=== PATIENT | male | born 1970 | race Caucasian/White ===

== ENCOUNTER → 2018-01-07 07:59 | Outpatient (CLI) | payer BC, SELFPAY ==
[2018-01-07 08:24] LABS: Basophils % 0.3 % (0.1-2.0); Eosinophils # 0.1 K/mm3 (0.0-0.4); Eosinophils % 1.2 % (0.1-12.0); Hemoglobin 14.7 g/dL (14.1-18.0); Lymphocytes # 1.6 K/mm3 (0.7-4.5); Mean Corpuscular HGB Conc 33.5 g/dL (31.8-35.4); Mean Corpuscular Hemoglobin 30.3 pg (27.0-31.2); Mean Corpuscular Volume 90.6 fl (80-94); Mean Platelet Volume 7.7 fl (7.4-10.4); Monocytes # 0.4 K/mm3 (0.1-1.0); Monocytes % 7.5 % (1.7-9.3); Neutrophils # 3.5 K/mm3 (1.8-7.8); Platelet Count 256 K/mm3 (142-424); Red Blood Count 4.85 M/mm3 (4.60-6.20); Red Cell Distribution Width 13.3 % (11.5-17.5); White Blood Count 5.6 K/mm3 (4.8-10.8)
[2018-01-07 09:10] LABS: Anion Gap 11.2 mEq/L (5-15); Blood Urea Nitrogen 14 mg/dL (7-18); Carbon Dioxide 30 mmol/L (21.0-32.0); Chloride 105 mmol/L (98-107); Creatinine,Serum 1.09 mg/dL (0.70-1.30); Estimated Glomerular Filt Rate 73 ml/min (>60); GFR (African American) 88 ML/MIN (>60); Glucose 106 mg/dL (74-106); Potassium 4.2 mmoL/L (3.5-5.1); Sodium 142 mmol/L (136-145)
== END ==
PROVIDERS: Family Provider Emergency Medicine; PCP Nurse Practitioner Family; Visit Provider Surgery
DX: K40.90 Unilateral inguinal hernia, without obstruction or gangrene, not specified as recurrent (principal)
CPT/HCPCS: 36415; 80048; 85025; 93005

== ENCOUNTER 2018-01-10 05:57 | Day surgery (SDC) | payer BC, SELFPAY ==
[2018-01-08 11:44] VITALS: BMI 24.3
[2018-01-10] VITALS (10 sets, daily range): BP systolic 119–146; BP diastolic 53–87; PULSE 67–79; RESP 16; TEMP 36.3–43; O2SAT 96–99
--- NOTE | 2018-01-10 08:22 | P.OP_ITS ---
Date of procedure: 01/10/18 Pre-op Diagnosis:: Left inguinal hernia Post-op Diagnosis:: Same Procedure performed:: Open repair left inguinal hernia Surgeon:: Micheal Guzman MD [employer](s):: Charlie Salomon PRINCIPAL TECHNICAL WRITER:: Juventino Nicole Anesthesia: GETA Estimated blood loss (mL): 15 Operative findings:: Indirect defect with thin hernia sac Weakened floor, but no definitive direct defect Operative note:: After informed consent was obtained, the patient was taken to the operating room and placed in the supine position. General anesthesia was induced and his abdomen and groin/scrotum were prepped and draped in a sterile fashion. After infiltration with local anesthetic an oblique incision was made in the left groin. A combination of sharp dissection with scalpel and electrocautery was utilized to transect through Ike's fascia to the level of the external aponeurosis. The external aponeurosis was sharply opened with Metzenbaum scissors to the level of the external ring. The contents of the canal were carefully elevated. A weakened floor was noted. No definitive direct defect was seen. A fairly complex chronic indirect defect with a very thin hernia sac was noted in the hernia sac was carefully dissected from surrounding tissue. A cord lipoma was excised and passed off for pathologic evaluation. A Prolene plug was placed in position and secured with Ethibond suture. The overlying Prolene patch was then secured to the shelving edge inferiorly and fascial margin superiorly with interrupted Ethibond. The external aponeurosis was reapproximated with running Vicryl suture. Ike's fascia was reapproximated in the same manner. Skin was closed with 4-0 Monocryl in a running subcuticular fashion. Steri-Strips were applied. Patient's anesthetic agents were reversed and he was extubated prior to transfer to recovery. Condition: stable Disposition: PACU Specimens:: Cord lipoma Complications:: No immediate
--- NOTE | 2018-01-10 08:29 | HMH.ANESCL ---
[facility] Anesthesia Checklist - Patient Identification Patient Identification: Arm Band - Structural Data Admitted From: Home Planned Operative Procedure/s: left open inguinal hernia repair Consent for Planned Operative Procedure(s) Verified: Yes Verified Documents: Surgical Consent, History and Physical - NPO Status Verified Time NPO: 00:00 - Additional verifications Anesthesia Reactions: No - Airway Assessment C-Spine Mobility Assessed: Yes (mp2) TMJ Mobility Assessed: Yes Dentition: Good Dentition - Neurological Assessment Level of Consciousness: Awake, Alert - Anesthesia Plan Anesthesia Risk discussed: Yes Anesthesia Plan: Verified ASA Class: II Anesthesia Type: General [facility] Anesthesia HX I have reviewed the patient's past medical history: Yes Medical History: Reports:: Kidney Stones Denies:: Cancer, Diabetes Mellitus Type 1, Diabetes Mellitus Type 2, MRSA, Seizures Other Medical History: Reports: Sinus Problems. Denies: Blood Transfusion Reaction Laterality Cases: Bilateral: Arthroscopy Shoulder, Other Other Surgeries: Yes: Other Amputation: No Fractures: No *Family Hx:: Hypertension, Cancer
--- NOTE | 2018-01-10 08:30 | HMH.ANESI ---
[facility] Anesthesia Record Part I Intake, IV Amount: 1,200 Estimated blood loss (mL): 10 Urine output (mL): 0 Blood Pressure: 146/86 SaO2: 98 Pulse Rate: 76 Respiratory Rate: 16 Temperature: 97.4 F Patient is:: Drowsy, Stable Stable to PACU at:: 08:25
--- NOTE | 2018-01-10 08:31 | P.PN_ITS ---
[facility] Anesthesia Record Part II Discharge Time: 08:55 Destination: [facility] PACU nurse assessment reviewed?: Yes Patient Condition:: Good Anesthesia Complications:: None
--- NOTE | 2018-01-10 08:31 | HMH.ANESII ---
[facility] Anesthesia Record Part II Discharge Time: 08:55 Destination: [facility] PACU nurse assessment reviewed?: Yes Patient Condition:: Good Anesthesia Complications:: None
== END 2018-01-10 10:28 | disposition home or self-care (01) ==
LOC: OR 05:58
PROVIDERS: Family Provider Emergency Medicine; PCP Nurse Practitioner Family; Visit Provider Surgery
PROC: (CPT 49505; principal; 2018-01-10 07:30)
DX: K40.90 Unilateral inguinal hernia, without obstruction or gangrene, not specified as recurrent (principal)
CPT/HCPCS: 49505; 96374; J0131; J2405

== ENCOUNTER → 2018-01-22 14:17 | Outpatient (REF) | payer BC, SELFPAY ==
[2018-01-22 18:33] LABS: Amphetamine/Metha Screen,Urine Negative ng/mL (<1000); Barbiturates Screen,Urine Negative ng/mL (<200); Benzodiazepines Screen,Urine Negative ng/mL (200); Methadone Screen,Urine Negative ng/mL (<300)
[2018-01-22 19:26] LABS: Cannabinoid Screen,Urine Negative ng/mL (<50); Cocaine Screen,Urine Negative ng/g (<300); Opiate Screen,Urine Negative ng/mL (<300); Phencyclidine Screen,Urine Negative ng/mL (<25)
== END ==
LOC: LAB 14:17
PROVIDERS: Visit Provider Nurse Practitioner Family
DX: Z79.899 Other long term (current) drug therapy (principal)
CPT/HCPCS: 80305

== ENCOUNTER 2018-01-28 09:41 | Emergency (ER) | payer BC, SELFPAY ==
[2018-01-28 09:54] VITALS: BP 134/84; PULSE 69; RESP 20; TEMP 36.6; O2SAT 97; BMI 25.0
--- NOTE | 2018-01-28 10:08 | HMH.EDUTC ---
[facility] Clinical Impression: Right otitis media Qualifiers: Otitis media type: suppurative Chronicity: acute Recurrence: not specified as recurrent Spontaneous tympanic membrane rupture: without spontaneous rupture Qualified Code(s): H66.001 - Acute suppurative otitis media without spontaneous rupture of ear drum, right ear Disposition: Home, Self-Care Condition on Discharge: Good Instructions: DI for Otitis Media (Middle Ear Infection)-Child Additional Instructions: * Your discharge instructions say child but disregard. No instructions for adult. Still applies. * Start antibiotic PERICO and be sure to take as ordered for the FULL length of time although you should start to feel better in 24-48 hours. * Monitor Temp. Follow up if fever develops * Encourage fluids, water, Gatorade, PowerAde, pedialyte if /toddler/child * warm compress often helps when placed over ear * sleep elevated Prescriptions: Amoxicillin [Amoxicillin 875MG Tab] 875 mg PO Q12H #20 tab Referrals: Edwin Sanchez MD [Staff Physician] - (Immediately for new or worsening symptoms, no noticeable improvement in 48-72 hours AND keep upcoming appointment to ensure ears are back to baseline. If you can't get in with Dr. Sanchez, try [facility] but if unable to see her, return to [facility]. ) Time of Disposition: 10:23 Medical Decision Making - Rd Inquiry Pt receiving controlled substance: No Vital Signs: 01/28/18 09:54 Temperature 97.9 F Temperature Source Oral Pulse Rate [Right Radial] 69 Respiratory Rate 20 Blood Pressure [Right Arm] 134/84 Blood Pressure Mean [Right Arm] 100 Blood Pressure Source [Right Arm] Automatic Cuff Blood Pressure Position [Right Arm] Sitting 02 Sat by Pulse Oximetry 97 Oxygen Delivery Method Room Air [facility] [place] HPI - General Stated complaint: congestion right ear pain Time Seen by Provider: 01/28/18 10:08 Mode of Arrival: Family Vehicle Source of Information: Patient Limitations: No Limitations Description of Symptoms (Recalled from Triage Doc. by RN): PT C/O SINUS PRESSURE AND PAIN FOR 4 DAYS. HEENT Symptoms (Recalled from RN notes): Yes (SINUS PRESSURE AND PAIN) Resp Symptoms (Recalled from RN notes): No Skin Symptoms (Recalled from RN notes): No MS Symptoms (Recalled from RN notes): No Functional Status (Recalled from RN notes): NA - History of Present Illness Provider Complaint: c/o right ear pain and pressure w/ decreased hearing. Started 4-5 days ago w/ nasal congestion, rhinorrhea, sius pressure. On flonase and singulair for allergies and right eustachian tube dysfunction per Dr. Sanchez, ENT. Has appt w/ him within the next several weeks . No fevers. Sinus pressure improved today but wokeup with right ear pain. - Related Data Home Medications Medication Instructions Recorded Confirmed sertraline 100 mg tablet 100 mg PO QDAY 11/13/17 01/28/18 trazodone 50 mg tablet 50 mg PO QHS PRN 11/13/17 01/28/18 Previous Rx's Medication Instructions Recorded gabapentin 600 mg tablet 600 mg PO BID #60 tab 01/22/18 Amoxicillin [Amoxicillin 875MG Tab] 875 mg PO Q12H #20 tab 01/28/18 Allergies Allergy/AdvReac Type Severity Reaction Status Date / Time oxycodone [From PERCOCET] Allergy Intermediate FEELS SICK Verified 01/28/18 09:59 aspirin AdvReac Unknown UPSET Verified 01/28/18 09:59 STOMACH - Worker's Comp Is this a Worker's Comp case?: No [facility] History I have reviewed the patient's past medical history: Yes Medical History: Reports:: Depression, Kidney Stones Denies:: Cancer, Diabetes Mellitus Type 1, Diabetes Mellitus Type 2, MRSA, Seizures Other Medical History: Reports: Sinus Problems, Other (IBS, insomnia, eustachina tube dysfunction). Denies: Blood Transfusion Reaction Laterality Cases: Bilateral: Arthroscopy Shoulder Other Surgeries: Yes: Other Amputation: No Fractures: No Comment: Septoplasty - Social History Smoking Status: Current some day smoker Tobacco Type: cigarettes
[2018-01-28 10:24] VITALS: BP 129/76; PULSE 72; RESP 18; TEMP 36.8; O2SAT 98
== END 2018-01-28 10:26 | disposition home or self-care (01) ==
PROVIDERS: Emergency Provider Nurse Practitioner Family; Family Provider Emergency Medicine; PCP Nurse Practitioner Family
DX: H66.001 Acute suppurative otitis media without spontaneous rupture of ear drum, right ear (principal)
CPT/HCPCS: 99201

== ENCOUNTER 2018-01-31 11:23 | Emergency (ER) | payer BC, SELFPAY ==
[2018-01-31 11:35] VITALS: BP 169/102; PULSE 72; RESP 20; TEMP 36.8; O2SAT 98; BMI 25.0
--- NOTE | 2018-01-31 11:45 | HMH.EDUTC ---
[facility] Disposition Clinical Impression: Otitis media Qualifiers: Otitis media type: unspecified Laterality: right Qualified Code(s): H66.91 - Otitis media, unspecified, right ear Disposition: Home, Self-Care Condition on Discharge: Good Instructions: Middle Ear Infection Additional Instructions: Continued to take Amoxicillin as previously prescribed Over the counter Motrin or Tylenol as needed for pain or fever Return if needed Warm compresses on ear may help with pain Keep appointment on Saturday with Dr Sanchez Follow up with family doctor in 12-48 hours or sooner if any worsening of symptoms and straight to ER if any life threatening issues Prescriptions: Ofloxacin [Floxin 0.3% OTIC Solution 5mL] 10 drops OT BID #1 bottle Referrals: Jocelyn Nuñez APRN [Primary Care Provider] - Time of Disposition: 11:54 Medical Decision Making - Medical Records Medical records reviewed: Yes: I reviewed the patient's medical records. - Rd Inquiry Pt receiving controlled substance: No Rd was queried for this patient: No Vital Signs: 01/31/18 11:35 Temperature 98.2 F Temperature Source Temporal Artery Scan Pulse Rate [Right] 72 Respiratory Rate 20 Blood Pressure [Right Arm] 169/102 Blood Pressure Mean [Right Arm] 124 Blood Pressure Source [Right Arm] Automatic Cuff Blood Pressure Position [Right Arm] Sitting 02 Sat by Pulse Oximetry 98 Oxygen Delivery Method Room Air [facility] HPI - General Stated complaint: right ear pain Time Seen by Provider: 01/31/18 11:35 Mode of Arrival: Ambulatory Source of Information: Patient Limitations: No Limitations Description of Symptoms (Recalled from Triage Doc. by RN): HAERING PROBLEMS RIGHT EAR, HERE FEW DAYS AGO FOR SAME HEENT Symptoms (Recalled from RN notes): Yes Resp Symptoms (Recalled from RN notes): No Skin Symptoms (Recalled from RN notes): No MS Symptoms (Recalled from RN notes): No Functional Status (Recalled from RN notes): N - History of Present Illness Provider Complaint: Patient state that he was here a couple days ago for right ear pain State that he was diagnosed with ear infection and given oral antibiotics State that his sinuses was doing better but still having pain in his right ear. State that he has had problems with this ear before and has an appointment on Saturday with Dr Sanchez - Related Data Home Medications Medication Instructions Recorded Confirmed sertraline 100 mg tablet 100 mg PO QDAY 11/13/17 01/28/18 trazodone 50 mg tablet 50 mg PO QHS PRN 11/13/17 01/28/18 Previous Rx's Medication Instructions Recorded gabapentin 600 mg tablet 600 mg PO BID #60 tab 01/22/18 Amoxicillin [Amoxicillin 875MG Tab] 875 mg PO Q12H #20 tab 01/28/18 Ofloxacin [Floxin 0.3% OTIC 10 drops OT BID #1 bottle 01/31/18 Solution 5mL] Allergies Allergy/AdvReac Type Severity Reaction Status Date / Time oxycodone [From PERCOCET] Allergy Intermediate FEELS SICK Verified 01/28/18 14:20 aspirin AdvReac Unknown UPSET Verified 01/28/18 14:20 STOMACH - Worker's Comp Is this a Worker's Comp case?: No [facility] History I have reviewed the patient's past medical history: Yes Medical History: Reports:: Depression, Kidney Stones Denies:: Cancer, Diabetes Mellitus Type 1, Diabetes Mellitus Type 2, MRSA, Seizures Other Medical History: Reports: Sinus Problems, Other. Denies: Blood Transfusion Reaction Laterality Cases: Bilateral: Arthroscopy Shoulder Other Surgeries: Yes: Hernia Repair, Other Amputation: No Fractures: No Comment: Septoplasty - Social History Smoking Status: Current every day smoker Tobacco Type: cigarettes Alcohol Intake: never Alcohol Intake Frequency:: holidays/special occasions only Substance Use Type: denies use - Psychiatric History Expresses thoughts of harming self/others: None Suicide Plan Description: No Plan Pschychiatric History:: Reports:: Depression Family Hx:: Hypertension, Cancer ROS Obtained: Yes All systems reviewed &
--- NOTE | 2018-01-31 11:48 | ED_ITS ---
[facility] [place] Disposition Clinical Impression: Otitis media Qualifiers: Otitis media type: unspecified Laterality: right Qualified Code(s): H66.91 - Otitis media, unspecified, right ear Disposition: Home, Self-Care Condition on Discharge: Good Instructions: Middle Ear Infection Additional Instructions: Continued to take Amoxicillin as previously prescribed Over the counter Motrin or Tylenol as needed for pain or fever Return if needed Warm compresses on ear may help with pain Keep appointment on Saturday with Dr Sanchez Follow up with family doctor in 12-48 hours or sooner if any worsening of symptoms and straight to ER if any life threatening issues Prescriptions: Ofloxacin [Floxin 0.3% OTIC Solution 5mL] 10 drops OT BID #1 bottle Referrals: Jocelyn Nuñez APRN [Primary Care Provider] - Time of Disposition: 11:54 Medical Decision Making - Medical Records Medical records reviewed: Yes: I reviewed the patient's medical records. - Rd Inquiry Pt receiving controlled substance: No Rd was queried for this patient: No Vital Signs: 01/31/18 11:35 Temperature 98.2 F Temperature Source Temporal Artery Scan Pulse Rate [Right] 72 Respiratory Rate 20 Blood Pressure [Right Arm] 169/102 Blood Pressure Mean [Right Arm] 124 Blood Pressure Source [Right Arm] Automatic Cuff Blood Pressure Position [Right Arm] Sitting 02 Sat by Pulse Oximetry 98 Oxygen Delivery Method Room Air [facility] [place] HPI - General Stated complaint: right ear pain Time Seen by Provider: 01/31/18 11:35 Mode of Arrival: Ambulatory Source of Information: Patient Limitations: No Limitations Description of Symptoms (Recalled from Triage Doc. by RN): HAERING PROBLEMS RIGHT EAR, HERE FEW DAYS AGO FOR SAME HEENT Symptoms (Recalled from RN notes): Yes Resp Symptoms (Recalled from RN notes): No Skin Symptoms (Recalled from RN notes): No MS Symptoms (Recalled from RN notes): No Functional Status (Recalled from RN notes): N - History of Present Illness Provider Complaint: Patient state that he was here a couple days ago for right ear pain State that he was diagnosed with ear infection and given oral antibiotics State that his sinuses was doing better but still having pain in his right ear. State that he has had problems with this ear before and has an appointment on Saturday with Dr Sanchez - Related Data Home Medications Medication Instructions Recorded Confirmed sertraline 100 mg tablet 100 mg PO QDAY 11/13/17 01/28/18 trazodone 50 mg tablet 50 mg PO QHS PRN 11/13/17 01/28/18 Previous Rx's Medication Instructions Recorded gabapentin 600 mg tablet 600 mg PO BID #60 tab 01/22/18 Amoxicillin [Amoxicillin 875MG Tab] 875 mg PO Q12H #20 tab 01/28/18 Ofloxacin [Floxin 0.3% OTIC 10 drops OT BID #1 bottle 01/31/18 Solution 5mL] Allergies Allergy/AdvReac Type Severity Reaction Status Date / Time oxycodone [From PERCOCET] Allergy Intermediate FEELS SICK Verified 01/28/18 14: 20 aspirin AdvReac Unknown UPSET Verified 01/28/18 14:20 STOMACH - Worker's Comp Is this a Worker's Comp case?: No [facility] History I have reviewed the patient's past medical history: Yes Medical History: Reports:: Depression, Kidney Stones Denies:: Cancer, Diabetes Mellitus Type 1, Diabetes Mellitus Type 2, MRSA, Seizures Other Medical History: Re
[2018-01-31 11:59] VITALS: BP 169/90; PULSE 72; RESP 20; TEMP 36.8
== END 2018-01-31 12:03 | disposition home or self-care (01) ==
PROVIDERS: Emergency Provider Nurse Practitioner; Family Provider Emergency Medicine; PCP Nurse Practitioner Family
DX: H66.91 Otitis media, unspecified, right ear (principal); F32.9 Major depressive disorder, single episode, unspecified; F17.210 Nicotine dependence, cigarettes, uncomplicated; Z79.82 Long term (current) use of aspirin; Z88.6 Allergy status to analgesic agent
CPT/HCPCS: 99201

== ENCOUNTER → 2018-04-15 13:54 | Outpatient (CLI) | payer BC, SELFPAY ==
--- NOTE | 2018-04-15 13:56 | XR_ITS ---
XR shoulder RT min 2V HISTORY: ITS.REASON: RIGHT shoulder pain ORDERING PHYSICIAN: Jason Bell MD PATIENT AGE: 47 years Comparison: None FINDINGS: No fracture or dislocation. No lytic or blastic change. There is normal mineralization. The joint spaces are well-preserved. No significant degenerative/arthritic changes. No erosive changes evident. No subacromial stenosis IMPRESSION: Negative right shoulder
== END ==
PROVIDERS: PCP Emergency Medicine; Visit Provider Orthopaedic Surgery
DX: M25.511 Pain in right shoulder (principal)
CPT/HCPCS: 73030

== ENCOUNTER → 2018-04-21 09:19 | Outpatient (POV) | payer BC, SELFPAY ==
[2018-04-21 09:58] VITALS: BP 129/77; PULSE 76; RESP 18; O2SAT 99; BMI 25.0
--- NOTE | 2018-04-21 11:21 | HMH.PAINSOAP ---
[facility] Pain Management SOAP Note Subjective:: Patient is a pleasant 47-year-old white male who presents today for follow-up after RFA of the L3-L4 L4-L5 L5-S1 levels bilaterally. Patient had this back in October and has had 80-90% relief until recently. Patient is having a new pain which is lower in nature. Patient is extremely tender over bilateral SI joints. Patient states that he is having some radiation of pain into his legs and hips. Both sides affect him. Patient rates his pain a 6 out of 10 today. Patient's tried and failed anti-inflammatories, respiratory care practitioner, medications, stretching therapies. Patient is interested in pursuing injective therapies due to the relief he has had in the past. ROS General: no recent weight change, no fever, no sleep disturbances Respiratory: no cough, no shortness of air, no recurring pulmonary infections Cardiovascular/Peripheral Vascular: No chest pain, No palpitations, no edema, no shortness of breath. Gastrointestinal: no incontinence, normal bowel movements reported Genitourinary: no incontinence Musculoskeletal: Bilateral SI joint pain, low back pain Psychiatric: normal mood/ affect Neurological: [denies weakness in extremities], [denies balance issues] Objective:: Physical Exam General: Alert and oriented x3, no acute distress, pleasant and cooperative, [on room air] Lungs: Resps E/U, Symmetrical chest expansion, Eyes: PERRL Musculoskeletal: Flexion and extension of lumbar spine somewhat guarded secondary to pain, deep tendon reflexes normal, strength in upper and lower extremities [5/5] slightly antalgic gait noted, positive Trena's test bilaterally, extreme point tenderness over bilateral SI joint Neurological: speech clear, clinical research coordinator equal, no gross sensory deficits Assessment:: Bilateral sacroiliitis, spondylosis of the lumbar spine Plan:: We will schedule bilateral SI joint injections for this patient. Patient has done well with injective therapy in the past. Patient has failed other conservative measures. I will follow-up with him after his injections. This note was dictated using voice recognition software and may contain errors or omissions
--- NOTE | 2018-04-21 11:24 | P.CONS_ITS ---
[facility] Pain Management SOAP Note Subjective:: Patient is a pleasant 47-year-old white male who presents today for follow-up after RFA of the L3-L4 L4-L5 L5-S1 levels bilaterally. Patient had this back in October and has had 80-90% relief until recently. Patient is having a new pain which is lower in nature. Patient is extremely tender over bilateral SI joints. Patient states that he is having some radiation of pain into his legs and hips. Both sides affect him. Patient rates his pain a 6 out of 10 today. Patient's tried and failed anti-inflammatories, healthcare consulting manager, medications, stretching therapies. Patient is interested in pursuing injective therapies due to the relief he has had in the past. ROS General: no recent weight change, no fever, no sleep disturbances Respiratory: no cough, no shortness of air, no recurring pulmonary infections Cardiovascular/Peripheral Vascular: No chest pain, No palpitations, no edema, no shortness of breath. Gastrointestinal: no incontinence, normal bowel movements reported Genitourinary: no incontinence Musculoskeletal: Bilateral SI joint pain, low back pain Psychiatric: normal mood/ affect Neurological: [denies weakness in extremities], [denies balance issues] Objective:: Physical Exam General: Alert and oriented x3, no acute distress, pleasant and cooperative, [ on room air] Lungs: Resps E/U, Symmetrical chest expansion, Eyes: PERRL Musculoskeletal: Flexion and extension of lumbar spine somewhat guarded secondary to pain, deep tendon reflexes normal, strength in upper and lower extremities [5/5] slightly antalgic gait noted, positive Trena's test bilaterally, extreme point tenderness over bilateral SI joint Neurological: speech clear, crack off person equal, no gross sensory deficits Assessment:: Bilateral sacroiliitis, spondylosis of the lumbar spine Plan:: We will schedule bilateral SI joint injections for this patient. Patient has done well with injective therapy in the past. Patient has failed other conservative measures. I will follow-up with him after his injections. This note was dictated using voice recognition software and may contain errors or omissions
== END ==
PROVIDERS: Family Provider Emergency Medicine; PCP Emergency Medicine; Visit Provider Clinical Nurse Specialist Family Health
DX: M46.1 Sacroiliitis, not elsewhere classified (principal)
CPT/HCPCS: 99212

== ENCOUNTER → 2018-05-16 09:18 | Outpatient (CLI) | payer BC, SELFPAY ==
[2018-05-16 17:20] LABS: Amphetamine/Metha Screen,Urine Negative ng/mL (<1000); Barbiturates Screen,Urine Negative ng/mL (<200); Benzodiazepines Screen,Urine Negative ng/mL (<200); Cannabinoid Screen,Urine Negative ng/mL (<50); Cocaine Screen,Urine Negative ng/mL (<300); Methadone Screen,Urine Negative ng/mL (<300); Opiate Screen,Urine Negative ng/mL (<300); Phencyclidine Screen,Urine Negative ng/mL (<25)
== END ==
PROVIDERS: Visit Provider Nurse Practitioner Family
DX: Z79.899 Other long term (current) drug therapy (principal)
CPT/HCPCS: 80305

== ENCOUNTER 2018-06-18 10:39 | Outpatient (CLI) | payer BC, SELFPAY ==
[2018-06-18 11:00] VITALS: BP 126/76; PULSE 63; RESP 16; TEMP 36.6; O2SAT 97
== END 2018-06-18 11:05 | disposition home or self-care (01) ==
LOC: INF 10:40
PROVIDERS: Family Provider Emergency Medicine; PCP Emergency Medicine; Visit Provider Surgery
DX: R10.32 Left lower quadrant pain (principal); Z98.890 Other specified postprocedural states
CPT/HCPCS: 96372

== ENCOUNTER → 2018-06-23 09:59 | Outpatient (POV) | payer BC, SELFPAY ==
[2018-06-23 10:59] VITALS: BP 144/95; PULSE 57; RESP 18; O2SAT 98; BMI 25.0
--- NOTE | 2018-06-23 11:05 | XR_ITS ---
XR sacroiliac joint BI min 3V CLINICAL INDICATION: ITS.REASON: SI PAIN ORDERING PHYSICIAN: Cecilia Sanders PATIENT AGE: 47 years Comparison: None FINDINGS: The SI joints have an unremarkable appearance. No evidence of effusion, sclerosis, or lytic change. IMPRESSION: Negative SI joints
--- NOTE | 2018-06-23 13:59 | HMH.PAINSOAP ---
[facility] Pain Management SOAP Note Subjective:: Patient is a pleasant 47-year-old white male who presents today for follow-up. Patient and I have been trying to get approved bilateral SI joint injections. Patient has extreme point tenderness over the his bilateral SI joints. Patient does now have an x-ray of his bilateral SI joints. Patient has had an RFA and is doing well at this time with his back pain. Patient states that when he walks for long periods of time that when his SI joint pain begins. Patient is taken anti-inflammatories with little to no success. He rates his pain a 5 out of 10 today. He has tried and failed hearing care practitioner, medications, stretching therapies. ROS General: no recent weight change, no fever, no sleep disturbances Respiratory: no cough, no shortness of air, no recurring pulmonary infections Cardiovascular/Peripheral Vascular: No chest pain, No palpitations, no edema, no shortness of breath. Gastrointestinal: no incontinence, normal bowel movements reported Genitourinary: no incontinence Musculoskeletal: SI joint pain Psychiatric: normal mood/ affect Neurological: [denies weakness in extremities], [denies balance issues] Objective:: Physical Exam General: Alert and oriented x3, no acute distress, pleasant and cooperative, [on room air] Lungs: Resps E/U, Symmetrical chest expansion, Eyes: PERRL Musculoskeletal: Flexion and extension of lumbar spine somewhat guarded secondary to pain, deep tendon reflexes normal, strength in upper and lower extremities [5/5], lightly antalgic gait noted, positive Trena's test bilaterally, extreme point tenderness over the bilateral SI joint Neurological: speech clear, polysomnographic technician equal, no gross sensory deficits Assessment:: Sacroiliitis Plan:: We will plan bilateral SI joint injections for the patient given his symptomology and physical assessment. I will follow-up with the patient after his injection. Patient is not on any anticoagulation therapy. This note was dictated using voice recognition software and may contain errors or omissions
--- NOTE | 2018-06-23 14:02 | P.CONS_ITS ---
[facility] Pain Management SOAP Note Subjective:: Patient is a pleasant 47-year-old white male who presents today for follow-up. Patient and I have been trying to get approved bilateral SI joint injections. Patient has extreme point tenderness over the his bilateral SI joints. Patient does now have an x-ray of his bilateral SI joints. Patient has had an RFA and is doing well at this time with his back pain. Patient states that when he walks for long periods of time that when his SI joint pain begins. Patient is taken anti-inflammatories with little to no success. He rates his pain a 5 out of 10 today. He has tried and failed resident care coordinator, medications, stretching therapies. ROS General: no recent weight change, no fever, no sleep disturbances Respiratory: no cough, no shortness of air, no recurring pulmonary infections Cardiovascular/Peripheral Vascular: No chest pain, No palpitations, no edema, no shortness of breath. Gastrointestinal: no incontinence, normal bowel movements reported Genitourinary: no incontinence Musculoskeletal: SI joint pain Psychiatric: normal mood/ affect Neurological: [denies weakness in extremities], [denies balance issues] Objective:: Physical Exam General: Alert and oriented x3, no acute distress, pleasant and cooperative, [ on room air] Lungs: Resps E/U, Symmetrical chest expansion, Eyes: PERRL Musculoskeletal: Flexion and extension of lumbar spine somewhat guarded secondary to pain, deep tendon reflexes normal, strength in upper and lower extremities [5/5], lightly antalgic gait noted, positive Trena's test bilaterally, extreme point tenderness over the bilateral SI joint Neurological: speech clear, airline mechanic equal, no gross sensory deficits Assessment:: Sacroiliitis Plan:: We will plan bilateral SI joint injections for the patient given his symptomology and physical assessment. I will follow-up with the patient after his injection. Patient is not on any anticoagulation therapy. This note was dictated using voice recognition software and may contain errors or omissions
== END ==
PROVIDERS: Family Provider Emergency Medicine; PCP Emergency Medicine; Visit Provider Clinical Nurse Specialist Family Health
DX: M46.1 Sacroiliitis, not elsewhere classified (principal); Z79.1 Long term (current) use of non-steroidal anti-inflammatories (NSAID)
CPT/HCPCS: 72202; 99213

== ENCOUNTER 2018-06-30 10:00 | Outpatient (RCR) | payer BC, SELFPAY ==
--- NOTE | 2018-04-23 13:44 | HMH.OTOPEV ---
OT Inpatient Evaluation Rehab OT Outpatient Eval Start: 04/23/18 13:31 Freq: Status: Active Protocol: Document 04/23/18 13:31 RMARSHALLavinia (Rec: 04/23/18 13:43 [facility] [id number]) Electronically Signed By Liv Dean OT 04/23/18 13:31 Outpatient Therapy Subjective History Subjective History Pt is a 47 year old male who reports to therapy for initial evaluation to right shoulder. Pt has had 2 surgeries on the right shoulder in the past (labrum and bursitis). Pt has also had a fusion of the left shoulder (arthrodesis) a few years ago. From over use and compensation with the right shoulder pt has developed symptoms consistent with shoulder impingement. Pt does demonstrate with slight decreased AROM and strength. Pt will continue to be seen in order to address these deficits and improve functional use of right shoulder. Chief Complaint Pain Symptom Type Ache Throb Sharp Dull Stabbing Burning Symptoms Relieved By Nothing Symptoms Aggravated By Physical Activity Lifting Prior Functional Limitations None Current Functional Limitations Reaching Lifting Housework Recreation Activity Symptom Description Intermittent Activity Dependent Level of pain today (0-10) 1 Pain scale - at its best (0-10) 1 Pain scale - at its worst (0-10) 8 Shoulder/Elbow Eval Shoulder Objective Measurements Palpation Tenderness tenderness shoulder exam standard right tenderness over the bicipital tendon right shoulder exam standard Shoulder Palpation Findings Tenderness Shoulder ROM Right Shoulder ROM Limitations Muscle Weakness Pain Shoulder Abduction Active Range of 130 degrees Motion (degrees) Shoulder Flexion Active Range of Motion 140 degrees (degrees) Query Text: Shoulder External Rotation Active Range 60 degrees
== END 2018-06-30 10:01 | disposition home or self-care (01) ==
LOC: OT 10:00
PROVIDERS: Family Provider Emergency Medicine; PCP Emergency Medicine; Visit Provider Orthopaedic Surgery
DX: M75.41 Impingement syndrome of right shoulder (principal)
CPT/HCPCS: 97014; 97033; 97110; 97166; G0283

== ENCOUNTER → 2018-06-30 15:01 | Outpatient (POV) | payer BC, SELFPAY ==
[2018-06-30 15:23] VITALS: BP 141/85; PULSE 59; RESP 18; O2SAT 98; BMI 25.0
--- NOTE | 2018-06-30 15:48 | HMH.PAINSOAP ---
[facility] Pain Management SOAP Note Subjective:: Patient is a pleasant 47-year-old white male who presents today for follow-up. Patient had an x-ray of his bilateral SI joints which is fairly benign. Patient still having a lot of low back and SI joint pain. Patient remained 5 out of 10 today. He tried and failed anti-inflammatories, primary care coordinator, medications, stretching therapies. He and I discussed the utilization of an SI joint belt along with a short round of steroids to see if this is beneficial for his pain management. Patient continues to stay busy and is still working. ROS General: no recent weight change, no fever, no sleep disturbances Respiratory: no cough, no shortness of air, no recurring pulmonary infections Cardiovascular/Peripheral Vascular: No chest pain, No palpitations, no edema, no shortness of breath. Gastrointestinal: no incontinence, normal bowel movements reported Genitourinary: no incontinence Musculoskeletal: Bilateral SI joint pain. Psychiatric: normal mood/ affect Neurological: [denies weakness in extremities], [denies balance issues] Objective:: Physical Exam General: Alert and oriented x3, no acute distress, pleasant and cooperative, [on room air] Lungs: Resps E/U, Symmetrical chest expansion, Eyes: PERRL Musculoskeletal: Flexion and extension of lumbar spine somewhat guarded secondary to pain, deep tendon reflexes normal, strength in upper and lower extremities [5/5], positive Trena's test bilaterally. slightly antalgic gait noted, Neurological: speech clear, wearing apparel shaker equal, no gross sensory deficits Assessment:: Sacroiliitis, degenerative disc disease of the lumbar spine Plan:: We will give the patient prednisone 20 mg 1 p.o. twice daily for 5 days. I also encouraged him to purchase an SI joint belt for added stability. I will follow-up with the patient in 1 month. Patient's been instructed to call the office if he has any issues prior to his next appointment. This note was dictated using voice recognition software and may contain errors or omissions
--- NOTE | 2018-06-30 15:51 | P.CONS_ITS ---
[facility] Pain Management SOAP Note Subjective:: Patient is a pleasant 47-year-old white male who presents today for follow-up. Patient had an x-ray of his bilateral SI joints which is fairly benign. Patient still having a lot of low back and SI joint pain. Patient remained 5 out of 10 today. He tried and failed anti-inflammatories, care administrative tech, medications, stretching therapies. He and I discussed the utilization of an SI joint belt along with a short round of steroids to see if this is beneficial for his pain management. Patient continues to stay busy and is still working. ROS General: no recent weight change, no fever, no sleep disturbances Respiratory: no cough, no shortness of air, no recurring pulmonary infections Cardiovascular/Peripheral Vascular: No chest pain, No palpitations, no edema, no shortness of breath. Gastrointestinal: no incontinence, normal bowel movements reported Genitourinary: no incontinence Musculoskeletal: Bilateral SI joint pain. Psychiatric: normal mood/ affect Neurological: [denies weakness in extremities], [denies balance issues] Objective:: Physical Exam General: Alert and oriented x3, no acute distress, pleasant and cooperative, [ on room air] Lungs: Resps E/U, Symmetrical chest expansion, Eyes: PERRL Musculoskeletal: Flexion and extension of lumbar spine somewhat guarded secondary to pain, deep tendon reflexes normal, strength in upper and lower extremities [5/5], positive Trena's test bilaterally. slightly antalgic gait noted, Neurological: speech clear, associate programmer analyst equal, no gross sensory deficits Assessment:: Sacroiliitis, degenerative disc disease of the lumbar spine Plan:: We will give the patient prednisone 20 mg 1 p.o. twice daily for 5 days. I also encouraged him to purchase an SI joint belt for added stability. I will follow-up with the patient in 1 month. Patient's been instructed to call the office if he has any issues prior to his next appointment. This note was dictated using voice recognition software and may contain errors or omissions
== END ==
PROVIDERS: Family Provider Emergency Medicine; PCP Emergency Medicine; Visit Provider Clinical Nurse Specialist Family Health
DX: M46.1 Sacroiliitis, not elsewhere classified (principal); M51.36 Other intervertebral disc degeneration, lumbar region
CPT/HCPCS: 99213

== ENCOUNTER → 2018-07-29 12:39 | Outpatient (CLI) | payer BC, SELFPAY ==
--- NOTE | 2018-07-29 12:41 | MR_ITS ---
MR shoulder RT wo con COMPARISON: 04/25/2018 HISTORY: Right shoulder pain, limited range of motion ORDERING PHYSICIAN: Jason Bell MD PATIENT AGE: 47 years TECHNIQUE: Routine multiplanar multiecho sequences performed without contrast. FINDINGS: There is mild spurring of the distal and inferior aspect of the acromion with downsloping acromion with subacromial stenosis of 5 mm. No significant spurring of the acromioclavicular joint. There is mild thickening of the supraspinatus tendon with slight increased T2 signal consistent with tendinopathy/tendinosis. There is also mild tendinopathy/tendinosis of the infraspinatus tendon. The subscapularis and teres minor tendons are intact. No obvious rotator cuff tear. The rachna have an unremarkable appearance. The bicipital tendon is in place. No fracture or dislocation. The humeral head has an unremarkable appearance. IMPRESSION: 1. No evidence of rotator cuff tear. 2. Low-lying acromion with subacromial stenosis which may result in impingement symptomatology with mild tendinopathy/tendinosis of the supraspinatus and infraspinatus tendons
== END ==
PROVIDERS: Family Provider Emergency Medicine; PCP Emergency Medicine; Visit Provider Orthopaedic Surgery
DX: M75.41 Impingement syndrome of right shoulder (principal)
CPT/HCPCS: 73221

== ENCOUNTER → 2018-08-04 10:53 | Outpatient (POV) | payer BC, SELFPAY ==
[2018-08-04 11:10] VITALS: BP 141/81; PULSE 62; RESP 18; O2SAT 98; BMI 25.0
--- NOTE | 2018-08-04 11:32 | P.CONS_ITS ---
[facility] Pain Management SOAP Note Subjective:: Patient is a pleasant 47-year-old white male who presents today for follow-up. Patient is having a lot of low back pain along with SI joint pain. Patient also having an extreme amount of pain over his left heart hip. Patient rates his pain a 6 out of 10 today he is also having shoulder pain and an appointment with the orthopedic surgeon tomorrow. Patient and I discussed his trial of steroid and states that they did help him however his pain is back. ROS General: no recent weight change, no fever, no sleep disturbances Respiratory: no cough, no shortness of air, no recurring pulmonary infections Cardiovascular/Peripheral Vascular: No chest pain, No palpitations, no edema, no shortness of breath. Gastrointestinal: no incontinence, normal bowel movements reported Genitourinary: no incontinence Musculoskeletal: SI joint pain, left hip pain, and right shoulder pain Psychiatric: normal mood/ affect Neurological: [denies weakness in extremities], [denies balance issues] Objective:: Physical Exam General: Alert and oriented x3, no acute distress, pleasant and cooperative, [on room air] Lungs: Resps E/U, Symmetrical chest expansion, Eyes: PERRL Musculoskeletal: Flexion and extension of lumbar spine somewhat guarded secondary to pain, deep tendon reflexes normal, strength in upper and lower extremities [5/5], slightly antalgic gait noted, extreme point tenderness over left greater trochanteric bursa Neurological: speech clear, window systems administrator equal, no gross sensory deficits Assessment:: Degenerative disc disease lumbar spine with lumbar radiculopathy, sacroiliitis, greater trochanteric bursitis Plan:: We will schedule a left greater trochanteric bursa injection for the patient. I will follow-up with the patient after this. Patient is going to see the orthopedic surgeon in regards to his shoulder pain. Patient's been instructed to call the office if he has any issues prior to his next appointment. Patient is continuing a home stretching program. This note was dictated using voice recognition software and may contain errors or omissions
== END ==
PROVIDERS: Family Provider Emergency Medicine; PCP Emergency Medicine; Visit Provider Clinical Nurse Specialist Family Health
DX: M51.16 Intervertebral disc disorders with radiculopathy, lumbar region (principal); M46.1 Sacroiliitis, not elsewhere classified; M70.62 Trochanteric bursitis, left hip
CPT/HCPCS: 99213

== ENCOUNTER 2018-09-25 08:00 | Outpatient (RCR) | payer BC, SELFPAY ==
--- NOTE | 2018-08-12 09:22 | HMH.OTOPEV ---
OT Inpatient Evaluation Rehab OT Outpatient Eval Start: 08/12/18 09:06 Freq: Status: Active Protocol: Document 08/12/18 09:07 FIORDALIZA (Rec: 08/12/18 09:22 FIORDALIZA [id number]) Electronically Signed By Liv Dean OT 08/12/18 09:07 Outpatient Therapy Subjective History Subjective History Pt is a 47 year old male who reports to therapy for evaluation to right shoulder. Pt was seen previously by OT and eventually returned to the doctor and got an MRI due to no improvement in the shoulder . MRI showed impingment of the right shoulder due to subacromial stenosis. Pt received an injection at the right shoulder ~1 week ago, but pt does not feel this helped his symptoms. Pt continues to demonstrate with decreased AROM and pain at right shoulder. Pt will continue to be seen in order to address these deficits. Chief Complaint Pain Stiff Symptom Type Ache Throb Sharp Dull Stabbing Symptoms Relieved By Nothing Symptoms Aggravated By Physical Activity Lifting Prior Functional Limitations None Current Functional Limitations Reaching Lifting Housework Recreation Activity Symptom Description Intermittent Activity Dependent Level of pain today (0-10) 3 Pain scale - at its best (0-10) 1 Pain scale - at its worst (0-10) 8 Shoulder/Elbow Eval Shoulder Objective Measurements Shoulder ROM Right Shoulder ROM Limitations Pain Shoulder Abduction Active Range of 110 degrees Motion (degrees) Shoulder Flexion Active Range of Motion 122 degrees (degrees) Query Text: Shoulder External Rotation Active Range 45 degrees of Motion (degrees) Shoulder Internal Rotation Active Range 60 degrees of Motion (degrees) pain with active ROM shoulder exam right standard pain with passive ROM shoulder exam right standard
== END 2018-09-25 08:05 | disposition home or self-care (01) ==
LOC: OT 08:00
PROVIDERS: Visit Provider Orthopaedic Surgery
DX: M75.41 Impingement syndrome of right shoulder
CPT/HCPCS: 97014; 97033; 97110; 97165; G0283

== ENCOUNTER → 2018-10-07 09:25 | Outpatient (POV) | payer SELFPAY ==
[2018-10-07 09:30] VITALS: BP 150/94; PULSE 84; RESP 18; O2SAT 98; BMI 25.0
--- NOTE | 2018-10-07 09:37 | HMH.PAINSOAP ---
[facility] Pain Management SOAP Note Subjective:: Patient is a pleasant 47-year-old white male who presents today for follow-up. Patient is having increased low back pain. Patient has had medial branch blocks and RFA's in the past with good relief. Patient has had up to 80% relief with his RFA's for 2-3 months. Patient would like to repeat this. He rates his pain a 6 out of 10 mostly in his low back. Patient is also going to go to the chiropractor to get an adjustment. Patient is on gabapentin at this time for his IBS. Patient is continuing a home stretching program. Patient's not on any anticoagulant therapy. ROS General: no recent weight change, no fever, no sleep disturbances Respiratory: no cough, no shortness of air, no recurring pulmonary infections Cardiovascular/Peripheral Vascular: No chest pain, No palpitations, no edema, no shortness of breath. Gastrointestinal: no incontinence, normal bowel movements reported Genitourinary: no incontinence Musculoskeletal: Back pain Psychiatric: normal mood/ affect Neurological: [denies weakness in extremities], [denies balance issues] Objective:: Physical Exam General: Alert and oriented x3, no acute distress, pleasant and cooperative, [on room air] Lungs: Resps E/U, Symmetrical chest expansion, Eyes: PERRL Musculoskeletal: Flexion and extension of lumbar spine somewhat guarded secondary to pain, deep tendon reflexes normal, strength in upper and lower extremities [5/5], normal gait noted, positive Kemps test bilateral lumbar spine Neurological: speech clear, director digital advertising equal, no gross sensory deficits Assessment:: Degenerative disc disease lumbar spine with lumbar spondylosis and facet arthropathy Plan:: We will schedule medial branch block at L3-L4 L4-L5 L5-S1 bilaterally. I will follow-up with patient after this. Patient is not on any anticoagulation therapy. Patient is continuing anti-inflammatories. This note was dictated using voice recognition software and may contain errors or omissions
== END ==
PROVIDERS: PCP Emergency Medicine; Visit Provider Clinical Nurse Specialist Family Health
DX: M51.36 Other intervertebral disc degeneration, lumbar region (principal); M47.896 Other spondylosis, lumbar region; M54.06 Panniculitis affecting regions of neck and back, lumbar region
CPT/HCPCS: 99213

== ENCOUNTER → 2018-11-13 10:27 | Outpatient (CLI) | payer BC, SELFPAY ==
--- NOTE | 2018-11-13 10:37 | XR_ITS ---
XR chest 2V HISTORY: Former smoker ITS.REASON: H/O TOBACCO USE ORDERING PHYSICIAN: Indio Pathak MD PATIENT AGE: 48 years COMPARISON: None FINDINGS: The cardiomediastinal silhouette and pulmonary vascularity are within normal limits. The lungs are clear without infiltrates, suspicious nodules, or pleural effusions. Minimal fibrotic change noted in the right upper lobe. Mild degenerative changes thoracic spine. Postsurgical changes left shoulder No acute bony abnormalities. IMPRESSION: No acute finding
[2018-11-13 11:05] LABS: Basophils % 0.4 % (0.1-2.0); Eosinophils # 0.1 K/mm3 (0.0-0.4); Eosinophils % 1.2 % (0.1-12.0); Hematocrit 45.4 % (42.0-52.0); Lymphocytes # 0.7 K/mm3 (0.7-4.5); Lymphocytes % 17.6 % (10-50); Mean Corpuscular Hemoglobin 31.1 pg (27.0-31.2); Mean Corpuscular Volume 94.4 fl (80-94); Mean Platelet Volume 7.3 fl (7.4-10.4); Monocytes # 0.3 K/mm3 (0.1-1.0); Monocytes % 6.2 % (1.7-9.3); Neutrophils # 3.2 K/mm3 (1.8-7.8); Neutrophils % 74.6 % (37.0-80.0); Platelet Count 158 K/mm3 (142-424); Red Blood Count 4.82 M/mm3 (4.60-6.20); Red Cell Distribution Width 13.6 % (11.5-17.5); White Blood Count 4.2 K/mm3 (4.8-10.8)
[2018-11-13 11:30] LABS: Anion Gap 12.4 mEq/L (5-15); Blood Urea Nitrogen 13 mg/dL (7-18); Calcium 8.6 mg/dL (8.5-10.1); Carbon Dioxide 29 mmol/L (21.0-32.0); Chloride 103 mmol/L (98-107); Creatinine,Serum 0.98 mg/dL (0.70-1.30); Estimated Glomerular Filt Rate 82 ml/min (>60); GFR (African American) 99 ML/MIN (>60); Glucose 97 mg/dL (74-106); Potassium 4.4 mmoL/L (3.5-5.1); Sodium 140 mmol/L (136-145)
== END ==
PROVIDERS: Visit Provider Orthopaedic Surgery
DX: Z01.818 Encounter for other preprocedural examination (principal)
CPT/HCPCS: 36415; 71046; 80048; 85025

== ENCOUNTER → 2018-11-18 09:28 | Outpatient (POV) | payer BC, SELFPAY ==
[2018-11-18 09:36] VITALS: BP 127/78; PULSE 66; RESP 18; O2SAT 98; BMI 25.0
--- NOTE | 2018-11-18 09:55 | HMH.PAINSOAP ---
[facility] Pain Management SOAP Note Subjective:: Patient is a pleasant 48-year-old who presents today for follow-up after insurance denial of RFA. Patient had an RFA in the past and had 80% relief for several months. Patient however does not have a recent MRI. Patient is awaiting right shoulder surgery. Patient rates his pain a 6 out of 10 today. ROS General: no recent weight change, no fever, no sleep disturbances Respiratory: no cough, no shortness of air, no recurring pulmonary infections Cardiovascular/Peripheral Vascular: No chest pain, No palpitations, no edema, no shortness of breath. Gastrointestinal: no incontinence, normal bowel movements reported Genitourinary: no incontinence Musculoskeletal: Back pain Psychiatric: normal mood/ affect Neurological: [denies weakness in extremities], [denies balance issues] Objective:: Physical Exam General: Alert and oriented x3, no acute distress, pleasant and cooperative, [on room air] Lungs: Resps E/U, Symmetrical chest expansion, Eyes: PERRL Musculoskeletal: Flexion and extension of lumbar spine somewhat guarded secondary to pain, deep tendon reflexes normal, strength in upper and lower extremities [5/5], slightly antalgic gait noted Neurological: speech clear, band and cuff cutter equal, no gross sensory deficits Assessment:: Degenerative disc disease lumbar spine with lumbar spondylosis Plan:: We will follow-up with the patient and get an MRI after his shoulder surgery. Patient's been instructed to call the office if he has any issues prior to his next appointment. This note was dictated using voice recognition software and may contain errors or omissions
== END ==
PROVIDERS: PCP Emergency Medicine; Visit Provider Clinical Nurse Specialist Family Health
DX: M51.36 Other intervertebral disc degeneration, lumbar region (principal); M47.896 Other spondylosis, lumbar region
CPT/HCPCS: 99213

== ENCOUNTER → 2018-11-19 14:45 | Outpatient (CLI) | payer BC, SELFPAY ==
[2018-11-19 17:52] LABS: Amphetamine/Metha Screen,Urine Negative ng/mL (<1000); Barbiturates Screen,Urine Negative ng/mL (<200); Benzodiazepines Screen,Urine Negative ng/mL (<200); Cannabinoid Screen,Urine Negative ng/mL (<50); Cocaine Screen,Urine Negative ng/mL (<300); Methadone Screen,Urine Negative ng/mL (<300); Opiate Screen,Urine Negative ng/mL (<300); Phencyclidine Screen,Urine Negative ng/mL (<25)
== END ==
PROVIDERS: Visit Provider Nurse Practitioner Family
DX: Z79.899 Other long term (current) drug therapy (principal)
CPT/HCPCS: 80305

== ENCOUNTER 2018-11-26 09:40 | Observation (INO) ==
--- NOTE | 2018-11-26 11:47 | Progress Note ---
[facility] Anesthesia Checklist - Patient Identification Patient Identification: Arm Band - Structural Data Admitted From: Home Planned Operative Procedure/s: right shoulder arthroscopy, SAD, bicep tenodesis, glenohumeral joint debrid Consent for Planned Operative Procedure(s) Verified: Yes Verified Documents: Surgical Consent, History and Physical - NPO Status Verified Time NPO: 00:00 - Additional verifications Anesthesia Reactions: No - Airway Assessment C-Spine Mobility Assessed: Yes (mp2) TMJ Mobility Assessed: Yes Dentition: Good Dentition - Neurological Assessment Level of Consciousness: Awake, Alert - Anesthesia Plan Anesthesia Risk discussed: Yes Anesthesia Plan: Verified ASA Class: II Anesthesia Type: General (with ISB. Risks/Benefits of ISB explained and pt agrees to block) [facility] History I have reviewed the patient's past medical history: Yes Medical History: Reports:: Depression, Kidney Stones Denies:: Cancer, Diabetes Mellitus Type 1, Diabetes Mellitus Type 2, Internal Pacemaker, MRSA, Seizures Have you ever received a pneumonia vaccine?: No Have you received a flu vaccine this season?: No Other Medical History: Reports: Sinus Problems, Other. Denies: Blood Transfusion Reaction Laterality Cases: Bilateral: Arthroscopy Shoulder Other Surgeries: Yes: Hernia Repair, Sinus Surgery, Other. No: Pacemaker Amputation: No Fractures: No - *Social History Educational Level: Completed GED/General Educational Development Smoking Status: Former smoker Tobacco Type: cigarettes Alcohol Intake: never Alcohol Intake Frequency:: holidays/special occasions only Substance Use Type: denies use Occupational Status: employed Housing: house Travel in the last 8 weeks: None - Psychiatric History Expresses thoughts of harming self/others: None Suicide Plan Description: No Plan Pschychiatric History:: Reports:: Depression *Family Hx:: Hypertension, Cancer
--- NOTE | 2018-11-26 18:14 | Progress Note ---
[facility] Anesthesia Record Part I Intake, IV Amount: 2,000 Estimated blood loss (mL): 0 Urine output (mL): 0 Blood Pressure: 108/69 SaO2: 93 Pulse Rate: 84 Respiratory Rate: 12 Temperature: 97 F Patient is:: Awake, Stable Stable to PACU at:: 18:10
--- NOTE | 2018-11-26 18:14 | Progress Note ---
[facility] Anesthesia Record Part II Discharge Time: 18:40 Destination: [facility] PACU nurse assessment reviewed?: Yes Patient Condition:: Good Anesthesia Complications:: None Swallowing reflex intact?: Yes Cyanosis?: No
[2018-11-26 19:32] LABS: Hematocrit 45.3 % (42.0-52.0); Hemoglobin 14.4 g/dL (14.1-18.0)
--- NOTE | 2018-11-26 19:41 | Operative Note ---
Date of procedure: 11/26/18 Pre-op Diagnosis:: 1. Subacromial impingement, right shoulder 2. Subacromial bursitis, right shoulder 3. Biceps tendinitis, right shoulder 4. Rotator cuff tendinopathy, right shoulder Post-op Diagnosis:: 1. Subacromial impingement, right shoulder 2. Subacromial bursitis, right shoulder 3. Biceps tendinitis, right shoulder 4. Rotator cuff tendinopathy, right shoulder 5. Degenerative superior labrum/SLAP tear, right glenohumeral joint Procedure performed:: 1. Examination of right shoulder anesthesia 2. Arthroscopic subacromial decompression with subacromial and subdeltoid bursectomy and a bony acromioplasty, right shoulder. 3. Arthroscopic glenohumeral joint debridement, extensive, right shoulder. 4. Arthroscopic biceps tenodesis, right shoulder Surgeon:: Indio Pathak MD Evaluation Engineer(s):: Sofie Salomon [employer] SALES SUPERVISOR:: Howie Delvalle Anesthesia: GETA, regional (Interscalene block) Estimated blood loss (mL): 10 Clinical Note:: Patient is a pleasant 48-year-old [id number]-[id number]-nperhvts gentleman with long- standing history of pain and disability in his right shoulder. He had appropriate conservative management without significant relief. He previously had 2 arthroscopic surgeries on his right shoulder for labral repair. He also has a complex history with regards to his left shoulder and ended up having a left shoulder arthrodesis in [place]. Because of this he is heavily dependent on his right shoulder especially for any overhead lifting. He has been treated for impingement syndrome and has failed conservative therapy including activity modification, local steroid injections, use of NSAIDs, physical therapy including iontophoresis/phonophoresis and Jasiel exercises and rotator cuff strengthening exercises for impingement syndrome. He localizes the pain to anterior and lateral aspect of his right shoulder. He rates the pain 6 out of 10 on the pain scale at its worse. He states NSAIDS relieve the pain for a couple hours. Any over head activities and rotations aggravate his pain. No history of any shoulder weakness. He denies any distal numbness or tingling. No history of any neck pain or radicular symptoms. He is a non smoker and is currently not working. He is nondiabetic and has no cardiac history. Preoperative evaluation was consistent with the above mentioned diagnoses. After discussion of the risks and benefits of the surgical versus nonsurgical management, he elected to proceed with surgical remediation. Please refer to my office report for full details. Operative findings:: Examination of the shoulder under anesthesia showed very good range of motion and there is no instability. The arthroscopic examination of the glenohumeral joint showed superior labral degeneration and partial detachment of the superior labrum from the glenoid. The intra-articular portion of the biceps tendon appeared normal. However, there was synovitis in the bicipital groove and some fraying of the extra-articular tendon. The rotator cuff was overall intact without any full-thickness rotator cuff tears. Some scuffing of the sup raspinatus tendon noted on the bursal side. As preoperatively patient was tender over the biceps tendon and there is evidence of partial SLAP tear, I have decided to proceed with the biceps tenodesis as planned. At the time of open tenodesis marked synovitis and partial thickness tear was noted in the extra- articular part of the biceps tendon. The articular surface of the humerus and the glenoid were intact and no evidence of any full-thickness cartilage loss noted. There was extensive subacromial and subdeltoid bursitis and the acromion had undersurface spurring over the anterolateral margin. Operative note:: On the day of the procedure, the patient and his parents were met and patient was positively identified in the preoperative area. The surgical site was marked and initialed by me. I again reviewed the clinical, x- ray and MRI findings with the patient. We had a detailed discussion about the diagnosis, implications, natural history and management options including both nonsurgical and surgical options for his shoulder. He has decided to proceed with surgery as planned- the proposed surgery includes arthroscopic glenohumeral joint examination and debridement as appropriate, subacromial decompression with bony acromioplasty and arthroscopic or open biceps tenodesis. During examination today patient had a little tenderness over the AC joint and therefore decided against distal excision. Nonsurgical alternatives explained as well which in his case would be rest, activity modification, local ice or heat as appropriate, physical therapy, local steroid injections, nonsteroidal anti-inflammatory drugs and effective pain management. I told the patient that there were no guarantees with surgery; he could be no better or even worse. The complications discussed include but are not limited to- infection, injury to nerves and blood vessels, bleeding, hematoma, tendon injury, fluid extravasation, chondrolysis, injury to the articular surface, instrument failure, DVT/PE, incomplete relief/continued pain, failure of the condition to improve, incomplete return of function, ectopic calcification, reactive bursitis, adhesive capsulitis, shoulder instability, arthritis, stiffness, complex regional pain syndrome (CRPS), recurrence, hardware failure, anchor pullout and acromion fracture, failure of the surgery to accomplish the desired goals, decreased use of the arm, loss of use of the arm, loss of the hand or arm, loss of life. Likely need for further surgery in the future has been discussed. With regards to the biceps tendon, depending on the findings at arthroscopy, we again talked about tenodesis versus tenotomy and pros and cons of each procedure. We have discussed possible deformity of the anterior arm, weakness of supination and muscle cramps/fatigue with tenotomy as opposed to possible screw site pain with tenodesis and the extra surgery involved and complications there of. Patient elected for biceps tenodesis. I've indicated to the patient where the proposed incisions would be made and also discussed the possibility of extending the incisions or performing an open surgery if needed to accomplish an effective repair, distal clavicle excision or biceps tenodesis. We talked about doing most of the surgery arthroscopically with possibility of open surgery if felt necessary during surgery or because of poor visualization due to bleeding. We also discussed the postoperative recovery and rehabilitation protocol. I told the patient that it could take up to a year for full recovery of the shoulder. Patient understood the risks, agreed to proceed with surgery, signed the consent form and no guarantees or assurances were given or implied. I performed a general physical examination, reviewed the consent form with the patient and signed the same. Patient was then brought to the operating room and a general anesthesia and interscalene block were administered by the child caregiver. Patient was then placed in a well-padded beach-chair position. The right upper extremity was then prepped and draped in the usual sterile fashion. A preprocedure timeout was performed in accordance with the hospital policy. Verbal verification of delivery of prophylactic intravenous antibiotics was performed. Right shoulder arthroscopic landmarks were drawn on the skin with a marker pen. Examination of the shoulder under anesthesia showed very good range of motion and there is no instability. I then injected the subacromial space with 10 cc of 1% lidocaine with epinephrine and the glenohumeral joint with 20 mL of the irrigation fluid through the posterior portal using a spinal needle. Further 10 cc of 1% lidocaine with epinephrine was injected to the portal sites. The posterior viewing portal was established and the arthroscope was introduced into the glenohumeral joint. I then established an anterior interval portal under direct visualization. I placed a purple cannula through this portal and performed arthroscopic examination of the glenohumeral joint. As mentioned in the findings above there is some superior labral degeneration and partial detachment of the superior labrum from the glenoid. The intra-articular portion of the biceps tendon appeared normal. However, there was synovitis in the bicipital groove and some fraying of the extra-articular tendon. The rotator cuff was overall intact without any articular surface tears or scuffing. As preoperatively patient was tender over the biceps tendon and the evidence of partial SLAP tear, we have decided to proceed with the biceps tenodesis as planned. The biceps tendon was then tagged with the #1 Vicryl suture and then tenotomized using an arthroscopic biter. The tendon stump and labrum were debrided to a stable margin. We then turned our attention to the subacromial space. Upon entering the subacromial space through the posterior portal, a significant amount of bursitis was encountered. The space was noted to be somewhat tight under the acromion. I created a lateral portal after localizing with a spinal needle. Working through this portal, and viewing from the posterior portal, I then proceeded to clearing the bursitis with a shaver and an ablator. After clearing the subacromial space of bursitis, the bursal side of rotator cuff was examined and was noted to be somewhat scuffed up but overall intact without any full-thickness tears. Then, by placing the arthroscope through the lateral portal and working through the anterior portal the subdeltoid space was cleared and the biceps tendon was identified in its groove. I then identified the upper border of the pectoralis major tendon and the cleared the bicipital groove just above this. Then I created a direct anterior-inferior portal using a spinal needle to proceed with the tenodesis. A passport cannula was placed through this portal, the biceps tendon was pushed to one side and the groove was cleared of soft tissue superior to the pectoralis major tendon. A drill hole was made in the middle of the groove at this location with the supplied 7 mm drill. Then keeping tension on the biceps tendon using the Vicryl suture tag, I performed a tenodesis with Arthrex bio composite forked eyelet SwiveLock tenodesis suture anchor (7 x 19.5 mm). Keeping appropriate tension on the tendon, the anchor was placed through the drill hole and seated appropriately. This gave us a very good fixation of the tendon in the proximal humerus. The redundant proximal part of the tendon was cut and removed and the stump was debrided to stable margin after performing the biceps tenodesis. I then returned to the subacromial space to complete subacromial and subdeltoid bursectomy, and proceeded to perform a bony acromioplasty as there is some spurring of the undersurface of the acromion and the space is somewhat narrow and tight. I did this with a 4 mm arthroscopic shaver, ablator and lola using a cutting block method. During this procedure I preserved most of the coracoacromial ligament. I then removed all instruments after suctioning out the fluid through one of the cannulas. Portals were closed with 3-0 nylon sutures. A sterile non-adherent dressing was applied. The arm was placed in a sling. The patient was then reversed from the anesthetic and [facility]. Patient was then transported to the postoperative recovery area in stable condition. Patient tolerated the procedure well and there were no immediate complications related to the shoulder surgery. At the end of the procedure the swab, needle and instrument count was correct according to the scrub team. The patient developed hematuria following preoperative catheterization. While I was performing the shoulder surgery, the child caregiver and the circulating nurse discussed with Dr. Quinn, urologist, over the telephone regarding this. Further care in this regard is as per Dr. Quinn's instructions. Please refer to nursing notes for full details. Postoperatively patient managed to urinate on his own b ut continued to have hematuria. In view of this a decision was made to admit the patient to the patient overnight for observation. Depending on his condition overnight, we plan to obtain a urology consult tomorrow as needed. Implant: Arthrex bio composite forked eyelet SwiveLock tenodesis suture anchor, 7 mm x 19.5 mm. Condition: stable Disposition: observation Specimens:: None Complications:: Catheter related hematuria- OR staff discussed with Dr. Quinn, urologist, over telephone regarding management of this while I was performing the shoulder surgery. Please refer to nursing notes for his advice and full details. Patient is being admitted for observation as he continued to have hematuria in the recovery area after surgery. Formal urology consult to follow.
--- NOTE | 2018-11-27 07:40 | Pharmacy Consult Notes ---
[facility] Pharmacy VTE Monitoring - Patient Demographics Admission date: 11/27/18 Report Date: 11/27/18 Time: 07:40 Allergies/Adverse Reactions: Patient Allergies oxycodone [From PERCOCET] Allergy (Intermediate, Verified 11/19/18 11:00) FEELS SICK aspirin Adverse Reaction (Unknown, Verified 11/19/18 11:00) UPSET STOMACH Height: 1.88 m Weight: 94.149 kg - VTE Risk Labs: VTE Related Lab Results Hgb 14.4 g/dL (14.1-18.0) 11/26/18 19:20 Hct 45.3 % (42.0-52.0) 11/26/18 19:20 Was VTE Risk Assessment Performed: Yes VTE Risk Level: Low Risk Clinical Trial Participant: No - Prophylaxis VTE Prophylaxis Ordered?: Yes Types of VTE Prophylaxis: TEDS Knee High
--- NOTE | 2018-11-27 10:22 | Consult Report ---
*Admission Date: 11/27/18 *Chief complaint: difficult rai placement/hematuria *History of present illness: Patient is a 48-year-old white male who underwent arthroscopic we are surgery last evening during which time there was difficulty placing a Rai catheter. Rai catheter was noted to not be draining urine appropriately and there was noted to be some blood through the Rai catheter after the balloon was blown up. Patient has had previous difficulty urinary retention and hematuria after hernia surgery. He denies any difficulty voiding prior to his admission for shoulder surgery. His Rai was removed last night after his procedure and he is been able to void adequately overnight and this morning. His urine has cleared nicely and is light marj this morning. He denies any urethral discom fort. [facility] History Medical History: Reports:: Depression, Kidney Stones Denies:: Cancer, Diabetes Mellitus Type 1, Diabetes Mellitus Type 2, Internal Pacemaker, MRSA, Seizures Have you ever received a pneumonia vaccine?: No Have you received a flu vaccine this season?: No Other Medical History: Reports: Sinus Problems, Other. Denies: Blood Transfusion Reaction Laterality Cases: Bilateral: Arthroscopy Shoulder Other Surgeries: Yes: Hernia Repair, Sinus Surgery, Other. No: Pacemaker Amputation: No Fractures: No - *Social History Educational Level: Completed GED/General Educational Development Smoking Status: Former smoker Tobacco Type: cigarettes #Yrs smoked (if former smoker): 10 Alcohol Intake: current Alcohol Intake Frequency:: holidays/special occasions only Substance Use Type: denies use Occupational Status: employed Housing: house Travel in the last 8 weeks: None - Psychiatric History Expresses thoughts of harming self/others: None Suicide Plan Description: No Plan Pschychiatric History:: Reports:: Depression *Family Hx:: Hypertension, Cancer Review of Systems - *Genitourinary Reports erectile dysfunction - *Musculoskeletal Reports joint swelling Meds Home Medications Medication Instructions Recorded Confirmed Type gabapentin 600 mg tablet 600 mg PO BID #60 tab 11/19/18 11/26/18 Rx Chlorhexidine Gluconate 1 applic TOPICAL Q5M 11/25/18 11/26/18 History Mupirocin Calcium [Bactroban Nasal] 1 applic INTRANASAL BID 11/25/18 11/26/18 History Sertraline HCl [Zoloft 100mg 75 mg PO DAILY 11/26/18 11/26/18 History tablet] Trazodone HCl 50 mg PO QHS PRN 11/26/18 11/26/18 History Sertraline HCl [Zoloft] 100 mg PO DAILY 11/27/18 11/27/18 History Allergies Allergy/AdvReac Type Severity Reaction Status Date / Time oxycodone [From PERCOCET] Allergy Intermediate FEELS SICK Verified 11/19/18 11:00 aspirin AdvReac Unknown UPSET Verified 11/19/18 11:00 STOMACH Exam Vital signs and Labs for Last 24 Hours: Temp Pulse Resp BP Pulse Ox 98.0 F 75 15 120/87 95 11/27/18 07:33 11/27/18 07:33 11/27/18 07:33 11/27/18 07:33 11/27/18 07:33 Laboratory Results - last 24 hr 11/26/18 19:20: Hgb 14.4, Hct 45.3 11/26/18 19:20: Blood Type O Positive, Antibody Screen Negative I & O for Last 24 hours: Intake & Output 11/24/18 11/25/18 11/26/18 11/27/18 23:59 23:59 23:59 23:59 Intake Total 1999 / 1999 240 / 240 Output Total 800 / 800 3550 / 3550 Balance 1200 / 1200 -3310 / -3310 Weight 88.451 kg 94.149 kg 94.149 kg Narrative: Well-nourished white male with dressing on his right shoulder in no apparent distress Pupils equal round reactive to light Abdomen soft and normal visual inspection Normal right effort Alert and oriented x3 Internal Medicine - CN: Reslt - Labs CBC & Chem 7: 11/26/18 19:20 Labs: Short CBC 11/26/18 Range/Units 19:20 Hgb 14.4 (14.1-18.0) g/dL Hct 45.3 (42.0-52.0) % Assessment and Plan - Assessment and plan all Dx Assessment and Plan for all problems:: 48-year-old white male with difficult Rai placement last night in the operating room resulting in some gross hematuria. Rai catheter was likely blown up in the prostatic urethra causing the hematuria. Patient denies any voiding difficulty prior to his procedure. He has had prior difficulty with urination after surgery however. He has been able to void overnight and this morning without difficulty. His urine is clear nicely. His fine to go home from my standpoint and follow-up in 3-4 weeks in the office.
--- NOTE | 2018-11-27 12:51 | Discharge Summary ---
General - General Admission date:: 11/26/18 Discharge date: 11/27/18 HPI HPI: Patient is a 48-year-old white male who underwent an uncomplicated right shoulder arthroscopic surgery yesterday. However, he was admitted for observation after he developed hematuria following a difficult Escobedo catheter placement prior to surgery. Patient has had previous problem with hematuria after hernia surgery. This morning patient was seen by Dr. Quinn for urological consultation. Patient reports no problems with voiding overnight and this morning. His urine has cleared nicely and is light marj color this morning. He denies any urethral pain or discomfort. He is eating and drinking well. He reports no problems with his right shoulder either and says the nerve blocks are still working. Hospital Course Hospital Course: Patient underwent an uncomplicated right shoulder arthroscopic subacromial decompression with bony acromioplasty, arthroscopic biceps tenodesis and glenohumeral joint debridement. He was admitted overnight for surgery because of gross hematuria following Escobedo catheter placement. The catheter was removed after surgery as per Dr. Quinn's advised over telephone. Postoperatively he did void but there was gross hematuria. However, this has cleared up overnight and he is passing clear urine this morning. No history of any urethral discomfort or pain. Patient was seen by Dr. Quinn this morning for urology consult and has cleared him for discharge from urological standpoint. Patient to follow-up with Dr. Quinn office in 3-4 weeks time. Patient has been hemodynamically stable and had an uneventful night. He is not having any pain or discomfort in his right shoulder. The nerve blocks are still working. He is in an arm sling. He is able to actively mobilize the wrist and fingers. Distal pulses are palpable and capillary refill is brisk. Objective Vital signs: Temp Pulse Resp BP Pulse Ox 98.1 F 81 17 133/81 97 11/27/18 12:01 11/27/18 12:01 11/27/18 12:01 11/27/18 12:01 11/27/18 12:01 no acute distress - *Routine HEENT Exam Head: Present: normocephalic, atraumatic Eye: Present: EOMI, PERRL ENT: Present: mucous membranes moist - *Routine Neck Exam Present: supple, full ROM - *Routine Respiratory Exam Present: CTA bilaterally - *Routine Cardiovascular Exam Present: RRR, Normal S1, Normal S2 - *Routine Abdominal Exam Present: soft, normoactive bowel sounds. Absent: tenderness - *Routine Extremities Exam Comments: Right shoulder, postoperative dressings are in place and are clean dry and intact. No evidence of any bleeding or discharge noted. He is in an arm sling. The nerve blocks are still working and he has decreased sensation over the right upper extremity. He has regained motor power in the wrist and fingers. He is able to actively mobilize the wrist and fingers. Distal pulses 2+ and capillary refill is brisk. - *Routine Skin Exam Present: intact, normal turgor - Routine Psychiatric Exam Present: normal affect, cooperative Results Labs on day of discharge: Labs from last 24 hours 11/26/18 11/26/18 19:20 19:20 Hgb 14.4 Hct 45.3 Blood Type O Positive Antibody Screen Negative DS: Diagnosis - Discharge Diagnosis (1) Status post shoulder surgery Status: Acute (2) Rotator cuff impingement syndrome of right shoulder Status: Chronic (3) Traumatic hematuria Status: Acute Discharge Plan - Patient Discharge Instructions ACTIVITY: Continue current activity, Ambulate as tolerated DIET: regular diet Patient Instructions: Rotator Cuff Repair, DI for Rotator Cuff Repair - Follow up Plan Follow up with: Indio Pathak MD [Staff Physician] - Disposition: Home, Self-Group Home Medications: Home Medications Medication Instructions Recorded Confirmed Type gabapentin 600 mg tablet 600 mg PO BID #60 tab 11/19/18 11/26/18 Rx Trazodone HCl 50 mg PO QHS PRN 11/26/18 11/26/18 History Cyclobenzaprine HCl [Flexeril 10mg 5 mg PO Q8HP PRN tablet 11/27/18 Rx tablet] Hydrocod/Acet 5/325 mg [[place] 1 tab PO Q4HP PRN tablet 11/27/18 Rx 5/325mg tablet] Hydrocod/Acet 5/325 mg [[place] 2 tab PO Q4HP PRN tablet 11/27/18 Rx 5/325mg tablet] Sertraline HCl [Zoloft] 150 mg PO DAILY 11/27/18 11/27/18 History Prescriptions/Medication Reconciliation: New Hydrocod/Acet 5/325 mg [[place] 5/325mg tablet] 2 tab PO Q4HP PRN tablet PRN Reason: Moderate Pain Hydrocod/Acet 5/325 mg [[place] 5/325mg tablet] 1 tab PO Q4HP PRN tablet PRN Reason: Mild Pain Cyclobenzaprine HCl [Flexeril 10mg tablet] 5 mg PO Q8HP PRN tablet PRN Reason: MUSCLE SPASM Continue gabapentin 600 mg tablet 600 mg PO BID #60 tab Trazodone HCl 50 mg PO QHS PRN PRN Reason: Sleep Sertraline HCl [Zoloft] 150 mg PO DAILY Discontinued Mupirocin Calcium [Bactroban Nasal] 1 applic INTRANASAL BID Chlorhexidine Gluconate 1 applic TOPICAL Q5M - Additional Information Additional Information: Patient was cleared for discharge from a urological standpoint. Follow-up with Dr. Quinn in 3-4 weeks time. Continue arm sling for the right shoulder. Continue elevation, icing, as needed pain medication. Avoid active and resisted elbow flexion. Follow-up in my office tomorrow as planned for change of dressings.
== END 2018-11-27 14:11 | disposition home or self-care (01) ==
LOC: 2ND 09:40 → OR 09:40
PROVIDERS: ADMIT Orthopaedic Surgery; ATTEND Orthopaedic Surgery
CPT/HCPCS: 85014; 85018; 86850; 96374; C1713; G0378; J2405

== ENCOUNTER → 2019-01-13 10:49 | Outpatient (POV) | payer BC, SELFPAY ==
[2019-01-13 11:04] VITALS: BP 135/95; PULSE 74; RESP 18; O2SAT 98; BMI 25.7
--- NOTE | 2019-01-13 12:16 | HMH.PAINSOAP ---
[facility] Pain Management SOAP Note Subjective:: Patient is a pleasant 48-year-old white male who presents today for follow-up. Patient recently had right shoulder surgery and is doing quite well. Patient is in physical therapy currently patient's back pain has worsened. He is having facet blocks in the past and RFA with good relief. Patient is interested in getting an MRI due to the increase in pain. He rates his pain today a 7 out of 10. Mostly in his low back. Patient is on anti-inflammatories and continues a home stretching program. ROS General: no recent weight change, no fever, no sleep disturbances Respiratory: no cough, no shortness of air, no recurring pulmonary infections Cardiovascular/Peripheral Vascular: No chest pain, No palpitations, no edema, no shortness of breath. Gastrointestinal: no incontinence, normal bowel movements reported Genitourinary: no incontinence Musculoskeletal: Back pain Psychiatric: normal mood/ affect Neurological: [denies weakness in extremities], [denies balance issues] Objective:: Physical Exam General: Alert and oriented x3, no acute distress, pleasant and cooperative, [on room air] Lungs: Resps E/U, Symmetrical chest expansion, Eyes: PERRL Musculoskeletal: Flexion and extension of lumbar spine somewhat guarded secondary to pain, deep tendon reflexes normal, strength in upper and lower extremities [5/5], slightly antalgic gait noted, positive Kemps test Neurological: speech clear, medical collections equal, no gross sensory deficits Assessment:: Degenerative disc disease lumbar spine with lumbar spondylosis and facet arthropathy Plan:: We will schedule lumbar MRI for the patient to identify pathology. No follow-up with the patient after his MRI and reassess him at that time. He has been instructed to call the office if he has any issues prior to his next appointment. Dr. Saha has reviewed this note and agrees with this plan of care. This note was dictated using voice recognition software and may contain errors or omissions
--- NOTE | 2019-01-13 12:19 | P.CONS_ITS ---
[facility] Pain Management SOAP Note Subjective:: Patient is a pleasant 48-year-old white male who presents today for follow-up. Patient recently had right shoulder surgery and is doing quite well. Patient is in physical therapy currently patient's back pain has worsened. He is having facet blocks in the past and RFA with good relief. Patient is interested in getting an MRI due to the increase in pain. He rates his pain today a 7 out of 10. Mostly in his low back. Patient is on anti-inflammatories and continues a home stretching program. ROS General: no recent weight change, no fever, no sleep disturbances Respiratory: no cough, no shortness of air, no recurring pulmonary infections Cardiovascular/Peripheral Vascular: No chest pain, No palpitations, no edema, no shortness of breath. Gastrointestinal: no incontinence, normal bowel movements reported Genitourinary: no incontinence Musculoskeletal: Back pain Psychiatric: normal mood/ affect Neurological: [denies weakness in extremities], [denies balance issues] Objective:: Physical Exam General: Alert and oriented x3, no acute distress, pleasant and cooperative, [on room air] Lungs: Resps E/U, Symmetrical chest expansion, Eyes: PERRL Musculoskeletal: Flexion and extension of lumbar spine somewhat guarded secondary to pain, deep tendon reflexes normal, strength in upper and lower extremities [5/5], slightly antalgic gait noted, positive Kemps test Neurological: speech clear, receivable manager equal, no gross sensory deficits Assessment:: Degenerative disc disease lumbar spine with lumbar spondylosis and facet arthropathy Plan:: We will schedule lumbar MRI for the patient to identify pathology. No follow-up with the patient after his MRI and reassess him at that time. He has been instructed to call the office if he has any issues prior to his next appointment. Dr. Saha has reviewed this note and agrees with this plan of care. This note was dictated using voice recognition software and may contain errors or omissions
== END ==
PROVIDERS: PCP Emergency Medicine; Visit Provider Clinical Nurse Specialist Family Health
DX: M51.36 Other intervertebral disc degeneration, lumbar region (principal); M47.816 Spondylosis without myelopathy or radiculopathy, lumbar region; M54.06 Panniculitis affecting regions of neck and back, lumbar region
CPT/HCPCS: 99213

== ENCOUNTER → 2019-01-23 14:04 | Outpatient (CLI) | payer BC, SELFPAY ==
--- NOTE | 2019-01-23 14:12 | MR_ITS ---
MR lumbar spine wo con, MR 3-d myelogram/MRCP HISTORY: Low back pain. ITS.REASON: BACK PAIN ORDERING PHYSICIAN: Cecilia Sanders PATIENT AGE: 48 years Comparison: MRI 05/29/17 TECHNIQUE: Standard multiplanar multiecho sequences are performed without contrast. 3-D MIP and myelographic images are also rendered and reviewed FINDINGS: There is normal alignment. The spinal cord ends at the L2 level. There is a transitional segment present is labeled as S1 similar to the previous study. L1-L2, L2-L3, and L3-L4 have an unremarkable appearance. L4-L5: Mild concentric bulging disc with focal increased T2 signal involving the central and posterior aspect of the disc with minimal disc protrusion at this level. The bulging disc does abut the anterior aspect of both L5 nerve roots as before without displacement. There is mild bilateral lateral recess and foraminal narrowing not significant change. L5-S1: Mild concentric bulging disc slightly eccentric toward the right with some focal increased T2 signal centrally and posteriorly. The disc does abut the anterior aspect of the S1 nerve root slightly greater on the right with bilateral lateral recess and foraminal narrowing which is greater on the right. Not significantly changed compared to the previous exam No change. Herniated disc. No canal stenosis. IMPRESSION: 1. L4-L5: Mild concentric bulging disc with focal increased T2 signal involving the central and posterior aspect of the disc with minimal disc protrusion at this level. The bulging disc does abut the anterior aspect of both L5 nerve roots as before without displacement. There is mild bilateral lateral recess and foraminal narrowing not significant change. 2. L5-S1: Mild concentric bulging disc slightly eccentric toward the right with some focal increased T2 signal centrally and posteriorly. The disc does abut the anterior aspect of the S1 nerve root slightly greater on the right with bilateral lateral recess and foraminal narrowing which is greater on the right. Not significantly changed compared to the previous exam
== END ==
PROVIDERS: PCP Emergency Medicine; Visit Provider Clinical Nurse Specialist Family Health
DX: M54.5 Low back pain (principal)
CPT/HCPCS: 72148; 76376

== ENCOUNTER → 2019-01-27 09:01 | Outpatient (POV) | payer BC, SELFPAY ==
--- NOTE | 2019-01-27 09:17 | P.CONS_ITS ---
[facility] Pain Management SOAP Note Subjective:: Patient is a pleasant 48-year-old white male who presents today for follow-up. Patient rates his pain a 7 out of 10 mostly in his low back. Patient is in physical therapy currently. Patient's back pain is worsening. We did get a new MRI showing abnormal disks along with some nerve impingement and facet issues. Patient has had facet blocks in the past and RFA with good relief. He is on anti-inflammatories and continues a home stretching program. We will set the patient up for facet joint injections given the success of them. Patient states he got 80-90% relief of symptoms for up to 4/ 5 months. We will also send him for second opinion in regards to back surgery. ROS General: no recent weight change, no fever, no sleep disturbances Respiratory: no cough, no shortness of air, no recurring pulmonary infections Cardiovascular/Peripheral Vascular: No chest pain, No palpitations, no edema, no shortness of breath. Gastrointestinal: no incontinence, normal bowel movements reported Genitourinary: no incontinence Musculoskeletal: Back pain Psychiatric: normal mood/ affect, [denies depression], [denies anxiety] Neurological: [denies weakness in extremities], [denies balance issues] Objective:: Physical Exam General: Alert and oriented x3, no acute distress, pleasant and cooperative, [on room air] Lungs: Resps E/U, Symmetrical chest expansion, Eyes: PERRL Musculoskeletal: Flexion and extension of lumbar spine somewhat guarded secondary to pain, deep tendon reflexes normal, strength in upper and lower extremities [5/5], slightly antalgic gait noted, positive Kemps test bilateral lumbar spine spine Neurological: speech clear, densitometer reader equal, no gross sensory deficits Assessment:: Degenerative disc disease lumbar spine with lumbar spondylosis and facet arthropathy Plan:: We will set up facet joint injections bilaterally at L3-L4 L4-L5 L5-S1. Given the efficacy of this in the past I believe it would be beneficial for the patient. He is not on any anticoagulation therapy. We will also send him to Dr. Borges for a second opinion in regards to potential back surgery. Dr. Saha has reviewed this note and agrees with this plan of care. This note was dictated using voice recognition software and may contain errors or omissions
[2019-01-27 09:25] VITALS: BP 155/86; PULSE 70; RESP 18; O2SAT 98; BMI 25.7
== END ==
PROVIDERS: PCP Emergency Medicine; Visit Provider Clinical Nurse Specialist Family Health
DX: M51.36 Other intervertebral disc degeneration, lumbar region (principal); M47.896 Other spondylosis, lumbar region; M54.06 Panniculitis affecting regions of neck and back, lumbar region
CPT/HCPCS: 99213

== ENCOUNTER → 2019-02-19 09:38 | Outpatient (CLI) | payer BC, SELFPAY ==
--- NOTE | 2019-02-19 09:41 | XR_ITS ---
XR shoulder RT min 2V HISTORY: ITS.REASON: sp RT shoulder surgery dos 11/26/18 ORDERING PHYSICIAN: Indio Pathak MD PATIENT AGE: 48 years Comparison: None FINDINGS: No fracture or dislocation. No lytic or blastic change. There is normal mineralization. The joint spaces are well-preserved. No significant degenerative/arthritic changes. No erosive changes evident. A lucent defect is present in the proximal humerus laterally and may be postsurgical in nature from bicipital tendon transfer IMPRESSION: Small lucent defect of the proximal humerus laterally otherwise negative
== END ==
PROVIDERS: PCP Emergency Medicine; Visit Provider Orthopaedic Surgery
DX: Z48.89 Encounter for other specified surgical aftercare (principal); M25.511 Pain in right shoulder
CPT/HCPCS: 73030

== ENCOUNTER → 2019-03-10 10:10 | Outpatient (POV) | payer BC, SELFPAY ==
--- NOTE | 2019-03-10 10:41 | HMH.PAINSOAP ---
[facility] Pain Management SOAP Note Subjective:: Patient is a pleasant 48-year-old white male who presents today for follow-up after lumbar medial branch block. Patient is not getting much relief from any of his injective therapy. Patient has had multiple facet joint injections, epidural injections and rhizotomies. Patient is looking for more long-term alleviation of his pain. Patient and I talked about neuro stimulation he is interested in this he rates his pain a 7 out of 10 mostly in his low back and bilateral legs. ROS General: no recent weight change, no fever, no sleep disturbances Respiratory: no cough, no shortness of air, no recurring pulmonary infections Cardiovascular/Peripheral Vascular: No chest pain, No palpitations, no edema, no shortness of breath. Gastrointestinal: no incontinence, normal bowel movements reported Genitourinary: no incontinence Musculoskeletal: Back pain, leg pain Psychiatric: normal mood/ affect Neurological: [denies weakness in extremities], [denies balance issues] Objective:: Physical Exam General: Alert and oriented x3, no acute distress, pleasant and cooperative, [on room air] Lungs: Resps E/U, Symmetrical chest expansion, Eyes: PERRL Musculoskeletal: Flexion and extension of lumbar spine somewhat guarded secondary to pain, deep tendon reflexes normal, strength in upper and lower extremities [5/5], [abnormal gait noted] Neurological: speech clear, railroad maintenance clerk equal, no gross sensory deficits Assessment:: Degenerative disc disease lumbar spine with lumbar spondylosis, facet arthropathy and CRPS type II Plan:: Patient and I had a discussion in regards to neuro stimulation he is interested in moving forward with this. He is not on any anticoagulation therapy he has tried and failed conservative therapy including medications, anti-inflammatories, physical therapy, injection therapy. Patient is continuing a home stretching regimen. We will move forward with a psychological evaluation to determine if he is a candidate for spinal cord stimulation. Dr. Saha has reviewed this note and agrees with this plan of care. This note was dictated using voice recognition software and may contain errors or omissions
[2019-03-10 11:00] VITALS: BP 142/86; PULSE 71; RESP 18; O2SAT 98; BMI 25.7
== END ==
PROVIDERS: PCP Emergency Medicine; Visit Provider Clinical Nurse Specialist Family Health
DX: M51.36 Other intervertebral disc degeneration, lumbar region (principal); M47.896 Other spondylosis, lumbar region; M54.06 Panniculitis affecting regions of neck and back, lumbar region
CPT/HCPCS: 99212

== ENCOUNTER → 2019-05-01 12:25 | Outpatient (CLI) | payer BC, SELFPAY ==
[2019-05-01 14:40] LABS: Amphetamine/Metha Screen,Urine Negative ng/mL (<1000); Barbiturates Screen,Urine Negative ng/mL (<200); Benzodiazepines Screen,Urine Negative ng/mL (<200); Cannabinoid Screen,Urine Negative ng/mL (<50); Cocaine Screen,Urine Negative ng/mL (<300); Methadone Screen,Urine Negative ng/mL (<300); Opiate Screen,Urine Negative ng/mL (<300); Phencyclidine Screen,Urine Negative ng/mL (<25)
== END ==
PROVIDERS: Visit Provider Nurse Practitioner Family
DX: Z79.899 Other long term (current) drug therapy (principal)
CPT/HCPCS: 80305

== ENCOUNTER 2019-05-18 08:30 | Outpatient (RCR) | payer BC, SELFPAY ==
--- NOTE | 2019-01-14 08:06 | HMH.OTOPEV ---
OT Inpatient Evaluation Rehab OT Outpatient Eval Start: 01/14/19 07:53 Freq: Status: Active Protocol: Document 01/14/19 07:54 RMARSHALL (Rec: 01/14/19 08:06 [facility] [id number][facility] Electronically Signed By Liv Flores OT 01/14/19 07:54 Outpatient Therapy Subjective History Subjective History Pt is a 48 year old male who reports to therapy for initial evaluation to right shoulder. Pt is ~7 weeks (11/26/18) out of right shoulder arthroscopic SAD, glenohumeral joint depridement, and bicep tenodesis. Pt does demonstrate with decreased AROM and strength at right shoulder. Pt will continue to be seen to address these deficits Chief Complaint Pain Symptom Type Ache Dull Symptoms Relieved By Nothing Symptoms Aggravated By Physical Activity Twisting Lifting Prior Functional Limitations None Current Functional Limitations Reaching Lifting Housework Dressing Recreation Activity Symptom Description Intermittent Activity Dependent Level of pain today (0-10) 0 Pain scale - at its best (0-10) 0 Pain scale - at its worst (0-10) 5 Shoulder/Elbow Eval Shoulder Objective Measurements Shoulder ROM Right Shoulder Abduction Active Range of 82 degrees Motion (degrees) Shoulder Flexion Active Range of Motion 112 degrees (degrees) Query Text: Shoulder External Rotation Active Range 54 degrees of Motion (degrees) Shoulder Internal Rotation Active Range 36 degrees of Motion (degrees) pain with active ROM shoulder exam right standard pain with passive ROM shoulder exam right standard decreased ROM shoulder exam standard right Shoulder MMT Shoulder Abduction Strength Grade 4- Good- Shoulder Extension Strength Grade 4- Good- Shoulder Flexion Strength Grade 4- Good- Shoulder Horizontal Abduction Strength 3+ Fair+ Grade Shoulder Horizontal Adduction Strength 3+ Fair+ Grade Shoulder External Rotation Strength 3+ Fair+ Grade Shoulder Internal Rotation Strength 3+ Fair+ G
--- NOTE | 2019-02-13 09:34 | HMH.RHREAS ---
Rehab Reassessment Rehab OP Re-assessment Start: 02/13/19 07:53 Freq: Status: Active Protocol: Document 02/13/19 08:52 FIORDALIZA (Rec: 02/13/19 09:34 RMCAREYHALL [id number]) Electronically Signed By Liv Flores OT 02/13/19 08:52 Rehab Re-assessment Subjective Subjective I think it's been doing really good. Objective Objective Notes Pt continues to be seen once a week in order to engage in therapy. Pt engages in AROM and AAROM exercises each time. Pt also receives PROM manual stretching in supine on mat ( all directions). Modalities are provided in order to assist with pain and inflammation ([facility] e-stim). Assessment Progress Assessment Progressing as Expected Assessment Notes Pt continues to demonstrate improvement in both AROM and strength. Pt also reports he completes his HEP daily. Current AROM R Shoulder Flex: 145 degrees Abd: 150 degrees ER: 75 degrees IR: 62 degrees Current MMT Flex: 5- Abd: 5- ER: 4+ IR: 4+ Patient goals met Pt has only met some AROM STG. Goals Not Met AROM/Strength Revised Goals R shoulder AROM Goals Flex: 170 degrees Abd: 170 degrees ER: 85 degrees IR: 80 degrees Plan Plan Continue with OT plan of care at this time. Frequency of Therapy 1-2x's a week Duration of therapy 6 more weeks. Time and Billing Re-Eval Time 15 Re-Eval Billing Units 1 PHYSICIAN CERTIFICATION: I certify the specified therapy services for Dallas Aleman are required, authorized, and reviewed every 30 days.
--- NOTE | 2019-04-01 08:32 | HMH.RHREAS ---
Rehab Reassessment Rehab OP Re-assessment Start: 02/13/19 07:53 Freq: Status: Active Protocol: Document 04/01/19 08:30 FIORDALIZA (Rec: 04/01/19 08:32 RMARSHALL [id number]) Electronically Signed By Liv Flores OT 04/01/19 08:30 Rehab Re-assessment Subjective Subjective I can move it how I want to. Objective Objective Notes Pt continues to be seen once a week in order to engage in therapy. Pt engages in AROM and AAROM exercises each time. Pt also receives PROM manual stretching in supine on mat ( all directions). Modalities are provided in order to assist with pain and inflammation ([facility] e-stim). Assessment Progress Assessment Progressing as Expected Assessment Notes Pt continues to demonstrate improvement in both AROM and strength. Pt also reports he completes his HEP daily. Current AROM R Shoulder Flex: 160 degrees Abd: 166 degrees ER: 85 degrees IR: 65 degrees Current MMT Flex: 5- Abd: 5- ER: 5- IR: 5- Patient goals met Pt is progressing toward meeting all goals Goals Not Met AROM/Strength Revised Goals R shoulder AROM Goals Flex: 170 degrees Abd: 170 degrees ER: 85 degrees IR: 80 degrees Plan Plan Continue with OT plan of care at this time. Frequency of Therapy 1-2x's a week Duration of therapy 4 more weeks Time and Billing Re-Eval Time 15 Re-Eval Billing Units 1 PHYSICIAN CERTIFICATION: I certify the specified therapy services for Dallas Aleman are required, authorized, and reviewed every 30 days.
== END 2019-05-18 08:35 | disposition home or self-care (01) ==
LOC: OT 08:30
PROVIDERS: Visit Provider Orthopaedic Surgery
DX: M75.21 Bicipital tendinitis, right shoulder (principal); M75.51 Bursitis of right shoulder; M75.41 Impingement syndrome of right shoulder; M67.911 Unspecified disorder of synovium and tendon, right shoulder; M19.011 Primary osteoarthritis, right shoulder
CPT/HCPCS: 97014; 97110; 97140; 97164; 97165; G0283

== ENCOUNTER → 2019-05-26 10:21 | Outpatient (POV) | payer BC, SELFPAY ==
[2019-05-26 10:39] VITALS: BP 146/95; PULSE 69; RESP 18; O2SAT 98; BMI 25.7
--- NOTE | 2019-05-26 12:46 | HMH.PAINSOAP ---
[facility] Pain Management SOAP Note Subjective:: Patient is a pleasant 48-year-old white male who presents today for follow-up after denial of neurostimulator. The patient has had a lumbar medial branch block in the past and did not get any relief after this therapy. He said multiple facet joint injections, epidural injections, risotto means and sympathetic blocks. The patient is currently on antidepressants has been on it for years. He is failed this therapy in regards to pain management. Patient has failed physical therapy in the past and has failed 6 months of home exercise therapy, however he is continuing to do a home stretching program. He is an appropriate candidate psychologically his psychological evaluation. Patient has bilateral leg swelling and cyanosis remittently. He has tried and failed anti-inflammatories and other medication modalities over 12 months. His pain was a 7 out of 10 today. Review of Systems General: No recent weight changes, no fever, no sleep disturbances Respiratory: No cough, no shortness of air, no recurring pulmonary infections Cardiovascular/peripheral vascular: No chest pain, no palpitations, no edema, no shortness of breath Gastrointestinal: No new onset incontinence, normal bowel movements reported Genitourinary: No new onset incontinence Musculoskeletal: Back pain, leg pain Psychiatric: Normal mood/affect Neurological: [Denies weakness in extremities], [denies balance issues] Objective:: Physical exam General: Alert and oriented x3, no acute distress, pleasant and cooperative, [on room air] Lungs: Respirations even and unlabored, symmetrical chest expansion Eyes: PERRL Musculoskeletal: Flexion and extension of lumbar spine somewhat guarded secondary to pain, deep tendon reflexes normal, strength in upper and lower extremities [5/5], [abnormal gait noted] Neurological: Speech clear, chauffeur motorbus equal, no gross sensory deficit Assessment:: Degenerative disc disease lumbar spine with lumbar spondylosis, facet arthropathy, CRPS type II Plan:: We will attempt to move forward and scheduling the trial for a neurostimulator. The patient is not on any anticoagulation therapy. He has tried and failed conservative therapies. We will follow-up with him after the trial to reassess his symptoms at that time. He has been instructed to call the office if he has any concerns prior to his next appointment. Dr. Saha has reviewed this note and agrees with this plan of care. This note was dictated using voice recognition software and make contain errors or omissions.
--- NOTE | 2019-05-26 12:49 | P.CONS_ITS ---
[facility] Pain Management SOAP Note Subjective:: Patient is a pleasant 48-year-old white male who presents today for follow-up after denial of neurostimulator. The patient has had a lumbar medial branch block in the past and did not get any relief after this therapy. He said multiple facet joint injections, epidural injections, risotto means and s ympathetic blocks. The patient is currently on antidepressants has been on it for years. He is failed this therapy in regards to pain management. Patient has failed physical therapy in the past and has failed 6 months of home exercise therapy, however he is continuing to do a home stretching program. He is an appropriate candidate psychologically his psychological evaluation. Patient has bilateral leg swelling and cyanosis remittently. He has tried and failed anti- inflammatories and other medication modalities over 12 months. His pain was a 7 out of 10 today. Review of Systems General: No recent weight changes, no fever, no sleep disturbances Respiratory: No cough, no shortness of air, no recurring pulmonary infections Cardiovascular/peripheral vascular: No chest pain, no palpitations, no edema, no shortness of breath Gastrointestinal: No new onset incontinence, normal bowel movements reported Genitourinary: No new onset incontinence Musculoskeletal: Back pain, leg pain Psychiatric: Normal mood/affect Neurological: [Denies weakness in extremities], [denies balance issues] Objective:: Physical exam General: Alert and oriented x3, no acute distress, pleasant and cooperative, [on room air] Lungs: Respirations even and unlabored, symmetrical chest expansion Eyes: PERRL Musculoskeletal: Flexion and extension of lumbar spine somewhat guarded secondary to pain, deep tendon reflexes normal, strength in upper and lower extremities [5/5], [abnormal gait noted] Neurological: Speech clear, pace analyst equal, no gross sensory deficit Assessment:: Degenerative disc disease lumbar spine with lumbar spondylosis, facet arthropathy, CRPS type II Plan:: We will attempt to move forward and scheduling the trial for a neurostimulator. The patient is not on any anticoagulation therapy. He has tried and failed conservative therapies. We will follow-up with him after the trial to reassess his symptoms at that time. He has been instructed to call the office if he has any concerns prior to his next appointment. Dr. Saha has reviewed this note and agrees with this plan of care. This note was dictated using voice recognition software and make contain errors or omissions.
== END ==
PROVIDERS: PCP Emergency Medicine; Visit Provider Clinical Nurse Specialist Family Health
DX: M51.36 Other intervertebral disc degeneration, lumbar region (principal); M47.896 Other spondylosis, lumbar region; M54.06 Panniculitis affecting regions of neck and back, lumbar region; G57.73 Causalgia of bilateral lower limbs
CPT/HCPCS: 99212

== ENCOUNTER → 2019-07-21 09:35 | Outpatient (CLI) | payer BC, SELFPAY ==
--- NOTE | 2019-07-21 09:37 | XR_ITS ---
PROCEDURE: XR KNEE LT 4V CLINICAL INDICATION: left knee pain COMPARISON: No exams were available for comparison FINDINGS: No fracture or dislocation. No lytic or blastic change. There is normal mineralization. The joint spaces are well-preserved. No significant degenerative/arthritic changes. No erosive changes evident. Other findings:Incidental note is made ununited tibial tuberosity ossification center which does not appear significantly fragmented with no overlying soft tissue swelling IMPRESSION: Negative left knee Dictated by: Dallas Mujica MD 07/21/2019 18:06 Electronically signed by Dallas Mujica MD in [place] 07/21/2019 18:06
== END ==
PROVIDERS: PCP Emergency Medicine; Visit Provider Orthopaedic Surgery
DX: M25.562 Pain in left knee (principal)
CPT/HCPCS: 73564

== ENCOUNTER → 2019-08-07 14:33 | Outpatient (CLI) | payer BC, SELFPAY ==
--- NOTE | 2019-08-07 14:35 | MR_ITS ---
PROCEDURE: MR KNEE LT WO CON CLINICAL INDICATION: evaluate for a meniscal tear Left knee pain anterior to medial COMPARISON: XR KNEE LT 4V from 07/21/2019 TECHNIQUE: Routine multiplanar multi echo sequences are performed without gadolinium enhancement. FINDINGS: The cruciate ligaments, collateral ligaments, popliteal tendon, and quadriceps tendon have an unremarkable appearance. There is an ununited ossification center at the tibial tuberosity as a normal variant. There is a defect within the posterior horn of the medial meniscus. This defect is along the inferior margin of the posterior horn of the medial meniscus and may represent radial tear which is incomplete. The lateral meniscus has an unremarkable appearance. The patellar cartilage is well preserved. There is a small knee joint effusion. No bone bruises or bone marrow edema is evident within the distal femur or tibia. There is a small amount of bone marrow edema within the neck of the fibula laterally. IMPRESSION: 1. Incomplete radial tear involves the posterior horn of the medial meniscus 2. Small amount of bone marrow edema within the neck of the fibula laterally. 3. Otherwise negative MRI of the left knee Dictated by: Dallas Mujica MD 08/08/2019 12:31 Electronically signed by Dallas Mujica MD in [place] 08/08/2019 12:31
== END ==
PROVIDERS: PCP Emergency Medicine; Visit Provider Orthopaedic Surgery
DX: M25.562 Pain in left knee (principal)
CPT/HCPCS: 73721

== ENCOUNTER → 2019-08-19 10:13 | Outpatient (CLI) | payer MEDICARE, BC, SELFPAY ==
[2019-08-19 10:26] LABS: Basophils % 0.6 % (0.1-2.0); Eosinophils # 0.2 K/mm3 (0.0-0.4); Eosinophils % 3.1 % (0.1-12.0); Hematocrit 46.6 % (42.0-52.0); Hemoglobin 14.5 g/dL (14.1-18.0); Lymphocytes # 1.6 K/mm3 (0.7-4.5); Lymphocytes % 24.9 % (10-50); Mean Corpuscular HGB Conc 31.1 g/dL (31.8-35.4); Mean Corpuscular Volume 96.7 fl (80-94); Monocytes # 0.4 K/mm3 (0.1-1.0); Monocytes % 5.7 % (1.7-9.3); Neutrophils # 4.3 K/mm3 (1.8-7.8); Neutrophils % 65.6 % (37.0-80.0); Platelet Count 181 K/mm3 (142-424); Red Blood Count 4.82 M/mm3 (4.60-6.20); Red Cell Distribution Width 14.2 % (11.5-17.5); White Blood Count 6.5 K/mm3 (4.8-10.8)
[2019-08-19 11:11] LABS: Anion Gap 12.5 mEq/L (5-15); Blood Urea Nitrogen 23 mg/dL (7-18); Carbon Dioxide 29 mmol/L (21.0-32.0); Chloride 106 mmol/L (98-107); Creatinine,Serum 0.99 mg/dL (0.70-1.30); Estimated Glomerular Filt Rate 81 ml/min (>60); GFR (African American) 98 ML/MIN (>60); Glucose 92 mg/dL (74-106); Potassium 4.5 mmoL/L (3.5-5.1); Sodium 143 mmol/L (136-145)
== END ==
PROVIDERS: Visit Provider Orthopaedic Surgery
DX: S83.242D Other tear of medial meniscus, current injury, left knee, subsequent encounter (principal); M67.52 Plica syndrome, left knee; M25.562 Pain in left knee; G89.29 Other chronic pain
CPT/HCPCS: 36415; 80048; 85025

== ENCOUNTER → 2019-09-30 14:07 | Outpatient (CLI) | payer MEDICARE, BC, SELFPAY ==
[2019-09-30 15:46] LABS: Amphetamine/Metha Screen,Urine Negative ng/mL (<1000); Barbiturates Screen,Urine Negative ng/mL (<200); Benzodiazepines Screen,Urine Negative ng/mL (<200); Cannabinoid Screen,Urine Negative ng/mL (<50); Cocaine Screen,Urine Negative ng/mL (<300); Methadone Screen,Urine Negative ng/mL (<300); Opiate Screen,Urine Negative ng/mL (<300); Phencyclidine Screen,Urine Negative ng/mL (<25)
== END ==
PROVIDERS: Visit Provider Nurse Practitioner Family
DX: K58.9 Irritable bowel syndrome, unspecified (principal); Z79.899 Other long term (current) drug therapy
CPT/HCPCS: 80305

== ENCOUNTER 2019-10-28 08:30 | Outpatient (RCR) | payer MEDICARE, BC, SELFPAY ==
--- NOTE | 2019-09-14 11:02 | HMH.PTOPEV ---
PT Outpatient Evaluation Rehab PT Outpatient Evaluation Start: 09/14/19 08:13 Freq: Status: Active Protocol: Document 09/14/19 08:14 MARINE (Rec: 09/14/19 10:28 MARINE [id number]) Electronically Signed By Jagdeep Dyson, PT 09/14/19 08:14 Outpatient Therapy Subjective History Subjective History Pt presents s/p L knee partial medial menisectomy and medial plica resection on 08/27/19. Pt reports impr mauricio L knee pain and mechanical issues since sx. Pt reports some residual L knee swelling, and weakness. Next MD follow-up . Chief Complaint Pain,Stiff,Weakness Symptom Type Ache,Dull Symptoms Relieved By Rest/Positioning,Ice Symptoms Aggravated By Physical Activity,Walking Prior Functional Limitations Standing,Walking,Stairs Current Functional Limitations Walking,Stairs Symptom Description Intermittent Level of pain today (0-10) 0 Pain scale - at its best (0-10) 0 Pain scale - at its worst (0-10) 4 Hip/Knee Eval Gait Observation General Gait Pattern Observation Antalgic Gait Assistive Device Assistive Devices None / NA Palpation Tenderness left Knee Palpation Finding Tenderness Knee Palpation Overall Comment 2-3/4 medial jt line MMT Hip Flexion Strength Grade 5 Normal Hip Abduction Strength Grade 4- Good- Hip Adduction Strength Grade 4 Good Hip Extension Strength Grade 4 Good Hip External Rotation Strength Grade 4 Good Hip Internal Rotation Strength Grade 4 Good Knee Extension Strength Grade 5 Normal Knee Flexion Strength Grade 4 Good ROM Knee Flexion Active Range of Motion ( 0-130 degrees) Effusion joint effusion knee exam standard left Mid - Patellar Circumerential Measure ( 40 cm) Outpatient Therapy Assessment Impairments Problems/Impairmments Palpation Tenderness,Impaired Range of Motion,Impaired Strength,Impaired Gait Pattern ,Impaired Walking,Impaired Stair Climbing,Impaired Squatting,Subjective C/O Pain, Impaired Self Care/Self Management Prognosis Rehab Potential Good Clinical Impression Consistent with Diagnosis Yes Short Term Goals Number of Weeks 4 Decreased Palpation Tenderness Yes: 1-2/4 Increase Strength Yes: 4/5 Increase Ability to Walk
--- NOTE | 2019-10-12 09:10 | HMH.RHREAS ---
Rehab Reassessment Rehab OP Re-assessment Start: 10/12/19 07:59 Freq: Status: Active Protocol: Document 10/12/19 08:00 NATALIEHANSROGERS (Rec: 10/12/19 09:09 MARINE [id number]) Electronically Signed By Jagdeep Dyson, PT 10/12/19 08:00 Rehab Re-assessment Subjective Subjective PT REPORTS 4-5/10 L KNEE PAIN ON VAS W/ACTIVITY, AND FEELS 60-70% BETTER OVERALL SINCE I EVAL Objective Objective Notes AROM: L KNEE 0-135 MMT: L KNEE EXT/FLX 4+-5/5, L HIP FLX/ABD/EXT/ADD 4-4+/5 TTP: MEDIAL JT LINE 1/4 L KNEE Assessment Progress Assessment Progressing as Expected Assessment Notes PT WITH IMPROVED STRENGTH, ROM, AND TTP Patient goals met STG'S 02/14, LTG'S 12/20 Goals Not Met STG'S 12/17 LTG'S 05/19 Plan Plan PT TO CONT. W/SKILLED P.T. TO MAKE FURTHER IMPROVEMENTS W/ AROM, STRENGTH, AND TTP TO ALLOW FOR OPTIMAL FUNCTION Frequency of Therapy 2-3X/WK Duration of therapy 3-4 WKS Time and Billing Re-Eval Time 15 Re-Eval Billing Units 1 PHYSICIAN CERTIFICATION: I certify the specified therapy services for Dallas Aleman are required, authorized, and reviewed every 30 days.
== END 2019-10-28 08:35 | disposition home or self-care (01) ==
LOC: PT 08:30
PROVIDERS: Visit Provider Orthopaedic Surgery
DX: S83.242D Other tear of medial meniscus, current injury, left knee, subsequent encounter (principal); M67.52 Plica syndrome, left knee; M25.562 Pain in left knee
CPT/HCPCS: 97010; 97014; 97016; 97110; 97140; 97163; 97164; G0283

== ENCOUNTER → 2019-11-25 17:07 | Outpatient (CLI) | payer MEDICARE, BC, SELFPAY ==
[2019-11-25 19:11] LABS: Amphetamine/Metha Screen,Urine Negative ng/mL (<1000); Barbiturates Screen,Urine Negative ng/mL (<200); Benzodiazepines Screen,Urine Negative ng/mL (<200); Cannabinoid Screen,Urine Negative ng/mL (<50); Cocaine Screen,Urine Negative ng/mL (<300); Methadone Screen,Urine Negative ng/mL (<300); Opiate Screen,Urine Negative ng/mL (<300); Phencyclidine Screen,Urine Negative ng/mL (<25)
== END ==
PROVIDERS: Visit Provider Nurse Practitioner Family
DX: K58.2 Mixed irritable bowel syndrome (principal); Z79.899 Other long term (current) drug therapy
CPT/HCPCS: 80305

== ENCOUNTER → 2019-12-01 09:18 | Outpatient (POV) | payer MEDICARE, BC, SELFPAY ==
--- NOTE | 2019-12-01 09:51 | P.CONS_ITS ---
[facility] Pain Management SOAP Note Subjective:: Patient is a pleasant 49-year-old white male who presents today for follow-up. Patient has been denied by his insurance for multiple different modalities of treatment. He is not a surgical candidate. He has low back pain and bilateral leg pain causing him to have issues with activities of daily life. Overall patient is unable to take oral narcotics. Patient has tried and failed over a year of medication he is tried and failed facet joint injections, neurotomies, lumbar epidural steroid injections, SI joint injections. Patient and I discussed intrathecal therapies that he is interested in moving forward with this. ROS General: no recent weight change, no fever, no sleep disturbances Respiratory: no cough, no shortness of air, no recurring pulmonary infections Cardiovascular/Peripheral Vascular: No chest pain, No palpitations, no edema, no shortness of breath. Gastrointestinal: no new onset incontinence, normal bowel movements reported Genitourinary: no new onset incontinence Musculoskeletal: Back pain, leg pain Psychiatric: normal mood/ affect Neurological: [denies new onset weakness in extremities], [denies new onset balance issues] Objective:: Physical Exam General: Alert and oriented x3, no acute distress, pleasant and cooperative, [on room air] Lungs: Resps E/U, Symmetrical chest expansion, Eyes: PERRL Musculoskeletal: Flexion and extension of lumbar spine somewhat guarded secondary to pain, deep tendon reflexes normal, strength in upper and lower extremities [5/5], [abnormal gait noted] Neurological: speech clear, special delivery mail carrier equal, no gross sensory deficits Assessment:: Degenerative disc disease lumbar spine with lumbar radiculopathy lumbar spondylosis, facet arthropathy Plan:: Patient has had pain for an extended amount of time. He is failed multiple modalities of treatment including physical therapy, anti-inflammatories, narcotic medications, epidurals, facet joint injections, RFA's. Patient has done this over the last year and a half. Patient and I discussed a bupivacaine only pump he is interested in pursuing this. We will set him up for intrathecal pain pump trial. I will follow-up with him after this reassess his symptoms at that time he is been instructed to call the office if he has any issues prior to his next appointment. Dr. Saha has reviewed this note and agrees with this plan of care. This note was dictated using voice recognition software and may contain errors or omissions [facility] History I have reviewed the patient's past medical history: Yes Medical History: Reports:: Depression, Kidney Stones Denies:: Cancer, Diabetes Mellitus Type 1, Diabetes Mellitus Type 2, Internal Pacemaker, MRSA, Seizures *Have you ever received a pneumonia vaccine?: No *Have you received a flu vaccine this season?: No Other Medical History: Reports: Sinus Problems, Other. Denies: Blood Transfusion Reaction Laterality Cases: Bilateral: Arthroscopy Shoulder, Other Other Surgeries: Yes: Hernia Repair, Sinus Surgery, Other. No: Pacemaker Amputation: No Fractures: No - *Social History Smoking Status: Former smoker Tobacco Type: cigarettes # Packs/Day (cigarettes): 0 #Yrs smoked (if former smoker): 10 Alcohol Intake: current Alcohol Intake Frequency:: holidays/special occasions only Substance Use Type: denies use *Occupational Status:: unemployed Housing: house Household Members: friend(s) *Travel in the last 8 weeks: None - Psychiatric History Pschychiatric History:: Reports:: Depression Family Hx:: Hypertensio
[2019-12-01 09:53] VITALS: BP 146/94; PULSE 74; RESP 18; O2SAT 99; BMI 27.6
== END ==
PROVIDERS: PCP Emergency Medicine; Visit Provider Clinical Nurse Specialist Family Health
DX: M51.16 Intervertebral disc disorders with radiculopathy, lumbar region (principal); M54.06 Panniculitis affecting regions of neck and back, lumbar region; M47.896 Other spondylosis, lumbar region
CPT/HCPCS: 99212

== ENCOUNTER → 2020-03-28 07:08 | Outpatient (CLI) | payer MEDICARE, BC, SELFPAY ==
[2020-03-28 07:32] LABS: Basophils % 0.3 % (0.1-2.0); Eosinophils # 0.2 K/mm3 (0.0-0.4); Hematocrit 42.5 % (42.0-52.0); Hemoglobin 14.2 g/dL (14.1-18.0); Lymphocytes # 1.6 K/mm3 (0.7-4.5); Lymphocytes % 26.7 % (10-50); Mean Corpuscular HGB Conc 33.3 g/dL (31.8-35.4); Mean Corpuscular Hemoglobin 30.3 pg (27.0-31.2); Mean Corpuscular Volume 90.8 fl (80-94); Mean Platelet Volume 7.8 fl (7.4-10.4); Monocytes # 0.4 K/mm3 (0.1-1.0); Monocytes % 5.9 % (1.7-9.3); Neutrophils # 3.9 K/mm3 (1.8-7.8); Neutrophils % 64.2 % (37.0-80.0); Platelet Count 195 K/mm3 (142-424); Red Blood Count 4.68 M/mm3 (4.60-6.20); Red Cell Distribution Width 14.1 % (11.5-17.5); White Blood Count 6.1 K/mm3 (4.8-10.8)
[2020-03-28 08:16] LABS: Chloride 104 mmol/L (98-107)
[2020-03-28 08:17] LABS: Potassium 4.7 mmoL/L (3.5-5.1); Sodium 136 mmol/L (136-145)
[2020-03-28 08:20] LABS: Anion Gap 8.7 mEq/L (5-15); Blood Urea Nitrogen 13 mg/dl (9-20); Calcium 8.8 mg/dl (8.4-10.2); Carbon Dioxide 28 mmol/L (22.0-30.0); Estimated Glomerular Filt Rate 103 ml/min (>60); GFR (African American) 125 ML/MIN (>60); Glucose 98 mg/dl (74-100)
[2020-03-30 11:00] LABS: Covid-19 Nasal PCR Sendout Lex NOT DETECTED
== END ==
PROVIDERS: Visit Provider Anesthesiology
DX: Z01.818 Encounter for other preprocedural examination (principal); M51.36 Other intervertebral disc degeneration, lumbar region
CPT/HCPCS: 36415; 80048; 85025; U0004

== ENCOUNTER 2020-03-30 11:05 | Day surgery (SDC) | payer MEDICARE, BC, SELFPAY ==
--- NOTE | 2020-03-25 08:23 | SUR.PREOP ---
03/25/2020 @ 0820--PHONE CALL MADE TO PATIENT. PATIENT UNDERSTANDS THAT LAB WORK AND COVID TESTING NEEDS TO BE COMPLETED @ 0700 on 03/28/2020. PATIENT UNDERSTANDS IF LAB WORK AND COVID-19 TESTS ARE NOT COMPLETED BY 12PM ON THAT DATE, THE SURGERY SCHEDULED WILL BE CANCELLED AND RESCHEDULED FOR ANOTHER TIME.
[2020-03-29 09:45] VITALS: BMI 28.3
[2020-03-30] VITALS (7 sets, daily range): BP systolic 115–133; BP diastolic 69–94; PULSE 63–76; RESP 18; TEMP 36.6–36.7; O2SAT 95–97
--- NOTE | 2020-03-30 13:25 | HMH.PMCON ---
Assessment and Plan - Assessment and plan all Dx Assessment and Plan for all problems:: Impression-degenerative disc disease of the lumbar spine with radiculopathy Plan-placement of intrathecal pain pump system today HPI - Data of Consult Patient: new to practice Consult date: 03/30/20 Requesting Physician: Armond Saha MD Primary Care Provider: Jocelyn Nuñez APRN - Consult Narrative Reason for consult: Back and lower extremity pain History of present illness: Mr. Aleman is a 49 year old male with chronic back pain related to degenerative disc disease of the lumbar spine with radiculopathy. Multiple attempts at pain relief have been unsuccessful. Had a intrathecal pain pump trial with significant improvement and comes in today for placement of that system CC: Armond Saha MD [facility] History Medical History: Reports:: Depression, Kidney Stones Denies:: Cancer, Diabetes Mellitus Type 1, Diabetes Mellitus Type 2, Internal Pacemaker, MRSA, Seizures *Have you ever received a pneumonia vaccine?: No *Have you received a flu vaccine this season?: No Other Medical History: Reports: Sinus Problems, Other. Denies: Blood Transfusion Reaction Comment:: Illnesses-depression, degenerative disc disease, irritable bowel syndrome, kidney stones Laterality Cases: Bilateral: Arthroscopy Shoulder, Other Other Surgeries: Yes: Hernia Repair, Sinus Surgery, Other. No: Pacemaker Amputation: No Fractures: No Comment: Operations, 7 shoulder surgeries, nasal septoplasty, inguinal and umbilical hernia repairs - *Social History Educational Level: Completed GED/General Educational Development Smoking Status: Former smoker Tobacco Type: cigarettes # Packs/Day (cigarettes): 0 #Yrs smoked (if former smoker): 10 Alcohol Intake: current Alcohol Intake Frequency:: holidays/special occasions only Substance Use Type: denies use *Occupational Status:: disabled Housing: house Household Members: friend(s) *Travel in the last 8 weeks: None - Psychiatric History Pschychiatric History:: Reports:: Depression Family Hx:: Unable to obtain Review of Systems - Review of Systems Review of systems:: pertinent systems reviewed and negative unless documented below Meds Home Medications Medication Instructions Recorded Confirmed Type sertraline 100 mg tablet 150 mg PO DAILY #45 tab 05/01/19 03/30/20 Rx Gabapentin 600 mg PO BID 03/29/20 03/30/20 History Allergies Allergy/AdvReac Type Severity Reaction Status Date / Time oxycodone [From PERCOCET] Allergy Intermediate FEELS SICK Verified 03/30/20 11:42 aspirin AdvReac Unknown UPSET Verified 03/30/20 11:42 STOMACH Objective Vital signs: Temp Pulse Resp BP Pulse Ox 97.8 F 69 18 128/94 H 97 03/30/20 11:58 03/30/20 11:58 03/30/20 11:58 03/30/20 11:58 03/30/20 11:58 no acute distress Comments: Healthy-appearing white male in no distress - *Routine Respiratory Exam Present: CTA bilaterally - *Routine Cardiovascular Exam Present: RRR - *Routine Abdominal Exam Present: soft, normoactive bowel sounds. Absent: tenderness
--- NOTE | 2020-03-30 15:13 | HMH.OPNOTE ---
Date of procedure: 03/30/20 Pre-op Diagnosis:: Generative disc disease of the lumbar spine with radiculopathy Post-op Diagnosis:: Same Procedure performed:: Placement of pain pump generator Surgeon:: Cristobal Almazan MD CANE FLUME WATCHER:: Howie Delvalle, Kieran Pardo, Juventino Nicole, [place], Other Anesthesia: MAC Estimated blood loss (mL): 5 Operative findings:: Noncontributory Operative note:: Patient placed prone on the operating table and his back and flank regions were prepped and draped in sterile fashion. Once adequate IV sedation was obtained via anesthesia and local anesthesia 1% Xylocaine with epinephrine a paraspinal incision was made by Dr. Larry which intrathecal catheter was passed into the intrathecal space to the area desired by Dr. Mathew. Catheter fixed the paraspinal fascia with fixation device and 2-0 Prolene sutures. Catheter then passed from the paraspinal incision to the pocket incision which was made on the right flank with the tunneler.. Catheter fixed to the generator which was placed in the pocket. CSF was aspirated from the generator noting patency of the system. Both pockets were irrigated with antibiotic solution. The generator was sutured to the underlying fascia with fixation device and 2-0 Prolene sutures. Subcutaneous tissues closed with 2-0 Vicryl stitches in skin closed with interrupted stitches of 4-0 nylon. Wound VAC dressings and a binder applied. The patient tolerated the procedure well and was taken to the recovery room in stable condition. Upon recovery he will be discharged home will follow-up in 1 week for removal of the wound VAC system. Antibiotics x1 week per protocol. I be contacted for any problems. The patient taught procedure well. Condition: stable Disposition: PACU Complications:: None
--- NOTE | 2020-03-30 15:25 | P.OP_ITS ---
Date of procedure: 05/04/20 Pre-op Diagnosis:: Degenerative disc disease of lumbar spine with lumbar radiculopathy symptoms and lumbar spondylosis and facet arthropathy Post-op Diagnosis:: Same Procedure performed:: Placement of intrathecal catheter with tunneling for permanent placement of intrathecal pain pump Surgeon:: Armond Saha MD NURSING INFORMATICS ANALYST:: Juventino Nicole Anesthesia: MAC Estimated blood loss (mL): 5 Clinical Note:: This patient is a pleasant 49-year-old white male who we are treating for low back pain with lumbar radiculopathy symptoms. He has increasing low back pain radiating into both legs. He is failed all previous conservative therapy including facet joint injections, RFA, lumbar epidural steroid injections, SI joint injections and oral narcotics. He is not a surgical candidate. He has had a successful psychological evaluation. He is also had a successful intrathecal pump trial. He was 80 to 90% better. He was also much more f unctional. He presents for permanent placement of intrathecal pain pump today. Operative findings:: None Operative note:: Informed consent was obtained the risk and benefits of the procedure were explained to the patient. The patient was taken to the procedure room. Placed prone on the procedure table. He was prepped and draped in sterile fashion. C- arm fluoroscopy was used to view the lumbar spine. The skin and subcutaneous tissues adjacent to the L4-5 and L5-S1 interspace were anesthetized using lidocaine. I made an incision and dissected down to the lumbar paraspinous fascia. A 14-gauge spinal needle was inserted and advanced into the L5-S1 interspace until clear CSF was obtained. After this intrathecal catheter was inserted and advanced very easily to the L1 vertebral body. The stylette of the catheter and the needle were withdrawn. The catheter was secured to the fascia with 2 anchoring devices and 2-0 Prolene. I prepared the pump with 20 mls of intrathecal morphine 5 mg/mL by Dr. Almazan prepared the pump pocket. I tunneled the catheter from the back to the pump pocket and attached the catheter to the pump. The pump was placed in the pocket. We were able to freely withdraw clear CSF through the side-port. The pump was secured to the fascia with 2-0 Prolene. Both incisions were then closed with 2-0 Vicryl followed by 4-0 nylon. A wound VAC was placed over both incisions. The patient was placed in an abdominal binder. The patient was taken recovery in stable condition. Patient tolerated the procedure well with no complications. The pump was started at 0.25 mg/day of intrathecal morphine. Patient was given a back brace to help with stability of the spine and also help relieve pain in the low back. Patient was discharged home neurologically intact and with good relief of pain symptoms. Plan and disposition: We will follow-up with this patient in 1 week for wound check and reprogramming if needed. We will follow-up in 2 weeks for suture removal. If the patient has any problems or questions he is to call us back in the pain clinic. Condition: stable Disposition: PACU Complications:: None
--- NOTE | 2020-03-30 16:07 | HMH.ANESCL ---
[facility] Anesthesia Checklist - Patient Identification Patient Identification: Arm Band - Structural Data Admitted From: Home Planned Operative Procedure/s: intrathecal pain pump generator and catheter placement under fluoroscopy Consent for Planned Operative Procedure(s) Verified: Yes Verified Documents: Surgical Consent, History and Physical - NPO Status Verified Time NPO: 00:00 - Additional verifications Anesthesia Reactions: No Hx Blood Transfusions: No Blood Transfusion Reaction: No - Airway Assessment C-Spine Mobility Assessed: Yes (mp2) TMJ Mobility Assessed: Yes Dentition: Good Dentition - Neurological Assessment Level of Consciousness: Awake, Alert - Anesthesia Plan Anesthesia Risk discussed: Yes Anesthesia Plan: Verified ASA Class: II Anesthesia Type: MAC [facility] History Medical History: Reports:: Depression, Kidney Stones Denies:: Cancer, Diabetes Mellitus Type 1, Diabetes Mellitus Type 2, Internal Pacemaker, MRSA, Seizures *Have you ever received a pneumonia vaccine?: No *Have you received a flu vaccine this season?: No Other Medical History: Reports: Sinus Problems, Other. Denies: Blood Transfusion Reaction Anesthesia experience/problems:: nac Laterality Cases: Bilateral: Arthroscopy Shoulder, Other Other Surgeries: Yes: Hernia Repair, Sinus Surgery, Other. No: Pacemaker Amputation: No Fractures: No - *Social History Educational Level: Completed GED/General Educational Development Smoking Status: Former smoker Tobacco Type: cigarettes # Packs/Day (cigarettes): 0 #Yrs smoked (if former smoker): 10 Alcohol Intake: current Alcohol Intake Frequency:: holidays/special occasions only Substance Use Type: denies use *Occupational Status:: disabled Housing: house Household Members: friend(s) *Travel in the last 8 weeks: None - Psychiatric History Pschychiatric History:: Reports:: Depression Family Hx:: Unable to obtain
== END 2020-03-30 16:35 | disposition home or self-care (01) ==
LOC: OR 11:07
PROVIDERS: Surgery; PCP Nurse Practitioner Family; Visit Provider Anesthesiology
DX: M51.16 Intervertebral disc disorders with radiculopathy, lumbar region (principal); M54.06 Panniculitis affecting regions of neck and back, lumbar region; M47.816 Spondylosis without myelopathy or radiculopathy, lumbar region; F32.9 Major depressive disorder, single episode, unspecified; K58.9 Irritable bowel syndrome, unspecified; Z87.442 Personal history of urinary calculi; Z87.39 Personal history of other diseases of the musculoskeletal system and connective tissue; Z88.6 Allergy status to analgesic agent; Z88.5 Allergy status to narcotic agent; Z87.891 Personal history of nicotine dependence
CPT/HCPCS: 62350; 62362; 96374; C1755; C1772; J2704; J3370

== ENCOUNTER → 2020-04-07 09:22 | Outpatient (POV) | payer MEDICARE, BC, SELFPAY ==
[2020-04-07 10:22] VITALS: BP 147/69; PULSE 69; RESP 18; TEMP 36.2; O2SAT 99; BMI 25.7
--- NOTE | 2020-04-07 13:48 | HMH.PAINSOAP ---
[facility] Pain Management SOAP Note Subjective:: Patient is a pleasant 49-year-old white male who presents today for follow-up after intrathecal pain pump implant. Patient says he is doing well overall since having his pump implanted. He rates his pain a 2 out of 10. He is being treated for degenerative disc disease lumbar spine with lumbar radiculopathy symptoms. Patient says that he was having some issues with voiding initially. He has since been started on Flomax. He says that he has not picked up the medication yet but plans to pick it up today. He does say he was able to void a little easier today. He does complain, however, of severe bruising. He says that it is getting somewhat better. Patient is noted to have bruising around his intrathecal pump site as well as scrotal and penile bruising. Patient does have some scrotal edema as well. Patient says this is new onset for him. Patient does report having a history of complications with voiding following post Escobedo catheterization. Patient says when he has had to have a Escobedo catheter in the past following surgeries, he has had difficulty with voiding and had bruising. Patient was concerned that he did receive a Escobedo catheter during the procedure. Review of Systems General: No recent weight changes, no fever, no sleep disturbances Respiratory: No cough, no shortness of air, no recurring pulmonary infections Cardiovascular/peripheral vascular: No chest pain, no palpitations, no edema, no shortness of breath Gastrointestinal: No new onset incontinence, normal bowel movements reported Genitourinary: No new onset incontinence Musculoskeletal: Low back pain Psychiatric: Normal mood/affect Neurological: [Denies weakness in extremities], [denies balance issues] Objective:: Physical exam General: Alert and oriented x3, no acute distress, pleasant and cooperative, [on room air] Lungs: Respirations even and unlabored, symmetrical chest expansion Eyes: PERRL Musculoskeletal: Flexion and extension of lumbar spine somewhat guarded secondary to pain, deep tendon reflexes normal, strength in upper and lower extremities [5/5], [abnormal gait noted] Neurological: Speech clear, network control supervisor equal, no gross sensory deficit Assessment:: Degenerative disc disease lumbar spine with lumbar radiculopathy symptoms Plan:: Overall, the patient is doing well following the procedure. He does have some bruising noted to the intrathecal pump site. He also has some scrotal edema and bruising to his scrotum and penis. I have encouraged the patient to elevate his scrotum for edema. He has been reassured that the bruising will dissipate over time. For now the patient will continue on Flomax that was called in. He has been encouraged to start the medication. The patient's incision is well approximated, no redness, no edema, no drainage noted to the site. The sutures are intact. We will plan to see the patient back in the clinic in [address] Saha has reviewed this note and agrees with this plan of care. This note was dictated using voice recognition software and make contain errors or omissions. The patient and I specifically discussed risk factors for COVID19. These risks include, but are not limited to age greater than 60, heart or lung disease, diabetes, immunosuppression, and travel. We also discussed NSAIDs may worsen COVID19 infection or symptoms. Patient should not use NSAIDs to treat COVID19 signs or symptoms. Patient was also informed that any type of corticosteroid of any form (oral or injection) will decrease the patient's immune system response and may increase the likelihood of COVID19 infection and symptoms. [facility] History I have reviewed the patient's past medical history: Yes Medical History: Reports:: Depression, Kidney Stones Denies:: Cancer, Diabetes Mellitus Type 1, Diabetes Mellitus Type 2, Internal Pacemaker, MRSA, Seizures *Have you ever received a pneumonia vaccine?: Yes *Have y
== END ==
PROVIDERS: PCP Emergency Medicine; Visit Provider Clinical Nurse Specialist Family Health
DX: M51.16 Intervertebral disc disorders with radiculopathy, lumbar region (principal)
CPT/HCPCS: 99212

== ENCOUNTER → 2020-04-19 09:21 | Outpatient (POV) | payer MEDICARE, BC, SELFPAY ==
--- NOTE | 2020-04-19 09:40 | HMH.PMPROC ---
- Procedure Date: 04/19/20 Time: 09:41 Anesthesiologist:: Cecilia Sanders APRN Complications:: None Pre-procedure Diagnosis:: Degenerative disc disease lumbar spine with lumbar radiculopathy Post-procedure Diagnosis:: Same Indications for Procedure:: Patient is a very pleasant 49-year-old white male who presents today for intrathecal pain pump. Patient is doing extremely well. Patient was having some urinary hesitancy however that is resolved with his Flomax. He is can continue to take this. Patient rates his pain 1 out of 10. He is currently on a morphine infusion of 0.25 mg/day. He is having no other side effects. Patient does not need adjustments today. We will set up his PTC. Physical Exam General: Alert and oriented x3, no acute distress, pleasant and cooperative, [on room air] Lungs: Resps E/U, Symmetrical chest expansion, Eyes: PERRL Musculoskeletal: Flexion and extension of lumbar spine somewhat guarded secondary to pain, deep tendon reflexes normal, strength in upper and lower extremities [5/5], normal gait noted Neurological: speech clear, traffic court referee equal, no gross sensory deficits Procedure Details:: Informed consent was obtained and the risk and benefits of the procedure were explained to the patient. The patient was taken to the procedure room where noninvasive monitoring was placed including noninvasive blood pressure cuff and pulse oximeter. Patient's pump was interrogated and reprogrammed. The infusion rate was continued at 0.25 mg a day of morphine and his PTC is was set up at 0.025 mg every 6 hours as needed.. The patient tolerated the procedure well. Plan and Disposition:: Patient stitches have been removed patient's incision site healed and intact no sign symptoms of infection. We will see the patient back in 3 weeks reassess his symptoms at that time. He has been instructed to call the office if he has any issues prior to his next appointment. Dr. Saha has reviewed this note and agrees with this plan of care. This note was dictated using voice recognition software and may contain errors or omissions
[2020-04-19 12:36] VITALS: BP 152/90; PULSE 82; RESP 18; TEMP 36.6; O2SAT 98; BMI 25.7
== END ==
PROVIDERS: PCP Emergency Medicine; Visit Provider Clinical Nurse Specialist Family Health
DX: M51.16 Intervertebral disc disorders with radiculopathy, lumbar region (principal)
CPT/HCPCS: 62368

== ENCOUNTER 2020-04-25 13:05 | Emergency (ER) | payer MEDICARE, BC, SELFPAY ==
[2020-04-25 13:27] VITALS: BP 138/78; PULSE 78; RESP 20; TEMP 36.7; O2SAT 100; BMI 27.8
[2020-04-25 14:30] LABS: Basophils % 0.4 % (0.1-2.0); Eosinophils # 0.1 K/mm3 (0.0-0.4); Eosinophils % 2.9 % (0.1-12.0); Hematocrit 45.1 % (42.0-52.0); Hemoglobin 15.3 g/dL (14.1-18.0); Lymphocytes # 1.1 K/mm3 (0.7-4.5); Lymphocytes % 21.8 % (10-50); Mean Corpuscular HGB Conc 33.9 g/dL (31.8-35.4); Mean Corpuscular Hemoglobin 31.8 pg (27.0-31.2); Mean Corpuscular Volume 93.8 fl (80-94); Mean Platelet Volume 7.8 fl (7.4-10.4); Monocytes # 0.3 K/mm3 (0.1-1.0); Monocytes % 5.2 % (1.7-9.3); Neutrophils # 3.5 K/mm3 (1.8-7.8); Neutrophils % 69.7 % (37.0-80.0); Platelet Count 209 K/mm3 (142-424); Red Blood Count 4.81 M/mm3 (4.60-6.20)
[2020-04-25 14:31] LABS: Chloride 107 mmol/L (98-107); Potassium 4.2 mmoL/L (3.5-5.1); Sodium 141 mmol/L (136-145)
[2020-04-25 14:33] LABS: Blood Urea Nitrogen 16 mg/dl (9-20); Creatinine Clearance Estimated 132 mL/min (50-200); Estimated Glomerular Filt Rate 90 ml/min (>60); GFR (African American) 109 ML/MIN (>60)
[2020-04-25 14:34] LABS: Alanine Aminotransferase 28 U/L (12-78); Albumin Level 4.6 g/dl (3.5-5.0); Albumin/Globulin Ratio 1.4 (1.1-1.8); Alkaline Phosphatase 101 U/L (38-126); Anion Gap 11.2 mEq/L (5-15); Aspartate Amino Transferase 37 U/L (17-59); Bilirubin,Total 0.6 mg/dl (0.2-1.3); Calcium 9.1 mg/dl (8.4-10.2); Carbon Dioxide 27 mmol/L (22.0-30.0); Globulin 3.2 g/dL (1.3-3.2); Glucose 101 mg/dl (74-100); Total Protein,Serum 7.8 g/dl (6.3-8.2)
--- NOTE | 2020-04-25 14:56 | HMH.EDUTC ---
[facility] [place] Clinical Impression: Leg edema Contact dermatitis Qualifiers: Contact dermatitis type: unspecified Contact dermatitis trigger: unspecified trigger Qualified Code(s): L25.9 - Unspecified contact dermatitis, unspecified cause Disposition: Home, Self-Care Condition on Discharge: Good Instructions: DI for Contact Dermatitis Additional Instructions: Take the medications as directed. Elevate your legs while you are resting. Follow up with your regular doctor. GO TO THE ER FOR ANY WORSENING SYMPTOMS OR CONCERNS Prescriptions: predniSONE [Deltasone 10mg tablet] 10 mg PO BID 4 Days #8 tab Transmission Status: Received by [id number] Referrals: Azeem Champion MD [Primary Care Provider] - Time of Disposition: 15:06 Medical Decision Making - Medical Records Medical records reviewed: No: I reviewed the patient's medical records. - Rd Inquiry Pt receiving controlled substance: No Vital Signs: 04/25/20 13:27 04/25/20 15:08 Temperature 98.1 F 98.1 F Temperature Source Oral Pulse Rate 78 Pulse Rate [Right Brachial] 78 Respiratory Rate 20 20 Blood Pressure 138/78 Blood Pressure [Right Arm] 138/78 Blood Pressure Mean [Right Arm] 98 Blood Pressure Source [Right Arm] Automatic Cuff Blood Pressure Position [Right Arm] Sitting 02 Sat by Pulse Oximetry 100 Oxygen Delivery Method Room Air - Lab Data Lab results reviewed: Yes: I reviewed the patient's lab results. Lab Results 04/25/20 13:51: WBC 5.0, RBC 4.81, Hgb 15.3, Hct 45.1, MCV 93.8, MCH 31.8 H, MCHC 33.9, RDW 14.0, Plt Count 209, MPV 7.8, Neut % (Auto) 69.7, Lymph % (Auto) 21.8, Union % (Auto) 5.2, Eos % (Auto) 2.9, Baso % (Auto) 0.4, Neut # (Auto) 3.5, Lymph # (Auto) 1.1, Union # (Auto) 0.3, Eos # (Auto) 0.1, Baso # (Auto) 0.0, ESR 14 04/25/20 13:51: Sodium 141, Potassium 4.2, Chloride 107, Carbon Dioxide 27, Anion Gap 11.2, BUN 16, Creatinine 0.90, Estimated Creat Clear 132, Estimated GFR 90, Est GFR ( Amer) 109, Glucose 101 H, Calcium 9.1, Total Bilirubin 0.6, AST 37, ALT 28, Alkaline Phosphatase 101, Total Protein 7.8, Albumin 4.6, Globulin 3.2, Albumin/Globulin Ratio 1.4 Result diagrams: 04/25/20 13:51 04/25/20 13:51 [facility] [place] HPI - General Stated complaint: Rash Time Seen by Provider: 04/25/20 13:30 Mode of Arrival: Ambulatory Source of Information: Patient Limitations: No Limitations Description of Symptoms (Recalled from Triage Doc. by RN): PATIENT C/O RASH AND SWELLING IN LOWER LEGS HEENT Symptoms (Recalled from RN notes): No Resp Symptoms (Recalled from RN notes): No Skin Symptoms (Recalled from RN notes): Yes MS Symptoms (Recalled from RN notes): Yes Functional Status (Recalled from RN notes): WNL - History of Present Illness Provider Complaint: He c/o bilateral lower leg swelling and redness. He is on keflex that was prescribed by his regular doctor for possible cellulitis. He states that his symptoms have got some better, but there is one area of rash that has broke out on his right lower leg. - Related Data Home Medications Medication Instructions Recorded Confirmed Gabapentin 600 mg PO BID 04/25/20 04/25/20 Previous Rx's Medication Instructions Recorded sertraline 100 mg tablet 150 mg PO DAILY #45 tab 05/01/19 predniSONE [Deltasone 10mg tablet] 10 mg PO BID 4 Days #8 tab 04/25/20 Allergies Allergy/AdvReac Type Severity Reaction Status Date / Time oxycodone [From PERCOCET] Allergy Intermediate FEELS SICK Verified 04/20/20 10:37 aspirin AdvReac Unknown UPSET Verified 04/20/20 10:37 STOMACH - Worker's Comp Is this a Worker's Comp case?: No [facility] History - Hepatitis A Screen Drug use history?: No High risk sexual behaviors?: No History of sexually transmitted infection?: No Currently employed?: No Childcare worker?: No Do you have indoor plumbing?: Yes Do you have electricity?: Yes Attestation statement:: This patient has been screened for Hep
[2020-04-25 15:08] VITALS: BP 138/78; PULSE 78; RESP 20; TEMP 36.7; O2SAT 100
[2020-04-25 15:11] LABS: Erythrocyte Sedimentation Rate 14 mm/hr (0-15)
== END 2020-04-25 15:18 | disposition home or self-care (01) ==
PROVIDERS: Emergency Provider Nurse Practitioner Family; PCP Emergency Medicine
DX: L25.9 Unspecified contact dermatitis, unspecified cause (principal); R60.0 Localized edema; F33.1 Major depressive disorder, recurrent, moderate; Z87.442 Personal history of urinary calculi; F17.210 Nicotine dependence, cigarettes, uncomplicated; Z79.899 Other long term (current) drug therapy
CPT/HCPCS: G0463; 80053; 85025; 85651; 99201

== ENCOUNTER → 2020-05-12 09:35 | Outpatient (POV) | payer MEDICARE, BC, SELFPAY ==
--- NOTE | 2020-05-12 10:05 | HMH.PAINSOAP ---
[facility] [place] Pain Management SOAP Note Subjective:: Patient is a 49-year-old white male who presents today for follow-up. He is been treated for low back pain with lumbar radiculopathy symptoms. Patient underwent for intrathecal pain pump implant. He tried all conservative therapies and failed he did have 12/02/1958. An appropriate psychological evaluation. He currently has morphine in his intrathecal pump at 0.25 mg/day. His PTC is at 0.025 mg every 6 hours. He does rate his pain a 2 out of 10 today. Initially after having his intrathecal pain pump placed he did have some issues with urination. He was started on Flomax. He does say he is doing some better with his urination. He says he has occasional episodes of hesitancy. Otherwise, he has done well. Patient's Rd #[id number] has been reviewed and is appropriate. His urine drug screens have been appropriate. His morphine equivalent is 0. Review of Systems General: No recent weight changes, no fever, no sleep disturbances Respiratory: No cough, no shortness of air, no recurring pulmonary infections Cardiovascular/peripheral vascular: No chest pain, no palpitations, no edema, no shortness of breath Gastrointestinal: No new onset incontinence, normal bowel movements reported Genitourinary: No new onset incontinence Musculoskeletal: Low back pain Psychiatric: Normal mood/affect Neurological: [Denies weakness in extremities], [denies balance issues] Objective:: Physical exam General: Alert and oriented x3, no acute distress, pleasant and cooperative, [on room air] Lungs: Respirations even and unlabored, symmetrical chest expansion Eyes: PERRL Musculoskeletal: Flexion and extension of lumbar spine somewhat guarded secondary to pain, deep tendon reflexes normal, strength in upper and lower extremities [5/5], [abnormal gait noted] Neurological: 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 We will plan to see him back in the clinic in 1 month to reevaluate his symptoms. He has been instructed to contact clinic if he has any concerns before his next appointment. The patient and I specifically discussed risk factors for COVID19. These risks include, but are not limited to age greater than 60, heart or lung disease, diabetes, immunosuppression, and travel. We also discussed NSAIDs may worsen COVID19 infection or symptoms. Patient should not use NSAIDs to treat COVID19 signs or symptoms. Patient was also informed that any type of corticosteroid of any form (oral or injection) will decrease the patient's immune system response and may increase the likelihood of COVID19 infection and symptoms[address] Dr. Saha has reviewed this note and agrees with this plan of care. This note was dictated using voice recognition software and make contain errors or omissions. [facility] [place] History I have reviewed the patient's past medical history: Yes Medical History: Reports:: Depression, Kidney Stones Denies:: Cancer, Diabetes Mellitus Type 1, Diabetes Mellitus Type 2, Internal Pacemaker, MRSA, Seizures *Have you ever received a pneumonia vaccine?: Yes *Have you received a flu vaccine this season?: Yes Other Medical History: Reports: Sinus Problems, Other. Denies: Blood Transfusion Reaction Laterality Cases: Bilateral: Arthroscopy Shoulder, Other Other Surgeries: Yes: Hernia Repair, Sinus Surgery, Other. No: Pacemaker Amputation: No Fractures: No - *Social History Smoking Status: Former smoker Tobacco Type: cigarettes # Packs/Day (cigarettes): 0 #Yrs smoked (if former smoker): 10 Alcohol Intake: current Alcohol Intake Frequency:: holidays/special occasions only Substance Use Type: denies use *Occupational Status:: other Housing: house Household Members: friend(s) *Travel in the last 8 weeks: Inside the [place] - Psychiatric History Pschychiatric History:: R
== END ==
PROVIDERS: PCP Emergency Medicine; Visit Provider Clinical Nurse Specialist Family Health
DX: M51.16 Intervertebral disc disorders with radiculopathy, lumbar region (principal)
CPT/HCPCS: 99212

== ENCOUNTER → 2020-06-13 09:56 | Outpatient (POV) | payer MEDICARE, BC, SELFPAY ==
[2020-06-13 10:23] VITALS: BP 122/87; PULSE 87; RESP 18; TEMP 36.3; O2SAT 98; BMI 26.9
--- NOTE | 2020-06-13 10:36 | HMH.PMPROC ---
- Procedure Date: 06/13/20 Time: 10:36 Anesthesiologist:: Cecilia Sanders APRN Complications:: None Pre-procedure Diagnosis:: Degenerative disc disease lumbar spine lumbar radiculopathy Post-procedure Diagnosis:: Same Indications for Procedure:: Patient is a very pleasant 49-year-old white male who presents today for intrathecal pain pump adjustment. Patient is doing well rating his pain a 2 out of 10. He is got a morphine intrathecal dose going at 0.25 mg a day morphine. Patient is having slight urinary hesitancy however that is better than it was previously. We will continue him on Flomax for this time. We will give him a slight increase today. Patient is also utilizing his PTC and it is doing well for him. Physical Exam General: Alert and oriented x3, no acute distress, pleasant and cooperative, [on room air] Lungs: Resps E/U, Symmetrical chest expansion, Eyes: PERRL Musculoskeletal: Flexion and extension of lumbar spine somewhat guarded secondary to pain, deep tendon reflexes normal, strength in upper and lower extremities [5/5], [abnormal gait noted] Neurological: speech clear, medical liaison equal, no gross sensory deficits Procedure Details:: Informed consent was obtained and the risk and benefits of the procedure were explained to the patient. The patient was taken to the procedure room where noninvasive monitoring was placed including noninvasive blood pressure cuff and pulse oximeter. Patient's pump was interrogated and reprogrammed. The infusion rate was increased to 0.3 mg of morphine a day. The patient tolerated the procedure well. Plan and Disposition:: We will see the patient back at his next intrathecal pain pump refill and reprogram he has been instructed to call the office if he has any issues prior to his next appointment. Dr. Saha has reviewed this note and agrees with this plan of care. This note was dictated using voice recognition software and may contain errors or omissions
== END ==
PROVIDERS: PCP Emergency Medicine; Visit Provider Clinical Nurse Specialist Family Health
DX: M51.16 Intervertebral disc disorders with radiculopathy, lumbar region (principal)
CPT/HCPCS: 62368; 95991; 99212

== ENCOUNTER → 2020-06-23 18:32 | Outpatient (CLI) | payer MEDICARE, BC, SELFPAY ==
[2020-06-23 18:40] LABS: Basophils % 0.6 % (0.1-2.0); Eosinophils # 0.2 K/mm3 (0.0-0.4); Eosinophils % 4.3 % (0.1-12.0); Hematocrit 46.1 % (42.0-52.0); Hemoglobin 15.7 g/dL (14.1-18.0); Lymphocytes # 1.4 K/mm3 (0.7-4.5); Lymphocytes % 24.5 % (10-50); Mean Corpuscular HGB Conc 34.2 g/dL (31.8-35.4); Mean Corpuscular Hemoglobin 31.9 pg (27.0-31.2); Mean Corpuscular Volume 93.5 fl (80-94); Mean Platelet Volume 9.2 fl (7.4-10.4); Monocytes # 0.3 K/mm3 (0.1-1.0); Monocytes % 5.7 % (1.7-9.3); Neutrophils # 3.7 K/mm3 (1.8-7.8); Platelet Count 193 K/mm3 (142-424); Red Blood Count 4.93 M/mm3 (4.60-6.20); Red Cell Distribution Width 14.1 % (11.5-17.5); White Blood Count 5.7 K/mm3 (4.8-10.8)
[2020-06-23 19:50] LABS: Chloride 105 mmol/L (98-107); Potassium 4.8 mmoL/L (3.5-5.1); Sodium 139 mmol/L (136-145)
[2020-06-23 19:52] LABS: Blood Urea Nitrogen 17 mg/dl (9-20); Estimated Glomerular Filt Rate 103 ml/min (>60); GFR (African American) 125 ML/MIN (>60)
[2020-06-23 19:53] LABS: Alanine Aminotransferase 39 U/L (12-78); Albumin Level 4.2 g/dl (3.5-5.0); Albumin/Globulin Ratio 1.6 (1.1-1.8); Alkaline Phosphatase 85 U/L (38-126); Anion Gap 13.8 mEq/L (5-15); Aspartate Amino Transferase 49 U/L (17-59); Bilirubin,Total 0.4 mg/dl (0.2-1.3); Calcium 9.5 mg/dl (8.4-10.2); Carbon Dioxide 25 mmol/L (22.0-30.0); Globulin 2.7 g/dL (1.3-3.2); Glucose 99 mg/dl (74-100); Total Protein,Serum 6.9 g/dl (6.3-8.2)
[2020-06-23 21:34] LABS: T4 (Thyroxine) 5.2 ug/dl (5.53-11.0)
== END ==
PROVIDERS: Visit Provider Nurse Practitioner Family
DX: K58.9 Irritable bowel syndrome, unspecified (principal); H66.91 Otitis media, unspecified, right ear; R60.0 Localized edema
CPT/HCPCS: 80053; 84436; 84443; 85025

== ENCOUNTER → 2020-07-04 09:24 | Outpatient (POV) | payer MEDICARE, BC, SELFPAY ==
[2020-07-04 09:40] VITALS: BP 134/100; PULSE 74; RESP 18; TEMP 36.6; BMI 26.9
--- NOTE | 2020-07-04 09:46 | HMH.PAINSOAP ---
[facility] Pain Management SOAP Note Subjective:: Patient is a pleasant 49-year-old white male who presents today for follow-up. Patient had an intrathecal pain pump placed. Patient has a bump that was noted on the left-hand side of his incision. On assessment it is determined to be his anchor for his intrathecal catheter. Patient is having some sacral pain. Patient usually can manage this through the chiropractor. Patient is having increased pain rating it a 7 out of 10. When he is sitting it is worse. Patient does not have any imaging at this time. He states that he has been diagnosed with a non-fusion of his sacrum in the past. We will send him for x-rays today. We will set him up with the surgeon for surgical consultation. ROS General: no recent weight change, no fever, no sleep disturbances Respiratory: no cough, no shortness of air, no recurring pulmonary infections Cardiovascular/Peripheral Vascular: No chest pain, No palpitations, no edema, no shortness of breath. Gastrointestinal: no new onset incontinence, normal bowel movements reported Genitourinary: no new onset incontinence Musculoskeletal: Sacral pain, back pain Psychiatric: normal mood/ affect Neurological: [denies new onset weakness in extremities], [denies new onset balance issues] Objective:: Physical Exam General: Alert and oriented x3, no acute distress, pleasant and cooperative, [on room air] Lungs: Resps E/U, Symmetrical chest expansion, Eyes: PERRL Musculoskeletal: Flexion and extension of lumbar spine somewhat guarded secondary to pain, deep tendon reflexes normal, strength in upper and lower extremities [5/5], antalgic gait noted Neurological: speech clear, life consultant equal, no gross sensory deficits Assessment:: Degenerative disc disease lumbar spine lumbar radiculopathy Plan:: We will send the patient for a sacral/low back x-ray. We will get him set up with the surgeon for consultation. I will follow-up with the patient at his next intrathecal pain pump refill and reprogram. He has been instructed call the office if he has any issues prior to his next appointment. Dr. Saha has reviewed this note and agrees with this plan of care. This note was dictated using voice recognition software and may contain errors or omissions [facility] History I have reviewed the patient's past medical history: Yes Medical History: Reports:: Depression, Kidney Stones Denies:: Cancer, Diabetes Mellitus Type 1, Diabetes Mellitus Type 2, Internal Pacemaker, MRSA, Seizures *Have you ever received a pneumonia vaccine?: No *Have you received a flu vaccine this season?: No Other Medical History: Reports: Sinus Problems, Other. Denies: Blood Transfusion Reaction Laterality Cases: Bilateral: Arthroscopy Shoulder, Other Other Surgeries: Yes: Hernia Repair, Sinus Surgery, Other. No: Pacemaker Amputation: No Fractures: No - *Social History Smoking Status: Former smoker Tobacco Type: cigarettes # Packs/Day (cigarettes): 0 #Yrs smoked (if former smoker): 10 Alcohol Intake: current Alcohol Intake Frequency:: holidays/special occasions only Substance Use Type: denies use *Occupational Status:: disabled, other Housing: house Household Members: friend(s) *Travel in the last 8 weeks: None - Psychiatric History Pschychiatric History:: Reports:: Depression Family Hx:: Unable to obtain
--- NOTE | 2020-07-04 10:04 | XR_ITS ---
PROCEDURE: XR SACRUM COCCYX MIN 2V CLINICAL INDICATION: PAIN COMPARISON: No exams were available for comparison FINDINGS: No fracture or dislocation. No lytic or blastic change. There is normal mineralization. Other findings:There is a pain pump present with the reservoir overlying the right lower quadrant. The catheter enters the thecal sac at the S1-L5 level. The superior aspect of the catheter is not visualized on these images. IMPRESSION: No acute finding. Pain pump present as described above. Dictated by: Dallas Mujica MD 07/04/2020 11:11 Dallas Mujica MD in [place] 07/04/2020 11:11
== END ==
PROVIDERS: PCP Emergency Medicine; Visit Provider Clinical Nurse Specialist Family Health
DX: M51.16 Intervertebral disc disorders with radiculopathy, lumbar region (principal); R52 Pain, unspecified
CPT/HCPCS: 72220; 99212

== ENCOUNTER → 2020-07-19 12:44 | Outpatient (CLI) | payer MEDICARE, BC, SELFPAY | PROVIDERS: PCP Emergency Medicine; Visit Provider Anesthesiology | DX: M54.5 Low back pain (principal) ==

== ENCOUNTER 2020-07-25 12:35 | Day surgery (SDC) | payer MEDICARE, BC, SELFPAY ==
[2020-07-25 13:55] VITALS: BP 130/86; PULSE 71; RESP 18; TEMP 36; O2SAT 98; BMI 26.9
[2020-07-25 14:09] VITALS: BP 162/88; PULSE 72
[2020-07-25 14:12] VITALS: BP 162/77; PULSE 75; RESP 18; O2SAT 99
--- NOTE | 2020-07-25 14:13 | HMH.PMPROC ---
- Procedure Date: 07/25/20 Time: 14:13 Anesthesiologist:: Cecilia Sanders APRN Complications:: None Pre-procedure Diagnosis:: Degenerative disc disease lumbar spine lumbar radiculopathy Post-procedure Diagnosis:: Same Indications for Procedure:: he is a very pleasant 49-year-old woman who presents today for thecal pain pump refill and reprogram. He is currently rating his pain a 5 out of 10 overall doing well he does not need any changes. Rd #[id number] reviewed and appropriate. He is currently on morphine 0.3 mg a day and also utilizes his PTC. Patient is set up for an MRI of his sacrum he has had issues with this in the past and he will be going for a consult. 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 The patient was taken to the procedure room where noninvasive monitoring was placed including noninvasive blood pressure cuff and pulse oximeter. Patient's pump was interrogated. The area over the pump was cleansed with chlorhexidine as a cleansing solution. In sterile fashion the pump was accessed with a 22-gauge needle. Approximately 13 mL's were removed of the pump solution and discarded appropriately. The pump was then refilled with 20 mL's of morphine 5 mg/mL. The needle was withdrawn and a bandage was placed over the puncture site. The infusion rate was reprogrammed to continue at 0.3 mg/day. The patient tolerated the procedure well. Plan and Disposition:: The patient after his next intrathecal pain pump refill and reprogram he has been instructed to call the office if he has any issues prior to his next appointment. Rd #[id number] reviewed and appropriate. He is on gabapentin 600 mg 1 p.o. twice daily from his primary care physician Dr. Saha has reviewed this note and agrees with this plan of care. This note was dictated using voice recognition software and may contain errors or omissions
[2020-07-25 14:21] VITALS: BP 136/90; PULSE 63; RESP 18; O2SAT 98
== END 2020-07-25 14:22 | disposition home or self-care (01) ==
LOC: SC.PAINP 12:39
PROVIDERS: PCP Emergency Medicine; Visit Provider Clinical Nurse Specialist Family Health
DX: M51.16 Intervertebral disc disorders with radiculopathy, lumbar region (principal); Z72.0 Tobacco use; F32.9 Major depressive disorder, single episode, unspecified; Z87.39 Personal history of other diseases of the musculoskeletal system and connective tissue; Z79.899 Other long term (current) drug therapy; Z88.6 Allergy status to analgesic agent
CPT/HCPCS: 95991

== ENCOUNTER → 2020-08-01 08:26 | Outpatient (CLI) | payer MEDICARE, BC, SELFPAY ==
--- NOTE | 2020-08-01 08:37 | MR_ITS ---
PROCEDURE: MR LUMBAR SPINE WO CON CLINICAL INDICATION: LOW BACK PAIN LBP. PAIN WORSE WHEN SITTING. PRIOR MR3- COMPARISON: MR CHORE TENDER/O MRI-L-SPINE W/O from 05/29/[address] ABD PELVIS W/ CONTRAST from 10/14/2017 MR SPLUMBWO MR lumbar spine wo con from 01/23/2019 MR MR KNEE LT WO CON from 08/07/2019 CR XR SACRUM COCCYX MIN 2V from 07/04/2020 TECHNIQUE: Standard multiplanar multiecho sequences are performed without contrast. 3-D MIP and myelographic images are also rendered and reviewed FINDINGS: There is a transitional segment present at the lumbosacral junction and is labeled as S1 similar to the previous exams.. There is good alignment. The spinal cord ends at the L2 level. Significant artifact is present from a pain pump in the right iliac region. L1-L2: Unremarkable. L2-L3: Unremarkable. L3-L4: Unremarkable. L4-5: Significant artifact obscures the right lateral aspect of L4-L5. There is mild bulging disc at L4-5 with a small left paracentral disc protrusion along with facet and ligamentum hypertrophy with left lateral recess and foraminal narrowing. This small disc protrusion has developed since the previous exam. Previously noted central disc protrusion has improved L5-S1: Bulging disc with broad-based minimal right paracentral disc protrusion with mild right lateral recess and foraminal narrowing.. Previously noted central disc protrusion has improved IMPRESSION: 1. L4-5: Significant artifact obscures the right lateral aspect of L4-L5. There is mild bulging disc at L4-5 with a small left paracentral disc protrusion along with facet and ligamentum hypertrophy with left lateral recess and foraminal narrowing. This small disc protrusion has developed since the previous exam. Previously noted central disc protrusion has improved 2. L5-S1: Bulging disc with broad-based minimal right paracentral disc protrusion with mild right lateral recess and foraminal narrowing.. Previously noted central disc protrusion has improved 3. No extruded herniated disc or canal stenosis. Dictated by: Dallas Mujica MD 08/03/2020 15:18 Dallas Mujica MD in [place] 08/03/2020 15:18
== END ==
PROVIDERS: PCP Emergency Medicine; Visit Provider Clinical Nurse Specialist Family Health
DX: M54.5 Low back pain (principal); Z79.899 Other long term (current) drug therapy
CPT/HCPCS: 72148; 76376

== ENCOUNTER → 2020-10-26 14:25 | Outpatient (CLI) | payer MEDICARE, BC, SELFPAY | PROVIDERS: PCP Nurse Practitioner Family; Visit Provider Physician Assistant | DX: Z20.828 Contact with and (suspected) exposure to other viral communicable diseases (principal); U07.1 COVID-19 | CPT/HCPCS: U0003 ==

== ENCOUNTER 2020-11-28 13:17 | Day surgery (SDC) | payer MEDICARE, BC, SELFPAY ==
[2020-11-28 13:35] VITALS: BP 144/97; PULSE 72; RESP 18; TEMP 35.9; O2SAT 95; BMI 28.2
[2020-11-28 13:54] VITALS: BP 174/79; PULSE 80; RESP 18
[2020-11-28 13:57] VITALS: BP 179/85; PULSE 76; RESP 18; O2SAT 99
--- NOTE | 2020-11-28 14:02 | P.PCN_ITS ---
- Procedure Date: 11/28/20 Time: 14:02 Anesthesiologist:: Cecilia Sanders APRN Complications:: None Pre-procedure Diagnosis:: Degenerative disc disease lumbar spine lumbar radiculopathy Post-procedure Diagnosis:: Same Indications for Procedure:: Patient is a pleasant 50-year-old white male who presents today for intrathecal pain pump refill and reprogram. Patient overall doing well. Rates his pain today a 4 out of 10. Patient's Rd #[id number] reviewed and appropriate. Patient is also on gabapentin 600 mg 1 p.o. twice daily. 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 The patient was taken to the procedure room where noninvasive monitoring was placed including noninvasive blood pressure cuff and pulse oximeter. Patient's pump was interrogated. The area over the pump was cleansed with chlorhexidine as a cleansing solution. In sterile fashion the pump was accessed with a 22-gauge needle. Approximately 9 mL's were removed of the pump solution and discarded appropriately. The pump was then refilled with 20 mL's of morphine 5 mg/mL. The needle was withdrawn and a bandage was placed over the puncture site. The infusion rate was reprogrammed to continued at 0.3 mg/day. The patient tolerated the procedure well. Plan and Disposition:: We will see the patient back at his next intrathecal pain pump refill and reprogram he has been instructed to call our office if he has any issues prior to his next appointment. Dr. Saha has reviewed this note and agrees with this plan of care. This note was dictated using voice recognition software and may contain errors or omissions
[2020-11-28 14:06] VITALS: BP 154/91; PULSE 66; RESP 20; O2SAT 95
== END 2020-11-28 14:07 | disposition home or self-care (01) ==
LOC: SC.PAINP 13:19
PROVIDERS: PCP Nurse Practitioner Family; Visit Provider Clinical Nurse Specialist Family Health
DX: M51.16 Intervertebral disc disorders with radiculopathy, lumbar region (principal); Z45.1 Encounter for adjustment and management of infusion pump; Z88.6 Allergy status to analgesic agent; Z79.899 Other long term (current) drug therapy
CPT/HCPCS: 95991

== ENCOUNTER → 2021-02-06 08:38 | Outpatient (POV) | payer MEDICARE, BC, SELFPAY ==
[2021-02-06 08:52] VITALS: BP 145/96; PULSE 65; RESP 18; BMI 28.2
--- NOTE | 2021-02-06 08:53 | P.CONS_ITS ---
[facility] Pain Management SOAP Note Subjective:: Patient is a pleasant 50-year-old white male who presents today for follow-up. Patient is having quite a bit of difficulty with urination, erectile dysfunction. Patient has tried Flomax with no real success he rates his pain today a 3 out of 10. His pain is well controlled with the morphine however his side effects have become quite a bit worse. Patient and I discussed switching his medications. Patient is agreeable. ROS General: no recent weight change, no fever, no sleep disturbances Respiratory: no cough, no shortness of air, no recurring pulmonary infections Cardiovascular/Peripheral Vascular: No chest pain, No palpitations, no edema, no shortness of breath. Gastrointestinal: no new onset incontinence, normal bowel movements reported Genitourinary: no new onset incontinence difficulty urination Musculoskeletal: Back pain, leg pain Psychiatric: normal mood/ affect, Neurological: [denies new onset weakness in extremities], [denies new onset balance issues] Objective:: Physical Exam General: Alert and oriented x3, no acute distress, pleasant and cooperative, [on room air] Lungs: Resps E/U, Symmetrical chest expansion, Eyes: PERRL Musculoskeletal: Flexion and extension of lumbar spine somewhat guarded secondary to pain, deep tendon reflexes normal, strength in upper and lower extremities [5/5], normal gait noted Neurological: speech clear, tag press 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 He is currently on morphine going at 0.3 mg/day. Patient has been instructed to call the office if he has any issues prior to next appointment. Dr. Saha has reviewed this note and agrees with this plan of care. This note was dictated using voice recognition software and may contain errors or omissions [facility] History I have reviewed the patient's past medical history: Yes Medical History: Reports:: Depression, Kidney Stones Denies:: Cancer, Diabetes Mellitus Type 1, Diabetes Mellitus Type 2, Internal Pacemaker, MRSA, Seizures *Have you ever received a pneumonia vaccine?: No *Have you received a flu vaccine this season?: No Other Medical History: Reports: Sinus Problems, Other. Denies: Blood Transfusion Reaction Laterality Cases: Right: Arthroscopy Knee, Bilateral: Arthroscopy Shoulder, Other Other Surgeries: Yes: Hernia Repair (x2), Sinus Surgery, Other (pain pump insertion). No: Pacemaker Amputation: No Fractures: No - *Social History Smoking Status: Current some day smoker Tobacco Type: cigarettes # Packs/Day (cigarettes): 0 #Yrs smoked (if former smoker): 10 Alcohol Intake: never Alcohol Intake Frequency:: holidays/special occasions only Substance Use Type: denies use *Occupational Status:: employed Housing: house Household Members: friend(s) *Travel in the last 8 weeks: None - Psychiatric History Pschychiatric History:: Reports:: Depression Family Hx:: Unable to obtain
== END ==
PROVIDERS: PCP Nurse Practitioner Family; Visit Provider Clinical Nurse Specialist Family Health
DX: M51.16 Intervertebral disc disorders with radiculopathy, lumbar region (principal)
CPT/HCPCS: 99212; G0463

== ENCOUNTER 2021-02-10 08:58 | Day surgery (SDC) | payer MEDICARE, BC, SELFPAY ==
[2021-02-10 09:32] VITALS: BP 144/94; PULSE 62; RESP 18; TEMP 36.2; O2SAT 98; BMI 28.2
[2021-02-10 10:42] VITALS: BP 159/89; PULSE 65; RESP 18
[2021-02-10 10:47] VITALS: BP 158/89; PULSE 59; RESP 18; O2SAT 98
--- NOTE | 2021-02-10 11:01 | P.PCN_ITS ---
- Procedure Date: 02/10/21 Time: 11:01 Anesthesiologist:: Armond Saha MD Complications:: None Pre-procedure Diagnosis:: Degenerative disc disease of lumbar spine with lumbar radiculopathy symptoms Post-procedure Diagnosis:: Same Indications for Procedure:: Patient is a pleasant 50-year-old white male who we have been treating for low back pain with lumbar radiculopathy symptoms. He currently is on intrathecal morphine however he has been having significant side effects with his morphine infusion. He has quite a bit of urinary hesitancy and retention. He has tried Flomax with no benefit. We will switch him out to intrathecal Dilaudid today. We will refill with intrathecal Dilaudid 1 mg/mL and start him at 0.05 mg/day. Rd and drug screen are all appropriate Rd [id number]. He does have an antalgic gait. Motor strength of lower extremities is 5/5. There is no gross sensory deficit. Procedure Details:: Informed consent was obtained and the risks and benefits of the procedure was explained to the patient. The patient was taken to the procedure room. The pump was interrogated. The area over the pump was prepped using ChloraPrep. T he pump was accessed with a 22-gauge needle. Approximately 15 mL's of the intrathecal solution was withdrawn and discarded. The pump was then refilled with 20 mL's of intrathecal Dilaudid 1 mg/mL. After double catheter aspiration at the side-port, the pump was interrogated and the infusion was started at 0.05 mg/day. . The patient tolerated the procedure well with no complication. Plan and Disposition:: We will follow-up with him in a week. Will reevaluate symptoms at that time.
[2021-02-10 11:13] VITALS: BP 165/91; PULSE 57; RESP 20; O2SAT 98
== END 2021-02-10 11:13 | disposition home or self-care (01) ==
LOC: SC.PAINP 08:59
PROVIDERS: PCP Nurse Practitioner Family; Visit Provider Anesthesiology
DX: M51.16 Intervertebral disc disorders with radiculopathy, lumbar region (principal); F32.9 Major depressive disorder, single episode, unspecified; F41.9 Anxiety disorder, unspecified; Z45.1 Encounter for adjustment and management of infusion pump; Z72.0 Tobacco use; Z88.6 Allergy status to analgesic agent; Z82.49 Family history of ischemic heart disease and other diseases of the circulatory system; Z87.19 Personal history of other diseases of the digestive system; Z87.39 Personal history of other diseases of the musculoskeletal system and connective tissue
CPT/HCPCS: 62370; C1772

== ENCOUNTER → 2021-02-27 10:37 | Outpatient (POV) | payer MEDICARE, BC, SELFPAY ==
--- NOTE | 2021-02-27 11:05 | HMH.PMPROC ---
- Procedure Date: 02/27/21 Time: 11:05 Anesthesiologist:: Cecilia Sanders APRN Complications:: None Pre-procedure Diagnosis:: Degenerative disc disease lumbar spine lumbar radiculopathy symptoms Post-procedure Diagnosis:: Same Indications for Procedure:: Patient is a very pleasant 50-year-old white male who we are treating for low back pain with lumbar radiculopathy. He was on intrathecal morphine and was having difficulty with urination. Patient was switched to Dilaudid he is having less pain however he is still having some issues with urination. He states they have improved slightly. He rates his pain a 3 out of 10 today. We discussed decreasing him for short-term to see if this improves everything. We will decrease him to do present today. Of note he did have THC in his last drug screen we will drug screen him today. I did discuss this with him. Procedure Details:: Informed consent was obtained and the risk and benefits of the procedure were explained to the patient. The patient was taken to the procedure room where noninvasive monitoring was placed including noninvasive blood pressure cuff and pulse oximeter. Patient's pump was interrogated and reprogrammed. The infusion rate was decreased to 0.04 mg/day. The patient tolerated the procedure well. Plan and Disposition:: We will see the patient back in 1 week reassess his symptoms at that time he has been instructed to call the office if he has any issues prior to his next appointment. Dr. Saha has reviewed this note and agrees with this plan of care. This note was dictated using voice recognition software and may contain errors or omissions
[2021-02-27 11:10] VITALS: BP 136/88; PULSE 74; RESP 18; TEMP 36.8; O2SAT 98; BMI 28.2
== END ==
PROVIDERS: PCP Nurse Practitioner Family; Visit Provider Clinical Nurse Specialist Family Health
DX: M51.16 Intervertebral disc disorders with radiculopathy, lumbar region (principal); Z45.1 Encounter for adjustment and management of infusion pump
CPT/HCPCS: 62368

== ENCOUNTER → 2021-03-06 11:00 | Outpatient (POV) | payer MEDICARE, BC, SELFPAY ==
[2021-03-06 11:34] VITALS: BP 122/79; PULSE 74; RESP 18; O2SAT 98; BMI 28.2
--- NOTE | 2021-03-06 11:50 | P.CONS_ITS ---
[facility] Pain Management SOAP Note Subjective:: Patient is a pleasant 50-year-old white male who presents today for follow-up. Patient intrathecal infusion was decreased at his last visit. His pain is still doing well at 3 out of 10. He is still having some urological issues. Patient and I discussed seeing a urologist. He is agreeable. We will move forward with this. Patient's latest drug screen was appropriate. ROS General: no recent weight change, no fever, no sleep disturbances Respiratory: no cough, no shortness of air, no recurring pulmonary infections Cardiovascular/Peripheral Vascular: No chest pain, No palpitations, no edema, no shortness of breath. Gastrointestinal: no new onset incontinence, normal bowel movements reported Genitourinary: no new onset incontinence Musculoskeletal: Back pain, leg pain at times Psychiatric: normal mood/ affect Neurological: [denies new onset weakness in extremities], [denies new onset balance issues] Objective:: Physical Exam General: Alert and oriented x3, no acute distress, pleasant and cooperative, [on room air] Lungs: Resps E/U, Symmetrical chest expansion, Eyes: PERRL Musculoskeletal: Flexion and extension of lumbar spine somewhat guarded secondary to pain, deep tendon reflexes normal, strength in upper and lower extremities [5/5], slightly antalgic gait noted Neurological: speech clear, electrical equipment assembler equal, no gross sensory deficits Assessment:: Degenerative disc disease lumbar spine lumbar radiculopathy symptoms Plan:: We will see the patient back at his next intrathecal pain pump refill and reprogram we will also refer him to Dr. Quinn for consultation in regard to his urological issues. He has been instructed to call the office if he has any issues prior to his next appointment. Dr. Saha has reviewed this note and agrees with this plan of care. This note was dictated using voice recognition software and may contain errors or omissions [facility] History I have reviewed the patient's past medical history: Yes Medical History: Reports:: Depression, Kidney Stones Denies:: Cancer, Diabetes Mellitus Type 1, Diabetes Mellitus Type 2, Internal Pacemaker, MRSA, Seizures *Have you ever received a pneumonia vaccine?: Yes *Have you received a flu vaccine this season?: Yes Other Medical History: Reports: Sinus Problems, Other. Denies: Blood Transfusion Reaction Laterality Cases: Right: Arthroscopy Knee, Bilateral: Arthroscopy Shoulder, Other Other Surgeries: Yes: Hernia Repair (x2), Sinus Surgery, Other (pain pump insertion). No: Pacemaker Amputation: No Fractures: No - *Social History Smoking Status: Current some day smoker Tobacco Type: cigarettes # Packs/Day (cigarettes): 0 #Yrs smoked (if former smoker): 10 Alcohol Intake: never Alcohol Intake Frequency:: holidays/special occasions only Substance Use Type: denies use *Occupational Status:: other Housing: house Household Members: friend(s) *Travel in the last 8 weeks: None - Psychiatric History Pschychiatric History:: Reports:: Depression Family Hx:: Unable to obtain
== END ==
PROVIDERS: PCP Nurse Practitioner Family; Visit Provider Clinical Nurse Specialist Family Health
DX: M51.16 Intervertebral disc disorders with radiculopathy, lumbar region (principal)
CPT/HCPCS: 99212; G0463

== ENCOUNTER 2021-04-03 10:48 | Emergency (ER) | payer MEDICARE, BC, SELFPAY ==
[2021-04-03 11:00] VITALS: BP 131/83; PULSE 71; RESP 17; TEMP 36.8; O2SAT 96; BMI 28.2
--- NOTE | 2021-04-03 11:10 | XR_ITS ---
PROCEDURE: XR FOOT RT MIN 3V CLINICAL INDICATION: PAIN COMPARISON: No exams were available for comparison FINDINGS: There is a well-circumscribed lucency through the distal and medial aspect of the proximal phalanx of the 5th toe consistent with an old fracture. There is a small calcaneal spur. No radiopaque foreign bodies are evident. The joint spaces are well-preserved. No significant degenerative/arthritic changes. No erosive changes evident. Other findings:None. IMPRESSION: No acute findings. Dictated by: Dallas Mujica MD 04/03/2021 12:08 Dallas Mujica MD in [place] 04/03/2021 12:08
--- NOTE | 2021-04-03 11:47 | HMH.EDUTC ---
[facility] [place] Impression: Calcaneal spur Qualifiers: Laterality: right Qualified Code(s): M77.31 - Calcaneal spur, right foot Disposition: Home, Self-Care Condition on Discharge: Good Instructions: DI for Foot Pain, DI for Plantar Fasciitis Additional Instructions: You can purchase heel pads at any local pharmacy that helps with heel spur pain Follow up with your Family Doctor or Podiatry for further evaluation and treatment Return if needed Straight to ER if any life threatening symptoms Staff off foot as much as possible *RICE, Rest the extremity, Ice 15-20 minutes 3-4 times daily, Compress- wear the robert wrap as discussed as much as possible to help reduce swelling and pain, Elevate the extremity when at rest *Elevate when resting *Ibuprofen every 6-8 hours as needed for pain an inflammation if you are able to take it. If need something more can take Tylenol in between doses of Ibuprofen to help Immediately follow up with your family doctor for new or worsening of symptoms, or no noticeable improvement over the next 3-5 days Referrals: Azeem Champion MD [Primary Care Provider] - As needed Khadra Ingram DPM [Staff Physician] - Maddie Gordillo APRN [Nurse Practitioner] - Time of Disposition: 12:11 Medical Decision Making - Rd Inquiry Pt receiving controlled substance: No Rd was queried for this patient: No Vital Signs: 04/03/21 11:00 Temperature 98.2 F Temperature Source Oral Pulse Rate [Right Brachial] 71 Respiratory Rate 17 Blood Pressure [Right Arm] 131/83 Blood Pressure Mean [Right Arm] 99 Blood Pressure Source [Right Arm] Automatic Cuff Blood Pressure Position [Right Arm] Sitting 02 Sat by Pulse Oximetry 96 Oxygen Delivery Method Room Air Orders (Tests/Meds): ORDERS Category Date Time Status XR foot RT min 3V Stat Exams 04/03/21 11:10 Taken - Radiology Data #1 Image(s): Foot/Toes Image Reviewed: Yes I reviewed the patient's radiology image Preliminary Findings: No Fracture [place] [facility] [place] - General Stated complaint: Rt foot pain Time Seen by Provider: 04/03/21 11:47 Mode of Arrival: Ambulatory Source of Information: Patient Limitations: No Limitations Description of Symptoms (Recalled from Triage Doc. by RN): PATIENT C/O INTERMITTEN PAIN IN BOTTOM OF RIGHT FOOT X 1 WEEK. NO KNOWN INJURY. STATES PAIN IS WORSE WITH WALKING HEENT Symptoms (Recalled from RN notes): No Resp Symptoms (Recalled from RN notes): No Skin Symptoms (Recalled from RN notes): No MS Symptoms (Recalled from RN notes): Yes Functional Status (Recalled from RN notes): WNL - History of Present Illness Provider Complaint: Patient states that he has been having pain on and off in his right foot that is worse at times with certain ways he steps States that pain is in the inside of the heel area and feels like something is poking him in there at times States that pain started about a week ago and has continued so today when he was still having pain he came in to get it checked - Related Data Home Medications Medication Instructions Recorded Confirmed sertraline 100 mg tablet 150 mg PO DAILY tab 03/14/21 04/03/21 Previous Rx's Medication Instructions Recorded gabapentin 600 mg tablet 600 mg PO BID #60 tab 01/17/21 Allergies Allergy/AdvReac Type Severity Reaction Status Date / Time oxycodone [From PERCOCET] Allergy Intermediate FEELS SICK Verified 03/14/21 10:18 aspirin AdvReac Unknown UPSET Verified 03/14/21 10:18 STOMACH - Worker's Comp Is this a Worker's Comp case?: No [facility] History - Hepatitis A Screen Drug use history?: No High risk sexual behaviors?: No History of sexually transmitted infection?: No Currently employed?: No Childcare worker?: No Do you have indoor plumbing?: Yes Do you have electricity?: Yes Attestation statement:: This patient has been screened for Hepatitis A risk factors. I have reviewed the patient's past medical history: Yes M
[2021-04-03 12:11] VITALS: BP 131/83; PULSE 71; RESP 17; TEMP 36.8; O2SAT 96
== END 2021-04-03 12:14 | disposition home or self-care (01) ==
PROVIDERS: Emergency Provider Nurse Practitioner; PCP Emergency Medicine
DX: M77.31 Calcaneal spur, right foot (principal); F33.1 Major depressive disorder, recurrent, moderate; Z87.442 Personal history of urinary calculi; Z87.891 Personal history of nicotine dependence
CPT/HCPCS: G0463; 73630; 99202

== ENCOUNTER → 2021-04-18 15:28 | Outpatient (CLI) | payer MEDICARE, BC, SELFPAY ==
[2021-04-18 15:36] LABS: Basophils % 0.5 % (0.1-2.0); Eosinophils # 0.1 K/mm3 (0.0-0.4); Eosinophils % 1.4 % (0.1-12.0); Hematocrit 45.3 % (42.0-52.0); Hemoglobin 15.3 g/dL (14.1-18.0); Lymphocytes # 1.1 K/mm3 (0.7-4.5); Lymphocytes % 20.1 % (10-50); Mean Corpuscular HGB Conc 33.8 g/dL (31.8-35.4); Mean Corpuscular Hemoglobin 31.1 pg (27.0-31.2); Mean Platelet Volume 9.3 fl (7.4-10.4); Monocytes # 0.3 K/mm3 (0.1-1.0); Monocytes % 5.8 % (1.7-9.3); Neutrophils # 3.9 K/mm3 (1.8-7.8); Neutrophils % 72.2 % (37.0-80.0); Platelet Count 215 K/mm3 (142-424); Red Blood Count 4.92 M/mm3 (4.60-6.20); White Blood Count 5.4 K/mm3 (4.8-10.8)
[2021-04-18 15:43] LABS: Alanine Aminotransferase 21 U/L (12-78); Albumin Level 4.6 g/dl (3.5-5.0); Albumin/Globulin Ratio 1.6 (1.1-1.8); Alkaline Phosphatase 91 U/L (38-126); Anion Gap 11.9 mEq/L (5-15); Aspartate Amino Transferase 30 U/L (17-59); Bilirubin,Total 0.7 mg/dl (0.2-1.3); Blood Urea Nitrogen 21 mg/dl (9-20); Calcium 9.2 mg/dl (8.4-10.2); Carbon Dioxide 26 mmol/L (22.0-30.0); Chloride 107 mmol/L (98-107); Chol/HDL Ratio 5.4 (1-3.5); Cholesterol 261 mg/dl (140-200); Estimated Glomerular Filt Rate 90 ml/min (>60); GFR (African American) 109 ML/MIN (>60); Globulin 2.9 g/dL (1.3-3.2); Glucose 102 mg/dl (74-100); HDL Cholesterol 48 mg/dl (40-60); Potassium 4.9 mmoL/L (3.5-5.1); Sodium 140 mmol/L (136-145); Total Protein,Serum 7.5 g/dl (6.3-8.2); Triglycerides 204 mg/dl (30-150); VLDL Cholesterol 41 mg/dL (0-40)
[2021-04-18 15:54] LABS: Direct LDL Cholesterol 154.94 mg/dL (100-129)
[2021-04-18 15:59] LABS: 25-OH Vitamin D, Total 34.3 ng/mL (30-100)
[2021-04-18 16:01] LABS: T4 (Thyroxine) 6.2 ug/dl (5.53-11.0)
[2021-04-18 16:15] LABS: Prostate Specific Ag Screen 0.7 ng/ml (0.0-4.0); Thyroid Stimulating Hormone 2.22 uIU/mL (0.465-4.68)
== END ==
PROVIDERS: Visit Provider Nurse Practitioner Family
DX: E55.9 Vitamin D deficiency, unspecified (principal); I10 Essential (primary) hypertension; K58.9 Irritable bowel syndrome, unspecified; R53.83 Other fatigue; R60.0 Localized edema; H66.91 Otitis media, unspecified, right ear; Z12.5 Encounter for screening for malignant neoplasm of prostate
CPT/HCPCS: 80053; 80061; 82306; 84436; 84443; 85025; G0103

== ENCOUNTER 2021-04-26 09:21 | Emergency (ER) | payer MEDICARE, BC, SELFPAY ==
[2021-04-26 09:26] VITALS: BP 172/118; PULSE 69; RESP 16; TEMP 36.8; O2SAT 97; BMI 28.2
--- NOTE | 2021-04-26 09:38 | HMH.EDUTC ---
[facility] [place] Clinical Impression: Poison debora dermatitis Disposition: Home, Self-Care Condition on Discharge: Good Instructions: Poison Debora, Poison [place], Poison [place], DI for Poison Debora Allergy, Prednisone Additional Instructions: Antiseptic or drying creams or ointments: These medicines may be used to dry out the rash and decrease the itching. These products may be available without a doctor's order. Steroids: This medicine helps decrease itching and inflammation. . Antihistamines: This medicine may help decrease itching and help you sleep. It is available without a doctor's order use oral topical may irritate the skin Self-care: Keep your rash clean and dry: Wash it with soap and water. Gently pat it dry with a clean towel. Try not to scratch or rub your rash: This can cause your skin to become infected. Use a compress on your rash: Dip a clean washcloth in cool water. Wring it out and place it on your rash. Leave the washcloth on your skin for 15 minutes. Do this at least 3 times per day. Take a cornstarch or oatmeal bath: If your rash is too large to cover with wet washcloths, take 3 or 4 cornstarch baths daily. Mix 1 pound of cornstarch with a little water to make a paste. Add the paste to a tub full of water and mix well. You may also use colloidal oatmeal in the bath water. Use lukewarm water. Avoid hot water because it may cause your itching to increase. Prevent a poison debora rash in the future: Wear skin protection: Wear long pants, a long-sleeved shirt, and gloves. Use a skin block lotion to protect your skin from poison debora oil. You can find this at a drugstore without a prescription. Wash clothing after possible exposure: If you think you have been near a poison debora plant, wash the clothes you were wearing separately from other clothes. Rinse the washing machine well after you take the clothes out. Scrub boots and shoes with warm, soapy water. Dry clean items and clothing that you cannot wash in water. Poison debora oil is sticky and can stay on surfaces for a long time. It can cause a new rash even years later. Bathe your pet: Use warm water and shampoo on your pet's fur. This will prevent the spread of oil to your skin, car, and home. Wear long sleeves, long pants, and gloves while washing pets or any items that may have oil on them. Reduce exposure to poison debora: Do not touch plants that look like poison debora. Keep your yard free of poison debora. While protecting your skin, remove the plant and the roots. Place them in a plastic bag and seal the bag tightly. Do not burn poison debora plants: This can spread the oil through the air. If you breathe the oil into your lungs, you could have swelling and serious breathing problems. Oil that clings to the fire nani can land on your skin and cause a rash. Return if needed Follow up with Family Doctor for re-evaluation of blood pressure and further treatment if needed Straight to ER if any life threatening symptoms Start oral steriods tomorrow, you got an injection in the office today Prescriptions: predniSONE [Prednisone 10mg Tab Dose-Pack] 10 mg PO UD DOSE PK #21 pack Transmission Status: Pending to [id number] Referrals: Azeem Champion MD [Primary Care Provider] - As needed Time of Disposition: 10:00 Medical Decision Making - Rd Inquiry Pt receiving controlled substance: No Rd was queried for this patient: No Vital Signs: 04/26/21 09:26 04/26/21 09:50 Temperature 98.2 F 98.2 F Temperature Source Oral Pulse Rate 70 Pulse Rate [Right] 69 Respiratory Rate 16 16 Blood Pressure 144/105 H Blood Pressure [Right Arm] 172/118 H Blood Pressure Mean [Right Arm] 136 Blood Pressure Source [Right Arm] Automatic Cuff Blood Pressure Position [Right Arm] Sitting 02 Sat by Pulse Oximetry 97 Oxygen Delivery Method Room Air Orders (Tests/Meds): ED MEDICATIONS Discontinued Medications Generic Name Dose Route Start Last Admin Trade Name Jacklyn PRN Reas
[2021-04-26 09:50] VITALS: BP 144/105; PULSE 70; RESP 16; TEMP 36.8
== END 2021-04-26 10:01 | disposition home or self-care (01) ==
PROVIDERS: Emergency Provider Nurse Practitioner; PCP Emergency Medicine
DX: L23.7 Allergic contact dermatitis due to plants, except food (principal); F33.1 Major depressive disorder, recurrent, moderate; Z87.442 Personal history of urinary calculi; Z87.891 Personal history of nicotine dependence
CPT/HCPCS: G0463; 96372; 99202

== ENCOUNTER 2021-06-05 13:11 | Day surgery (SDC) | payer MEDICARE, BC, SELFPAY ==
[2021-06-05 13:13] VITALS: BP 149/92; PULSE 71; RESP 18; TEMP 36.4; O2SAT 98; BMI 28.2
[2021-06-05 13:31] VITALS: BP 162/80; PULSE 73; RESP 18; O2SAT 96
[2021-06-05 13:32] VITALS: BP 162/80; PULSE 73; RESP 18; O2SAT 96
--- NOTE | 2021-06-05 13:37 | HMH.PMPROC ---
- Procedure Date: 06/05/21 Time: 13:37 Anesthesiologist:: Becki Paulino APRN Complications:: None Pre-procedure Diagnosis:: Degenerative disc disease lumbar spine with lumbar radiculopathy symptoms Post-procedure Diagnosis:: Same Indications for Procedure:: Patient is a pleasant 50-year-old white male who presents today for intrathecal pain pump refill. He has been treated for degenerative disc disease lumbar spine with lumbar radiculopathy symptoms. He is doing well overall. His pain is a 3 out of 10. He denies any side effects to the medication. Rd and drug screen are appropriate. Physical exam General: Alert and oriented x3, no acute distress, pleasant and cooperative, [on room air] Lungs: Respirations even and unlabored, symmetrical chest expansion Eyes: PERRL Musculoskeletal: Flexion and extension oflumbar [spine] somewhat guarded secondary to pain, strength in upper and lower extremities [5/5], [antalgic gait noted] Neurological: Speech clear, [sterilization tech equal], no gross sensory deficit Procedure Details:: Informed consent was obtained and the risk and benefits of the procedure were explained to the patient. The patient was taken to the procedure room where noninvasive monitoring was placed including noninvasive blood pressure cuff and pulse oximeter. Patient's pump was interrogated. The area over the pump was cleansed with chlorhexidine as a cleansing solution. In sterile fashion the pump was accessed with a 22-gauge needle. Approximately 18 mls of the pump solution was removed and discarded appropriately. The pump was then refilled with 20 mL's of Dilaudid 1 mg/mL. The needle was withdrawn and a bandage was placed over the puncture site. The infusion rate was reprogrammed at Dilaudid 0.04 mg/day. The patient tolerated well with no complication. Plan and Disposition:: We will see the patient back at the next refill. If the patient has any questions, contact the clinic. Patient has been instructed to contact the clinic with any concerns before the next appointment. Dr. Saha has reviewed this note and agrees with this plan of care. This note was dictated using voice recognition software and make contain errors or omissions.
[2021-06-05 13:44] VITALS: BP 139/88; PULSE 69; RESP 20; O2SAT 98
== END 2021-06-05 13:45 | disposition home or self-care (01) ==
LOC: SC.PAINP 13:11
PROVIDERS: PCP Emergency Medicine; Visit Provider Clinical Nurse Specialist Family Health
DX: M51.16 Intervertebral disc disorders with radiculopathy, lumbar region (principal); Z45.1 Encounter for adjustment and management of infusion pump
CPT/HCPCS: 95991

== ENCOUNTER 2021-07-02 12:47 | Emergency (ER) | payer MEDICARE, BC, SELFPAY ==
[2021-07-02 13:30] VITALS: BP 137/81; PULSE 98; RESP 19; TEMP 36.9; O2SAT 98; BMI 28.2
--- NOTE | 2021-07-02 14:13 | HMH.EDUTC ---
[facility] [place] Clinical Impression: COVID-19 virus test result unknown, Upper respiratory infection, viral Disposition: Home, Self-Care Condition on Discharge: Good Instructions: DI for Viral Upper Respiratory Infection -- Adult, DI for COVID-19 (Suspected or Confirmed ), How to Care for Someone with COVID-19 Additional Instructions: No sign of a bacterial infection. Likely viral. Viruses can take 7-14 days to run their course. Nasal saline and bulb syringe or nose Samantha to remove nasal drainage to help with nasal congestion. Hard to eat, drink, sleep with nasal congestion so important to keep this cleaned out. Monitor temp. Tylenol or Motrin as needed for pain or fever Encourage fluids, water, Gatorade, Powerade, Pedialyte if /toddler/child Warm salt water gargles Warm fluids Sore throat lozenges Sleep elevated Humidifier/vaporizer Follow-up immediately for new or worsening symptoms or no noticeable improvement over the next 48-72 hours. covid swab was sent to lab, call later today for results. self isolate until test results are known to be negative Referrals: Azeem Champion MD [Primary Care Provider] - Time of Disposition: 14:16 Medical Decision Making - Rd Inquiry Pt receiving controlled substance: No Vital Signs: 07/02/21 13:30 Temperature 98.5 F Temperature Source Oral Pulse Rate [Right Brachial] 98 H Respiratory Rate 19 Blood Pressure [Right Arm] 137/81 Blood Pressure Mean [Right Arm] 99 Blood Pressure Source [Right Arm] Automatic Cuff Blood Pressure Position [Right Arm] Sitting 02 Sat by Pulse Oximetry 98 Oxygen Delivery Method Room Air Orders (Tests/Meds): ORDERS Category Date Time Status Covid-19 Nasal PCR ([facility]) Routine Lab 07/02/21 13:40 Received [facility] [place] HPI - General Chief complaint: Urgent [facility] Stated complaint: sore throat, cough, muscle aches Time Seen by Provider: 07/02/21 14:13 Mode of Arrival: Ambulatory Source of Information: Patient Limitations: No Limitations Description of Symptoms (Recalled from Triage Doc. by RN): PATIENT C/O COUGH, BODY ACHES, AND SORE THROAT SINCE SATURDAY HEENT Symptoms (Recalled from RN notes): Yes Resp Symptoms (Recalled from RN notes): No Skin Symptoms (Recalled from RN notes): No MS Symptoms (Recalled from RN notes): No Functional Status (Recalled from RN notes): WNL - History of Present Illness Provider Complaint: 50 yr old male presents for body aches, sore throat,headache and chills for 4 days - Related Data Home Medications Medication Instructions Recorded Confirmed sertraline 100 mg tablet 150 mg PO DAILY tab 03/14/21 06/05/21 Previous Rx's Medication Instructions Recorded gabapentin 600 mg tablet 600 mg PO BID #60 tab 04/18/21 Allergies Allergy/AdvReac Type Severity Reaction Status Date / Time oxycodone [From PERCOCET] Allergy Intermediate FEELS SICK Verified 06/05/21 13:26 aspirin AdvReac Unknown UPSET Verified 06/05/21 13:26 STOMACH - Worker's Comp Is this a Worker's Comp case?: No [facility] History - Hepatitis A Screen Drug use history?: No High risk sexual behaviors?: No History of sexually transmitted infection?: No Currently employed?: No Childcare worker?: No Do you have indoor plumbing?: Yes Do you have electricity?: Yes Attestation statement:: This patient has been screened for Hepatitis A risk factors. I have reviewed the patient's past medical history: Yes Medical History: Reports:: Depression, Kidney Stones Denies:: Cancer, Diabetes Mellitus Type 1, Diabetes Mellitus Type 2, Internal Pacemaker, MRSA, Seizures Other Medical History: Reports: Arthritis, Sinus Problems, Other. Denies: Blood Transfusion Reaction Comment: Illnesses-depression, degenerative disc disease, irritable bowel syndrome, kidney stones Laterality Cases: Right: Arthroscopy Knee, Bilateral: Arthroscopy Shoulder, Other Other Surgeries: Yes: No Previous Surgery, Colonoscopy, Hernia Repair, Sin
[2021-07-02 14:15] VITALS: BP 137/81; PULSE 98; RESP 19; TEMP 36.9; O2SAT 98
[2021-07-02 22:11] LABS: UTC Strep Screen (Rapid) Negative (Negative)
--- NOTE | 2021-07-02 22:33 | PC.NURSE ---
PT NOTIFIED OF POSITIVE COVID TEST RESULTS
== END 2021-07-02 14:22 | disposition home or self-care (01) ==
PROVIDERS: Emergency Provider Nurse Practitioner Family; PCP Emergency Medicine
DX: U07.1 COVID-19 (principal)
CPT/HCPCS: 87880; 99203; G0463; U0003

== ENCOUNTER 2021-09-18 13:09 | Day surgery (SDC) | payer MEDICARE, BC, SELFPAY ==
--- NOTE | 2021-09-18 13:11 | HMH.PMPROC ---
- Procedure Date: 09/18/21 Time: 13:11 Anesthesiologist:: Becki Paulino APRN Complications:: None Pre-procedure Diagnosis:: Degenerative disc disease lumbar spine with lumbar radiculopathy symptoms Post-procedure Diagnosis:: Same Indications for Procedure:: Patient is a pleasant 50-year-old white male who presents today for intrathecal pain pump [refill] [and reprogram]. The patient is being treated for degenerative disc disease lumbar spine with lumbar radiculopathy symptoms.. Patient rates pain a 4 out of 10. Drug screen is appropriate. Rd [ ] has been reviewed and is appropriate. He is doing well with his intrathecal therapy overall. He is currently on Dilaudid at 0.04 mg/day and does not need any changes. He denies any side effects to the medication. Physical exam General: Alert and oriented x3, no acute distress, pleasant and cooperative, [on room air] Lungs: Respirations even and unlabored, symmetrical chest expansion Eyes: PERRL Musculoskeletal: Flexion and extension of lumbar [spine] somewhat guarded secondary to pain, [antalgic gait noted] Neurological: Speech clear, no gross sensory deficit Procedure Details:: Informed consent was obtained and the risk and benefits of the procedure were explained to the patient. The patient was taken to the procedure room where noninvasive monitoring was placed including noninvasive blood pressure cuff and pulse oximeter. Patient's pump was interrogated. The area over the pump was cleansed with chlorhexidine as a cleansing solution. In sterile fashion the pump was accessed with a 22-gauge needle. Approximately 18 mls of the pump solution was removed and discarded appropriately. The pump was then refilled with 20 mL's of hydromorphone 1 mg/min. The needle was withdrawn and a bandage was placed over the puncture site. The infusion rate was reprogrammed at hydromorphone at 0.04 mg/day. The patient tolerated well with no complication. Plan and Disposition:: We will see the patient back in the clinic at the next intrathecal refill. Patient has been instructed to contact the clinic with any concerns before the next appointment. Dr. Saha has reviewed this note and agrees with this plan of care. This note was dictated using voice recognition software and make contain errors or omissions.
[2021-09-18 13:12] VITALS: BP 151/105; PULSE 101; RESP 18; TEMP 36.1; O2SAT 98; BMI 26.9
[2021-09-18 13:21] VITALS: BP 149/90; PULSE 91; RESP 18; O2SAT 97
[2021-09-18 13:22] VITALS: PULSE 97; RESP 18; O2SAT 96
[2021-09-18 13:40] VITALS: BP 137/82; PULSE 83; RESP 20; O2SAT 95
[2021-09-18 15:42] LABS: Amphetamine/Metha Screen,Urine Negative ng/ml (<1000)
[2021-09-18 15:43] LABS: Barbiturates Screen,Urine Negative ng/ml (<200); Benzodiazepines Screen,Urine Negative ng/ml (<200)
[2021-09-18 15:44] LABS: Cocaine Screen,Urine Negative ng/ml (<300)
[2021-09-18 15:45] LABS: Cannabinoid Screen,Urine Negative ng/ml (<50); Methadone Screen,Urine Negative ng/ml (<300)
[2021-09-18 15:46] LABS: Opiate Screen,Urine Negative ng/ml (<300)
[2021-09-18 15:47] LABS: Phencyclidine Screen,Urine Negative ng/ml (<25)
== END 2021-09-18 13:40 | disposition home or self-care (01) ==
PROVIDERS: PCP Emergency Medicine; Visit Provider Clinical Nurse Specialist Family Health
DX: M51.16 Intervertebral disc disorders with radiculopathy, lumbar region (principal); Z45.1 Encounter for adjustment and management of infusion pump
CPT/HCPCS: 80305; 95991

== ENCOUNTER 2021-12-18 13:39 | Day surgery (SDC) | payer MEDICARE, BC, SELFPAY ==
[2021-12-18 13:52] VITALS: BP 160/104; PULSE 71; RESP 20; TEMP 36.6; O2SAT 96; BMI 28.2
--- NOTE | 2021-12-18 14:15 | HMH.PMPROC ---
- Procedure Date: 12/18/21 Time: 14:15 Anesthesiologist:: Becki Paulino APRN Complications:: None Pre-procedure Diagnosis:: Degenerative disc disease lumbar spine with lumbar radiculopathy symptoms Post-procedure Diagnosis:: Same Indications for Procedure:: Patient is a 51-year-old white male who presents today for intrathecal pain pump refill and reprogram. He is having some increased pain. He is currently on Dilaudid 8.04 mg/day without any side effects. He would like an increase today. He is having low back pain with radiation into bilateral lower extremities. Rd injection are appropriate. Physical exam General: Alert and oriented x3, no acute distress, pleasant and cooperative Lungs: Respirations even and unlabored, symmetrical chest expansion Eyes: PERRL Musculoskeletal: Flexion and extension of lumbar [spine] somewhat guarded secondary to pain, [antalgic gait noted] Neurological: Speech clear, no gross sensory deficit Procedure Details:: Informed consent was obtained and the risk and benefits of the procedure were explained to the patient. The patient was taken to the procedure room where noninvasive monitoring was placed including noninvasive blood pressure cuff and pulse oximeter. Patient's pump was interrogated. The area over the pump was cleansed with chlorhexidine as a cleansing solution. In sterile fashion the pump was accessed with a 22-gauge needle. Approximately 15 mls of the pump solution was removed and discarded appropriately. The pump was then refilled with 20 mL's of hydromorphone 1 mg/mL. The needle was withdrawn and a bandage was placed over the puncture site. The infusion rate was reprogrammed at increased to hydromorphone at 0.048 mg/day. The patient tolerated well with no complication. Plan and Disposition:: We will see the patient back in the clinic at the next intrathecal refill. Patient has been instructed to contact the clinic with any concerns before the next appointment. Dr. Saha has reviewed this note and agrees with this plan of care. This note was dictated using voice recognition software and make contain errors or omissions. Risks and benefits of the medication have been explained in detail to the patient. The patient does understand the risk of dependence on the medication when given over a prolonged period. Patient has been advised of risks of oversedation with the prescribed medication. Narcan has been offered to the paitent in the event of oversedation. Patient has been advised that a family member should also be educated regarding administration of Narcan. The patient has been advised to consult with his/her primary care provider and pharmacist regarding drug-drug interaction of medications currently prescribed. RD report has been obtained and reviewed prior to prescription and found to be appropriate. Opioid contract was reviewed and signed by the patient, and that they have agreed to all of the terms set forth by our compliance program. Patient has been instructed to contact the clinic with any concerns before the next appointment. Dr. Saha has reviewed this note and agrees with this plan of care. This note was dictated using voice recognition software and make contain errors or omissions.
[2021-12-18 14:21] VITALS: BP 162/98; PULSE 74; RESP 18; O2SAT 95
[2021-12-18 14:23] VITALS: BP 160/94; PULSE 80; RESP 18; O2SAT 97
[2021-12-18 14:45] VITALS: BP 150/94; PULSE 74; RESP 20; O2SAT 96
[2021-12-18 16:25] LABS: Amphetamine/Metha Screen,Urine Negative ng/ml (<1000)
[2021-12-18 16:26] LABS: Barbiturates Screen,Urine Negative ng/ml (<200)
[2021-12-18 16:28] LABS: Benzodiazepines Screen,Urine Negative ng/ml (<200)
[2021-12-18 16:29] LABS: Cannabinoid Screen,Urine Negative ng/ml (<50); Cocaine Screen,Urine Negative ng/ml (<300)
[2021-12-18 16:30] LABS: Methadone Screen,Urine Negative ng/ml (<300); Opiate Screen,Urine Negative ng/ml (<300)
[2021-12-18 16:31] LABS: Phencyclidine Screen,Urine Negative ng/ml (<25)
[2021-12-31 13:19] LABS: Opiates Negative (Cutoff=100)
== END 2021-12-18 14:45 | disposition home or self-care (01) ==
PROVIDERS: PCP Emergency Medicine; Visit Provider Clinical Nurse Specialist Family Health
DX: M51.16 Intervertebral disc disorders with radiculopathy, lumbar region (principal); Z45.1 Encounter for adjustment and management of infusion pump
CPT/HCPCS: 62370; 80305; 80361; 80365; G0480

== ENCOUNTER → 2022-05-29 09:15 | Outpatient (CLI) | payer MEDICARE, BC, SELFPAY ==
--- NOTE | 2022-05-29 09:28 | XR_ITS ---
FINAL REPORT CLINICAL HISTORY: elbow pain FINDINGS: RIGHT ELBOW 3 views were obtained. There is no acute fracture or dislocation. There is mild degenerative change. There is no soft tissue abnormality. IMPRESSION: Mild degenerative change with no acute bony abnormality. Reviewed, Interpreted and Dictated by Keny Stafford III, MD Transcribed by Natalie Art Authenticated and [facility]
== END ==
PROVIDERS: PCP Emergency Medicine; Visit Provider Physician Assistant Surgical
DX: M25.521 Pain in right elbow
CPT/HCPCS: 73080

== ENCOUNTER → 2022-12-03 14:08 | Outpatient (CLI) | payer MEDICARE, BC, SELFPAY ==
--- NOTE | 2022-12-03 14:13 | XR_ITS ---
FINAL REPORT CLINICAL HISTORY: right peroneal tendonitis COMPARISON: 04/03/2021 FINDINGS: AP, oblique and lateral views of the right foot were obtained. There is no acute fracture or dislocation. A calcification adjacent to the head of the 5th proximal phalanx is unchanged. The joint spaces are preserved. There is no acute soft tissue abnormality. IMPRESSION: No acute osseous abnormality of the right foot. Reviewed, Interpreted and Dictated by Jaqueline Mueller MD Transcribed by Yael Mckeon Authenticated and . [facility]
== END ==
PROVIDERS: PCP Emergency Medicine; Visit Provider Podiatrist
DX: M76.71 Peroneal tendinitis, right leg (principal); M79.671 Pain in right foot
CPT/HCPCS: 73630

== ENCOUNTER → 2023-01-14 09:51 | Outpatient (POV) | payer MEDICARE, BC, SELFPAY ==
--- NOTE | 2023-01-14 10:22 | EXP.PAIN.SOA ---
[facility] Pain Management SOAP Note Subjective:: Patient is a pleasant 52-year-old male who presents today for 6-month follow-up. We are currently treating the patient for degenerative disc disease of lumbar spine with lumbar radiculopathy symptoms. Patient rates his pain a 4 out of 10 today. Patient denies any new trauma or injury. Patient denies any change location or type of pain he experiences. Patient is currently managed with intrathecal Dilaudid of 1 mg/mL with a daily dose of 0.048 mg/day. Patient denies any side effects from this medication. He states this medication does adequately help manage his pain symptoms. 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 Patient states he does go to a chiropractor on a regular basis to provide additional improvement of his low back/sacrum pain issues. Patient states he does have chronic pain and has had over 13 surgeries in the past. He is currently managed with gabapentin 600 mg twice a day from his primary care doctor. Patient denies any side effects from this medication. He states this medication does help manage his IBS symptoms. Patient also states that he will occasionally use cannabis to help provide significant relief. He states he is planning on discussing with his primary care doctor regarding medical marijuana use. His Rd is [id number]. Its been reviewed and appropriate. Review of Systems: General: No recent weight changes, no fever, no sleep disturbances Respiratory: No cough, no shortness of air, no recurring pulmonary infections Cardiovascular/peripheral vascular: No chest pain, no palpitations, no edema, no shortness of breath Gastrointestinal: No new onset incontinence, normal bowel movements reported Genitourinary: No new onset incontinence Musculoskeletal: Low back pain Psychiatric: [Normal mood/affect] Neurological: [Denies weakness in extremities], [denies balance issues] Objective:: Physical Exam: General: Alert and oriented x3, no acute distress, pleasant and cooperative Lungs: Respirations even and unlabored, symmetrical chest expansion Eyes: PERRL Musculoskeletal: Flexion and extension of lumbar [spine] somewhat guarded secondary to pain, [antalgic gait noted] Neurological: Speech clear, no gross sensory deficit ORT score updated with low risk Assessment:: Degenerative disc disease of lumbar spine with lumbar radiculopathy symptoms Plan:: Patient is doing well with his intrathecal pain pump and does not require any additional injective therapies at this time. Patient will return to clinic in 6 months for reevaluation of symptoms and plan of care. Patient has been instructed to contact the clinic with any concerns before the next appointment. Dr. Saha has reviewed this note and agrees with this plan of care. This note was dictated using voice recognition software and make contain errors or omissions. -- It Is medically necessary for this patient to continue to have their intrathecal pump refilled at regular intervals. This patient had an intrathecal pain pump implanted after meeting criteria of chronic intractable pain for greater than 3 months and failing conservative treatments. Patient has committed and been compliant to the treatment plan and all planned follow up care. Since implantation of the intrathecal pain pump, the patient has had decreased pain and been more functional. Oral medications have been reduced including intake of oral opioids. Patient continues to do well with intrathecal therapy with decrease in pain symptoms and increase in functional status. Stopping intrathecal medications can lead to life threatening withdrawal, seizures, cardiac arrest, severe pain, and possible . Pumps that are not refilled at regular intervals can be damages and cause and need for replacement. We continually titrate dose and concentration to optimize pain relief and function. We are limited in concentration for certain drugs to sa
[2023-01-14 11:33] VITALS: BP 153/96; PULSE 75; RESP 18; O2SAT 99; BMI 28.8
== END ==
PROVIDERS: PCP Emergency Medicine; Visit Provider Nurse Practitioner Family
DX: M51.16 Intervertebral disc disorders with radiculopathy, lumbar region (principal); Z97.8 Presence of other specified devices
CPT/HCPCS: 99212; G0463

== ENCOUNTER 2023-09-25 20:07 | Emergency (ER) | payer MEDICARE, MEDICAID, SELFPAY ==
[2023-09-25 20:07] VITALS: BP 144/110; PULSE 88; RESP 16; TEMP 37.1; O2SAT 100; BMI 27.6
--- NOTE | 2023-09-25 20:13 | XR_ITS ---
PROCEDURE INFORMATION: Exam: XR Left Humerus Exam date and time: 09/25/2023 8:15 PM Age: 52 years old Clinical indication: Injury or trauma; Fall; Blunt trauma (contusions or hematomas); Arm, upper; Prior surgery; Surgery date: 6+ months; Surgery type: Left shoulder, approx 6 years ago; Additional info: Fall pain TECHNIQUE: Imaging protocol: Radiologic exam of the left humerus. Views: 2 or more views. COMPARISON: CR XR SHOULDER LT MIN 2V 09/25/2023 8:15 PM FINDINGS: Bones/joints: Mildly displaced oblique fracture of the surgical neck of the humerus just distal to extensive hardware in the humeral head. No other fracture. Soft tissues: Normal. IMPRESSION: Mildly displaced oblique fracture of the surgical neck of the humerus just distal to extensive hardware in the humeral head.
--- NOTE | 2023-09-25 20:13 | XR_ITS ---
PROCEDURE INFORMATION: Exam: XR Left Shoulder Exam date and time: 09/25/2023 8:15 PM Age: 52 years old Clinical indication: Injury or trauma; Fall; Blunt trauma (contusions or hematomas); Prior surgery; Surgery date: 6+ months; Surgery type: Approx 6 years ago, left shoulder; Additional info: Fall pain TECHNIQUE: Imaging protocol: Radiologic exam of the left shoulder. Views: 2 or more views. COMPARISON: [id number] 09/17/2017 2:20 PM FINDINGS: Bones/joints: Curvilinear plate and multiple screws in the humeral head. Mildly displaced oblique fracture of the surgical neck of the humerus. No evidence of a dislocation. Soft tissues: Normal. IMPRESSION: 1. Curvilinear plate and multiple screws in the humeral head. 2. Mildly displaced oblique fracture of the surgical neck of the humerus.
[2023-09-25 20:14] VITALS: PULSE 85
--- NOTE | 2023-09-25 20:20 | PC.NURSE ---
Pt experience increase in pain after xrays, offered to get something for pain, pt states, anything non narcotic teaching done of pain relief and other pain relieving medications, verbalized understanding
--- OUTSIDE RECORDS SUMMARY | 2023-09-25 20:23 | XMS_ITS | Continuity of Care Document ---
Author Name Unknown Organization [facility] Address [address] [place] [address] Phone Care Team Providers Care Salesperson Surgical Appliances Name Role Phone Filiberto Renner Unavailable Unava ilable Allergies, Adverse Reactions, Alerts Substance Reaction Status Criticality aspirin Active No Information Medications Medication Instructions Dosage Effective Dates (start - stop) Status Comments Neurontin 100 mg capsule take 3 capsule by oral route 3 times every day 300 MG - Active Procedures Procedure Date Office/outpatient visit,est, mod 2014 Shoulder Xray Complete Min Of 2 Views Se AC Joints Xray Bilateral W Or WO Weighte d Distraction Office/outpatient visit,new, mod 2013 Inj/Aspirate Mjr Joint/Bursa(Shldr, Hip, Knee, Subacrom Bursa) Methylprednisolone Acetate Advance Directives Directive Yes / No Effective Date File Name No Information Encounters Encounter Description Practice Location Reason(s) For Visit Diagnoses Date Provider Providers Copied on Encounter [facility], [address], [place], [id number], [place] tel:[phone] ABAD Quinteros No Information Debra
--- NOTE | 2023-09-25 20:28 | HMH.EDGENADL ---
Discharge Plan Disposition Patient Disposition: Home, Self-Care Prescriptions Prescriptions: No Action sertraline 100 mg tablet 150 mg PO DAILY gabapentin 600 mg tablet 600 mg PO BID Qty: 60 5RF Referrals Follow up/Referrals: Azeem Champion MD [Primary Care Provider] - See instructions Activity Restrictions/Add. Instructions Additional Instructions/Restrictions: Please follow-up with the orthopedic surgery team. I gave them your cell phone number. They should be calling to schedule an appointment. If you do not hear from them in the next couple days, please call to follow-up. Please wear cuff and collar until follow-up. Clinical Impressions Clinical Impression: Fracture of neck of humerus Qualifiers: Encounter type: initial encounter Fracture type: closed Laterality: left Qualified Code(s): S42.212A - Unspecified displaced fracture of surgical neck of left humerus, initial encounter for closed fracture Discharge ED Provider: Royer Batista General Adult HPI General Chief complaint: Extremity Injury, Upper Stated complaint: Arm pain Time Seen by Provider: 09/25/23 20:09 Mode of Arrival: EMS Source of Information: Patient Limitations: No Limitations Description of Symptoms (Recalled from ER Triage Doc. by RN): pt reports walking through yard and tripped and fell onto left shoulder, complains of left shoulder and humerous pain History of Present Illness HPI narrative: 52-year-old male, history of left shoulder fusion with orthopedics several years ago, presents with mechanical trip and fall from standing onto his left shoulder. He reports that he felt a crack and has experienced pain since that time. Reports no numbness or tingling. Denies any other injury or trauma. Related Data Home Medications Medication Instructions Recorded Confirmed sertraline 100 mg tablet 150 mg PO DAILY Depression 03/14/21 04/26/23 Previous Rx's Medication Instructions Recorded gabapentin 600 mg tablet 600 mg PO BID IBS #60 tabs 04/26/23 Allergies Allergy/AdvReac Type Severity Reaction Status Date / Time oxycodone [From PERCOCET] Allergy Intermediate FEELS SICK Verified 04/26/23 11:23 aspirin AdvReac Unknown UPSET Verified 04/26/23 11:23 STOMACH PFSH PFS Disclaimer: The information contained in this section may have been updated after the patient was seen, as this information can be updated by other users. Medical History (Updated 09/25/23 @ 22:07 by Royer Batista MD) Chronic back pain greater than 3 months duration IBS (irritable bowel syndrome) Social History Smoking Status: Former smoker tobacco type: cigarettes packs per day: 0 second hand exposure: No alcohol intake: never counseling provided: none substance use type: denies use current occupational status: other Travel in the last 8 weeks: None household members: other housing: house current occupational exposures/hazards: No caffeine: Yes ROS Obtained: Yes All systems reviewed & no additional complaints except as documented Physical Exam General General appearance: alert and in no apparent distress Head Head exam: atraumatic and normocephalic Eye Eye exam: Present normal appearance, PERRL and EOMI ENT ENT exam: Present normal oropharynx and normal external ear exam Neck Neck exam: Present normal inspection and full ROM Chest Chest inspection: Present normal inspection and symmetric chest wall rise; Absent tenderness Respiratory Respiratory exam: Present normal lung sounds bilaterally; Absent respiratory distress Cardiovascular Cardiovascular exam: Present regular rate and normal rhythm Abdominal Exam Abdominal exam: Present soft; Absent distention, tenderness or guarding Extremities Exam Extremities exam: Present other (Tenderness to palpation of the left proximal humerus and shoulder. Wasting of the left deltoid noted. Intact distal
[2023-09-25 20:30] VITALS: BP 139/93; PULSE 73; O2SAT 96
--- NOTE | 2023-09-25 20:51 | PC.NURSE ---
Called [facility] for consult for Dr Batista
[2023-09-25 21:01] VITALS: BP 118/77; PULSE 80; O2SAT 93
--- NOTE | 2023-09-25 22:05 | PC.NURSE ---
Per Dr Batista placed pt into a sling type traction for his shoulder with an robert wrap. CR
[2023-09-25 22:16] VITALS: BP 127/78; PULSE 83; RESP 16; TEMP 36.7; O2SAT 94
== END 2023-09-25 22:17 | disposition home or self-care (01) ==
PROVIDERS: Emergency Provider Emergency Medicine; PCP Emergency Medicine
DX: S42.212A Unspecified displaced fracture of surgical neck of left humerus, initial encounter for closed fracture (principal); W18.30XA Fall on same level, unspecified, initial encounter; Z87.891 Personal history of nicotine dependence
CPT/HCPCS: 73030; 73060; 96374; 99284

== ENCOUNTER → 2023-10-24 23:30 | Outpatient (CLI) | payer MEDICARE, SELFPAY ==
[2023-10-24 18:50] LABS: Basophils % 0.4 % (0.1-2.0); Eosinophils # 0.2 K/mm3 (0.0-0.4); Eosinophils % 2.5 % (0.1-12.0); Hematocrit 46.1 % (42.0-52.0); Hemoglobin 15.4 g/dL (14.1-18.0); Lymphocytes # 1.2 K/mm3 (0.7-4.5); Lymphocytes % 19.7 % (10-50); Mean Corpuscular HGB Conc 33.4 g/dL (31.8-35.4); Mean Corpuscular Hemoglobin 31.3 pg (27.0-31.2); Mean Corpuscular Volume 93.6 fl (80-94); Mean Platelet Volume 9.5 fl (7.4-10.4); Monocytes # 0.3 K/mm3 (0.1-1.0); Monocytes % 5.3 % (1.7-9.3); Neutrophils # 4.6 K/mm3 (1.8-7.8); Platelet Count 184 K/mm3 (142-424); Red Blood Count 4.93 M/mm3 (4.60-6.20); Red Cell Distribution Width 14.2 % (11.5-17.5); White Blood Count 6.3 K/mm3 (4.8-10.8)
[2023-10-24 19:06] LABS: Alanine Aminotransferase 22 U/L (12-78); Albumin Level 4.6 g/dl (3.5-5.0); Albumin/Globulin Ratio 1.6 (1.1-1.8); Alkaline Phosphatase 113 U/L (38-126); Anion Gap 10.3 mEq/L (5-15); Aspartate Amino Transferase 30 U/L (17-59); Bilirubin,Total 0.5 mg/dl (0.2-1.3); Blood Urea Nitrogen 25 mg/dl (9-20); Calcium 8.8 mg/dl (8.4-10.2); Carbon Dioxide 29 mmol/L (22.0-30.0); Chloride 103 mmol/L (98-107); Chol/HDL Ratio 5.4 (1-3.5); Cholesterol 284 mg/dl (140-200); Estimated Glomerular Filt Rate 78 ml/min (>60); GFR (African American) 95 ML/MIN (>60); Globulin 2.9 g/dL (1.3-3.2); Glucose 88 mg/dl (74-100); HDL Cholesterol 53 mg/dl (40-60); Potassium 4.3 mmoL/L (3.5-5.1); Sodium 138 mmol/L (136-145); Total Protein,Serum 7.5 g/dl (6.3-8.2)
[2023-10-24 19:07] LABS: Triglycerides 464 mg/dl (30-150)
[2023-10-24 19:17] LABS: Direct LDL Cholesterol 139.03 mg/dL (100-129)
[2023-10-24 19:25] LABS: 25-OH Vitamin D, Total 37.7 ng/mL (30-100)
[2023-10-24 19:39] LABS: Prostate Specific Ag Screen 0.8 ng/ml (0.0-4.0); Thyroid Stimulating Hormone 2.14 uIU/mL (0.465-4.68)
[2023-10-24 20:54] LABS: Amphetamine/Metha Screen,Urine Negative ng/ml (<1000)
[2023-10-24 20:55] LABS: Benzodiazepines Screen,Urine Negative ng/ml (<200)
[2023-10-24 20:56] LABS: Cannabinoid Screen,Urine Negative ng/ml (<50)
[2023-10-24 20:57] LABS: Barbiturates Screen,Urine Negative ng/ml (<200)
[2023-10-24 20:59] LABS: Cocaine Screen,Urine Negative ng/ml (<300); Opiate Screen,Urine Negative ng/ml (<300)
[2023-10-24 21:00] LABS: Methadone Screen,Urine Negative ng/ml (<300)
[2023-10-24 21:01] LABS: Phencyclidine Screen,Urine Negative ng/ml (<25)
== END ==
PROVIDERS: PCP Nurse Practitioner Family; Visit Provider Nurse Practitioner Family
DX: Z79.899 Other long term (current) drug therapy (principal); E66.3 Overweight; E55.9 Vitamin D deficiency, unspecified; Z12.5 Encounter for screening for malignant neoplasm of prostate; Z68.29 Body mass index [BMI] 29.0-29.9, adult
CPT/HCPCS: 80053; 80061; 80305; 82306; 83036; 84443; 85025; G0103

== ENCOUNTER 2023-12-16 14:43 | Emergency (ER) | payer MEDICARE, SELFPAY ==
[2023-12-16 15:08] VITALS: BMI 35.9
--- NOTE | 2023-12-16 15:08 | XR_ITS ---
FINAL REPORT CLINICAL HISTORY: lac from pulp grinder feeder FINDINGS: LEFT HAND Three views demonstrate no acute fracture or dislocation. The visualized joint spaces are normally aligned. The soft tissues are unremarkable. IMPRESSION: No acute process. Reviewed, Interpreted and Dictated by Keny Stafford III, MD Transcribed by Apurva Huddleston Authenticated and . [facility]
--- NOTE | 2023-12-16 15:53 | EXP.UTC ---
Discharge Plan Disposition Patient Disposition: Home, Self-Care Condition: Good Prescriptions Prescriptions: New cephalexin 500 mg capsule 500 mg PO QID Qty: 40 0RF No Action sertraline 100 mg tablet 150 mg PO DAILY gabapentin 600 mg tablet 600 mg PO BID Qty: 60 5RF ibuprofen 800 mg tablet 800 mg PO Q8H Qty: 30 0RF atorvastatin 20 mg tablet 20 mg PO DAILY Qty: 30 2RF Referrals Follow up/Referrals: Sammy Villanueva DO [Primary Care Provider] - See instructions Activity Restrictions/Add. Instructions Additional Instructions/Restrictions: Keep the wound clean and dry. Keep a dressing on it if you are going to be getting it dirty. Watch the wound for signs of infection, such as redness, swelling, drainage, fever. etc. Take tylenol or ibuprofen for pain. Follow up with your regular doctor. Return in 7 to 10 days to have the sutures removed. GO TO THE ER FOR ANY WORSENING SYMPTOMS OR CONCERNS. Clinical Impressions Clinical Impression: Laceration of left hand, Need for Tdap vaccination Instructions Patient Instructions: Tetanus, Diphtheria, and Pertussis Vaccine, DI for Laceration Repair -- Finger Discharge ED Provider: Jason Patel [facility] General Stated complaint: AO 12/16/23 LEFT THUMB lac Time Seen by Provider: 12/16/23 15:43 History of Present Illness Provider Complaint: He states that earlier today he was using a seater grinder when it slipped and cut him on the left thumb. His tetanus immunization is not up to date. Related Data Home Medications Medication Instructions Recorded Confirmed sertraline 100 mg tablet 150 mg PO DAILY Depression 03/14/21 10/24/23 Previous Rx's Medication Instructions Recorded ibuprofen 800 mg tablet 800 mg PO Q8H #30 tabs 09/30/23 gabapentin 600 mg tablet 600 mg PO BID IBS #60 tabs 10/24/23 atorvastatin 20 mg tablet 20 mg PO DAILY #30 tabs 10/25/23 cephalexin 500 mg capsule 500 mg PO QID #40 caps 12/16/23 Allergies Allergy/AdvReac Type Severity Reaction Status Date / Time oxycodone [From PERCOCET] Allergy Intermediate FEELS SICK Verified 10/24/23 12:54 aspirin AdvReac Unknown UPSET Verified 10/24/23 12:54 STOMACH [facility] Disclaimer: The information contained in this section may have been updated after the patient was seen, as this information can be updated by other users. Medical History (Updated 12/16/23 @ 16:33 by Jason Patel APRN) Chronic back pain greater than 3 months duration IBS (irritable bowel syndrome) Social History Smoking Status: Former smoker tobacco type: cigarettes packs per day: 0 second hand exposure: No alcohol intake: never counseling provided: none substance use type: denies use current occupational status: other Travel in the last 8 weeks: None household members: other housing: house current occupational exposures/hazards: No caffeine: Yes ROS Obtained: Yes All systems reviewed & no additional complaints except as documented Constitutional Constitutional: Denies chills and Denies fever(s) Eyes Eyes: Denies eye discharge ENT Ears, Nose, Mouth, and Throat: Denies dizziness, Denies otalgia and Denies sore throat Cardiovascular Cardiovascular: Denies chest pain Respiratory Respiratory: Denies shortness of breath, Denies chest congestion, Denies cough, Denies stridor and Denies wheezing Gastrointestinal Gastrointestingal: Denies nausea or vomiting Musculoskeletal Musculoskeletal: Reports system reviewed and no additional complaints, except as documented and Denies arthralgias Integumentary/Breasts Skin/Breast: Reports as per HPI and Reports wounds Neurologic Neurologic: Denies dizziness and Denies paresthesias Allergic/Immunologic Allergic/Immunologic: Denies wheezing Physical Exam General General appearance: alert and in no apparent distress Head Head exam: atraumatic, normocephalic and normal inspection Eye Eye exam: Present normal appearance, PERRL and EOMI ENT ENT exam: Present normal exam, normal oropharynx, mucous membranes moist, TM's normal bilaterally and normal external ear exam Neck Neck exam: Present normal inspection, full ROM and trachea midline; Absent meningismus or lymphadenopathy Chest Chest inspection: Present normal inspection and symmetric chest wall rise; Absent tenderness Respiratory Respiratory exam: Present normal lung sounds bilaterally; Absent respiratory distress Cardiovascular Cardiovascular exam: Present regular rate and normal rhythm; Absent JVD Abdominal Exam Abdominal exam: Present soft and normal bowel sounds; Absent distention, tenderness or guarding Extremities Exam Extremities exam: Present full ROM and normal capillary refill; Absent calf tenderness Expanded Upper Extremity Exam Left: Forearm/Wrist exam: Present normal inspection and full ROM; Absent tenderness Hand exam: Present full ROM and tenderness; Absent swelling, abrasion, laceration, skin avulsion, ecchymosis, deformity, crepitus, dislocation, erythema, amputation, nail avulsion or subungual hematoma Neuromotor exam: Normal wrist extension, thumb opposition, thumb IP flexion, thumb adduction and fingers 2-5 abduction Neurosensory exam: Normal radial nerve, ulnar nerve and median nerve Vascular exam: Normal capillary refill, radial pulse and ulnar pulse Back Exam Back exam: Present normal inspection; Absent tenderness Neurological Exam Neurological exam: Present alert and oriented X3 Psychiatric Psychiatric exam: Present normal affect and normal mood Skin Skin exam: Present other (there is a 3 cm linear laceration on the dorsal aspect of his left hand near the base of his thumb, there is no deep tissue or tendon damage, no foreign body. He has good 2 point touch discrimination distal to the wound. ) Lymphatic Lymphatic Findings: no adenopathy Medical Decision Making Medical Records Medical records reviewed: No I reviewed the patient's medical records. Rd Inquiry Pt receiving controlled substance: No Orders (Tests/Meds): ORDERS Category Date Time Status Hand XR left minimum 3 views [XR hand LT min 3V] Stat Exams 12/16/23 15:08 Taken Procedures Risk/Benefits of Procedure(s) Were Explained: Yes Laceration Laceration 1: Site: thumb Side (If applicable): left Size (cm): 3 Description: linear Depth: simple, single layer Local Anesthetic: lidocaine 1% Amount of anesthesia used (mL): 1 Pre-repair: wound explored, irrigated extensively and deep structures intact Skin layer closed with: nylon Size (cm): 5-0 Number of sutures: 8 Technique: simple, interrupted (He tolerated this well, good closure was obtained, the edges were approximated well. )
[2023-12-16 15:55] VITALS: BP 168/94; PULSE 66; RESP 18; TEMP 36.8; O2SAT 97; BMI 29.8
[2023-12-16] MEDS: TET/DIPHTH/PERT-ADULT 0.5ML SYRINGE 0.5 ML IM (16:20)
--- NOTE | 2023-12-16 16:33 | PC.NURSE ---
Pt received 6 stitches in left hand.
[2023-12-16 16:51] VITALS: BP 168/94; PULSE 66; RESP 18; TEMP 36.8
== END 2023-12-16 16:51 | disposition home or self-care (01) ==
PROVIDERS: Emergency Provider Nurse Practitioner Family; PCP Internal Medicine
DX: S61.012A Laceration without foreign body of left thumb without damage to nail, initial encounter (principal); Z23 Encounter for immunization; W31.1XXA Contact with metalworking machines, initial encounter; Z87.891 Personal history of nicotine dependence
CPT/HCPCS: 12002; 73130; 90471; 90715; 99213; 99214; G0463

== ENCOUNTER 2024-04-24 10:00 | Outpatient (RCR) | payer MEDICARE, SELFPAY | END 2024-04-24 11:00 | disposition home or self-care (01) | LOC: OT 10:00 | PROVIDERS: Visit Provider Orthopaedic Surgery | DX: M25.512 Pain in left shoulder (principal) | CPT/HCPCS: 97010; 97014; 97110; 97140; 97164; 97165; 97530; G0283 ==

== ENCOUNTER 2024-08-20 15:40 | Emergency (ER) | payer MEDICARE, SELFPAY ==
[2024-08-20 15:41] VITALS: BP 154/87; PULSE 80; RESP 18; TEMP 36.7; O2SAT 97; BMI 28.8
--- NOTE | 2024-08-20 15:53 | PC.NURSE ---
DR ZAVALA AT BEDSIDE
[2024-08-20 15:57] VITALS: O2SAT 97
--- NOTE | 2024-08-20 15:58 | ED_ITS ---
Discharge Plan Disposition Patient Disposition: Home, Self-Care Prescriptions Prescriptions: New sulfamethoxazole-trimethoprim [Bactrim] 400-80 mg tablet 1 tab PO BID 7 Days Qty: 14 0RF No Action sertraline 100 mg tablet 150 mg PO DAILY gabapentin 600 mg tablet 600 mg PO BID Qty: 60 5RF tadalafil [Cialis] 5 mg tablet 5 mg PO DAILY Qty: 30 2RF Referrals Follow up/Referrals: Gurpreet Srinivasan APRN [Primary Care Provider] - See instructions Activity Restrictions/Add. Instructions Additional Instructions/Restrictions: You are being prescribed Bactrim to treat any possible underlying infection. Take this 7-day course as prescribed. The orthopedic surgery team at will contact you in the next 2-3 business days to schedule an appointment, which will likely take place at the beginning of next week. If you do not hear from them by 2 PM tomorrow, call their office to schedule an appointment. If you develop any new or worsening signs of infection, such as fever, increased redness or swelling, worsening pain or mobility in the left shoulder, or if you become concerned for your health for any reason, return to the emergency department immediately as this could be evidence of a worsening infection. Clinical Impressions Clinical Impression: Post op infection Print Language Print Language: Khmer Discharge ED Provider: Demar Barragan Adult HPI General Chief complaint: Recheck/Abnormal Lab/Rx Stated complaint: surg10/ LT shoulder surg, wound red painful Time Seen by Provider: 08/20/24 15:46 Mode of Arrival: Family Vehicle Source of Information: Patient, Spouse and Medical Record Limitations: No Limitations Description of Symptoms (Recalled from ER Triage Doc. by RN): Pt c/o swelling, heat, and bloody drainage to recent L shoulder surgery site. Surg was 08/13 @ [facility]. H is scheduled for a 2 wk follow up next week & staple removal. Pt reports the day after surgery his bandage was completed saturated and they have been changing daily or BID. Reports this is his 6ht surgery to left shoulder. Denies any fever, chills, or body aches. States he called otho's office 2 days ago but has not heard back from office. History of Present Illness HPI narrative: Dallas Aleman is a 53y male with past medical history of IBS and multiple left shoulder surgeries who presents to the emergency department for complaints of left shoulder bruising and swelling after shoulder surgery on 08/13 at the [facility]. Patient states that he had his 6 left shoulder surgery for scar tissue removal of his left shoulder on 08/13. He states that this was done as an outpatient. Since then, he has had continual oozing of dark red blood from the wound. He states that the area seems more swollen now than normal. He denies any recent fevers but states that on the day of discharge, he had a mild fever of 101 ?F. He denies any increased pain to the area but states that it might look more red than normal and it has felt warm. He states that he tried calling the orthopedic team over the past 2 days, however they did not return his calls. He states that he has been keeping bandages on the wound since discharge and has to change the bandages 2-3 times a day due to the continued oozing. He has not noticed any pus draining from the wound. Related Data Home Medications ?Medication ?Instructions ?Recorded ?Confirmed sertraline 100 mg tablet 150 mg PO DAILY Depression 03/14/21 08/11/24 Previous Rx's ?Medication ?Instructions ?Recorded gabapentin 600 mg tablet 600 mg PO BID IBS #60 tabs 04/28/24 tadalafil 5 mg tablet (Cialis) 5 mg PO DAILY #30 tabs 04/28/24 sulfamethoxazole 400 1 tab PO BID 7 days #14 tabs 08/20/24 mg-trimethoprim 80 mg tablet (Bactrim) Allergies Allergy/AdvReac Type Severity Reaction Status Date / Time oxycodone [From PERCOCET] AdvReac Intermediate FEELS SICK Verified 08/20/24 15:59 aspirin AdvReac Unknown UPSET Verified 08/11/24 11:33 STOMACH PFSH PFSH Disclaimer: The information contained in this section may have been updated after the patient was seen, as this information can be updated by other users. Medical History IBS (irritable bowel syndrome) Chronic back pain greater than 3 months duration Social History Smoking Status: Former smoker tobacco type: cigarettes packs per day: 0 second hand exposure: No alcohol intake: never counseling provided: none substance use type: denies use current occupational status: other Travel in the last 8 weeks: None household members: other housing: house current occupational exposures/hazards: No caffeine: Yes Other Medical History Have you received the Flu Vaccine for this season: No Have you received the Pneumonia Vaccine: No ROS Obtained: Yes Systems reviewed as appropriate & no additional complaints except as documented Physical Exam General General appearance: alert and in no apparent distress Head Head exam: atraumatic Eye Eye exam: Present normal appearance ENT ENT exam: Present normal external ear exam Neck Neck exam: Present full ROM Chest Chest inspection: Present symmetric chest wall rise Respiratory Respiratory exam: Present normal lung sounds bilaterally; Absent respiratory distress Cardiovascular Cardiovascular exam: Present regular rate and normal rhythm Abdominal Exam Abdominal exam: Present soft; Absent tenderness or guarding exam: Present deferred Extremities Exam Extremities exam: Present normal inspection Back Exam Back exam: Present normal inspection Comment: Left shoulder with vertical incision that appears to be healing well. Multiple toy in place. Small amount of venous/dark red blood oozing from the most inferior portion of the wound. No significant wound dehiscence noted. Some bruising surrounding the area but no significant erythema. The area is mildly swollen but is not tender. There is some fluctuance in the area but no purulent drainage. Limited range of motion at the shoulder secondary to pain, however patient states that this is normal. No warmth to the area. Neurological Exam Neurological exam: Present alert and oriented X3 Psychiatric Psychiatric exam: Present normal affect Skin Skin exam: Present warm and dry Medical Decision Making Medical Records Medical records reviewed: Yes I reviewed the patient's medical records. Screening: Per USPSTF and CDC recommendations, given the prevalence of disease in our region, it is our hospital?s policy to screen for HIV and viral Hepatitis for all patients aged 18 and over and those with ongoing risk factors. Rd Inquiry Pt receiving controlled substance: No Vital Signs: 08/20/24 15:41 08/20/24 15:57 08/20/24 16:00 Temperature 98.1 F Temperature Source Oral Pulse Rate 78 Pulse Rate [Right] 80 Respiratory Rate 18 Blood Pressure 131/77 Blood Pressure [Right Arm] 154/87 H Blood Pressure Mean [Right Arm] 109 Blood Pressure Source Blood Pressure Source [Right Arm] Automatic Cuff 02 Sat by Pulse Oximetry 97 97 97 Oxygen Delivery Method Room Air Room Air 08/20/24 17:06 Temperature 98.1 F Temperature Source Oral Pulse Rate 76 Pulse Rate [Right] Respiratory Rate 18 Blood Pressure 130/78 Blood Pressure [Right Arm] Blood Pressure Mean [Right Arm] Blood Pressure Source Automatic Cuff Blood Pressure Source [Right Arm] 02 Sat by Pulse Oximetry Oxygen Delivery Method Room Air Lab Data Lab Results 08/20/24 16:18: WBC 6.0, RBC 3.64 L, Hgb 10.8 L, Hct 32.0 L, MCV 88.0, MCH 29.6, MCHC 33.6, RDW 14.2, Plt Count 372, MPV 7.4, Neut % (Auto) 73.5, Lymph % (Auto) 16.9, Mitchell % (Auto) 5.7, Eos % (Auto) 3.5, Baso % (Auto) 0.4, Neut # (Auto) 4.4, Lymph # (Auto) 1.0, Mitchell # (Auto) 0.3, Eos # (Auto) 0.2, Baso # (Auto) 0.0, ESR > 140 H, Sodium 138, Potassium 3.9, Chloride 105, Carbon Dioxide 30, Anion Gap 6.9, BUN 18, Creatinine 0.90, Estimated Creat Clear 139, Estimated GFR 89, Est GFR ( Amer) 107, Glucose 102 H, Calcium 8.9, C-Reactive Protein 52.1 H 08/20/24 16:18 08/20/24 16:18 Orders (Tests/Meds): ED MEDICATIONS Discontinued Medications Generic Name Dose Route Start Last Admin Trade Name Freq PRN Reason Stop Dose Admin Iopamidol 75 ml 08/20/24 16:25 08/20/24 16:26 Iopamidol-370 (76%);100ml Bottle IV 08/20/24 16:26 75 ml ONCE ONE Administration Sodium Chloride 10 ml 08/20/24 16:25 08/20/24 16:26 Sodium Chloride 0.9% 10ml Syr (Rad Only) IV 08/20/24 16:26 10 ml ONCE ONE Administration ORDERS Category Date Time Status CT shoulder LT w con Stat Cat Scan 08/20/24 16:01 Completed BMP [Basic Metabolic Panel] Stat Lab 08/20/24 16:18 Completed CBC w/Auto Diff [Complete Blood Count Auto Diff] Stat Lab 08/20/24 16:18 Completed CRP [C-Reactive Protein] Stat Lab 08/20/24 16:18 Completed ESR [Erythrocyte Sedimentation Rate] Stat Lab 08/20/24 16:18 Completed Medical Decision Narrative: Dallas Aleman is a 53y male with past medical history of multiple left shoulder surgeries, most recently on 08/13, who presents to the emergency department for postop concerns. Patient states that since his surgery, he has had continuous oozing of dark red blood from the wound site with swelling to the area. No recent fevers but reported temperature on the day of discharge of 101. Some mild erythema noticed by him to the area. He states that his previous surgeries have never had oozing like this before, which is why they became concerned and presented to the emergency department. On arrival, patient is hemodynamically stable, normotensive with blood pressure 131/77, heart rate within normal limits, afebrile, breathing comfortably on room air with oxygen saturation at 97% SpO2. Incision to the left shoulder appears to be healing well without any dehiscence. Toy are in place. There is a small amount of dark red blood oozing from the most inferior portion of the wound. He has limited range of motion of the shoulder secondary to pain and states that this is normal for him. The area is not warm to the touch. There is swelling to the area with fluctuance but no purulent drainage. This is likely a hematoma. Differential diagnosis: Hematoma, vascular injury, septic joint, osteomyelitis, among others. Workup in the emergency department included: CT left shoulder with contrast, ESR, CRP, CBC, BMP Labs were independently reviewed by me personally and demonstrated normal white blood cell count of 6, ESR elevated at 140, CRP elevated at 52.1. Labs otherwise unremarkable nonactionable. Per chart review from patient's records at , patient does not have a preoperative or postoperative ESR/CRP to compare to. He is possible that he is inflammatory markers are elevated in the setting of recent surgery versus infection. CT imaging of the left shoulder was interpreted by me personally. There does appear to be fluid collection in the anterior shoulder just underneath the surgical site. There is a small amount of gas in this area as well. Per radiology report, concern for seroma versus possible infection. Evidence of chronic but no acute osteomyelitis. See radiology report for final details. Given these findings in the setting of recent surgery, discussed the patient case with Dr. Roberts with orthopedics, who felt that this was less likely to be fractures and more than likely postsurgical in nature, however he recommended 7 course of Bactrim and a follow-up in Dr. Fine's clinic early next week. It is felt that this is appropriate at this time as patient is afebrile, hemodynamically stable, without other signs of infection on exam. This was discussed with the patient and he was in agreement with this plan. He was given strict return precautions, which included fever, pus draining from the wound, increased redness or swelling, increased pain or difficulty moving the shoulder. He demonstrated understanding and was in agreement with this plan. Patient had remained hemodynamically stable throughout his entire ED visit and was appropriate for discharge at this time. Critical Care Critical Care Time Critical Care Time: No
[2024-08-20 16:00] VITALS: BP 131/77; PULSE 78; O2SAT 97
--- NOTE | 2024-08-20 16:01 | CT_ITS ---
PROCEDURE INFORMATION: Exam: CT Left Upper Extremity With Contrast, Shoulder Exam date and time: 08/20/2024 4:27 PM Age: 53 years old Clinical indication: Swelling; Prior surgery; Surgery date: 3-7 days post-operative; Surgery type: Left shoulder SX; Patient HX: PT has had 6 shoulder SX , incision keeps bleeding and is very puffy; Additional info: SX left shoulder 08/13, hematoma, TECHNIQUE: Imaging protocol: Computed tomography of the left upper extremity with contrast. Exam focused on the shoulder Radiation optimization: All CT scans at this facility use at least one of these dose optimization techniques: automated exposure control; mA and/or kV adjustment per patient size (includes targeted exams where dose is matched to clinical indication); or iterative reconstruction. Contrast material: ISOVUE; Contrast volume: 75 ml; Contrast route: IV; COMPARISON: CR XR SHOULDER LT MIN 2V 09/25/2023 8:15 PM FINDINGS: Tubes, catheters and devices: Metallic artifact from indwelling hardware obscures significant portions of the anatomy. Bones/joints: There is a moderate amount fluid containing gas which may also communicate with these other collections in the surgically altered shoulder joint as well. There is fragmentation of the inferior aspect of the glenoid inferior to the seated prosthesis component. Components appear in expected alignment. Sclerosis and chronic periosteal reaction proximal metadiaphysis of the humerus which may be chronic osteomyelitis. Soft tissues: There is a large fluid collection deep to the anterior surgical staple line in and overlying the musculature measuring at least 8.6 x 9 x 9 cm. Extends down to closely applied to the medial aspect of the proximal humerus, and extends into the musculature posterior and inferior to the shoulder joint. This may or may not communicate with additional smaller fluid collections anterior to the distal left clavicle and acromioclavicular joint. Fluid at these levels contains tiny bits of gas. Large fluid collections, potentially seromas. Tiny bits of gas within the fluid some of which may be postoperative in some of which may potentially be related to infection. IMPRESSION: 1. Metallic artifact from indwelling hardware obscures significant portions of the anatomy. 2. Large fluid collections, potentially seromas. Tiny bits of gas within the fluid, some of which may be postoperative and some of which may be related to infection. 3. There is fragmentation of the inferior aspect of the glenoid inferior to the seated prosthesis component. Components appear in expected alignment. 4. Sclerosis and chronic periosteal reaction proximal metadiaphysis of the humerus which may be chronic osteomyelitis.
[2024-08-20] MEDS: SODIUM CHLORIDE 0.9% 10ML SYR (RAD ONLY) 10 ML IV (16:26)
[2024-08-20] MEDS: IOPAMIDOL-370 (76%);100ML BOTTLE 75 ML IV (16:26)
[2024-08-20 16:30] LABS: Chloride 105 mmol/L (98-107); Potassium 3.9 mmoL/L (3.5-5.1); Sodium 138 mmol/L (136-145)
[2024-08-20 16:33] LABS: Anion Gap 6.9 mEq/L (5-15); Blood Urea Nitrogen 18 mg/dl (9-20); Calcium 8.9 mg/dl (8.4-10.2); Carbon Dioxide 30 mmol/L (22.0-30.0); Creatinine Clearance Estimated 139 mL/min (50-200); Estimated Glomerular Filt Rate 89 ml/min (>60); GFR (African American) 107 ML/MIN (>60); Glucose 102 mg/dl (74-100)
[2024-08-20 16:39] LABS: C-Reactive Protein 52.1 mg/L (0-4)
[2024-08-20 16:40] LABS: Basophils % 0.4 % (0.1-2.0); Eosinophils # 0.2 K/mm3 (0.0-0.4); Eosinophils % 3.5 % (0.1-12.0); Hemoglobin 10.8 g/dL (14.1-18.0); Lymphocytes % 16.9 % (10-50); Mean Corpuscular HGB Conc 33.6 g/dL (31.8-35.4); Mean Corpuscular Hemoglobin 29.6 pg (27.0-31.2); Mean Platelet Volume 7.4 fl (7.4-10.4); Monocytes # 0.3 K/mm3 (0.1-1.0); Monocytes % 5.7 % (1.7-9.3); Neutrophils # 4.4 K/mm3 (1.8-7.8); Neutrophils % 73.5 % (37.0-80.0); Platelet Count 372 K/mm3 (142-424); Red Blood Count 3.64 M/mm3 (4.60-6.20); Red Cell Distribution Width 14.2 % (11.5-17.5)
[2024-08-20 17:23] LABS: Erythrocyte Sedimentation Rate > 140 mm/hr (0-20)
--- NOTE | 2024-08-20 17:30 | PC.NURSE ---
Radiology power-shared ct scab & making a disc for possible transfer
--- NOTE | 2024-08-20 17:34 | PC.NURSE ---
Called [facility] to consult with Ortho per [facility] Kisha to call back
--- NOTE | 2024-08-20 18:21 | PC.NURSE ---
DR ZAVALA AT BEDSIDE TO UPDATE PT AND FAMILY
[2024-08-20 18:40] VITALS: BP 130/78; PULSE 76; RESP 18; TEMP 36.7; O2SAT 98
== END 2024-08-20 18:45 | disposition home or self-care (01) ==
PROVIDERS: Emergency Provider Student in an Organized Health Care Education/Training Program; PCP Nurse Practitioner Family
DX: T81.40XA Infection following a procedure, unspecified, initial encounter (principal)
CPT/HCPCS: 73201; 80048; 85025; 85651; 86140; 99285; Q9967

== ENCOUNTER 2024-08-27 07:59 | Outpatient (CLI) | payer MEDICARE, SELFPAY ==
[2024-08-27 08:18] LABS: Hematocrit 34.5 % (42.0-52.0); Hemoglobin 11.7 g/dL (14.1-18.0); Mean Corpuscular HGB Conc 34.1 g/dL (31.8-35.4); Mean Corpuscular Hemoglobin 30.3 pg (27.0-31.2); Mean Corpuscular Volume 88.9 fl (80-94); Platelet Count 358 K/mm3 (142-424); Red Blood Count 3.88 M/mm3 (4.60-6.20); Red Cell Distribution Width 14.9 % (11.5-17.5); White Blood Count 5.6 K/mm3 (4.8-10.8)
[2024-08-27 08:44] LABS: Chloride 107 mmol/L (98-107); Sodium 139 mmol/L (136-145)
[2024-08-27 08:45] LABS: Potassium 4.7 mmoL/L (3.5-5.1)
[2024-08-27 08:47] LABS: Blood Urea Nitrogen 13 mg/dl (9-20); Estimated Glomerular Filt Rate 89 ml/min (>60); GFR (African American) 107 ML/MIN (>60)
[2024-08-27 08:48] LABS: Anion Gap 6.7 mEq/L (5-15); Calcium 9.3 mg/dl (8.4-10.2); Carbon Dioxide 30 mmol/L (22.0-30.0); Glucose 93 mg/dl (74-100)
== END 2024-08-27 23:59 | disposition home or self-care (01) ==
LOC: LAB 08:00
PROVIDERS: PCP Nurse Practitioner Family; Visit Provider Orthopaedic Surgery
DX: Z96.612 Presence of left artificial shoulder joint (principal)
CPT/HCPCS: 36415; 80048; 85027

== ENCOUNTER 2024-09-14 14:06 | Outpatient (CLI) | payer MEDICARE, SELFPAY | END 2024-09-14 23:59 | disposition home or self-care (01) | LOC: LAB.DROPOF 09-15 14:06 | PROVIDERS: PCP Student in an Organized Health Care Education/Training Program; Visit Provider Student in an Organized Health Care Education/Training Program | DX: J02.9 Acute pharyngitis, unspecified (principal) | CPT/HCPCS: 87070 ==

== ENCOUNTER 2024-09-22 11:10 | Day surgery (SDC) | payer MEDICARE, SELFPAY ==
[2024-09-22 11:35] VITALS: BP 125/68; PULSE 81; RESP 16; TEMP 36.5; O2SAT 95; BMI 28.8
[2024-09-22 12:00] VITALS: BP 140/81; PULSE 82; RESP 18; O2SAT 96
[2024-09-22 12:01] VITALS: BP 140/81; PULSE 84; RESP 18; O2SAT 96
[2024-09-22 12:09] VITALS: BP 135/77; PULSE 82; RESP 16; O2SAT 97
--- NOTE | 2024-09-22 12:20 | EXP.PAIN.PRO ---
Procedure Date: 09/22/24 Time: 12:00 Anesthesiologist:: Monty Pratt CRNA Complications:: None Pre-procedure Diagnosis:: Degenerative disc lumbar spine multilevels. Lumbar radiculopathy Post-procedure Diagnosis:: Same. Indications for Procedure:: Patient is a pleasant 53-year-old male who comes our clinic today for intrathecal pain pump interrogation and refill. Patient currently being managed with hydromorphone 1 mg/mL at a rate of 0.048 mg/day. Patient doing very well with his current settings. He is not reporting side effects or complications. Is not requesting any changes. He rates his pain today 2/10. Procedure Details:: Details of the procedure explained to the patient. The patient taken procedure room placed in sitting position. They over the pump was cleaned using chlorhexidine as a cleansing solution. The pump was interrogated. The pump was accessed with ease using a 22-gauge inch and half needle. 15 mL of solution was withdrawn discarded appropriate. The pump was then filled 20 cc of solution containing hydromorphone 1 mg/mL. Patient tolerated procedure without difficulty. No complications. Plan and Disposition:: Patient was discharged without incident.
== END 2024-09-22 12:09 | disposition home or self-care (01) ==
LOC: SC.PAINP 11:11
PROVIDERS: PCP Nurse Practitioner Family; Visit Provider Nurse Anesthetist, Certified Registered
DX: M51.16 Intervertebral disc disorders with radiculopathy, lumbar region (principal)
CPT/HCPCS: 95991

== ENCOUNTER 2024-10-29 09:19 | Day surgery (SDC) | payer MEDICARE, SELFPAY ==
[2024-09-14 13:45] VITALS: BMI 63.6
[2024-10-27 13:13] VITALS: BMI 30.2
[2024-10-29 09:46] VITALS: BP 171/88; PULSE 75; RESP 18; TEMP 36.5; O2SAT 99
[2024-10-29] MEDS: LACTATED RINGERS 1000ML 1,000 ML 25 ML IV (09:46)
--- NOTE | 2024-10-29 10:08 | P.PNANES_ITS ---
[facility] Disclaimer: The information contained in this section may have been updated after the patient was seen, as this information can be updated by other users. Medical History Hoarseness IBS (irritable bowel syndrome) Chronic back pain greater than 3 months duration Surgical History History of oral surgery History of back surgery History of nasal septoplasty History of hernia repair History of left knee surgery History of shoulder surgery Family History Other No significant family history Social History Smoking Status: Former smoker tobacco type: cigarettes packs per day: 0 how long ago did patient quit smokin + years ago second hand exposure: No alcohol intake: never counseling provided: none substance use type: denies use current occupational status: disabled Travel in the last 8 weeks: None household members: other housing: house current occupational exposures/hazards: No caffeine: Yes Have you lived/traveled outside [place] in past 30 days?: No Contact w/someone who lives/traveled outside US past 30 days?: No Exposure to someone with infectious disease in past 14 days?: No Do you have a fever (greater than 100.4 F or 38 C)?: No Have you tested positive for COVID-19: No Exposed to someone with COVID-19 in past 14 days?: No Do you have a sore throat?: No Do you have a cough?: No Do you have any weakness?: No Do you have any diarrhea?: No Are you experiencing any unusual bleeding?: No Do you have any muscle aches/pain?: No Do you have any abdominal pain?: No Are you experiencing loss of taste or smell?: No [facility] Anesthesia Checklist Patient Identification Patient Identification: Arm Band and Verbal (Name & ) Structural Data Admitted From: Home Planned Operative Procedure/s: EGD Consent for Planned Operative Procedure(s) Verified: Yes Verified Documents: Surgical Consent and History and Physical NPO Status Verified Time NPO: 00:00 Additional verifications Anesthesia Reactions: No Hx Blood Transfusions: No Blood Transfusion Reaction: No Airway Assessment Mallampati Score:: Class I C-Spine Mobility Assessed: Yes TMJ Mobility Assessed: Yes Dentition: Good Dentition Neurological Assessment Level of Consciousness: Awake Hx Seizures: No Numbness or tingling in extremities: No Anesthesia Plan Anesthesia Risk discussed: Yes Anesthesia Plan: Verified ASA Class: II Anesthesia Type: MAC
[2024-10-29 11:11] VITALS: O2SAT 100
--- NOTE | 2024-10-29 11:11 | P.HP_ITS ---
History of Present Illness *Admission Date: 10/29/24 *Reason for visit:: Nausea/vomiting *History of present illness: Mr. Aleman is a 54-year-old gentleman who is here for diagnostic upper endoscopy secondary to nausea and vomiting. The examination is deemed medically necessary for diagnostic EGD. The patient has been seen, interviewed and examined prior to the procedure by both myself and the anesthesia provider. [facility] Disclaimer: The information contained in this section may have been updated after the patient was seen, as this information can be updated by other users. Medical History Hoarseness IBS (irritable bowel syndrome) Chronic back pain greater than 3 months duration Surgical History History of oral surgery History of back surgery History of nasal septoplasty History of hernia repair History of left knee surgery History of shoulder surgery Family History Other No significant family history Social History Smoking Status: Former smoker tobacco type: cigarettes packs per day: 0 how long ago did patient quit smokin + years ago second hand exposure: No alcohol intake: never counseling provided: none substance use type: denies use current occupational status: disabled Travel in the last 8 weeks: None household members: other housing: house current occupational exposures/hazards: No caffeine: Yes Have you lived/traveled outside US in past 30 days?: No Contact w/someone who lives/traveled outside US past 30 days?: No Exposure to someone with infectious disease in past 14 days?: No Do you have a fever (greater than 100.4 F or 38 C)?: No Have you tested positive for COVID-19: No Exposed to someone with COVID-19 in past 14 days?: No Do you have a sore throat?: No Do you have a cough?: No Do you have any weakness?: No Do you have any diarrhea?: No Are you experiencing any unusual bleeding?: No Do you have any muscle aches/pain?: No Do you have any abdominal pain?: No Are you experiencing loss of taste or smell?: No Other Medical History Have you received the Flu Vaccine for this season: No Have you received the Pneumonia Vaccine: No Review of Systems Review of Systems Review of systems (narrative): Negative *Cardiovascular Comments: Negative *Gastrointestinal Comments: Negative *Genitourinary Comments: Negative *Musculoskeletal Comments: Negative *Neurologic Comments: Negative Meds Home Medications and Allergies Home Medications ?Medication ?Instructions ?Recorded ?Confirmed ?Type sertraline 100 mg tablet (Zoloft) 150 mg PO DAILY Depression 03/14/21 10/29/24 History tadalafil 5 mg tablet (Cialis) 5 mg PO DAILY #30 tabs 04/28/24 10/29/24 Rx gabapentin 600 mg tablet 600 mg PO BID IBS #60 tabs 10/14/24 10/29/24 Rx New Prescriptions to Start Prescriptions: Allergies Allergy/AdvReac Type Severity Reaction Status Date / Time oxycodone (From PERCOCET) AdvReac Intermediate FEELS SICK Verified 10/29/24 09:44 aspirin AdvReac Unknown UPSET Verified 10/29/24 09:44 STOMACH Exam Data for Last 24 hours Vital signs and Labs for Last 24 Hours: Temp Pulse Resp BP Pulse Ox O2 Del Method 97.7 F 75 18 171/88 H 99 Room Air 10/29/24 09:46 10/29/24 09:46 10/29/24 09:46 10/29/24 09:46 10/29/24 09:46 10/29/24 09:46 I & O for Last 24 hours: Intake & Output 10/26/24 10/27/24 10/28/24 10/29/24 23:59 23:59 23:59 23:59 Weight 235 lb *Routine HEENT Exam Head: Present normocephalic Eye: Present EOMI and PERRL ENT: Present mucous membranes moist *Routine Neck Exam Neck: Present supple *Routine Respiratory Exam Respiratory: Present CTA bilaterally *Routine Cardiovascular Exam Cardiovascular: Present RRR *Routine Abdominal Exam Abdominal: Present soft and normoactive bowel sounds; Absent tenderness *Routine Rectal Exam Rectal:: deferred *Routine Genitalia Exam Genitalia:: deferred *Routine Extremities Exam Extremities: Absent cyanosis, clubbing or edema *Routine Skin Exam Skin: Present warm; Absent rash *Routine Neurological Exam Neurological: Present alert and oriented X3 Assessment and Plan *Assessment and plan (1) Nausea & vomiting: Status: Acute Category: Medical Code(s): R11.2 - Nausea with vomiting, unspecified (2) Hematemesis: Status: Acute Category: Medical Code(s): K92.0 - Hematemesis Plan A/P: 1. Nausea and vomiting with intermittent hematemesis is the preprocedural diagnosis. The patient will be anesthetized/sedated using MAC sedation. The patient has been seen and examined. Cardiac and lung assessment prior to the examination is stable. Proceed with planned diagnostic EGD
--- NOTE | 2024-10-29 11:22 | P.PCN_ITS ---
[facility] Procedure Note Date: 10/29/24 Time: 11:33 Procedure Note:: Upper Endoscopy Procedure Report: Esophagogastroduodenoscopy with cold biopsies Endoscopost: Patrick Lopez II, MD Referring Physician: JOSE Mathews Date of Procedure: October 29, 2024 Equipment: Olympus GIF 190 standard upper endoscope Sedation: MAC sedation Indications: Mr. Aleman is a 54-year-old gentleman who is here for diagnostic upper endoscopy secondary to intermittent nausea and vomiting. He had noticed red 1 time and possible hematemesis. The patient does have postprandial bloating and some dyspepsia with epigastric discomfort. He reports early satiety. He has a long history of IBS with diarrhea which is controlled (primarily with gabapentin which he has been on for decades). His last endoscopies were many years ago. The patient has had no dysphagia, heartburn or reflux. Procedure: Prior to the procedure, a history and physical exam was performed, and patient's medications and allergies were reviewed. The risks, benefits and alternatives of the sedation and procedure were discussed with the patient. All questions were answered and informed consent was obtained. The patient was brought to the procedure room. Patient identification and proposed procedure were verified by the physician and the nurse. The patient was placed in a left lateral decubitus position and the scope was passed under direct vision. Throughout the procedure, the patient's blood pressure, pulse, and oxygen saturations were monitored continuously. The upper GI endoscopy was accomplished without difficulty. The patient tolerated the procedure well. Findings: The scope was passed directly into the upper esophagus and advanced to the third portion of the duodenum. The post bulbar duodenum and duodenal bulb were normal with normal mucosa and conniventes. Biopsies were taken from the post bulbar duodenum to rule out celiac disease. The scope was withdrawn through a normal duodenal bulb and pylorus into the stomach. There was some mild linear reactive gastropathy of the antrum and body and mild chronic gastritis of the body and fundus. Biopsies were taken along the lesser curvature. Upon retroflexion there was a very small sliding 1 to 2 cm hiatal hernia. The scope was then withdrawn into the esophagus. There was no evidence of reflux esophagitis or Bales's. There was a very small proximal esophageal inlet patch. The remainder of the esophageal mucosa was normal. Impression: 1. Small proximal esophageal inlet patch 2. Mild linear reactive gastropathy and mild chronic gastritis Plan: The patient does have functional dyspepsia associated with his IBS. I do feel that he may benefit from promotility therapy or neuromodulation. We will discuss treatment options. I would also consider [id number] herbal Iberogast twice daily. I will follow-up the biopsies.
[2024-10-29 11:31] VITALS: BP 114/72; PULSE 87; RESP 18; TEMP 36.7; O2SAT 97
[2024-10-29 11:41] VITALS: BP 104/69; PULSE 84; RESP 16; O2SAT 97
[2024-10-29 11:51] VITALS: BP 110/74; PULSE 81; RESP 16; O2SAT 97
[2024-10-29 12:01] VITALS: BP 134/70; PULSE 80; RESP 18; TEMP 36.6; O2SAT 98
== END 2024-10-29 12:01 | disposition home or self-care (01) ==
PROVIDERS: PCP Nurse Practitioner Family; Visit Provider Internal Medicine Gastroenterology
PROC: 0DJ08ZZ Inspection of Upper Intestinal Tract, Via Natural or Artificial Opening Endoscopic (ICD-10-PCS; CPT 43239; principal; 2024-10-29 11:00)
DX: K92.0 Hematemesis (principal); R14.0 Abdominal distension (gaseous); K30 Functional dyspepsia; R68.81 Early satiety; K44.9 Diaphragmatic hernia without obstruction or gangrene; K31.9 Disease of stomach and duodenum, unspecified; K29.70 Gastritis, unspecified, without bleeding
CPT/HCPCS: 43239; J7120

== ENCOUNTER 2024-11-10 10:41 | Outpatient (CLI) | payer MEDICARE, SELFPAY ==
[2024-11-10 18:43] LABS: Coronavirus 19, PCR Not Detected (NotDetected); Human Rhinovirus Not Detected (NotDetected); Influenza A, PCR Not Detected (NotDetected); Influenza B, PCR Not Detected (NotDetected); Respiratory Syncytial Virus Not Detected (NotDetected)
== END 2024-11-10 23:59 | disposition home or self-care (01) ==
LOC: LAB.DROPOF 11-12 12:37
PROVIDERS: PCP Internal Medicine; Visit Provider Internal Medicine
DX: R05.9 Cough, unspecified (principal)
CPT/HCPCS: 87631

== ENCOUNTER 2024-12-11 10:00 | Outpatient (RCR) | payer MEDICARE, MEDICAID, SELFPAY | END 2024-12-11 23:59 | disposition home or self-care (01) | LOC: OT 10:00 | PROVIDERS: Visit Provider Physician Assistant | DX: M25.512 Pain in left shoulder (principal); Z96.612 Presence of left artificial shoulder joint | CPT/HCPCS: 97014; 97110; 97140; 97166; 97168; G0283 ==

== ENCOUNTER 2025-01-04 08:13 | Day surgery (SDC) | payer MEDICARE, SELFPAY ==
[2024-12-31 15:41] VITALS: BMI 29.5
[2025-01-04] MEDS: LACTATED RINGERS 1000ML 1,000 ML 50 ML IV (09:10)
[2025-01-04 09:11] VITALS: BP 152/95; PULSE 68; RESP 18; TEMP 36.8; O2SAT 94
--- NOTE | 2025-01-04 09:33 | P.PNANES_ITS ---
[facility] Disclaimer: The information contained in this section may have been updated after the patient was seen, as this information can be updated by other users. Medical History Abdominal bloating Hoarseness IBS (irritable bowel syndrome) Chronic back pain greater than 3 months duration Surgical History History of oral surgery History of back surgery pain pump implant History of nasal septoplasty History of hernia repair x2 History of left knee surgery History of shoulder surgery x7 on left shoulder alone x3 on right shoulder Family History Other No significant family history Social History Smoking Status: Former smoker tobacco type: cigarettes packs per day: 0 how long ago did patient quit smokin + years ago second hand exposure: No alcohol intake: never counseling provided: none substance use type: denies use current occupational status: disabled Travel in the last 8 weeks: None household members: other housing: house current occupational exposures/hazards: No caffeine: Yes Have you lived/traveled outside [place] in past 30 days?: No Contact w/someone who lives/traveled outside US past 30 days?: No Exposure to someone with infectious disease in past 14 days?: No Do you have a fever (greater than 100.4 F or 38 C)?: No Have you tested positive for COVID-19: No Exposed to someone with COVID-19 in past 14 days?: No Do you have a sore throat?: No Do you have a cough?: No Do you have any weakness?: No Do you have any diarrhea?: No Are you experiencing any unusual bleeding?: No Do you have any muscle aches/pain?: No Do you have any abdominal pain?: No Are you experiencing loss of taste or smell?: No [facility] Anesthesia Checklist Patient Identification Patient Identification: Arm Band Structural Data Admitted From: Home Planned Operative Procedure/s: Colonoscopy Consent for Planned Operative Procedure(s) Verified: Yes Verified Documents: Surgical Consent and History and Physical NPO Status Verified Time NPO: 00:00 Additional verifications Anesthesia Reactions: No Hx Blood Transfusions: No Blood Transfusion Reaction: No Airway Assessment Mallampati Score:: Class II C-Spine Mobility Assessed: Yes TMJ Mobility Assessed: Yes Dentition: Good Dentition Neurological Assessment Level of Consciousness: Awake, Alert and Appropriate Anesthesia Plan Anesthesia Risk discussed: Yes Anesthesia Plan: Verified ASA Class: II Anesthesia Type: MAC
[2025-01-04 10:11] VITALS: O2SAT 95
--- NOTE | 2025-01-04 10:20 | EXP.HP ---
History of Present Illness *Admission Date: 01/04/25 *Reason for visit:: Surveillance/screening colonoscopy *History of present illness: Mr. Aleman is a 54-year-old gentleman who is here for surveillance colonoscopy. His last colonoscopy was 10 years ago or more (Nahid Willard MD). The examination is deemed medically necessary for surveillance colonoscopy. The patient has been seen, interviewed and examined prior to the procedure by both myself and the anesthesia provider. [facility] Disclaimer: The information contained in this section may have been updated after the patient was seen, as this information can be updated by other users. Medical History Abdominal bloating Hoarseness IBS (irritable bowel syndrome) Chronic back pain greater than 3 months duration Surgical History History of oral surgery History of back surgery pain pump implant History of nasal septoplasty History of hernia repair x2 History of left knee surgery History of shoulder surgery x7 on left shoulder alone x3 on right shoulder Family History Other No significant family history Social History Smoking Status: Former smoker tobacco type: cigarettes packs per day: 0 how long ago did patient quit smokin + years ago second hand exposure: No alcohol intake: never counseling provided: none substance use type: denies use current occupational status: disabled Travel in the last 8 weeks: None household members: other housing: house current occupational exposures/hazards: No caffeine: Yes Have you lived/traveled outside US in past 30 days?: No Contact w/someone who lives/traveled outside [place] past 30 days?: No Exposure to someone with infectious disease in past 14 days?: No Do you have a fever (greater than 100.4 F or 38 C)?: No Have you tested positive for COVID-19: No Exposed to someone with COVID-19 in past 14 days?: No Do you have a sore throat?: No Do you have a cough?: No Do you have any weakness?: No Do you have any diarrhea?: No Are you experiencing any unusual bleeding?: No Do you have any muscle aches/pain?: No Do you have any abdominal pain?: No Are you experiencing loss of taste or smell?: No Other Medical History Have you received the Flu Vaccine for this season: No Have you received the Pneumonia Vaccine: No Review of Systems Review of Systems Review of systems (narrative): Negative *Cardiovascular Comments: Negative *Gastrointestinal Comments: Negative *Genitourinary Comments: Negative *Musculoskeletal Comments: Negative *Neurologic Comments: Negative Meds Home Medications and Allergies Home Medications ?Medication ?Instructions ?Recorded ?Confirmed ?Type sertraline 100 mg tablet (Zoloft) 150 mg PO DAILY Depression 03/14/21 01/04/25 History tadalafil 5 mg tablet (Cialis) 5 mg PO DAILY #30 tabs 04/28/24 01/04/25 Rx gabapentin 600 mg tablet 600 mg PO BID IBS #60 tabs 10/14/24 01/04/25 Rx afvfvz-unltgipe-byaoveo 1 cap PO .With meals #100 caps 10/30/24 01/04/25 Rx 36,000-114,000-180,000 unit capsule,delay rel (Creon) New Prescriptions to Start Prescriptions: Allergies Allergy/AdvReac Type Severity Reaction Status Date / Time oxycodone (From PERCOCET) AdvReac Intermediate FEELS SICK Verified 01/04/25 09:08 aspirin AdvReac Unknown UPSET Verified 01/04/25 09:08 STOMACH Exam Data for Last 24 hours Vital signs and Labs for Last 24 Hours: Temp Pulse Resp BP Pulse Ox O2 Del Method O2 Flow Rate 98.3 F 68 18 152/95 H 94 L Nasal Cannula 5 01/04/25 09:11 01/04/25 09:11 01/04/25 09:11 01/04/25 09:11 01/04/25 09:11 01/04/25 10:11 01/04/25 10:11 *Routine HEENT Exam Head: Present normocephalic Eye: Present EOMI and PERRL ENT: Present mucous membranes moist *Routine Neck Exam Neck: Present supple *Routine Respiratory Exam Respiratory: Present CTA bilaterally *Routine Cardiovascular Exam Cardiovascular: Present RRR *Routine Abdominal Exam Abdominal: Present soft and normoactive bowel sounds; Absent tenderness *Routine Rectal Exam Rectal:: deferred *Routine Genitalia Exam Genitalia:: deferred *Routine Extremities Exam Extremities: Absent cyanosis, clubbing or edema *Routine Skin Exam Skin: Present warm; Absent rash *Routine Neurological Exam Neurological: Present alert and oriented X3 Assessment and Plan *Assessment and plan (1) Screening for colon cancer: Status: Acute Category: Medical Code(s): Z12.11 - Encounter for screening for malignant neoplasm of colon (2) History of irritable bowel syndrome: Status: Acute Category: Medical Code(s): Z87.19 - Personal history of other diseases of the digestive system Plan A/P: 1. Screening for colon cancer is the preprocedural diagnosis. The patient will be anesthetized/sedated using MAC sedation. The patient has been seen and examined. Cardiac and lung assessment prior to the examination is stable. Proceed with planned screening colonoscopy
--- NOTE | 2025-01-04 10:41 | P.PCN_ITS ---
[facility] Procedure Note Date: 01/04/25 Time: 10:41 Procedure Note:: Colonoscopy Procedure Report: Colonoscopy Endoscopist: Patrick Lopez II, MD Referring physician: JOSE Mathews Date of Procedure: January 04, 2025 Equipment: Olympus 190 variable stiffness pediatric colonoscope Sedation: MAC sedation Indication: Mr. Aleman is a 54-year-old gentleman who is here for follow-up surveillance colonoscopy. His last colonoscopy was 10 years ago or more. He reports no abdominal pain, weight loss, change in his bowel habits or rectal bleeding. He does have a long history of IBS controlled with gabapentin. He reports no family history of colon cancer. He was having intermittent nausea, vomiting and dyspepsia. Procedure: Prior to the procedure, a history and physical exam was performed, and patient's medications and allergies were reviewed. The risks, benefits and alternatives of the sedation and procedure were discussed with the patient. All questions were answered and informed consent was obtained. The patient was brought to the procedure room. Patient identification and proposed procedure were verified by the physician and the nurse. The patient was placed in a left lateral decubitus position and the scope was passed under direct vision. Throughout the pro cedure, the patient's blood pressure, pulse, and oxygen saturations were monitored continuously. The colonoscopy was accomplished without difficulty. The patient tolerated the procedure well. Findings: On digital rectal examination there was normal rectal tone. There were no external hemorrhoids. The colonoscope was introduced through the anal canal to the rectum and advanced to the cecum. The ileocecal valve and appendiceal orifice were identified. The scope was advanced a short distance into the ileum which appeared grossly normal. The scope was then withdrawn into the colon. The cecum, ascending, transverse, descending, sigmoid and rectum were grossly normal. There were no mucosal abnormalities identified. Upon retroflexion within the rectum there were grade 1-2 internal hemorrhoids. The preparation was fair throughout with Alpine Preparation Score of 7 out of 9. The cecal time was 12 minutes. Impression: 1. Normal colonoscopy with intubation of the terminal ileum Plan: The patient will not require surveillance colonoscopy again for 10 years by ACS guidelines.
[2025-01-04 10:43] VITALS: BP 91/57; PULSE 72; RESP 16; TEMP 36.8; O2SAT 94
[2025-01-04 10:53] VITALS: BP 90/58; PULSE 69; RESP 16; O2SAT 94
[2025-01-04 11:03] VITALS: BP 112/68; PULSE 72; RESP 16; O2SAT 95
[2025-01-04 12:00] VITALS: BP 114/76; PULSE 66; RESP 18; O2SAT 98
== END 2025-01-04 12:00 | disposition home or self-care (01) ==
PROVIDERS: PCP Nurse Practitioner Family; Visit Provider Internal Medicine Gastroenterology
PROC: 0DJD8ZZ Inspection of Lower Intestinal Tract, Via Natural or Artificial Opening Endoscopic (ICD-10-PCS; CPT 45378; principal; 2025-01-04 10:00)
DX: Z12.11 Encounter for screening for malignant neoplasm of colon (principal); Z87.19 Personal history of other diseases of the digestive system; K64.8 Other hemorrhoids
CPT/HCPCS: G0121; J7120

== ENCOUNTER 2025-01-07 08:00 | Outpatient (RCR) | payer MEDICARE, MEDICAID, SELFPAY | END 2025-01-07 23:59 | disposition home or self-care (01) | LOC: OT 08:00 | PROVIDERS: Visit Provider Physician Assistant | DX: M25.512 Pain in left shoulder (principal); Z96.612 Presence of left artificial shoulder joint | CPT/HCPCS: 97014; 97110; 97140; G0283 ==

== ENCOUNTER 2025-01-21 09:27 | Outpatient (CLI) | payer MEDICARE, MEDICAID, SELFPAY ==
--- NOTE | 2025-01-21 09:32 | XR_ITS ---
FINAL REPORT TECHNIQUE: Right shoulder 2 views CLINICAL HISTORY: rt shoulder pain COMPARISON: 02/19/2019 FINDINGS: RIGHT SHOULDER: Two images of the right shoulder were obtained. There is no evidence of fracture or dislocation. The joint spaces are intact. There is no soft tissue abnormality identified. IMPRESSION: No acute bony abnormality. Reviewed, Interpreted and Dictated by Yahir Reina MD Transcribed by Martha Teixeira Authenticated and [facility]
== END 2025-01-21 23:59 | disposition home or self-care (01) ==
LOC: RAD 09:29
PROVIDERS: PCP Nurse Practitioner Family; Visit Provider Physician Assistant Surgical
DX: M25.511 Pain in right shoulder (principal)
CPT/HCPCS: 73030

== ENCOUNTER 2025-02-05 09:04 | Day surgery (SDC) | payer MEDICARE, MEDICAID, SELFPAY ==
[2025-02-05 09:16] VITALS: BP 139/101; PULSE 74; RESP 18; TEMP 36.8; O2SAT 95; BMI 28.8
--- NOTE | 2025-02-05 09:39 | EXP.PAIN.PRO ---
Procedure Date: 02/05/25 Time: 10:00 Anesthesiologist:: Latasha Montes APRN Complications:: None Pre-procedure Diagnosis:: Degenerative disc disease of lumbar spine with lumbar radiculopathy symptoms Post-procedure Diagnosis:: Same Indications for Procedure:: Patient is a pleasant 54-year-old male who presents today for intrathecal refill and reprogram. He rates his pain today a 3 out of 10. He states the pump is working wonderful and denies any side effects. He is currently managed with Dilaudid 1 mg/mL with a daily dose of 0.048 mg/day. He denies any problems with this time. He is prescribed gabapentin from an outside provider. His Rd has been is appropriate. Physical Exam: General: Alert and oriented x3, no acute distress, pleasant and cooperative Lungs: Respirations even and unlabored, symmetrical chest expansion Eyes: PERRL Musculoskeletal: Flexion and extension of lumbar [spine] somewhat guarded secondary to pain, [antalgic gait noted] Neurological: Speech clear, no gross sensory deficit Procedure Details:: Informed consent was obtained and the risk and benefits of the procedure were explained to the patient. The patient had noninvasive monitoring placed including noninvasive blood pressure cuff and pulse oximeter. Patient's pump was interrogated. The area over the pump was cleansed with chlorhexidine as a cleansing solution. In sterile fashion the pump was accessed with a 22-gauge needle. Approximately 13.5 mls of the pump solution was removed and discarded appropriately. The pump was then refilled with 20 mL's of Dilaudid 1 mg/mL. The needle was withdrawn and a bandage was placed over the puncture site. The infusion rate was reprogrammed and continued at its current dosage. The patient tolerated well with no complication. Plan and Disposition:: Patient tolerated the procedure well with no complications and was discharged neurologically intact. I did discuss with patient in future to let us know if at some point he feels like the pump is not functioning as well or if he would like to go ahead and proceed forward with the new pump due to the fact that the current one is no longer in production. Patient acknowledges understanding and agrees with plan of care. Patient will return to clinic on or before their next intrathecal refill date. We will see the patient back in the clinic at the next intrathecal refill. Patient has been instructed to contact the clinic with any concerns before the next appointment. Dr. Saha has reviewed this note and agrees with this plan of care. This note was dictated using voice recognition software and make contain errors or omissions. -- It Is medically necessary for this patient to continue to have their intrathecal pump refilled at regular intervals. This patient had an intrathecal pain pump implanted after meeting criteria of chronic intractable pain for greater than 3 months and failing conservative treatments. Patient has committed and been compliant to the treatment plan and all planned follow up care. Since implantation of the intrathecal pain pump, the patient has had decreased pain and been more functional. Oral medications have been reduced including intake of oral opioids. Patient continues to do well with intrathecal therapy with decrease in pain symptoms and increase in functional status. Stopping intrathecal medications can lead to life threatening withdrawal, seizures, cardiac arrest, severe pain, and possible . Pumps that are not refilled at regular intervals can be damages and cause and need for replacement. We continually titrate dose and concentration to optimize pain relief and function. We are limited in concentration for certain drugs to safely deliver medications through the pump and stay within the recommendations from the [employer] Consensus [employer] Guidelines. Depending on dose and concentration these pumps may need to be refilled sooner than 3 months as we titrate. A UDS is needed to verify patient's compliance with our office pain contract. This is ordered based off specific treatments related to chronic pain with the potential to abuse certain medications.
[2025-02-05 09:59] VITALS: BP 138/92; PULSE 73; RESP 18; O2SAT 97
[2025-02-05 10:00] VITALS: BP 138/92; PULSE 72; RESP 18; O2SAT 96
[2025-02-05 10:05] VITALS: BP 150/94; PULSE 72; RESP 16; O2SAT 100
== END 2025-02-05 10:05 | disposition home or self-care (01) ==
LOC: SC.PAINP 09:39 → SC.PAIN 09:58
PROVIDERS: PCP Internal Medicine; Visit Provider Nurse Practitioner Family
DX: M51.16 Intervertebral disc disorders with radiculopathy, lumbar region (principal)
CPT/HCPCS: 62370

== ENCOUNTER 2025-06-25 09:40 | Day surgery (SDC) | payer MEDICARE, MEDICAID, SELFPAY ==
--- NOTE | 2025-06-25 11:23 | EXP.PAIN.PRO ---
Procedure Date: 06/25/25 Time: 11:48 Anesthesiologist:: Latasha Montes APRN Complications:: None Pre-procedure Diagnosis:: Degenerative disc disease of lumbar spine with lumbar radiculopathy symptoms, chronic pain syndrome Post-procedure Diagnosis:: Same Indications for Procedure:: Patient is a pleasant 54-year-old male who presents today for intrathecal refill and reprogram. He rates his pain today at 3 out of 10. He denies any new trauma or injury. He states he is doing overall really well with this device and has not even really used his bolus. He rates his pain patient is currently managed with Dilaudid 1 mg/mL with a daily dose of 0.048 mg/day. He has prescribed gabapentin from an outside provider. His Rd has been reviewed and is appropriate. Physical Exam: General: Alert and oriented x3, no acute distress, pleasant and cooperative Lungs: Respirations even and unlabored, symmetrical chest expansion Eyes: PERRL Musculoskeletal: Flexion and extension of lumbar [spine] somewhat guarded secondary to pain, [antalgic gait noted] Neurological: Speech clear, no gross sensory deficit Procedure Details:: Informed consent was obtained and the risk and benefits of the procedure were explained to the patient. The patient had noninvasive monitoring placed including noninvasive blood pressure cuff and pulse oximeter. Patient's pump was interrogated. The area over the pump was cleansed with chlorhexidine as a cleansing solution. In sterile fashion the pump was accessed with a 22-gauge needle. Approximately 13 mls of the pump solution was removed and discarded appropriately. The pump was then refilled with 20 mL's of Dilaudid 1 mg/mL. The needle was withdrawn and a bandage was placed over the puncture site. The infusion rate was reprogrammed and continued at his current dosage. The patient tolerated well with no complication. Plan and Disposition:: Patient tolerated the procedure well with no complications and was discharged neurologically intact. I did discuss with patient I due to the fact that he is having so much residual in his pump that we will change his concentration for his next visit to Dilaudid 0.5 mg/mL. Patient agrees with this plan of care. Patient will return to clinic on or before their next intrathecal refill date. We will see the patient back in the clinic at the next intrathecal refill. Patient has been instructed to contact the clinic with any concerns before the next appointment. Dr. Saha has reviewed this note and agrees with this plan of care. This note was dictated using voice recognition software and make contain errors or omissions. -- It Is medically necessary for this patient to continue to have their intrathecal pump refilled at regular intervals. This patient had an intrathecal pain pump implanted after meeting criteria of chronic intractable pain for greater than 3 months and failing conservative treatments. Patient has committed and been compliant to the treatment plan and all planned follow up care. Since implantation of the intrathecal pain pump, the patient has had decreased pain and been more functional. Oral medications have been reduced including intake of oral opioids. Patient continues to do well with intrathecal therapy with decrease in pain symptoms and increase in functional status. Stopping intrathecal medications can lead to life threatening withdrawal, seizures, cardiac arrest, severe pain, and possible . Pumps that are not refilled at regular intervals can be damages and cause and need for replacement. We continually titrate dose and concentration to optimize pain relief and function. We are limited in concentration for certain drugs to safely deliver medications through the pump and stay within the recommendations from the [employer] Consensus [employer] Guidelines. Depending on dose and concentration these pumps may need to be refilled sooner than 3 months as we titrate. A UDS is needed to verify patient's compliance with our office pain contract. This is ordered based off specific treatments related to chronic pain with the potential to abuse certain medications.
--- NOTE | 2025-06-25 11:24 | P.HP_ITS ---
History of Present Illness *Admission Date: 06/25/25 *Reason for visit:: Intrathecal refill; DDD *History of present illness: Same [facility] Disclaimer: The information contained in this section may have been updated after the patient was seen, as this information can be updated by other users. Medical History Abdominal bloating Hoarseness IBS (irritable bowel syndrome) Chronic back pain greater than 3 months duration Surgical History History of oral surgery History of back surgery pain pump implant History of nasal septoplasty History of hernia repair x2 History of left knee surgery History of shoulder surgery x7 on left shoulder alone x3 on right shoulder Family History Other No significant family history Social History Smoking Status: Former smoker tobacco type: cigarettes packs per day: 0 how long ago did patient quit smokin + years ago second hand exposure: No alcohol intake: never counseling provided: none substance use type: denies use current occupational status: disabled Travel in the last 8 weeks?: None household members: other housing: house current occupational exposures/hazards: No caffeine: Yes Have you lived/traveled outside [place] in past 30 days?: No Contact w/someone who lives/traveled outside [place] past 30 days?: No Exposure to someone with infectious disease in past 14 days?: No Do you have a fever (greater than 100.4 F or 38 C)?: No Have you tested positive for COVID-19?: No Exposed to someone with COVID-19 in past 14 days?: No Do you have a sore throat?: No Do you have a cough?: No Do you have any weakness?: No Do you have any diarrhea?: No Are you experiencing any unusual bleeding?: No Do you have any muscle aches/pain?: No Do you have any abdominal pain?: No Are you experiencing loss of taste or smell?: No Other Medical History Have you received the Flu Vaccine for this season: No Have you received the Pneumonia Vaccine: No Review of Systems Review of Systems Review of systems:: pertinent systems reviewed and negative unless documented below Review of systems (narrative): Review of Systems: General: No recent weight changes, no fever, no sleep disturbances Respiratory: No cough, no shortness of air, no recurring pulmonary infections Cardiovascular/peripheral vascular: No chest pain, no palpitations, no edema, no shortness of breath Gastrointestinal: No new onset incontinence, normal bowel movements reported Genitourinary: No new onset incontinence Musculoskeletal: Chronic back pain Psychiatric: [Normal mood/affect] Neurological: [Denies weakness in extremities], [denies balance issues] Meds Home Medications and Allergies Home Medications ?Medication ?Instructions ?Recorded ?Confirmed ?Type sertraline 100 mg tablet (Zoloft) 150 mg PO DAILY Depr ession 03/14/21 03/10/25 History [id number] 1 cap PO .With meals #100 ca ps 10/30/24 03/10/25 Rx 36,000-114,000-180,000 unit capsule,delay rel (Creon) gabapentin 600 mg tablet 600 mg PO BID IBS #60 tabs 0 03/10/25 03/10/25 Rx tadalafil 10 mg tablet 10 mg PO DAILY #30 tabs 04/3 03/10/25 Rx New Prescriptions to Start Prescriptions: Allergies Allergy/AdvReac Type Severity Reaction Status Date / Time oxycodone (From PERCOCET) AdvReac Intermediate FEELS SICK Verified 03/10/25 08:47 aspirin AdvReac Unknown UPSET Verified 03/10/25 08:47 STOMACH Exam Constitutional Constitutional: no acute distress *Routine HEENT Exam Head: Present normocephalic and atraumatic Eye: Present PERRL ENT: Present mucous membranes moist *Routine Neck Exam Neck: Present supple *Routine Respiratory Exam Respiratory: Present CTA bilaterally *Routine Cardiovascular Exam Cardiovascular: Present RRR *Routine Abdominal Exam Abdominal: Present soft *Routine Rectal Exam Rectal:: deferred *Routine Genitalia Exam Genitalia:: deferred Routine Back/Spine/Pelvis Exam Back/Spine: Present pain with flexion *Routine Skin Exam Skin: Present intact and dry *Routine Neurological Exam Neurological: Present alert and oriented X3 Routine Psychiatric Exam Psychiatric: Present normal affect and normal thought process Assessment and Plan *Assessment and plan (1) Degenerative disc disease: Status: Acute Category: Medical
[2025-06-25 11:30] VITALS: BP 127/86; PULSE 74; RESP 18; O2SAT 96; BMI 28.8
[2025-06-25 11:33] VITALS: BP 148/94; PULSE 78; RESP 18; O2SAT 99
[2025-06-25 11:53] VITALS: BP 127/83; PULSE 69; RESP 18; O2SAT 100
== END 2025-06-25 11:53 | disposition home or self-care (01) ==
PROVIDERS: PCP Nurse Practitioner Family; Visit Provider Nurse Practitioner Family
DX: Z45.1 Encounter for adjustment and management of infusion pump (principal); G89.4 Chronic pain syndrome; M51.16 Intervertebral disc disorders with radiculopathy, lumbar region; M54.9 Dorsalgia, unspecified; Z87.891 Personal history of nicotine dependence; Z79.899 Other long term (current) drug therapy; Z88.5 Allergy status to narcotic agent; Z88.6 Allergy status to analgesic agent
CPT/HCPCS: 62370

== ENCOUNTER 2025-07-15 10:34 | Outpatient (RCR) | payer MEDICARE, MEDICAID, SELFPAY | END 2025-07-15 23:59 | disposition home or self-care (01) | LOC: OT 10:34 | PROVIDERS: PCP Nurse Practitioner Family; Visit Provider Physician Assistant | DX: Z47.89 Encounter for other orthopedic aftercare (principal); Z96.612 Presence of left artificial shoulder joint | CPT/HCPCS: 97166 ==

== ENCOUNTER 2025-08-25 09:06 | Outpatient (CLI) | payer MEDICARE, MEDICAID, SELFPAY ==
--- OUTSIDE RECORDS SUMMARY | 2025-06-28 06:38 | XMS_ITS | Encounter Summary ---
Author Organization [facility] Address [address] [place] [address] Care Team Providers Care Track Welder Name Role Phone Azeem Champion MD Primary Care Provider [phone] Reason for Visit * Auth/Cert (Routine) Specialty Diagnoses / Procedures Referred By Contac t Referred To Contact Diagnoses S/P reverse total shoulder arthroplasty, left S/P reverse total shoulder arthroplasty, 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] Procedures SC PAM SHOULDER ARTHRPLSTY HUMERAL/GLENOID COMPNT REVISION, TOTAL ARTHROPLASTY, SHOULDER Jason Chappell MD [address] [address] Phone: tel: fax: [facility] Operating [address] [place] [address] Phone: tel: Referral ID Status Reason Start Date Expiration Date Visits Re quested Visits Authorized [id number] 1 1 Encounter Details Date Type Department Care Team (Latest Contact Info) Description 06/28/2025 6:38 AM EDT - 06/28/2025 12:19 PM EDT Hospital Encounter [facility] [address] [place] [address] Jason Chappell MD [address] [address] S/P reverse total shoulder arthroplasty, left (Primary Dx) Discharge Disposition: Home or Self Care Social History Tobacco Use Types Packs/Day Years Used Date Smoking Tobacco: Former Cigarettes 0.5 15 1 993 - 2007 Passive Smoke Exposure: Never Smokeless Tobacco: Never Alcohol Use Standard Drinks/Week Comments Yes 14 (1 standard drink = 0.6 oz pu re alcohol) PHQ-2 Answer Date Recorded Patient Health Questionnaire-2 Score 0 05/05/2024 PHQ-2A Answer Date Recorded Patient Health Questionnaire-2 Score 0 10/02/2023 Sex and Gender Information Value Date Recorded Sex Assigned at Male 08/13/2024 6:57 AM EDT Legal Sex Male 7:37 PM EDT Gender Identity Male 08/13/2024 6:57 AM EDT Sexual Orientation Not on file documented as of this encounter Last Filed Vital Signs Vital Sign Reading Time Taken Comments Blood Pressure 125/77 06/28/2025 12:00 PM EDT Pulse 76 06/28/2025 12:00 PM EDT Temperature 36.3 C (97.4 F) 06/28/2025 12:00 PM EDT Respiratory Rate 17 06/28/2025 12:00 PM EDT Oxygen Saturation 97% 06/28/2025 12:00 PM EDT Inhaled Oxygen Concentration - - Weight 101 kg (223 lb 12.3 oz) 06/28/2025 7:07 A M EDT Height 188 cm (6' 2 ) 06/28/2025 7:07 AM EDT Body Mass Index 28.73 06/28/2025 7:07 AM EDT documented in this encounter Functional Status * Calculated C-SSRS Risk Score (Lifetime/Recent) Answer Date of Assessment Author No Risk Indicated 06/28/2025 6:57 AM EDT Isatu He RN * Question Answer Date of Assessment Author 1. Wish to be (Past 1 Month) No 025 6:57 AM EDT Isatu He RN 2. Non-Specific Active Suici ericka Thoughts (Past 1 Month) No 06/28/2025 6:57 AM EDT Blanca He RN 6. Suicidal Behavior (Lifetime) No 6:57 AM EDT Isatu He RN documented as of this encounter Medications at Time of Discharge Creon [id number] units capsule delayed-release particles capsule TAKE 1 CAPSULE BY MOUTH WITH MEALS AND/OR SNACKS MAX OF 6 PER DAY 12/17/2024 docusate sodium (Colace) 250 MG capsule Take 1 capsule by mouth daily. 7 capsule 06/28/2025 gabapentin (Neurontin) 600 MG tablet Take 1 tablet by mouth 2 times a day. 10/01/2023 HYDROcodone-acet aminophen ([place]) 5-325 MG tablet Take 1 tablet by mouth every 6 hours as needed for severe pain. 30 tablet 06/28/2025 Implanted pain pump by Implant route 1 (one) time. Pt has dilaudid pain pump infusing methocarbamol (Robaxin) 750 MG tablet Take 1 tablet by mouth 3 times a day as needed for muscle spasms. 42 tablet 06/28/2025 naloxone (Narcan) 4 mg/0.1 mL nasal spray 1. Give 1 spray in nostril for no/slow breathing or cannot wake after opioid use 2. Call 911 3. Repeat in other nostril if symptoms continue 1 each 06/28/2025 sertraline (Zoloft) 100 MG tablet Take 1.5 tablets by mouth daily. 07/16/2023 tadalafil (Cialis) 10 MG tablet Take 1 tablet by mouth daily. For ED 03/10/2025 acetaminophen (Tylenol) 500 MG tablet Take 2 tablets by mouth every 8 hours as needed for pain for up to 14 days. 84 tablet 06/28/2025 5 naproxen (Naprosyn) 375 MG tablet Take 1 tablet by mouth 2 times a day with meals. 60 tablet 06/28/2025 5 ondansetron (Zofran) 8 MG tablet Take 1 tablet by mouth every 8 hours as needed for nausea or vomiting for up to 7 days. 20 tablet 06/28/2025 5 traMADol (Ultram) 50 MG tablet Take 1 tablet by mouth 3 times a day as needed for severe pain for up to 14 days. 42 tablet 06/28/2025 5 documented as of this encounter Miscellaneous Notes * Perioperative Nursing Note - Zara Leavitt RN - 06/28/2025 11:56 AM EDT Discharge instructions reviewed with patient/patient's family member. Verbalized understanding of all instructions and has no further questions. * Andi Calixto - Zara Leavitt RN - 06/28/2025 11:12 AM EDT Images from the original note were not included. [id number] Scopolamine Transdermal Patch WHY is this medicine prescribed? Scopolamine is used to prevent nausea and vomiting caused by motion sickness or medications used during surgery. Scopolamine is in a class of medications called antimuscarinics. It works by blocking the effects of a certain natural substance (acetylcholine) on the central nervous system. HOW should this medicine be used? Scopolamine comes as a patch to be placed on the hairless skin behind your ear. When used to help prevent nausea and vomiting caused by motion sickness, apply the patch at least 4 hours before its effects will be needed and leave in place for up to 3 days. If treatment is needed for longer than 3 days to help prevent nausea and vomiting caused by motion sickness, remove the current patch and apply a new patch behind the other ear. When used to prevent nausea and vomiting from medications used with surgery, apply the patch as directed by your doctor and leave it in place for 24 hours after your surgery. Follow the directions on your prescription label carefully, and ask your doctor or pharmacist to explain any part you do not understand. Use the scopolamine patch exactly as directed. To apply the patch, follow these instructions: ? After washing the area behind the ear, wipe the area with a clean, dry tissue to ensure that the area is dry. Avoid placing on areas of your skin that have cuts, pain, or tenderness. ? Remove the patch from its protective pouch. Peel off the clear plastic protective strip and discard it. Don't touch the exposed adhesive layer with your fingers. ? Place the adhesive side against the skin. ? After you have placed the patch behind your ear, wash your hands thoroughly with soap and water. Do not cut the patch. Limit contact with water while swimming and bathing because it may cause the patch may fall off. Ifthe scopolamine patch falls off, discard the patch, and apply a new one on the hairless area behindthe other ear. When the scopolamine patch is no longer needed, remove the patch and fold it in half with the sticky side together and dispose of it. Wash your hands and the area behind your ear thoroughly with soapand water to remove any traces of scopolamine from the area. If a new patch needs to be applied, place a fresh patch on the hairless area behind your other ear. If you have used scopolamine patches for several days or longer, you may experience withdrawal symptoms that could start 24 hours or more after removing the scopolamine patch such as difficulty with balance, dizziness, nausea, vomiting, stomach cramps, sweating, headache, confusion, muscle weakness, slow heart rate or low blood pressure. Call your doctor right away if your symptoms become severe. Ask your pharmacist or doctor for a copy of the roll carrier's information for the patient. Are there OTHER USES for this medicine? This medication is sometimes prescribed for other uses; ask your doctor or pharmacist for more information. What SPECIAL PRECAUTIONS should I follow? Before using scopolamine patches, ? tell your doctor and pharmacist if you are allergic to scopolamine, other belladonna alkaloids, any other medications, or any of the ingredients in scopolamine patches. Ask your doctor or pharmacist, check the package label, or check the Medication Guide for a list of the ingredients. ? tell your doctor and pharmacist what prescription and nonprescription medications, vitamins, nutritional supplements, and herbal products you are taking or plan to take while using scopolamine patches. Your doctor may need to change the doses of your medications or monitor you carefully for side effects. ? tell your doctor if you have angle-closure glaucoma (a condition where the fluid is suddenly blocked and unable to flow out of the eye causing a quick, severe increase in eye pressure which may lead to a loss of vision). Your doctor will probably tell you not to use scopolamine patch. ? tell your doctor if you have or have ever had open-angle glaucoma (increase in internal eye pressure that damages the optic nerve); seizures; psychotic disorders (conditions that cause difficulty telling the difference between things or ideas that are real and things or ideas that are not real); stomach or intestinal obstruction; difficulty urinating; preeclampsia (condition during with increased blood pressure, high protein levels in the urine, or organ problems); or heart, liver, or kidney disease. ? tell your doctor if you are , plan to become , or are . If you become while using scopolamine patches, call your doctor immediately. ? if you are having surgery, including dental surgery, tell the doctor or dentist that you are using scopolamine patches. ? you should know that scopolamine patch may make you drowsy. Do not drive a car or operate machinery until you know how scopolamine patches will affect you. If you participate in water sports, use caution because this medication can have disorienting effects. ? talk to your doctor about the safe use of alcoholic beverages while using this medication. Alcohol can make the side effects caused by scopolamine patches worse. ? talk to your doctor about the risks and benefits of using scopolamine if you are 65 years of age or older. Older adults should not usually use scopolamine because it is not as safe or effective as other medications that can be used to treat the same condition. What should I do IF I FORGET to take a dose? Apply the missed patch as soon as you remember it. Do not apply more than one patch at a time. What SIDE EFFECTS can this medicine cause? Some side effects can be serious. If you experience any of the following symptoms, remove the patchand call your doctor immediately: ? rash ? redness ? eye pain, redness, or discomfort; blurred vision; seeing halos or colored images ? agitation ? seeing things or hearing voices that do not exist (hallucinating) ? confusion ? believing things that are not true ? not trusting others or feeling that others want to hurt you ? difficulty speaking ? seizure ? painful or difficulty urinating ? stomach pain, nausea, or vomiting Scopolamine patches may cause other side effects. Call your doctor if you have any unusual problemswhile you are using this medication. If you experience a serious side effect, you or your doctor may send a report to the Food and Drug Administration's (FDA) MedWatch Adverse Event Reporting program online (https://www.fda.gov/Safety/MedWatch) or by phone ( ). What should I know about STORAGE and DISPOSAL of this medication? Keep this medication in the container it came in, tightly closed, and out of reach of children. Store it at room temperature and away from excess heat and moisture (not in the bathroom). Store patches in an upright position; do not bend or roll them. Keep all medication out of sight and reach of children as many containers are not child-resistant. Always lock safety caps. Place the medication in a safe location - one that is up and away and out of their sight and reach. https://www.[employer].org Dispose of unneeded medications in a way so that pets, children, and other people cannot take them.Do not flush this medication down the toilet. Use a medicine take-back program. Talk to your pharmacist about take-back programs in your community. Visit the FDA's Safe Disposal of Medicines website h ttps://goo.gl/c4Rm4p for more information. What should I do in case of OVERDOSE? In case of overdose or if someone swallows a scopolamine patch, call your local poison control center at . If the victim has collapsed or is not breathing, call local emergency servicesat [phone]. Symptoms of overdose may include the following: ? dry skin ? dry mouth ? difficulty urinating ? fast or irregular heartbeat ? tiredness ? drowsiness ? confusion ? agitation ? seeing things or hearing voices that do not exist (hallucinating) ? seizure ? vision changes ? coma What OTHER INFORMATION should I know? Keep all appointments with your doctor and the laboratory. Before having any laboratory test, tell your doctor and the laboratory personnel that you are usingscopolamine patch. Remove the scopolamine patch before having a magnetic resonance imaging scan (MRI). Do not let anyone else use your medication. Ask your pharmacist any questions you have about refilling your prescription. Keep a written list of all of the prescription and nonprescription (qgob-mqk-xypazcf) medicines, vitamins, minerals, and dietary supplements you are taking. Bring this list with you each time you visit a doctor or if you are admitted to the hospital. You should carry the list with you in case of lauren rgencies. Brand Name(s): ? Transderm Scop?? Transdermal scopolamine This report on medications is for your information only, and is not considered individual patient advice. Because of the changing nature of drug information, please consult your physician or pharmacist about specific clinical use. The [place] [employer] represents that the information provided hereunder was formulated with a reasonable standard of care, and in conformity with professional standards in the field. The [place] [employer] makes no representations or warranties, express or implied, including, but not limited to, any implied warranty of merchantability and/or fitness for a particular purpose, with respect to such information and specifically disclaims all such warranties. Users are advised that decisions regarding drug therapy are complex medical decisions requiring the independent, informed decision of an appropriate health child care worker, and the information is provided for informational purposes only. The entire monograph for a drug should be reviewed for a thorough understanding of the drug's actions, uses and side effects. The [place] [employer] does not endorse or recommend the use of any drug.The information is not a substitute for medical care. AHFS?? Patient Medication Information?. ?? Copyright, 2023. The [place] [employer]??, [address], [address], [place], [place]. All Rights Reserved. Duplication for commercial use must be authorized by [facility]. Selected Revisions: April 25, 2019. AHFS?? Patient Medication Information?. ?? Copyright, 2024 * Andi GouldDELILAH - Zara Leavitt RN - 06/28/2025 11:12 AM EDT Images from the original note were not included. [facility] for Peripheral Nerve Block in the Arm You have a peripheral nerve block in your arm. This is a medicine that numbs near the nerves in theshoulder or arm on the side of the surgery. The block will help ease your pain after surgery and while you heal at home. What do I need to do at home? ? Your shoulder, arm, or hand may be numb and weak for 16 to 24 hours after surgery. ? If we give you a sling, wear it. Always protect your arm and hand until the feeling returns. ? Do not get your arm and hand near anything that may be very hot or cold until the feeling returns. ? Guard your arm from any physical pressure until your feeling returns. ? Start taking your pain medicines as prescribed by your doctor. ? Follow all the instructions the nurse or doctor gives you. Will I have side effects? These side effects will go away as the numbing medicine wears off: ? Hoarse throat ? Upper eyelids may droop ? Congestion ? Eye may be red on the side of the surgery When do I call the doctor? Call your anesthesia doctor if you have any of the following: ? Insertion site is red or draining ? Ears are ringing ? Metallic taste in mouth Who do I call if I have questions about my nerve block? Please call [phone]. Ask the notching press operator to page the acute pain resident on anesthesiology. * Andi OnIR - Zara Leavitt RN - 06/28/2025 11:12 AM EDT Images from the original note were not included. [address] Managing Post-Op Pain at Home Pain is expected after surgery. Know that you have a right to have this pain controlled. Managing pain helps you recover faster. Less pain means you can be active sooner. It also means less stress onthe body and mind, which will help your body heal. When you go home after surgery, including same-day surgery, you will take charge of your pain management. What is post-op pain? Pain after surgery (post-op pain) is normal. How much pain you feel depends on the surgery. Your use of pain medicines and your sensitivity to pain are also factors. Each person feels pain differently. So try not to compare your pain with someone else?s. Your healthcare team will need to know how you are feeling. Be honest. If you are in pain, say so. Measuring your pain A pain scale helps you rate pain intensity (how strong you feel the pain is). On the scale, 0 meansno pain, and 10 is the worst pain possible. Pain scales are not used to compare your pain with another person's pain. A pain scale is used only to measure your pain and how it changes for you. You should rate your pain every few hours. You may feel some pain even with medicines. It's important to tell your healthcare provider if medicines don't reduce the pain. Be sure to mention if the pain suddenly increases or changes. Your recovery If you have had same-day surgery, you may feel groggy or tired from the medicines given during surgery for your first hours at home. As pain management methods used during surgery wear off, pain may increase. So be sure not to skip a dose of prescribed medicine. In fact, set an alarm or have someone remind you when it?s time to take your medicine. During this time, try to rest, even if you feel pretty good. Within the first 24 hours, a nurse or other healthcare provider is likely to call and ask how you?re doing. Medicines for pain Medicines can help to block pain, limit swelling, and control related problems. You may be given more than 1 medicine to treat your pain. Medicines may be changed as you feel better, or if they causeside effects. Pain medicine can be given in several ways: ? By injection ? By mouth ? As a patch, cream, or ointment ? As a suppository Medicines What they do Possible side effects Non-steroidal anti-inflammatory drugs (NSAIDs) Reduce mild to moderate pain. They also help reduce swelling. Nausea, stomach and digestive problems, and kidney and liver problems. Some NSAIDs may increase the risk for cardiovascular disease in some people. Opioids (morphine and similar medicines often called narcotics) Reduce moderate to severe pain Nausea, vomiting, itching, drowsiness, constipation, slowed or shallow breathing Other pain relievers (analgesics) Reduce mild to severe pain Constipation, nausea, dizziness, drowsiness, kidney and liver problems Seizure medicines (anticonvulsants) Manage nerve-related pain Drowsiness, dizziness, liver problems Medicines for depression (antidepressants) Manage chronic pain Dry mouth, drowsiness, dizziness, constipation Nonmedicine pain relief Medicines are not the only way to manage pain after surgery. You can use ice to help reduce swelling and pain. Use a cold pack or bag of ice cubes wrapped in a thin cloth. Never put ice directly on your skin. Use the ice for up to 20 minutes at a time every 3 to 4 hours. You can also reduce swelling and pain by keeping the operated area above the level of your heart ifyou can. This helps blood and other fluids drain from the area. You can also use relaxation to reduce pain. Try these methods: ? Visualization or guided imagery. You picture yourself in a quiet, peaceful place to help take your mind off the pain. ? Progressive body relaxation. Starting at your feet, you clench and release your muscles. Work up your body slowly until you reach your neck and face. ? Deep breathing. You breathe in deeply and hold your breath for a few seconds. Then exhale slowly to help relax your body. Tips for controlling pain ? Give pain medicine time to work. Most pain relievers taken by mouth need at least 20 to 30 minutes to take effect. They may not reach their maximum effect for close to an hour. ? Take pain medicine at regular times as directed. Don?t wait until the pain gets bad to take it. ? Get plenty of rest. Taking your medicine at night may help you get a good night?s rest. ? If pain lessens, try taking your medicine less often or in smaller doses. Safety tips for taking pain medicines ? If you are worried about becoming addicted or have a history of substance abuse, talk with your healthcare provider before surgery. An open discussion can protect you and make sure that effective pain management strategies are used. ? Let your provider know all of the medicines you're taking. Pain medicines can be dangerous when used with other medicines. For example, don't take opioids with benzodiazepines, such as alprazolam or lorazepam. Doing so can cause serious health problems. These include extreme sleepiness, slowed breathing, and . ? Ask your pharmacist if you need to take the medicine with food or milk to avoid an upset stomach. ? Don?t break, crush, or cut in half any long-acting medicines. This could be harmful. ? Don?t take more medicine than directed. If your pain isn?t relieved, call your healthcare provider. ? Try to time your medicine so that you take it before starting an activity, such as dressing or sitting at the table for dinner. ? Constipation is a common side effect with some pain medicines. Eating fruit, vegetables, and other foods high in fiber may help. Also drink plenty of fluids. Your healthcare provider may recommend a stool softener. ? Don?t drink alcohol while you are taking pain medicine. This can make you dizzy and slow your breathing. It can even be fatal. ? Don?t drive if you are taking opioid medicines. When to call your healthcare provider Call your healthcare provider if any of these occur: ? Your pain is not relieved or if it gets worse ? You can't take your pain medicines as prescribed ? You have severe side effects like dizziness, confusion, or severe constipation Call 911 Call 911 right away if you have any of these: ? Breathing problems ? Trouble waking up Last Reviewed Date: 2022 00:00:00 ?? [employer]. All rights reserved. This information is not intended as a substitute for professional medical care. Always follow your healthcare professional's instructions. * Andi Calixto - Zara Leavitt RN - 06/28/2025 11:12 AM EDT Images from the original note were not included. [address] Discharge from Outpatient Surgery You are scheduled for outpatient surgery. This is also called same-day or ambulatory surgery. The information below will help you learn what to expect after your surgery. Going home You will be told when you can go home after your surgery. If you got medicine (anesthesia) to make you sleepy and prevent pain, you may still feel drowsy or have an upset stomach. ? Be sure to have an adult family member or friend ready to drive you home. ? If you need crutches or other tools, be sure you are shown how to use them. If you can, have a family member or friend listen to the instructions with you. ? Have someone ready to stay with you for at least the first night. Recovering at home At home, follow all instructions you?ve been given. ? Don't drive or make any big decisions for at least 24 hours after getting any type of sedation oranesthesia. ? Keep any dressing or bandage you have clean and dry. Know when you can change or remove the bandage. Ask when you can shower or take a bath again. ? Follow your health care provider?s instructions about food and drink. At first, your stomach may be upset. You may not feel like eating much. Drink plenty of clear liquids, such as water, apple juice, or flat gideon clara. ? Follow instructions for treating constipation, especially if you are taking prescription pain medicines. ? Unless you?re told not to, get up and move around. This helps you heal. Walking a few times a dayis often recommended. ? Do any deep breathing or coughing exercises as instructed. These help keep your lungs clear. ? Be sure to follow all after-care instructions. ? Don't start exercising again until you have checked with your provider. This includes exercise such as running, swimming, or weightlifting. ? Follow your provider's advice on when you can drive again. ? Check with your provider when you can return to work.? Taking medicines You may be given pain medicines or other medicines after surgery. ? Take pain medicine as needed at the times instructed. Don't wait until the pain gets bad before you take it. Take only as much pain medicine as prescribed. ? Don?t drive, use power tools or other dangerous machines, or drink alcohol while taking pain medicine or any medicines that make you drowsy. ? If you have been given antibiotics, take them until they are gone or you are told to stop. If youhave trouble taking them or have side effects, call your provider. Following up Someone from your health care team may call to check how you?re doing. Tell them if you have any problems or questions. When to contact your doctor Contact your provider if: ? You can?t keep food or fluids down. ? You have not urinated within the time your health care team noted. ? You have not had a bowel movement within the time your health care team noted. ? Your bandage soaks through (a small amount of bleeding and leakage is normal). ? Your pain gets worse and is not eased by pain medicine. Call if you have any of these signs of infection: ? Fever of 100.4??F (38??C) or higher, or as directed by your provider. ? Bleeding or swelling that increases. ? Bad smell, warmth, or green or yellow discharge from the cut (incision). ? A red, hard, hot, or painful area around the cut or on your legs. Call 911 Call 911 or seek emergency services if: ? You are short of breath. ? You have chest pain. ? You have increased or ongoing bleeding. Last Reviewed Date: 2024 00:00:00 ?? [id number] [employer]. All rights reserved. This information is not intended as a substitute for professional medical care. Always follow your healthcare professional's instructions. * Op Note - Nahid Fletcher PA - 06/28/2025 8:40 AM EDT Date of procedure: 06/28/2025 Name: Dallas Aleman : 1970 Preoperative diagnoses: [] S/P reverse total shoulder arthroplasty, left Postop diagnoses: [] S/P reverse total shoulder arthroplasty, left Procedures: Left revision reverse total shoulder arthroplasty REVISION, TOTAL ARTHROPLASTY, SHOULDER Surgeon: Primary: Jason Chappell MD Assisting: Nahid Fletcher PA No qualified resident available. Assistance was needed throughout the procedure, to include: Positioning, draping, intraoperative retraction and limb management, and closure. Anesthesia: [General] Tourniquet time: [None] Estimated blood loss: [150 cc] Specimens: Order Name Source Comment Collection Info Order Time ANAEROBIC CULTURE Shoulder, Left Pre-op diagnosis: S/P reverse total shoulder arthroplasty, 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] Collected By: Jason Chappell MD 06/28/2025 8:54 AM Release to patient in MyChart Immediate TISSUE CULTURE AND GRAM STAIN Shoulder, Left Pre-op diagnosis: S/P reverse total shoulder arthroplasty, 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] Collected By: Jason Chappell MD 06/28/2025 8:54 AM Release to patient in MyChart Immediate AFB CULTURE, NON RESPIRATORY SOURCE AND ACID FAST STAIN Shoulder, Left Pre-op diagnosis: S/P reverse total shoulder arthroplasty, 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] Collected By: Jason Chappell MD 06/28/2025 8:54 AM Release to patient in MyChart Immediate FUNGAL CULTURE, TISSUE AND MONSERRAT Shoulder, Left Pre-op diagnosis: S/P reverse total shoulder arthroplasty, 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] Collected By: Jason Chappell MD 06/28/2025 8:54 AM Release to patient in MyChart Immediate ANAEROBIC CULTURE Shoulder, Left Pre-op diagnosis: S/P reverse total shoulder arthroplasty, 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] Collected By: Jason Chappell MD 06/28/2025 9:52 AM Release to patient in MyChart Immediate TISSUE CULTURE AND GRAM STAIN Shoulder, Left Pre-op diagnosis: S/P reverse total shoulder arthroplasty, 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] Collected By: Jason Chappell MD 06/28/2025 9:52 AM Release to patient in [facility] Immediate AFB CULTURE, NON RESPIRATORY SOURCE AND ACID FAST STAIN Shoulder, Left Pre-op diagnosis: S/P reverse total shoulder arthroplasty, 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] Collected By: Jason Chappell MD 06/28/2025 9:52 AM Release to patient in [facility] Immediate FUNGAL CULTURE, TISSUE AND MONESRRAT Shoulder, Left Pre-op diagnosis: S/P reverse total shoulder arthroplasty, 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] Collected By: Jason Chappell MD 06/28/2025 9:52 AM Release to patient in [facility] Immediate SURGICAL PATHOLOGY EXAM Shoulder, Left Pre-op diagnosis: S/P reverse total shoulder arthroplasty, 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] Collected By: Jason Chappell MD 06/28/2025 10:24 AM Results Release Delay - 72 Hours 72 Hours Implants: Implant Name Type Inv. Item Serial No. Grill Associate Lot No. LRB No. Used Action BASEPLATE GLENOID W/P2 COATING RSP TI 30MM - [id number] BASEPLATE GLENOID W/P2 COATING RSP TI 30MM [employer] [id number] Left 1 Implanted HEAD GLENOID W/RETAINING SCREW RSP TI 32MM/STD - [id number] HEAD GLENOID W/RETAINING SCREW RSP TI 32MM/STD [employer] [id number] Left 1 Implanted SCREW BONE LOCKING RSP TI 5MM X 30MM - [id number] SCREW BONE LOCKING RSP TI 5MM X 30MM [employer] [id number] Left 2 Implanted SCREW BONE LOCKING RSP TI 5MM X 26MM - [id number] SCREW BONE LOCKING RSP TI 5MM X 26MM [employer] [id number] Left 1 Implanted POLY SMALL SOCKET EPLUS 32MM SEMICONTRAINT STD - [id number] POLY SMALL SOCKET EPLUS 32MM SEMICONTRAINT STD [employer] [id number] Left 1 Implanted Drains: None Complications: None Findings: Patient was found to have a dislocated humeral poly leading to metal on metal contact between the glenosphere and humeral component. There was mild fluid expression once the joint was access. 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 There was significant immediate all heterotopic ossification of the proximal humerus. The glenoid base plate and humeral shaft component were well fixed. Indications for procedure: Dallas Aleman is a 54 y.o. male presenting with left shoulder pain. He underwent a left shoulder open reduction with revision reverse total shoulder arthroplasty in August 2024. Unfortunately he has had continued left shoulder pain with decreased range of motion and clicking that began in April 2025. Diagnostic imaging studies revealed heterotopic ossification of themedial humerus with rotator cuff fat atrophy and widening of the glenohumeral joint space. . We discussed options with the patient and have recommended that we proceed with left revision reverse total shoulder arthroplasty. We explained the risks, benefits, and alternatives of the planned proceeding to the patient. Risks including bleeding, infection, damage to nearby structures including nerves and blood vessels, malunion, nonunion, aseptic loosening, iatrogenic fracture, need for future surgery, hardware loosening or failure, thromboembolic events, loss of limb and loss a life. The patient still wished to proceed with the above- mentioned procedures. An Ramp Manager Surgeon in the form of a Physician Ramp Manager was necessary due to the complexity and difficulty of the case (a medical necessity). Assistance was also needed due to the revision nature of the case. Description of the procedure: The patient was seen in the preoperative holding area. Consent was reviewed and the left shoulder was identified as the correct operative site and marked appropriately. Again, the risks, benefits, and alternatives to the planned procedure were explained to the patient to include but not limited to those mentioned previously, and the patient still wished to proceed with the above-mentioned procedures. The patient had SCDs applied to bilateral lower extremities. The patient was taken back to the operating room where a time-out was called. The patient was identifiedas well as the left shoulder identified once again as the correct operative site. All parties were i n agreement and the procedure commenced as planned. The patient underwent [general anesthesia] without any major difficulties. The patient was placed in the [beach chair position] with all bony prominences padded. The extremity was then prepped and draped in the usual sterile fashion. The patient was administered perioperative antibiotics within 1 hour of skin incision. Antibiotics were held until appropriate cultures were taken. An incision was made using the previous deltopectoral approach and dissection was performed down tothe pectoral interval. We then carried dissection distally where we encountered and the pectoralis major tendon and a partial tenotomy was performed. We used a Draper to release the severely scarred subdeltoid space. We then carried our dissection through dense scar tissue planes until we encounteredthe proximal humerus. We then used a combination of Draper, Molt, and Bovie to meticulously released dense scar tissue circumferentially around the proximal humerus. The patient was noted to have as significant heterotopic ossification medial to the proximal humerus. Patient was also noted to have a d islocated humeral poly. We used Danay to pry loosened excise the humeral poly. There was mild surrounding metallic debris from the metal humeral tray and glenosphere rubbing together. Once we had appropriately released the dense scar tissue from around the humerus we are able to dislocate the joint. We then used a screw to remove the central locking screws in the glenosphere. We then used manufacture's instrumentation to remove the glenosphere. There was a membrane deep to the glenosphere on top of the base plate though sent off for culture. We then used a screwdriver to remove all 4 peripheral base plate screws in their entirety. We then used [place] osteotomes to loosen the glenoid base plate. The screwdriver was then used to remove the central screw with base plate. We then used a Draper toprepare the glenoid. We then has been a significant amount of time meticulously excising dense scarand heterotopic ossification from the medial proximal humerus and glenoid. We are then able to visualize and palpate both the anterior and posterior medial scapular border. We used a Draper to release the inferior capsule and ensure the inferior pouch was maintained. We then placed a tap about the center of the glenoid, using 1 of the previous screw holes. This would allow for a more posterior and distal eyes base plate placement. We then reamed over top of the tap. We then removed the tap and placed the 30 mm glenoid base plate. We then placed the peripheral screw guide and drilled the holes for the 4 peripheral screws. We removed the screw guide and measured the 4 peripheral screw holes using a depth gauge. We then placed 3 peripheral screws. We then used a planer to remove any debris around the base plate. We then placed the 32 neutral glenosphere into position and malleted it into location. This was then fixated using a central fixation screw. We then turned our attention back to the humeral stem. We used a rongeur to excise heterotopic ossification from around the distal humerus. We then used a combination of Bovie and rongeur to excise dense scar tissue within the subacromial space. We then trialed the size 32 mm semi constrained poly.This was felt to be appropriate fit. We re-located the shoulder and is felt to be of adequate tension as we were able to put the shoulder through a good range of motion. We then we dislocated the glenohumeral joint and removed the trial implant. We then thoroughly irrigated the wound with copious amounts of normal saline. We then placed the permanent 32 mm semi constrained poly. We then relocatedthe glenohumeral joint and it was felt to be once again of appropriate tension as we will put the shoulder through a good range of motion. We then once again thoroughly irrigated the wound with copious amounts of normal saline. We then placed 1 g of vancomycin within the wound and closed the deltopectoral interval with a #1 Vicryl in a simple interrupted fashion. We then closed the subcutaneous tissues with a #1 Vicryl in asimple interrupted fashion. The skin was closed with [mariah]. Sterile 4x4s and ABDs were then placed. We removed all the surgical drapes and placed the patient upper extremity into an UltraSling. The patient was subsequently extubated without complication and transferred to the PACU in stable condition. All counts were correct x2 the conclusion of the procedure. The patient tolerated the procedure well. [Dr. Chappell] was present and performed the entirety of the case. [Nahid ATKINSON,] assisted with not only positioning, draping, intraoperative retraction, limb management, and closure, but also with heterotopic ossification excision and implant placement. Modifier 22: We would recommend a modifier 22 be placed on this procedure due to the revision nature of the case, significant dense scar tissue and heterotopic ossification buildup. The revision / difficult pathological nature of the procedure increased the mental effort, technical difficulty, and time of the procedure by greater than 50%. Shoulder-Elbow fellowship training was necessary to effectively complete this procedure. Postoperative Plan: Weight-bearing status: Nonweightbearing of the operative limb Range of motion status: Remain in UltraSling at all times Wound care: [Patient's wound and dressing are to remain clean, dry, and intact. Sponge baths only.] Postoperative pain medications: The patient will be provided with postoperative pain medications inthe form of hydrocodone 5 mg three times a day for the 1st 3 days, then 1 by mouth every night p.r.n. pain. We have also prescribed Ultram 50 mg three times a day p.r.n. pain, Robaxin 750 mg at threetimes a day p.r.n. muscle spasms, and Tylenol 500 mg three times a day p.r.n. pain. We will also provide Colace and Zofran for constipation and nausea/vomiting respectively. No NSAIDs are to be takenfor the 1st 6 weeks postop. We will also provide naproxen 350 mg twice daily in an effort to prevent recurrent heterotopic ossification. Cryotherapy: [Provided by pack in the PACU. Apply to operative site.] Patient is to apply ice to operative site at least 30 minutes 4 times a day. Patient may use ice on 1 hour, off 1 hour if needed. Postop x-rays: Obtain shoulder x-rays of the operative side in PACU prior to discharge Patient may be discharged from the PACU once discharge criteria has been met. Follow-up appointment: Patient is to follow up in [address] Chappell for a wound check. We will discuss beginning 4 weeks of passive range of motion therapy followed by 4 weeks of active rangeof motion therapy at that time. We will obtain operative sided shoulder x-rays at that appointment. Cosigned by Jason Chappell MD at 07/01/2025 9:20 AM EDT Associated attestation - Jason Chappell MD - 07/01/2025 9:20 AM EDT I was present and scrubbed for all portions of the case. Nahid ATKINSON was present as no qualified resident was available. Ramp Manager was necessary due to the complexity and difficulty of the case (a medical necessity). The certified physical therapist assistant was involved in all aspects of the procedure including preoperative evaluation and documentation, the operative intervention (patient positioning, patient pre-operative prep, instrument handling, suture cutting, tissue retraction, hemostasis, wound closure,, application of dressings and brace), and postoperative documentation. I was present for the entirety of the procedure(s). * H&P - Nahid Fletcher PA - 06/28/2025 6:46 AM EDT Images from the original note were not included. Subjective Chief complaint Chronic left shoulder pain History Of Present Illness Dalals Aleman is a 54 y.o. male presenting with left shoulder pain. He underwent a left shoulderopen reduction with revision reverse total shoulder arthroplasty in August 2024. Unfortunately he has had continued left shoulder pain with decreased range of motion and clicking that began in April 2025. Diagnostic imaging studies revealed heterotopic ossification of the medial humerus with rotator cuff fat atrophy and widening of the glenohumeral joint space. Medical/Surgical/Social/Family History Past Medical History[1] Surgical History[2] Social History[3] Family History[4] Travel History Relevant International Travel History: Travel Screening Question Response Have you been in contact with someone who was sick? No / Unsure Do you have any of the following new or worsening symptoms? None of these Have you traveled internationally or domestically in the last month? No Travel History Travel since 05/28/25 No documented travel since 05/28/25 Relevant Domestic Travel History: Not reviewed Immunizations VACCINE / DOSE Flu Tetanus Pneumovax Shingles Allergies Oxycodone and Aspirin Medications Current Medications[5] Objective Review of Systems All other systems reviewed and are negative. Physical Exam Constitutional: Appearance: Normal appearance. HENT: Head: Normocephalic and atraumatic. Eyes: Extraocular Movements: Extraocular movements intact. Pupils: Pupils are equal, round, and reactive to light. Cardiovascular: Comments: Well perfused Pulmonary: Effort: Pulmonary effort is normal. Skin: General: Skin is warm. Neurological: Mental Status: He is alert and oriented to person, place, and time. Last Recorded Vitals There were no vitals taken for this visit. Results Review I have reviewed the latest lab and imaging results. Assessment & Plan S/P reverse total shoulder arthroplasty, left Dallas Aleman is a 54 y.o. male presenting with left shoulder pain. He underwent a left shoulderopen reduction with revision reverse total shoulder arthroplasty in August 2024. Unfortunately he has had continued left shoulder pain with decreased range of motion and clicking that began in April 2025. Diagnostic imaging studies revealed heterotopic ossification of the medial humerus with rotator cuff fat atrophy and widening of the glenohumeral joint space. We will take him to the operating room today for a left revision reverse total shoulder arthroplasty. Medically Ready for Discharge: [1] Past Medical History: Diagnosis Date Arthritis Depression GERD (gastroesophageal reflux disease) Irritable bowel syndrome [2] Past Surgical History: Procedure Laterality Date COLONOSCOPY HERNIA REPAIR N/A x2 KNEE ARTHROSCOPY Left NASAL SEPTUM SURGERY N/A Nasal septoplasty from [employer] OTHER SURGICAL HISTORY pain pump OTHER SURGICAL HISTORY mole removed from right ear, and inside mouth OTHER SURGICAL HISTORY Left 08/2024 shoulder contracture release REVERSE TOTAL SHOULDER ARTHROPLASTY Left SHOULDER SURGERY Left x4, labral repair, fusion SHOULDER SURGERY Right x3 UPPER GASTROINTESTINAL ENDOSCOPY [3] Social History Tobacco Use Smoking status: Former Current packs/day: 0.00 Average packs/day: 0.5 packs/day for 15.0 years (7.5 ttl pk-yrs) Types: Cigarettes Start date: 1992 Quit date: 2007 Years since quittin.6 Passive exposure: Never Smokeless tobacco: Never Vaping Use Vaping status: Some Days Substances: THC Devices: Disposable, Pre-filled or refillable cartridge Substance Use Topics Alcohol use: Yes Alcohol/week: 14.0 - 21.0 standard drinks of alcohol Types: 14 - 21 Cans of beer per week Drug use: Never Comment: Drug use: No drug use [4] Family History Problem Relation Name Age of Onset Conversions - Other Mother Healthy adult on routine physical examination Conversions - Other Father Healthy adult on routine physical examination Anesthesia problems Neg Hx Malig Hyperthermia Neg Hx [5] No current facility-administered medications for this encounter. * Lesvia Peña RN - 06/15/2025 10:36 AM EDT Images from the original note were not included. 40 Bathing Before Surgery Basic instructions ? You need to bathe with Hibiclens (chlorhexidine) before surgery. This will clean your skin and remove germs that live on the skin. This reduces your risk of infection after surgery. ? You can buy Hibiclens at most drug stores. ? You need to bathe with Hibiclens twice before surgery - once the night before surgery and again the morning of surgery. ? Do not use Hibiclens on your hair or anywhere above the neck. ? You should not shave with a razor or use hair removal creams near the surgery site for 4 days before surgery. Night before surgery If you take a shower or tub bath: 1. Wash with regular soap and water and rinse off. 2. You may wash your hair the night before or the morning of surgery. Shampoo and rinse as usual. 3. Pour 1 ounce (2 tablespoons) of Hibiclens on a clean washcloth. Wash the area where you will be having your surgery first. Then wash the rest of the body, leaving the groin area until last. 4. Allow the Hibiclens to stay on the skin for 5 minutes, then rinse off completely. 5. Use a clean towel to dry off. 6. Put on clean clothing and be sure to have clean sheets on your bed. ? If you take a bed bath: 1. Wash with regular soap and water and rinse off. 2. Place 1 ounce (2 tablespoons) of Hibiclens solution in a wash basin of clean water. Wash the area where you will be having surgery first. 3. Then wash the rest of the body. Leave the groin area until last. 4. Allow the Hibiclens to stay on the skin for 5 minutes. Then rinse off completely. 5. Use a clean towel to dry off. 6. Put on clean clothing. Be sure to have clean sheets on your bed. Morning of surgery ? Repeat the above steps. You are now ready for surgery with the cleanest possible skin! If you develop a skin problem between now and your surgery, please tell your doctor as soon as possible! * Andi Calixto - Lesvia Romero RN - 06/15/2025 10:36 AM EDT Images from the original note were not included. [id number] * Andi GouldJESUS - Lesvia Romero RN - 06/15/2025 10:36 AM EDT Images from the original note were not included. 488 Map to [facility] How to get to [facility] From [facility] ([place]) [address] at [facility]. Continue on [address] past [facility] ([address]). ? For hospital parking, turn right into the [facility] driveway just before [address] and proceed to the garage. ? For the Medical [facility] and [facility], turn right onto [address]. Entrances to the buildings? parking lots will be on your left. From [address]/[facility] ([place]) Follow [facility] to [address]. Turn right onto [address] and proceed to [address]. Immediately after crossing [address]: ? For hospital parking, turn right into the hospital driveway and proceed to the parking garage straight ahead. ? For the [facility], take the first left. ? For the [facility] [place], take the second left. From [employer] ([place] [address]) [address] [facility] Continue on [address] to [address]. Turn left onto [address] and proceed to [address]. Turn left onto [address] Immediately after crossing [address] ([place]): ? For hospital parking, turn right into the hospital driveway and proceed to the parking garage straight ahead. ? For the [facility], take the first left. ? For the [facility] [place], take the second left. From [address] ([place] [address]) [address] becomes [address] as you enter [address] [place]. Continue on [address] to [address] Immediately after crossing [address] ([place]): ? For hospital parking, turn right into the hospital driveway and proceed to the parking garage straight ahead. ? For the [facility], take the first left. ? For the [facility], take the second left. From [facility] ([address]) Turn left onto [address] and proceed to [facility], turning left onto [address]. Immediately after crossing [address] ([place]): ? For hospital parking, turn right into the hospital driveway and proceed to the parking garage straight ahead. ? For the [facility], take the first left. ? For the [facility], take the second left. Do not use [facility]. Parts of it are closed for construction. * PAT Phone Note - Lesvia Romero RN - 06/15/2025 10:36 AM EDT DOLLY Aleman is a 54 y.o. 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 Past Medical History[1] Family History[2] Social History[3] SURGICAL HISTORY: Surgical History[4] Allergies[5] MEDICATIONS: Current Medications[6] Lesvia Romero RN [1] Past Medical History: Diagnosis Date Arthritis Depression GERD (gastroesophageal reflux disease) Irritable bowel syndrome [2] Family History Problem Relation Name Age of Onset Conversions - Other Mother Healthy adult on routine physical examination Conversions - Other Father Healthy adult on routine physical examination Anesthesia problems Neg Hx Malig Hyperthermia Neg Hx [3] Social History Tobacco Use Smoking status: Former Current packs/day: 0.00 Average packs/day: 0.5 packs/day for 15.0 years (7.5 ttl pk-yrs) Types: Cigarettes Start date: 1992 Quit date: 2007 Years since quittin.6 Passive exposure: Never Smokeless tobacco: Never Vaping Use Vaping status: Some Days Substances: THC Devices: Disposable, Pre-filled or refillable cartridge Substance Use Topics Alcohol use: Yes Alcohol/week: 14.0 - 21.0 standard drinks of alcohol Types: 14 - 21 Cans of beer per week Drug use: Never Comment: Drug use: No drug use [4] Past Surgical History: Procedure Laterality Date COLONOSCOPY HERNIA REPAIR N/A x2 KNEE ARTHROSCOPY Left NASAL SEPTUM SURGERY N/A Nasal septoplasty from [employer] OTHER SURGICAL HISTORY pain pump OTHER SURGICAL HISTORY mole removed from right ear, and inside mouth OTHER SURGICAL HISTORY Left 08/2024 shoulder contracture release REVERSE TOTAL SHOULDER ARTHROPLASTY Left SHOULDER SURGERY Left x4, labral repair, fusion SHOULDER SURGERY Right x3 UPPER GASTROINTESTINAL ENDOSCOPY [5] Allergies Allergen Reactions Oxycodone Dizziness and Nausea Aspirin Nausea and Other - please document in the comment field N & V [6] No current facility-administered medications for this encounter. Current Outpatient Medications: Creon, TAKE 1 CAPSULE BY MOUTH WITH MEALS AND/OR SNACKS MAX OF 6 PER DAY gabapentin, Take 1 tablet by mouth 2 times a day. Implanted pain pump, by Implant route 1 (one) time. Pt has dilaudid pain pump infusing sertraline, Take 1.5 tablets by mouth daily. tadalafil, Take 1 tablet by mouth daily. For ED benzonatate, TAKE 1 CAPSULE BY MOUTH THREE TIMES DAILY NEEDED FOR COUGH MAY TAKE 2 CAPSULES IF ONE DOES NOT PROVIDE RELIEF (Patient not taking: Reported on 06/15/2025) HYDROcodone-acetaminophen, Take 1 tablet (5 mg of hydrocodone) by mouth every 6 (six) hours if needed for moderate pain. (Patient not taking: Reported on 05/11/2025) PEG-3350/Electrolytes, PER PRINTED DIRECTIONS (Patient not taking: Reported on 06/15/2025) tadalafil, Take 1 tablet (5 mg) by mouth 1 (one) time each day. (Patient not taking: Reported on 05/11/2025) * Preprocedure Instructions - Lesvia Romero RN - 06/15/2025 10:34 AM EDT Home Medication Instructions Current Medications Medication Instructions Creon [id number] units capsule delayed-release particles capsule Hold day of surgery gabapentin (Neurontin) 600 MG tablet Take morning of surgery Implanted pain pump Take as prescribed sertraline (Zoloft) 150 MG tablet Take morning of surgery tadalafil (Cialis) 10 MG tablet Hold 24 hours before surgery General Preoperative Instructions You will be called the business day before surgery with your arrival time [facility] [place] Please park in the parking garage and enter the building at Entrance A and check-in inside Do not eat any food after midnight the night before your surgey. Do not drink any coffee or tea butyou can have clear liquids up to 2 hours prior to arrival. Do not try to get all your hydration in 2 hours prior to your arrival. Start the day before surgery drinking more than you normally would. After midnight, you can have clear liquids: water, apple juice, Gatorade or Powerade up to 2 hours prior to arrival time No alcohol within 24 hours of surgery Do not smoke, vape or use any tobacco products after midnight the night before your surgery Arrive on time to avoid delays You MUST have a responsible adult available for transport to and from hospital If you spend the night in the hospital you are allowed to have one adult visitor spend the night inyour room You are allowed to have 2 adult visitors with you on the day of surgery Bring insurance card, photo ID, along with power of senior patrol agent, guardianship or advanced directives if applicable Do not bring any valuables Hibiclens bathing instructions reviewed if applicable; if you do not receive Hibiclens you may buy Dial antibacterial soap and shower with it the night before your surgery and the morning of surgery Notify surgeon of fever, illness, any changes or if you decide not to have surgery No alcohol or smoking prior to surgery Arrive on time to avoid delays Parking/Registration procedure explained You MUST have a responsible adult available for transport to and from hospital Visitation policy for the day of surgery reviewed Bring insurance card, photo ID, along with power of senior patrol agent, guardianship or advanced directives if applicable Do not bring money, jewelry or other valuables Hibiclens bathing instructions reviewed if applicable Notify surgeon of fever, illness, any changes or if you decide not to have surgery Pediatric patients under 12 years of age (If applicable) No solid food or milk after midnight Formula 6 hours prior to arrival for surgery Breast milk 4 hours prior to arrival surgery Clear liquids 2 hours prior to arrival for surgery Diabetes Instructions (If applicable) Take diabetes medication as instructed You may have up to 4 ounces of apple juice 2 hours prior to arrival for surgery for low glucose documented in this encounter Plan of Treatment Not on file documented as of this encounter Procedures Procedure Name Priority Date/Time Associated Diagnosis Comments XR SHOULDER LEFT 2+ VIEWS Routine 06/28/2025 11:34 AM EDT S/P reverse total shoulder arthroplasty, left SURGICAL PATHOLOGY EXAM Routine 06/28/2025 10:24 AM EDT S/P reverse total shoulder arthroplasty, left FUNGAL CULTURE, TISSUE AND MONSERRAT Routine 06/28/2025 9:51 AM EDT S/P reverse total shoulder arthroplasty, left AFB CULTURE, NON RESPIRATORY SOURCE AND ACID FAST STAIN Routine 06/28/2025 9:51 AM EDT S/P reverse total shoulder arthroplasty, left TISSUE CULTURE AND GRAM STAIN Routine 06/28/2025 9:51 AM EDT S/P reverse total shoulder arthroplasty, left ANAEROBIC CULTURE Routine 06/28/2025 9:5 1 AM EDT S/P reverse total shoulder arthroplasty, left FUNGAL CULTURE, TISSUE AND MONSERRAT Routine 06/28/2025 8:54 AM EDT S/P reverse total shoulder arthroplasty, left AFB CULTURE, NON RESPIRATORY SOURCE AND ACID FAST STAIN Routine 06/28/2025 8:54 AM EDT S/P reverse total shoulder arthroplasty, left TISSUE CULTURE AND GRAM STAIN Routine 06/28/2025 8:54 AM EDT S/P reverse total shoulder arthroplasty, left ANAEROBIC CULTURE Routine 06/28/2025 8:5 4 AM EDT S/P reverse total shoulder arthroplasty, left SC PAM SHOULDER ARTHRPLSTY HUMERAL/GLENOID COMPNT 06/28/2025 8:01 AM EDT S/P reverse total shoulder arthroplasty, left documented in this encounter Results * XR Shoulder Left 2+ Views (06/28/2025 11:34 AM EDT) Anatomical Region Laterality Modality Upper Extremities, Shoulder Left Digi anthony Radiography Impressions 06/28/2025 1:07 PM EDT Normal glenohumeral alignment following revision left reverse total shoulder arthroplasty. CRITICAL RESULT: No. COMMUNICATION: Per this written report. Drafted by Melvin Dumont MD on 06/28/2025 1:05 PM Final report signed by Melvin Dumont MD on 06/28/2025 1:07 PM Narrative 06/28/2025 1:07 PM EDT CLINICAL INDICATION: Postop TECHNIQUE: XR SHOULDER LEFT 2+ VIEWS COMPARISON: None. FINDINGS: 2 views of the left shoulder show reverse total shoulder arthroplasty with expected air in the soft tissues. Normal glenohumeral alignment. Adjacent lung and chest wall are normal. Procedure Note Melvin Dumont MD - 06/28/2025 CLINICAL INDICATION: Postop TECHNIQUE: XR SHOULDER LEFT 2+ VIEWS COMPARISON: None. FINDINGS: 2 views of the left shoulder show reverse total shoulder arthroplasty withexpected air in the soft tissues. Normal glenohumeral alignment. Adjacentlung and chest wall are normal. IMPRESSION: Normal glenohumeral alignment following revision left reverse totalshoulder arthroplasty. CRITICAL RESULT: No. COMMUNICATION: Per this written report. Drafted by Melvin Dumont MD on 06/28/2025 1:05 PM Final report signed by Melvin Dumont MD on 06/28/2025 1:07 PM us Nahid ATKINSON IMG XR PROCEDURES Final Result * Surgical Pathology Exam (06/28/2025 10:24 AM EDT) Case Report Surgical Pathology Case: [id number] Authorizing Provider: Jason Chappell MD Collected: 06/28/2025 1024 Ordering Location: [facility] Operating Room Received: 06/28/2025 1131 Pathologist: Macey Cote MD Specimen: Shoulder, Left, left shoulder explanted hardware 07/09/2025 3:57 PM EDT [facility] Final Diagnosis A. MEDICAL HARDWARE; EXPLANTATION FROM LEFT SHOULDER: - MEDICAL HARDWARE; GROSS ONLY ASSESSMENT. 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 LEFT SHOULDER EXPLANTED HARDWARE Received fresh labeled left shoulder explanted hardware is a silver-colored, metal humeral head measuring 3.0 cm in diameter and 2.5 cm in height. Inscriptions include: DJO 032mm, Danny CcCr, [id number], [id number]. A roughened, patton-colored, plastic spacer measuring 3.8 cm in diameter and 2.0 cm in height. A melvin-colored, metal, partially threaded object measuring 4.5 cm in length and up to 2.5 cm in diameter. Lastly, 5 silver-colored, metal screws ranging in size from 1.6 to 3.3 cm in length up to 0.7 cm in diameter. Specimen submitted for gross only. Greta Paula 07/09/2025 3:57 PM EDT [facility] Note: A resident was involved in the service. I attest I examined the relevant preparations for the specimens and confirmed the diagnosis or interpretation. 07/09/2025 3:57 PM EDT [facility] Foreign Body Structure of left shoulder region / Unknown 06/28/2025 10:24 AM EDT 06/28/2025 11:31 AM EDT Comment:Pre-op diagnosis: S/P reverse total shoulder arthroplasty, 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] us Jason Chappell MD LAB PATHOLOGY ORDERABLES Fin al Result [facility] [address] [place] [address] * Fungal Culture, Tissue and MONSERRAT (06/28/2025 9:51 AM EDT) Culture Reading Mycological 4 Weeks No Fungal Growth at 4 Weeks 07/26/2025 7:08 AM EDT [facility] MONSERRAT No fungal elements seen 07/26/2025 7:08 AM EDT [facility] Tissue Structure of left shoulder region / Unknown 06/28/2025 9:51 AM EDT 06/28/2025 11:08 AM EDT Comment:Pre-op diagnosis: S/P reverse total shoulder arthroplasty, 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] Jason Chappell MD LAB MICROBIOLOGY - GENERAL O RDERABLES Final Result Performing Organization Address City/[facility] Co de Phone Number [facility] [address] [place] [address] * AFB Culture, Non Respiratory Source and Acid Fast Stain (06/28/2025 9:51 AM EDT) AFB Culture No Mycobacterial Growth at 6 Weeks 08/10/2025 3:16 PM EDT [facility] Acid Fast Stain No acid fast bacilli seen 08/10/2025 3:16 PM EDT [facility] Tissue Structure of left shoulder region / Unknown 06/28/2025 9:51 AM EDT 06/28/2025 11:08 AM EDT Comment:Pre-op diagnosis: S/P reverse total shoulder arthroplasty, 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] Jason Chappell MD LAB MICROBIOLOGY - GENERAL O RDERABLES Final Result Performing Organization Address [facility] Co de Phone Number [facility] [address] [place] [address] * Tissue Culture and Gram Stain (06/28/2025 9:51 AM EDT) Culture No growth at day 4 2024 6:11 AM EDT [facility] Gram Stain Result Few Polymorphonuclear leukocytes 07/03/2025 6:11 AM EDT [facility] Gram Stain Result No organisms seen 07/03/2025 6:11 AM EDT [facility] Tissue Structure of left shoulder region / Unknown 06/28/2025 9:51 AM EDT 06/28/2025 11:08 AM EDT Comment:Pre-op diagnosis: S/P reverse total shoulder arthroplasty, 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] Jason Chappell MD LAB MICROBIOLOGY - GENERAL O RDERABLES Final Result Performing Organization Address City/[facility]/ZIP Co de Phone Number [facility] [address] [place] [address] * (ABNORMAL) Anaerobic Culture (06/28/2025 9:51 AM EDT) Culture No anaerobes isolated 07/03/2025 7:25 AM EDT [facility] Culture Isolated from broth only: Staphylococcus epidermidis(A) 07/03/2025 7:25 AM EDT [facility] Comment: This isolate has been identified using the FDA Approved [employer] [place] System The organism value for this result has been updated. These results have been appended to the previously preliminary verified report. Tissue Structure of left shoulder region / Unknown 06/28/2025 9:51 AM EDT 06/28/2025 11:08 AM EDT Comment:Pre-op diagnosis: S/P reverse total shoulder arthroplasty, 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] Narrative Organism Antibiotic Method Susceptibility Staphylococcus epidermidis Clindamycin MARYLOU <=0.5 ug/ml: Susceptible Staphylococcus epidermidis Daptomycin MARYLOU <=1 ug/ml: Susceptible Staphylococcus epidermidis Erythromycin MARYLOU >4 ug/ml: Resistant Staphylococcus epidermidis Gentamicin MARYLOU <=1 ug/ml: Susceptible Staphylococcus epidermidis Linezolid MARYLOU 4 ug/ml: Susceptible Staphylococcus epidermidis Minocycline MARYLOU 2 ug/ml: Susceptible Staphylococcus epidermidis Oxacillin MARYLOU <=0.25 ug/ml: Susceptible Staphylococcus epidermidis Tetracycline MARYLOU >8 ug/ml: Resistant Staphylococcus epidermidis Vancomycin MARYLOU 1 ug/ml: Susceptible Jason Chappell MD LAB MICROBIOLOGY - GENERAL O RDERABLES Final Result Performing Organization Address City/[facility]/ZIP Co de Phone Number [facility] [address] [place] [address] * Fungal Culture, Tissue and MONSERRAT (06/28/2025 8:54 AM EDT) Culture Reading Mycological 4 Weeks No Fungal Growth at 4 Weeks 07/26/2025 7:08 AM EDT [facility] MONSERRAT No fungal elements seen 07/26/2025 7:08 AM EDT [facility] Tissue Structure of left shoulder region / Unknown 06/28/2025 8:54 AM EDT 06/28/2025 11:08 AM EDT Comment:Pre-op diagnosis: S/P reverse total shoulder arthroplasty, 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] Jason Chappell MD LAB MICROBIOLOGY - GENERAL O RDERABLES Final Result Performing Organization Address [facility] de Phone Number [facility] [address] [place] [address] * AFB Culture, Non Respiratory Source and Acid Fast Stain (06/28/2025 8:54 AM EDT) AFB Culture No Mycobacterial Growth at 6 Weeks 08/10/2025 3:15 PM EDT [facility] Acid Fast Stain No acid fast bacilli seen 08/10/2025 3:15 PM EDT [facility] Tissue Structure of left shoulder region / Unknown 06/28/2025 8:54 AM EDT 06/28/2025 11:08 AM EDT Comment:Pre-op diagnosis: S/P reverse total shoulder arthroplasty, 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 de Phone Number [facility] [address] [place] [address] * (ABNORMAL) Tissue Culture and Gram Stain (06/28/2025 8:54 AM EDT) Culture Light Growth 07/02/2025 7:36 AM EDT [facility] Culture Staphylococcus epidermidis(A) 07/02/2025 7:36 AM EDT [facility] Comment: This isolate has been identified using the FDA Approved [employer] [place] System The organism value for this result has been updated. These results have been appended to the previously preliminary verified report. Gram Stain Result Rare Polymorphonuclear leukocytes 07/02/2025 7:36 AM EDT [facility] Gram Stain Result No organisms seen 07/02/2025 7:36 AM EDT [facility] Tissue Structure of left shoulder region / Unknown 06/28/2025 8:54 AM EDT 06/28/2025 11:08 AM EDT Comment:Pre-op diagnosis: S/P reverse total shoulder arthroplasty, 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] Narrative Organism Antibiotic Method Susceptibility Staphylococcus epidermidis Clindamycin MARYLOU <=0.5 ug/ml: Susceptible Staphylococcus epidermidis Daptomycin MARYLOU <=1 ug/ml: Susceptible Staphylococcus epidermidis Erythromycin MARYLOU <=0.5 ug/ml: Susceptible Staphylococcus epidermidis Gentamicin MARYLOU <=1 ug/ml: Susceptible Staphylococcus epidermidis Linezolid MARYLOU 2 ug/ml: Susceptible Staphylococcus epidermidis Minocycline MARYLOU <=1 ug/ml: Susceptible Staphylococcus epidermidis Oxacillin MARYLOU <=0.25 ug/ml: Susceptible Staphylococcus epidermidis Penicillin G MARYLOU 0.5 ug/ml: Resistant Staphylococcus epidermidis Tetracycline MARYLOU <=0.5 ug/ml: Susceptible Staphylococcus epidermidis Vancomycin MARYLOU <=0.5 ug/ml: Susceptible Jason Chappell MD LAB MICROBIOLOGY - GENERAL O RDERABLES Final Result Performing Organization Address City/[facility]/ZIP Co de Phone Number [facility] [address] [place] [address] * Anaerobic Culture (06/28/2025 8:54 AM EDT) Culture No anaerobes isolated 07/03/2025 6:07 AM EDT [facility] Tissue Structure of left shoulder region / Unknown 06/28/2025 8:54 AM EDT 06/28/2025 11:08 AM EDT Comment:Pre-op diagnosis: S/P reverse total shoulder arthroplasty, 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] Jason Chappell MD LAB MICROBIOLOGY - GENERAL O RDERABLES Final Result Performing Organization Address City/[facility]/ZIP Co de Phone Number [facility] [address] [place] [address] documented in this encounter Visit Diagnoses Diagnosis S/P reverse total shoulder arthroplasty, left- Primary S/P reverse total shoulder arthroplasty, left documented in this encounter Admitting Diagnoses Diagnosis S/P reverse total shoulder arthroplasty, left documented in this encounter Administered Medications Inactive Administered Medications - up to 3 most recent administrations Medication Order MAR Action Action Date Dose Rate Site acetaminophen (Tylenol) tablet 1,000 mg 1,000 mg, Oral, Once, 1 dose, On Sat06/28/25 at 0745, Routine, Holding - Preprocedure Given 06/28/2025 7:47 AM EDT 1,000 mg acetaminophen (Tylenol) tablet 1,000 mg 1,000 mg, Oral, Once as needed, 1 dose, Starting on Sat06/28/25 at 1042, Until Sat06/28/25 at 1419, Routine, Recovery (Phase I only), pain score of >1 out of 10 droperidol (Inapsine) injection 0.625 mg 0.625 mg, Intravenous, Once as needed, 1 dose, Starting on Sat06/28/25 at 1042, Until Sat06/28/25 at 1419, Routine, Recovery (Phase I only), vomiting nausea fentaNYL (Sublimaze) injection 25 mcg 25 mcg, Intravenous, Every 5 min PRN, 2 doses, Starting on Sat06/28/25 at 1042, Until Sat06/28/25 at 1419, Routine, Recovery (Phase I only), pain score of 3-4 out of 10 HYDROmorphone (Dilaudid) injection 0.5 mg 0.5 mg, Intravenous, Every 10 min PRN, 2 doses, Starting on Sat06/28/25 at 1042, Until Sat06/28/25 at 1419, Routine, Recovery (Phase I only), pain score of 9-10 out of 10 ketorolac (Toradol) injection 15 mg 15 mg, Intravenous, Once, 1 dose, On Sat06/28/25 at 0745, Routine, Holding - Preprocedure Given 06/28/2025 7:47 AM EDT 15 mg lactated Ringer's infusion 75 mL/hr, Intravenous, Once, 1 dose, On Sat06/28/25 at 0745, Routine New Bag 06/28/2025 7:20 AM EDT 75 mL/hr 75 mL/hr midazolam (Versed) injection 2 mg 2 mg, Intravenous, Once as needed, 1 dose, Starting on Sat06/28/25 at 1042, Until Sat06/28/25 at 1419, Routine, Recovery (Phase I only), anxiety naloxone (Narcan) injection 0.4 mg 0.4 mg, Intravenous, As needed, Starting on Sat06/28/25 at 1042, Until Sat06/28/25 at 1419, Routine, Recovery (Phase I only), respiratory depression ondansetron (Zofran) injection 4 mg 4 mg, Intravenous, Once as needed, 1 dose, Starting on Sat06/28/25 at 1042, Until Sat06/28/25 at 1419, Routine, Recovery (Phase I only), nausea, vomiting oxyCODONE (Roxicodone) immediate release tablet 10 mg 10 mg, Oral, Once as needed, 2 doses, Starting on Sat06/28/25 at 1042, Until Sat06/28/25 at 1419, Routine, Recovery (Phase I only), pain score of 6-8 out of 10 oxyCODONE (Roxicodone) immediate release tablet 5 mg 5 mg, Oral, Once as needed, 2 doses, Starting on Sat06/28/25 at 1042, Until Sat06/28/25 at 1419, Routine, Recovery (Phase I only), pain score of 3-5 out of 10 Povidone-Iodine 5 % swab solution 1 Application Nasal, Once, 1 dose, On Sat06/28/25 at 0745, Routine Given 06/28/2025 7:20 AM EDT 1 Application scopolamine (Transderm-Scop) patch 1 patch 1 patch, Transdermal, Once, 1 dose, On Sat06/28/25 at 0745, Routine, Holding - Preprocedure Medication Applied 06/28/2025 7:47 AM EDT 1 patch Behind Right Ear sodium chloride 0.9 % flush 10 mL 10 mL, Intravenous, Every 8 hours PRN, Starting on Sat06/28/25 at 0657, Until Sat06/28/25 at 1419, Routine, Holding - Preprocedure, line care sodium chloride 0.9 % flush 10 mL 10 mL, Intravenous, As needed, Starting on Sat06/28/25 at 0657, Until Sat06/28/25 at 1419, Routine, Holding - Preprocedure, line care documented in this encounter Active and Recently Administered Medications Times are shown in EDT. Scheduled Medication Order 06/26/2025 06/27/2025 06/28/2025 acetaminophen (Tylenol) tablet 1,000 mg (COMPLETED) 1,000 mg, Oral, Once, 1 dose, On Sat06/28/25 at 0745, Routine, Holding - Preprocedure 0747 (Given - Provid er: Isatu He RN) ceFAZolin (Ancef) injection 2 g (COMPLETED) 2 g, Intravenous, Once, 1 dose, On Sat06/28/25 at 0745, Routine, Anesthesia Intraprocedure 1036 (Given - Provid er: Jason Dominguez, TONIO, DNP) ketorolac (Toradol) injection 15 mg (COMPLETED) 15 mg, Intravenous, Once, 1 dose, On Sat06/28/25 at 0745, Routine, Holding - Preprocedure 0747 (Given - Provid er: Isatu He RN) lactated Ringer's infusion (COMPLETED) 75 mL/hr, Intravenous, Once, 1 dose, On Sat06/28/25 at 0745, Routine 0720 (New Bag - Prov ider: Isatu He RN) lactated Ringer's infusion 20 mL/hr, Intravenous, Once, 1 dose, On Sat06/28/25 at 1130, Routine 1130 (Canceled Entry - Provider: Automatic Discharge Provider - Comment: Automatically canceled at discontinue of medication order) Povidone-Iodine 5 % swab solution 1 Application (COMPLETED) Nasal, Once, 1 dose, On Sat06/28/25 at 0745, Routine 0720 (Given - Provid er: Isatu He RN) scopolamine (Transderm-Scop) patch 1 patch 1 patch, Transdermal, Once, 1 dose, On Sat06/28/25 at 0745, Routine, Holding - Preprocedure 0747 (Medication Le lied - Provider: Isatu He RN)1219 (Due: Medication Removed - Provider: Automatic Discharge Provider - Comment: Time automatically adjusted from order being discontinued) PRN Medication Order 06/26/2025 06/27/2025 06/28/2025 acetaminophen (Tylenol) tablet 1,000 mg 1,000 mg, Oral, Once as needed, 1 dose, Starting on Sat06/28/25 at 1042, Until Sat06/28/25 at 1419, Routine, Recovery (Phase I only), pain score of >1 out of 10 droperidol (Inapsine) injection 0.625 mg 0.625 mg, Intravenous, Once as needed, 1 dose, Starting on Sat06/28/25 at 1042, Until Sat06/28/25 at 1419, Routine, Recovery (Phase I only), vomiting nausea EPINEPHrine (Adrenalin) injection (CANCELED) As needed, Starting on Sat06/28/25 at 0926, Until Sat06/28/25 at 1056, Routine, Intraprocedure 0926 (Given - Provid er: Jason Chappell MD - Comment: on field) fentaNYL (Sublimaze) injection 25 mcg 25 mcg, Intravenous, Every 5 min PRN, 2 doses, Starting on Sat06/28/25 at 1042, Until Sat06/28/25 at 1419, Routine, Recovery (Phase I only), pain score of 3-4 out of 10 HYDROmorphone (Dilaudid) injection 0.5 mg 0.5 mg, Intravenous, Every 10 min PRN, 2 doses, Starting on Sat06/28/25 at 1042, Until Sat06/28/25 at 1419, Routine, Recovery (Phase I only), pain score of 9-10 out of 10 midazolam (Versed) injection 2 mg 2 mg, Intravenous, Once as needed, 1 dose, Starting on Sat06/28/25 at 1042, Until Sat06/28/25 at 1419, Routine, Recovery (Phase I only), anxiety naloxone (Narcan) injection 0.4 mg 0.4 mg, Intravenous, As needed, Starting on Sat06/28/25 at 1042, Until Sat06/28/25 at 1419, Routine, Recovery (Phase I only), respiratory depression ondansetron (Zofran) injection 4 mg 4 mg, Intravenous, Once as needed, 1 dose, Starting on Sat06/28/25 at 1042, Until Sat06/28/25 at 1419, Routine, Recovery (Phase I only), nausea, vomiting oxyCODONE (Roxicodone) immediate release tablet 10 mg(Linked Group 1) 10 mg, Oral, Once as needed, 2 doses, Starting on Sat06/28/25 at 1042, Until Sat06/28/25 at 1419, Routine, Recovery (Phase I only), pain score of 6-8 out of 10 oxyCODONE (Roxicodone) immediate release tablet 5 mg(Linked Group 1) 5 mg, Oral, Once as needed, 2 doses, Starting on Sat06/28/25 at 1042, Until Sat06/28/25 at 1419, Routine, Recovery (Phase I only), pain score of 3-5 out of 10 sodium chloride 0.9 % flush 10 mL(Linked Group 2) 10 mL, Intravenous, Every 8 hours PRN, Starting on Sat06/28/25 at 0657, Until Sat06/28/25 at 1419, Routine, Holding - Preprocedure, line care sodium chloride 0.9 % flush 10 mL(Linked Group 2) 10 mL, Intravenous, As needed, Starting on Sat06/28/25 at 0657, Until Sat06/28/25 at 1419, Routine, Holding - Preprocedure, line care thrombin (recombinant) (Recothrom) topical solution (CANCELED) As needed, Starting on Sat06/28/25 at 0904, Until Sat06/28/25 at 1056, Routine 0904 (Given - Provid er: Jason Chappell MD) vancomycin (Vancocin) vial for injection (CANCELED) As needed, Starting on Sat06/28/25 at 0848, Until Sat06/28/25 at 1056, Routine, Intraprocedure 0848 (Given - Provid er: Jason Chappell MD) Linked Groups Order Group 1: oxyCODONE (Roxicodone) immediate release tablet 5 mgJump to med 5 mg, Oral, Once as needed, 2 doses, Starting on Sat06/28/25 at 1042, Until Sat06/28/25 at 1419, Routine, Recovery (Phase I only), pain score of 3-5 out of 10 Or oxyCODONE (Roxicodone) immediate release tablet 10 mgJump to med 10 mg, Oral, Once as needed, 2 doses, Starting on Sat06/28/25 at 1042, Until Sat06/28/25 at 1419, Routine, Recovery (Phase I only), pain score of 6-8 out of 10 Group 2: Insert peripheral IV (CANCELED) Once, On Sat06/28/25 at 0658, For 1 occurrence, Holding - Preprocedure And Saline lock IV (CANCELED) Once, On Sat06/28/25 at 0658, For 1 occurrence, Holding - Preprocedure And sodium chloride 0.9 % flush 10 mLJump to med 10 mL, Intravenous, Every 8 hours PRN, Starting on Sat06/28/25 at 0657, Until Sat06/28/25 at 1419, Routine, Holding - Preprocedure, line care And sodium chloride 0.9 % flush 10 mLJump to med 10 mL, Intravenous, As needed, Starting on Sat06/28/25 at 0657, Until Sat06/28/25 at 1419, Routine, Holding - Preprocedure, line care documented in this encounter Additional Health Concerns Assessment Noted Time A fall risk assessment has been complete d for the patient 05/11/2025 1:56 PM EDT A Body Mass Index follow-up plan has been documented for the patient 05/11/2025 2:35 PM EDT documented as of this encounter Care Teams Track Welder Relationship Specialty Start Date End Date Azeem Champion MD [address] [place] [address] PCP - General 03/24/21 documented as of this encounter
--- OUTSIDE RECORDS SUMMARY | 2025-06-28 08:16 | XMS_ITS | Encounter Summary ---
Author Organization [facility] Address [address] [place] [address] Care Team Providers Care Homeland Security Program Specialist Name Role Phone Azeem Champion MD Primary Care Provider [phone] Reason for Visit * Auth/Cert (Routine) Specialty Diagnoses / Procedures Referred By Contac t Referred To Contact Diagnoses S/P reverse total shoulder arthroplasty, left S/P reverse total shoulder arthroplasty, 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] Procedures UT PAM SHOULDER ARTHRPLSTY HUMERAL/GLENOID COMPNT REVISION, TOTAL ARTHROPLASTY, SHOULDER Jason Chappell MD [address] [facility] [address] [place] [address] Phone: tel: fax: [facility] S Operating Room [address] [place] [address] Phone: tel: Referral ID Status Reason Start Date Expiration Date Visits Re quested Visits Authorized [id number] 1 1 Encounter Details Date Type Department Care Team (Late st Contact Info) Description 06/28/2025 8:16 AM EDT Anesthesia Event [facility] Operating Room [address] [place] [address] Kevin Anderson DO [address] [place] [address] Anesthesia Record Procedure Summary Procedure Name Responsible Anesthesiologist Anesthesia Start Time Anesthesia Stop Time REVISION, TOTAL ARTHROPLASTY, SHOULDER (Left: Shoulder) Kevin Anderson DO 06/28/25 0816 06/28/25 1101 Events Date Time Event Comment 06/28/2025 0657 AN Equip Check 0747 0816 In Room 0816 An Start The patient was reevaluated immediately before sedation and remains eligible for anesthesia plan. 0816 An Start Data 0821 An Induction The patient was reevaluated immediately before moderate or deep sedation use and before anesthesia induction. 0822 An Intubation 0840 Proc Start 1050 An Extubation 1052 Proc Fin 1056 an stop data 1056 Out of Room 1101 Handoff to Receiving I compl eted my handoff to the receiving clinician during which we: 1. Identified the patient 2. Identified the responsible provider 3. Reviewed the pertinent medical history 4. Discussed the surgical course 5. Reviewed intra-op anesthesia management and issues during anesthesia 6. Set expectations for post-procedure period 7. Allowed opportunity for questions and acknowledgement of understanding. 1101 An Stop Meds Name Total ondansetron (Zofran) injection 2 mg/mL 4 mg sugammadex (Bridion) injection 100 mg/mL 200 mg propofol (Diprivan) injection 10 mg/mL 2 00 mg rocuronium (ZeMuron) injection 10 mg/mL 65 mg lidocaine PF (Xylocaine-MPF) 2% 100 mg 0.5% ropivacaine 25 mL midazolam (Versed) injection 2 mg ceFAZolin (Ancef) injection 2 g 2 g ePHEDrine injection 50 mg/mL 35 mg phenylephrine (Konrad-Synephrine) prefilled syringe 1 mg/10 mL 100 mcg lactated Ringer's infusion 1,000 mL * Agents Name O2 N2O Air Sevoflurane Inspired Sevoflurane N2O Inspired N2O * Blood No blood administrations on file. Lines, Drains, and Airways Type Details Placement Removal Wound 06/28/25; 0845; N; Y es; Surgical (revision total shoulder); Shoulder; Left 06/28/25 0845 by Brett Alvarado Peripheral IV Placement Date: 06/11 07/05; Placement Time: 0715; Orientation: Posterior, Right; Location: Hand; Removal Date: 06/28/25; Removal Time: 1202 06/28/25 0715 by Isatu He RN 06/28/25 1202 by Zara Leavitt RN ETT Placement Date: 06/11 07/05; Placement Time: 0822 (created via procedure documentation); Mask Ventilation: 0; Technique: Direct laryngoscopy; Type: ETT - single; Single Lumen Tube Size: 7.5 mm; Cuffed: Yes; Laryngoscope: Faviola; Blade Size: 3; Location: Oral; Grade View: Grade I; Insertion Attempts: 1; Placement Verification: Auscultation, Capnometry; Airway Comments: Bilateral chest rise, Bilateral breath sounds, Negative epigastric sounds, and Positive ETCo2. Atraumatic no change to dentition. ; Placed by: TONIO; Removal Date: 06/28/25; Removal Time: 1050 06/28/25 0822 by Jason Dominguez CRNA, DNP 06/28/25 1050 by Jason Dominguez CRNA, DNP documented in this encounter Social History Tobacco Use Types Packs/Day Years Used Date Smoking Tobacco: Former Cigarettes 0.5 15 1 - 2007 Passive Smoke Exposure: Never Smokeless [...] on file documented as of this encounter Functional Status * Calculated C-SSRS Risk Score (Lifetime/Recent) Answer Date of Assessment Author No Risk Indicated 06/28/2025 6:57 AM EDT Isatu eH RN * Question Answer Date of Assessment Author 1. Wish to be (Past 1 Month) No 025 6:57 AM EDT Isatu He RN 2. Non-Specific Active Suici ericka Thoughts (Past 1 Month) No 06/28/2025 6:57 AM EDT Blanca He RN 6. Suicidal Behavior (Lifetime) No 6:57 AM EDT Isatu He RN documented as of this encounter Miscellaneous Notes * Anesthesia Postprocedure Evaluation - Jason Dominguez CRNA, DNP - 06/28/2025 11:01 AM EDT Patient: Dallas Aleman Anesthesia Type: regional, general Vitals Value Taken Time BP 117/74 06/28/25 11:00 Temp 36.4 ??C (97.5 ??F) 06/28/25 11:00 Pulse 68 06/28/25 11:00 Resp 16 06/28/25 11:00 SpO2 100 % 06/28/25 11:00 Vitals shown include unfiled device data. Anesthesia Post Evaluation Patient location during evaluation: PACU Patient participation: complete - patient cannot participate Level of consciousness: sedated Pain management: adequate (pain score 0-3) Airway patency: natural airway Cardiovascular status: acceptable Respiratory status: acceptable and face mask Hydration status: acceptable No notable events documented. * Anesthesia Procedure Notes - Jason Dominguez CRNA, DNP - 06/28/2025 8:31 AM EDTAssociated Order(s): Airway Airway Date/Time: 06/28/2025 8:22 AM Reason: elective Airway not difficult General Information and Staff Patient location during procedure: OR MARKET SPECIALIST: Jason Dominguez CRNA, DNP Performed: TONIO Patient Condition Indications for airway management: anesthesia and airway protection Patient position: sniffing Final Airway Details Final airway type: endotracheal airway Successful airway: ETT Cuffed: yes Successful intubation technique: direct laryngoscopy Endotracheal tube insertion site: oral Blade: Faviola Blade size: #3 ETT size (mm): 7.5 Cormack-Lehane Classification: grade I - full view of glottis Placement verified by: chest auscultation and capnometry Measured from: lips ETT to lips (cm): 22 Additional Comments Bilateral chest rise, Bilateral breath sounds, Negative epigastric sounds, and Positive ETCo2. Atraumatic no change to dentition. * Anesthesia Procedure Notes - Shubham Gibbons MD - 06/28/2025 8:11 AM EDT Associated Order(s): Peripheral Block Peripheral Block Patient location during procedure: OR Start time: 06/28/2025 8:05 AM End time: 06/28/2025 8:11 AM Reason for block: post-op pain management Block is at surgeon's request Staffing Performed: Resident Anesthesiologist: Kevin Anderson DO Resident: Shubham Gibbons MD Preanesthetic Checklist Completed: patient identified, IV checked, site marked, risks and benefits discussed, surgical consent, monitors and equipment checked, pre-op evaluation and timeout performed Peripheral Block Patient position: supine Prep: ChloraPrep Patient monitoring: continuous pulse ox, heart rate and athletic monitor Anesthesia block type: interscalene. Laterality: left Injection technique: single-shot Guidance: ultrasound guided Local infiltration: lidocaine Infiltration strength: 1 % Dose: 2 mL Needle Needle type: pencil-tip Needle localization: anatomical landmarks and ultrasound guidance Medications Administered midazolam (Versed) injection - Intravenous 2 mg - 06/28/2025 8:05:00 AM 0.5% ropivacaine - Injection 25 mL - 06/28/2025 8:05:00 AM Assessment Injection assessment: negative aspiration for heme, local visualized surrounding nerve on ultrasound and incremental injection Paresthesia pain: none Heart rate change: no Slow fractionated injection: yes Cosigned by Kevin Anderson DO at 06/28/2025 8:28 AM EDT Associated attestation - Kevin Anderson DO - 06/28/2025 8:28 AM EDT I was present during all critical and porter portions of the procedure(s) and immediately available [facility] services the entire duration. See resident note for details. * Anesthesia Preprocedure Evaluation - Shubham Gibbons MD - 06/28/2025 7:05 AM EDT Anesthesiologist: Kevin Anderson DO MARKET SPECIALIST: Jason Dominguez CRNA, DNP Patient: Dallas Aleman HPI Dallas Aleman is a 54 y.o. male with body mass index is unknown because there is no height or weight on file. who presents with S/P reverse total shoulder arthroplasty, left, now for REVISION, TOTAL ARTHROPLASTY, SHOULDER (Left) Procedure Information Date/Time: 06/28/25 0845 Procedure: REVISION, TOTAL ARTHROPLASTY, SHOULDER (Left: Shoulder) Location: 2SOR 02 / [facility] OR Surgeons: Jason Chappell MD Past medical history: IBS, depression, arthritis, GERD Past surgical history: knee arthroscopy, total shoulder, GERD, nasal septum, hernia Social history: 0.5p/15y. 14-21drinks/wk. Denies hx or current drug use. Prior anesthesia history: The pt denies any problems with anesthesia in the past. Last airway: g1v mac 4, 7.5 ETT 1x attempt. Received rescue block last procedure. Allergies: oxy (dizziness), ASA (n/v) Anti-coagulation/anti-platelet: denies METS/Activity Level: >4 NPO: 0000 Relevant Problems Neuro/Psych (+) S/P reverse total shoulder arthroplasty, left ALLERGIES Allergies[1] NPO STATUS Date of Last Liquid: 06/28/25 Time of Last Liquid: 529 Date of Last Solid: 06/27/25 Time of Last Solid: 2100 Last Intake Type: Clear fluids Time of Last Void: 0659 Past Medical History[2] AIRWAY HISTORY Airway Detailed Review Displaying the 20 most recent records Date Difficult Airway Blade Size ETT Size C-L Class Final Type Intubation Method 09/07/24 No 4 7.5 grade I - full view of glottis endotracheal airway direct laryngoscopy 08/13/24 No 4 7.5 grade I - full view of glottis endotracheal airway direct laryngoscopy 01/16/24 No 3 8.0 grade I - full view of glottis endotracheal airway direct laryngoscopy MEDICATIONS Outpatient Current Outpatient Medications Medication Instructions acetaminophen (TYLENOL) 1,000 mg, Oral, Every 8 hours PRN benzonatate (Tessalon) 100 MG capsule TAKE 1 CAPSULE BY MOUTH THREE TIMES DAILY NEEDED FOR COUGHMAY TAKE 2 CAPSULES IF ONE DOES NOT PROVIDE RELIEF Creon [id number] units capsule delayed-release particles capsule TAKE 1 CAPSULE BY MOUTH WITH MEALS AND/OR SNACKS MAX OF 6 PER DAY docusate sodium (COLACE) 250 mg, Oral, Daily gabapentin (NEURONTIN) 600 mg, 2 times daily HYDROcodone-acetaminophen (Clarington) 5-325 MG tablet 5 mg of hydrocodone, Oral, Every 6 hours PRN Implanted pain pump Once methocarbamol (ROBAXIN) 750 mg, Oral, 3 times daily PRN naloxone (NARCAN) 4 mg, Nasal, As needed naproxen (NAPROSYN) 500 mg, Oral, 2 times daily with meals ondansetron (ZOFRAN) 8 mg, Oral, Every 8 hours PRN PEG [id number]-HeBqn-NaCl-NaSulf (PEG-3350/Electrolytes) 236 g reconstituted solution PER PRINTED DIRECTIONS sertraline (ZOLOFT) 150 mg, Daily tadalafil (CIALIS) 5 mg, Daily tadalafil (CIALIS) 10 mg, Oral, Daily, For ED traMADol (ULTRAM) 50 mg, Oral, 3 times daily PRN Scheduled Current Scheduled Medications[3] PRNs Current PRN Medications[4] SURGICAL HX: Surgical History[5] SOCIAL HX: Social History[6] OBJECTIVE DATA LABS Lab Results Component Value Date WBC 6.04 05/11/2025 HGB 12.1 (L) 05/11/2025 HCT 39.9 (L) 05/11/2025 MCV 83 05/11/2025 PLT 249 05/11/2025 Lab Results Component Value Date CALCIUM 8.8 (L) 05/11/2025 BUN 16 05/11/2025 CREATININE 0.91 05/11/2025 BCR 18 05/11/2025 NA 139 05/11/2025 K 4.4 05/11/2025 CL 103 05/11/2025 CO2 25 05/11/2025 Type and Screen No results found for: ABO No results found for: HGBA1C Lab Results Component Value Date GLUCOSE 100 (H) 05/11/2025 ABG No results found for: PHART , JTH8EFD , PO2ART , SO2ART , BEART , IDE5FHD , HCTART , SODIUMART , POTASSIUMART , POCTCL , POCGLU , IONCALART , LACTATE No results found for: PH , PCO2 , PO2 , E5UMWPRX , BASEEXC , HCTSYR , KSYR , CLSYR , GLUSYR , CAION , LACTATE ECHO No echocardiogram results found for the past 12 months PFTs No results found for: IKF0ISZ , ZQS3QMWH , VLC4WJJ , FVCPRED BP Readings from Last 5 Encounters: 07/01/25 137/80 04/20/25 (!) 151/87 10/30/24 125/82 09/23/24 135/83 09/07/24 139/78 Physical Exam Airway Mallampati: II Mouth opening: normal Neck ROM: full Cardiovascular Rhythm: regular Rate: normal Dental - normal exam Pulmonary Breath sounds clear to auscultation Neurological Skin Musculoskeletal Extremities Anesthesia Plan ASA 3 Plan was reviewed with: resident and attending Anesthesia technique(s) discussed with the patient/family: general and regional Anesthesia plan agreed upon was: regional and general Anesthetic plan and risks discussed with patient. Use of blood products discussed with patient who. ROS Anesthesia: history of previous anesthesia and history of anesthetic complications. Anesthesia ROS additional comments: Hoarse, sore throat for 2 months after previous intubation: resolved Cardiovascular: Negative cardio ROS. Respiratory: Negative respiratory ROS. HEENT: Negative HEENT ROS. Neurological: Negative neuro ROS. Musculoskeletal: arthritis. Gastrointestinal: GERD: well controlled. GI/ additional comments: IBS Hematological/Lymphatic: negative hematology/oncology ROS. Endocrine/Metabolic: Negative endocrine ROS. [1] Allergies Allergen Reactions Oxycodone Dizziness and Nausea Aspirin Nausea and Other - please document in the comment field N & V [2] Past Medical History: Diagnosis Date Arthritis Depression GERD (gastroesophageal reflux disease) Irritable bowel syndrome [3] acetaminophen, 1,000 mg, Oral, Once ceFAZolin, 2 g, Intravenous, Once gabapentin, 600 mg, Oral, Once ketorolac, 15 mg, Intravenous, Once lactated Ringer's, 75 mL/hr, Intravenous, Once Povidone-Iodine, 1 Application, Nasal, Once scopolamine, 1 patch, Transdermal, q72h scopolamine, 1 patch, Transdermal, Once [4] PRN medications: lidocaine, Insert peripheral IV AND Saline lock IV AND sodium chlorideAND sodium chloride [5] Past Surgical History: Procedure Laterality Date COLONOSCOPY HERNIA REPAIR N/A x2 KNEE ARTHROSCOPY Left NASAL SEPTUM SURGERY N/A Nasal septoplasty from [employer] OTHER SURGICAL HISTORY pain pump OTHER SURGICAL HISTORY mole removed from right ear, and inside mouth OTHER SURGICAL HISTORY Left 08/2024 shoulder contracture release REVERSE TOTAL SHOULDER ARTHROPLASTY Left SHOULDER SURGERY Left x4, labral repair, fusion SHOULDER SURGERY Right x3 UPPER GASTROINTESTINAL ENDOSCOPY [6] Social History Tobacco Use Smoking status: Former [...] Never Comment: Drug use: No drug use Cosigned by Kevin Anderson DO at 06/28/2025 8:10 AM EDT Associated attestation - Kevin Anderson DO - 06/28/2025 8:10 AM EDT I agree with the findings and care plan documented in the preprocedure evaluation note. documented in this encounter Plan of Treatment Not on file documented as of this encounter Procedures Procedure Name Priority Date/Time Associated Diagnosis Comments PB ANESTHESIA PLACEHOLDER Routine 06/28/2025 8:22 AM EDT UT AN ELECTIVE ENDOTRACHEAL AIRWAY Routine 06/28/2025 8:22 AM EDT ANESTHESIA PERIPHERAL BLOCK Routine 06/28/2025 8:05 AM EDT documented in this encounter Results * UT AN ELECTIVE ENDOTRACHEAL AIRWAY, PB ANESTHESIA PLACEHOLDER (06/28/2025 8:22 AM EDT) Narrative Jason Dominguez CRNA, DNP - 06/28/2025 8:22 AM EDT Jason Dominguez CRNA, DNP 06/28/2025 8:31 AM Airway Date/Time: 06/28/2025 8:22 AM Reason: elective Airway not difficult General Information and Staff Patient location during procedure: OR MARKET SPECIALIST: Laber, Jason F, MARKET SPECIALIST, DNP Performed: MARKET SPECIALIST Patient Condition Indications for airway management: anesthesia and airway protection Patient position: sniffing Final Airway Details Final airway type: endotracheal airway Successful airway: ETT Cuffed: yes Successful intubation technique: direct laryngoscopy Endotracheal tube insertion site: oral Blade: Faviola Blade size: #3 ETT size (mm): 7.5 Cormack-Lehane Classification: grade I - full view of glottis Placement verified by: chest auscultation and capnometry Measured from: lips ETT to lips (cm): 22 Additional Comments Bilateral chest rise, Bilateral breath sounds, Negative epigastric sounds, and Positive ETCo2. Atraumatic no change to dentition. Kevin Anderson DO ANESTHESIA ORDERABLES Final Result * Peripheral Block (06/28/2025 8:05 AM EDT) Narrative Kevin Anderson DO - 06/28/2025 8:05 AM EDT Kevin Anderson DO 06/28/2025 8:28 AM Peripheral Block Patient location during procedure: OR Start time: 06/28/2025 8:05 AM End time: 06/28/2025 8:11 AM Reason for block: post-op pain management Block is at surgeon's request Staffing Performed: Resident Anesthesiologist: Kevin Anderson DO Resident: Shubham Gibbons MD Preanesthetic Checklist Completed: patient identified, IV checked, site marked, risks and benefits discussed, surgical consent, monitors and equipment checked, pre-op evaluation and timeout performed Peripheral Block Patient position: supine Prep: ChloraPrep Patient monitoring: continuous pulse ox, heart rate and athletic monitor Anesthesia block type: interscalene. Laterality: left Injection technique: single-shot Guidance: ultrasound guided Local infiltration: lidocaine Infiltration strength: 1 % Dose: 2 mL Needle Needle type: pencil-tip Needle localization: anatomical landmarks and ultrasound guidance Medications Administered midazolam (Versed) injection - Intravenous 2 mg - 06/28/2025 8:05:00 AM 0.5% ropivacaine - Injection 25 mL - 06/28/2025 8:05:00 AM Assessment Injection assessment: negative aspiration for heme, local visualized surrounding nerve on ultrasound and incremental injection Paresthesia pain: none Heart rate change: no Slow fractionated injection: yes us Kevin R Monica CANO ANESTHESIA ORDERABLES Final Result documented in this encounter Visit Diagnoses Not on filedocumented in this encounter Administered Medications Inactive Administered Medications - up to 3 most recent administrations Medication Order MAR Action Action Date Dose Rate Site ceFAZolin (Ancef) injection 2 g 2 g, Intravenous, Once, 1 dose, On Sat06/28/25 at 0745, Routine, Anesthesia Intraprocedure Given 06/28/2025 10:36 AM EDT 2 g ePHEDrine (Akovaz) 50 MG/ML injection Intravenous, As needed, Starting on Sat06/28/25 at 0848, Until Sat06/28/25 at 1101, Routine, Anesthesia Intraprocedure Given 06/28/2025 10:01 AM EDT 10 mg Given 06/28/2025 9:40 AM EDT 10 mg Given 06/28/2025 8:48 AM EDT 15 mg lactated Ringer's infusion Intravenous, Continuous PRN, Starting on Sat06/28/25 at 0816, Until Sat06/28/25 at 1101, Routine New Bag 06/28/2025 8:56 AM EDT New Bag 06/28/2025 8:16 AM EDT lidocaine PF (Xylocaine) 2 % injection Intravenous, As needed, Starting on Sat06/28/25 at 0821, Until Sat06/28/25 at 1101, Routine, Anesthesia Intraprocedure Given 06/28/2025 8:21 AM EDT 100 mg midazolam (Versed) injection Intravenous, Once PRN Procedure, Starting on Sat06/28/25 at 0805, Until Sat06/28/25 at 0805, Routine, Anesthesia Intraprocedure Given 06/28/2025 8:05 AM EDT 2 mg ondansetron (Zofran) injection Intravenous, As needed, Starting on Sat06/28/25 at 1039, Until Sat06/28/25 at 1101, Routine, Anesthesia Intraprocedure Given 06/28/2025 10:39 AM EDT 4 mg phenylephrine in NS (Konrad-Synephrine) 100 mcg/mL prefilled syringe Intravenous, As needed, Starting on Sat06/28/25 at 1008, Until Sat06/28/25 at 1101, Routine, Anesthesia Intraprocedure Given 06/28/2025 10:08 AM EDT 100 mcg propofol (Diprivan) injection Intravenous, As needed, Starting on Sat06/28/25 at 0821, Until Sat06/28/25 at 1101, Routine, Anesthesia Intraprocedure Given 06/28/2025 8:21 AM EDT 200 mg rocuronium (ZeMuron) injection Intravenous, As needed, Starting on Sat06/28/25 at 0821, Until Sat06/28/25 at 1101, Routine, Anesthesia Intraprocedure Given 06/28/2025 10:23 AM EDT 15 mg Given 06/28/2025 8:21 AM EDT 50 mg ropivacaine (Naropin) injection Injection, Once PRN Procedure, Starting on Sat06/28/25 at 0805, Until Sat06/28/25 at 0805, Routine, Anesthesia Intraprocedure Given 06/28/2025 8:05 AM EDT 25 mL sugammadex (Bridion) 100 MG/ML injection Intravenous, As needed, Starting on Sat06/28/25 at 1039, Until Sat06/28/25 at 1101, Routine, Anesthesia Intraprocedure Given 06/28/2025 10:39 AM EDT 200 mg documented in this encounter Additional Health Concerns Assessment Noted Time A fall risk assessment has been complete d for the patient 05/11/2025 1:56 PM EDT A Body Mass Index follow-up plan has been documented for the patient 05/11/2025 2:35 PM EDT documented as of this encounter Care Teams Homeland Security Program Specialist Relationship Specialty Start Date End Date Azeem Champion MD [address] [place] [address] PCP - General 03/24/21 documented as of this encounter
--- OUTSIDE RECORDS SUMMARY | 2025-06-28 08:45 | XMS_ITS | Encounter Summary ---
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] Procedures CT PAM SHOULDER ARTHRPLSTY HUMERAL/GLENOID COMPNT REVISION, TOTAL ARTHROPLASTY, SHOULDER Jason Chappell MD [id number] [place] [address] Phone: tel: fax: [facility] Operating Room [address] [place] [address] Phone: tel: Referral ID Status Reason Start Date Expiration Date Visits Re quested Visits Authorized [id number] 1 1 Encounter Details Date Type Department Care Team (Late st Contact Info) Description 06/28/2025 8:45 AM EDT - 06/28/2025 11:25 AM EDT Surgery [facility] Operating Room [address] [place] [address] Jason Chappell MD [id number] [place] [address] REVISION, TOTAL ARTHROPLASTY, SHOULDER [02864 (CPT )] Surgery Details Date/Time Status Location OR Service Patient Class Case Class Case Type Trauma Case? 06/28/2025 8:45 AM Posted [facility] Surgery E-Electi ve Panel 1 Procedure LRB Anes Op Region Wound Class Comments REVISION, TOTAL ARTHROPLASTY, SHOULDER Left General S [place] Class I/ Clean Surgeon Surgeon Role Service Panel Nahid Fletcher PA Assisting 1 Jason Chappell MD Primary Orthopedic Surgery 1 documented in this encounter Social History Tobacco Use Types Packs/Day Years Used Date Smoking Tobacco: Former Cigarettes 0.5 15 1 2007 Passive Smoke Exposure: Never Smokeless Tobacco: [...] Sign Reading Time Taken Comments Blood Pressure 122/70 06/28/2025 11:20 AM EDT Pulse 70 06/28/2025 11:20 AM EDT Temperature 36.4 C (97.5 F) 06/28/2025 11:00 AM EDT Respiratory Rate 16 06/28/2025 11:20 AM EDT Oxygen Saturation 95% 06/28/2025 11:20 AM EDT Inhaled Oxygen Concentration - - Weight [...] 1 Month) No 06/28/2025 6:57 AM EDT Naila He RN 6. Suicidal Behavior (Lifetime) No 6:57 AM EDT Isatu He RN documented as of this encounter Medications at Time of Discharge Creon [id number] units capsule delayed-release particles capsule TAKE 1 CAPSULE BY MOUTH WITH MEALS AND/OR SNACKS MAX OF 6 PER DAY 12/17/2024 docusate sodium (Colace) 250 MG capsule Take 1 capsule by mouth daily. 7 capsule 06/28/2025 gabapentin (Neurontin) 600 MG tablet Take 1 tablet by mouth 2 times a day. 10/01/2023 HYDROcodone-acet aminophen (Mackey) 5-325 MG tablet Take 1 tablet by [...] up to 14 days. 42 tablet 06/28/2025 documented as of this encounter Miscellaneous Notes * Perioperative Nursing Note - Zara Leavitt RN - 06/28/2025 11:56 AM EDT Discharge instructions reviewed with patient/patient's family member. Verbalized understanding of all instructions and has no further questions. * [facility] - Zara Leavitt RN - 06/28/2025 11:12 AM EDT Images from the original note were not included. [id number] Scopolamine Transdermal Patch WHY is this medicine [...] or doctor for a copy of the subway guard's information for the patient. Are there OTHER [...] to the Food and Drug Administration's (FDA) [place] Adverse Event Reporting program online (https://www.fda.gov/Safety/MedWatch) or [...] and out of their sight and reach. https://www.VintndCrossLoop.org Dispose of unneeded medications in a way [...] is not breathing, call local emergency servicesat 771. Symptoms of overdose may include the following: [...] of all of the prescription and nonprescription (cylx-qaf-fwkupay) medicines, vitamins, minerals, and dietary supplements you [...] or pharmacist about specific clinical use. The [employer] represents that the information provided hereunder was formulated with a reasonable standard of care, and in conformity with professional standards in the field. The [employer] makes no representations or warranties, express or implied, including, but not limited to, any implied warranty of merchantability and/or fitness for a particular purpose, with respect to such information and specifically disclaims all such warranties. Users are advised that decisions regarding drug therapy are complex medical decisions requiring the independent, informed decision of an appropriate health care information associate, and the information is provided for informational purposes only. The entire monograph for a drug should be reviewed for a thorough understanding of the drug's actions, uses and side effects. The [employer] does not endorse or recommend the use of any drug.The information is not a substitute for medical care. AHFS?? Patient Medication Information?. ?? Copyright, 2023. The [employer]??, [address] [facility] [facility], [address], [place], [place]. All Rights Reserved. Duplication for commercial use must be authorized by [facility]. Selected Revisions: April 25, 2019. AHFS?? Patient Medication Information?. ?? Copyright, 2024 * Andi GouldJESUS - Zara Leavitt RN - 06/28/2025 11:12 [...] questions about my nerve block? Please call [phone]. Ask the squeegee operator to page the acute pain resident on anesthesiology. * Andi [facility] - Zara Leavitt RN - 06/28/2025 11:12 AM EDT Images from the original note were not included. [id number] Managing Post-Op Pain at Home Pain is [...] up Last Reviewed Date: 2022 00:00:00 ?? [id number] [employer]. All rights reserved. This information is not intended as a substitute for professional medical care. Always follow your healthcare professional's instructions. * Andi [facility] - Zara Leavitt RN - 06/28/2025 11:12 AM EDT Images from the original note were not included. [id number] Discharge from Outpatient Surgery You are scheduled [...] bleeding. Last Reviewed Date: 2024 00:00:00 ?? [id number] [employer]. All rights reserved. 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 Item Serial No. Stock Order Lister Lot No. LRB No. Used Action BASEPLATE GLENOID W/P2 COATING RSP TI 30MM - [id number] BASEPLATE GLENOID W/P2 COATING RSP TI 30MM [facility]-[id number] Left 1 Implanted HEAD GLENOID W/RETAINING SCREW RSP TI 32MM/STD - [id number] HEAD GLENOID W/RETAINING SCREW RSP TI 32MM/STD [facility]-[id number] Left 1 Implanted SCREW BONE LOCKING RSP TI 5MM X 30MM - [id number] SCREW BONE LOCKING RSP TI 5MM X 30MM [facility]-[id number] Left 2 Implanted SCREW BONE LOCKING RSP TI 5MM X 26MM - [id number] SCREW BONE LOCKING RSP TI 5MM X 26MM [id number] Left 1 Implanted POLY SMALL SOCKET EPLUS 32MM SEMICONTRAINT STD - [id number] POLY SMALL SOCKET EPLUS 32MM SEMICONTRAINT STD [facility]-[id number] Left 1 Implanted Drains: None Complications: None [...] proceed with the above- mentioned procedures. An Block Hand Surgeon in the form of a Physician Block Hand was necessary due to the complexity and [...] screws in their entirety. We then used Jany osteotomes to loosen the glenoid base plate. [...] trialed the size 32 mm semi constrained poly. This was felt to be appropriate fit. We [...] 32 mm semi constrained poly. We then relocated the glenohumeral joint and it was felt to [...] present as no qualified resident was available. Block Hand was necessary due to the complexity and difficulty of the case (a medical necessity). The engineer third assistant was involved in all aspects of [...] left shoulder pain History Of Present Illness Dallas Aleman is a 54 y.o. male [...] NASAL SEPTUM SURGERY N/A Nasal septoplasty from [employer] OTHER SURGICAL HISTORY pain pump OTHER SURGICAL [...] Types: Cigarettes Start date: 1992 Quit date: 2008 Years since quittin.6 Passive exposure: Never Smokeless [...] current facility-administered medications for this encounter. * Andi GouldJESUS - Lesvia Romero RN [...] your doctor as soon as possible! * Lesvia Peña RN - 06/15/2025 10:36 AM EDT Images from the original note were not included. [id number] * Lesvia Peña RN - 06/15/2025 10:36 AM EDT Images from the original note were not included. [address] [facility] How to get to [facility] From [facility] ([place] [address]) [address] at [facility] Continue on [address] past [facility] (Avenue [facility]). ? For hospital parking, turn right into the [facility] driveway just before [address] and proceed to the garage. ? For the Medical Office Building and [facility], turn right onto [address]. Entrances to the buildings? parking lots will be on your left. From [address]/[facility] ([place] [address]) Follow [facility] to [address]. Turn right onto [address] and proceed to [address]. Immediately after crossing [address]: ? For hospital parking, turn right into the hospital driveway and proceed to the parking garage straight ahead. ? For the [facility] Medical Office Building, take the first left. ? For the [facility] Professional [facility] Center, take the second left. From [address] ([place] [address]) [address] becomes [address] as you enter downtown. Continue on [address] to [address]. Turn left onto [address] and proceed to [address]. Turn left onto [address]. Immediately after crossing [address] ([place]): ? For hospital parking, turn right into the hospital driveway and proceed to the parking garage straight ahead. ? For the [facility] Medical Office Building, take the first left. ? For the [facility] Professional [employer] [place], take the second left. From [address] ([place] [address]) [address] as you enter [place]. Continue on [address] to [address]. Immediately after crossing [address] ([place]): ? For hospital parking, turn right into the hospital driveway and proceed to the parking garage straight ahead. ? For the [facility] Medical Office Building, take the first left. ? For the [facility] [place], take the second left. From [facility] ([place] [address]/[place] [address]) Turn left onto [address] and proceed to [address], turning left onto [address]. Immediately after crossing [address] ([place]): ? For hospital parking, turn right into the hospital driveway and proceed to the parking garage straight ahead. ? For the [facility] Medical Office Building, take the first left. ? For the [facility] Professional [facility], take the second left. Do not use [employer]. Parts of it are closed for construction. [...] Home Medication Instructions Current Medications Medication Instructions [place] [id number] units capsule delayed-release particles capsule Hold day of surgery gabapentin (Neurontin) 600 MG tablet Take morning of surgery Implanted pain pump Take as prescribed sertraline (Zoloft) 150 MG tablet Take morning of surgery tadalafil (Cialis) 10 MG tablet Hold 24 hours before surgery General Preoperative Instructions You will be called the business day before surgery with your arrival time Your surgery is at [facility] located at [address] [place] [address] Please park in the parking garage and [...] card, photo ID, along with power of ip attorney, guardianship or advanced directives if applicable Do [...] card, photo ID, along with power of ip attorney, guardianship or advanced directives if applicable Do [...] EDT S/P reverse total shoulder arthroplasty, left CT PAM SHOULDER ARTHRPLSTY HUMERAL/GLENOID COMPNT 06/28/2025 8:01 [...] AM EDT) Case Report Surgical Pathology Case: [id number] Authorizing Provider: Jason Chappell MD Collected: 06/28/2025 1024 Ordering Location: [facility] Operating Room Received: 06/28/2025 1131 Pathologist: Macey Cote MD Specimen: Shoulder, Left, left shoulder explanted hardware 07/09/2025 3:57 PM EDT [facility] Final Diagnosis A. MEDICAL HARDWARE; EXPLANTATION FROM LEFT SHOULDER: - MEDICAL HARDWARE; GROSS ONLY ASSESSMENT. 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 LEFT SHOULDER EXPLANTED HARDWARE Received fresh labeled left shoulder explanted hardware is a silver-colored, metal humeral head measuring 3.0 cm in diameter and 2.5 cm in height. Inscriptions include: DJO 032mm, Danny CcCr, [id number], [id number]. A roughened, patton-colored, plastic spacer measuring 3.8 cm in diameter and 2.0 cm in height. A melvin-colored, metal, partially threaded object measuring 4.5 cm in length and up to 2.5 cm in diameter. Lastly, 5 silver-colored, metal screws ranging in size from 1.6 to 3.3 cm in length up to 0.7 cm in diameter. Specimen submitted for gross only. Greta Maximino Paula 07/09/2025 3:57 PM EDT [facility] Note: A resident was involved in the service. I attest I examined the relevant preparations for the specimens and confirmed the diagnosis or interpretation. 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] Jason Chappell MD LAB PATHOLOGY ORDERABLES Fin al Result [facility] [address] [place] [address] * Fungal Culture, Tissue and MONSERRAT (06/28/2025 9:51 AM EDT) Culture Reading Mycological 4 Weeks No Fungal Growth at 4 Weeks 07/26/2025 7:08 AM EDT [facility] MONSERRAT No fungal elements seen 07/26/2025 7:08 AM EDT [facility] Tissue Structure of left shoulder region / Unknown 06/28/2025 9:51 AM EDT 06/28/2025 11:08 AM EDT Comment:Pre-op diagnosis: S/P reverse total shoulder arthroplasty, 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] Jason Chappell MD LAB MICROBIOLOGY - GENERAL O RDERABLES Final Result Performing Organization Address City/[facility]/ZIP Co de Phone Number [facility] [address] [place] [address] * AFB Culture, Non Respiratory Source and Acid Fast Stain (06/28/2025 9:51 AM EDT) AFB Culture No Mycobacterial Growth at 6 Weeks 08/10/2025 3:16 PM EDT [facility] Acid Fast Stain No acid fast bacilli seen 08/10/2025 3:16 PM EDT [facility] Tissue Structure of left shoulder region / Unknown 06/28/2025 9:51 AM EDT 06/28/2025 11:08 AM EDT Comment:Pre-op diagnosis: S/P reverse total shoulder arthroplasty, 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] Jason Chappell MD LAB MICROBIOLOGY - GENERAL O RDERABLES Final Result [facility] [address] [place] [address] * Tissue Culture and Gram Stain (06/28/2025 9:51 AM EDT) Culture No growth at day 4 2024 6:11 AM EDT [facility] Gram Stain Result Few Polymorphonuclear leukocytes 07/03/2025 6:11 AM EDT [facility] Gram Stain Result No organisms seen 07/03/2025 6:11 AM EDT [facility] Tissue Structure of left shoulder region / Unknown 06/28/2025 9:51 AM EDT 06/28/2025 11:08 AM EDT Comment:Pre-op diagnosis: S/P reverse total shoulder arthroplasty, 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] Jason Chappell MD LAB MICROBIOLOGY - GENERAL O RDERABLES Final Result [facility] [address] [place] [address] * (ABNORMAL) Anaerobic Culture (06/28/2025 9:51 AM EDT) Culture No anaerobes isolated 07/03/2025 7:25 AM EDT [facility] Culture Isolated from broth only: Staphylococcus epidermidis(A) 07/03/2025 7:25 AM EDT [facility] Comment: This isolate has been identified using the FDA Approved Sensor [employer]yper CA System The organism value for this [...] MICROBIOLOGY - GENERAL O RDERABLES Final Result [facility] [address] [place] [address] * Fungal Culture, Tissue and MONSERRAT (06/28/2025 8:54 AM EDT) Culture Reading Mycological 4 Weeks No Fungal Growth at 4 Weeks 07/26/2025 7:08 AM EDT [facility] MONSERRAT No fungal elements seen 07/26/2025 7:08 AM EDT [facility] Tissue Structure of left shoulder region / Unknown 06/28/2025 8:54 AM EDT 06/28/2025 11:08 AM EDT Comment:Pre-op diagnosis: S/P reverse total shoulder arthroplasty, 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] Jason Chappell MD LAB MICROBIOLOGY - GENERAL O RDERABLES Final Result Performing Organization Address City/[facility]/ZIP Co de Phone Number [facility] [address] [place] [address] * AFB Culture, Non Respiratory Source and Acid Fast Stain (06/28/2025 8:54 AM EDT) AFB Culture No Mycobacterial Growth at 6 Weeks 08/10/2025 3:15 PM EDT [facility] Acid Fast Stain No acid fast bacilli seen 08/10/2025 3:15 PM EDT [facility] Tissue Structure of left shoulder region / Unknown 06/28/2025 8:54 AM EDT 06/28/2025 11:08 AM EDT Comment:Pre-op diagnosis: S/P reverse total shoulder arthroplasty, 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] Jason Chappell MD LAB MICROBIOLOGY - GENERAL O RDERABLES Final Result Performing Organization Address City/[facility]/ZIP Co de Phone Number [facility] [address] [place] [address] * (ABNORMAL) Tissue Culture and Gram Stain (06/28/2025 8:54 AM EDT) Culture Light Growth 07/02/2025 7:36 AM EDT [facility] Culture Staphylococcus epidermidis(A) 07/02/2025 7:36 AM EDT [facility] Comment: This isolate has been identified using the FDA Approved Backand CA System The organism value for this result has been updated. These results have been appended to the previously preliminary verified report. Gram Stain Result Rare Polymorphonuclear leukocytes 07/02/2025 7:36 AM EDT [facility] Gram Stain Result No organisms seen 07/02/2025 7:36 AM EDT [facility] Tissue Structure of left shoulder region [...] MICROBIOLOGY - GENERAL O RDERABLES Final Result [facility] [address] [place] [address] * Anaerobic Culture (06/28/2025 8:54 AM EDT) Culture No anaerobes isolated 07/03/2025 6:07 AM EDT [facility] Tissue Structure of left shoulder region / Unknown 06/28/2025 8:54 AM EDT 06/28/2025 11:08 AM EDT Comment:Pre-op diagnosis: S/P reverse total shoulder arthroplasty, 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..] line care thrombin (recombinant) (Recothrom) topical solution As needed, Starting on Sat06/28/25 at 0904, Until Sat06/28/25 at 1056, Routine Given 06/28/2025 9:04 AM EDT 5,000 Units Other vancomycin (Vancocin) vial for injection As needed, Starting on Sat06/28/25 at 0848, Until Sat06/28/25 at 1056, Routine, Intraprocedure Given 06/28/2025 8:48 AM EDT 1 g Other documented in this encounter Active and Recently [...] Intraprocedure 1036 (Given - Provid er: Jason Dominguez CRNA, DNP) ketorolac (Toradol) injection 15 mg (COMPLETED) [...] documented as of this encounter Care Teams Aircraft Navigator Relationship Specialty Start Date End Date Azeem Champion MD [address] [place] [address] PCP - General 03/24/21 documented as of this encounter
--- OUTSIDE RECORDS SUMMARY | 2025-07-13 11:10 | XMS_ITS | Encounter Summary ---
Author Organization [facility] Address [address] [place] [address] Care Team Providers Care Explosive Operator Bomb Name Role Phone Azeem Champion MD Primary Care Provider [phone] Reason for Referral * Consultation (Routine) - Authorized Specialty Diagnoses / Procedures Referred By Contac t Referred To Contact Occupational Therapy Diagnoses S/P reverse total shoulder arthroplasty, left Nahid Fletcher PA [id number] [place] [address] Phone: tel: fax: Referral ID Status Reason Start Date Expiration Date Visits Requested Visits Authorized [id number] Authorized Consult and Treat 07/13/2025 01/12/2027 1 1 Reason for Visit * Reason Comments Post-op CT follow up Encounter Details Date Type Department Care Team (Late st Contact Info) Description 07/13/2025 11:10 AM EDT Office Visit [facility] [address] [place] [address] Jason Chappell MD [address] [facility] [address] [place] [address] S/P reverse total shoulder arthroplasty, left (Primary Dx) Social History Tobacco Use Types Packs/Day Years [...] Sign Reading Time Taken Comments Blood Pressure 133/85 07/13/2025 11:09 AM EDT Pulse 68 07/13/2025 11:09 AM EDT Temperature 36.7 C (98.1 F) 07/13/2025 11:09 AM EDT Respiratory Rate - - Oxygen Saturation 97% 07/13/2025 11:09 AM EDT Inhaled Oxygen Concentration - - Weight 102 kg (225 lb) 07/13/2025 11:09 AM EDT Height 188 cm (6' 2 ) 07/13/2025 11:09 AM EDT Body Mass Index 28.89 07/13/2025 11:09 AM EDT documented in this encounter Miscellaneous Notes * Progress Notes - Nahid Fletcher PA - 07/13/2025 11:10 AM EDT Procedure performed: Left revision reverse total shoulder arthroplasty Attending: Dr. Chappell DOS: 06/28/2025 History of Present Illness: Dallas Aleman is a 54 y.o. male who is 2 weeks status post the aboveprocedure. His pain is tolerable and he is not currently taking any medications for pain. He has been compliant with UltraSling immobilization. He denies any signs of postoperative infection. PMH/FMH/SH:I have reviewed the patient's medical history, surgical history, social history, and family history. This is located in the patient's note and/or in their intake form that has been scannedinto their medical record at today's visit. Physical Exam: BMI is Body mass index is 28.89 kg/m??. General: Patient is pleasant and cooperative. The patient is well-developed and well-nourished. Patient is in no apparent distress Vitals: as documented in the chart for today's visit HEENT: Head: Normocephalic; Atraumatic Eyes: PERRLA; EOMI Ears: Normal external auditory canals and tympanic membranes Lungs/thorax: Normal respiratory effort, symmetric chest rise and fall Cardiovascular: skin well-perfused; capillary refill < 2 sec Skin: Visualized skin with no acute or worrisome lesions or masses Musculoskeletal: Left Shoulder: Appearance: Fully close deltopectoral incision with mariah intact. No signs of dehiscence or infection Palpation: [Nontender to palpation] of the sternoclavicular joint, acromioclavicular joint, long head of the biceps tendon, and anterior supraspinatus footprint Patient immobilized in the UltraSling. No range of motion tested today. Left Wrist/Hand: Appearance: [Normal to visualized inspection] Patient is able to make a full fist and has full extension of all digits Cervical Spine: [Normal appearance with no skin lesions or masses.] Neurologic: Cranial nerves II-XII intact. Sensation intact in axillary, ulnar, median, and radial nerve distributions in bilateral upper extremities Psychiatric: Mental status: Patient is oriented to person, place, and time. Patient displays appropriate affect and demeanor Imaging: My independent interpretation of radiographic testing shows: Left shoulder x- rays obtained on the way out today Assessment/Plan: Procedure performed: Left revision reverse total shoulder arthroplasty Attending: Dr. Chappell DOS: 06/28/2025 Dallas Aleman is a 54 y.o. male who is 2 weeks status post the above procedure. His pain is tolerable and he is not currently taking any medications for pain. He has been compliant with UltraSlingimmobilization. His incision is fully closed and looks well. We will have the mariah removed today. He has a previous shower sling that he may begin to use while bathing. We will obtain left shoulder x-rays on the way out today. We will provide an order for him to begin passive range of motion therapy. He may discontinue sling immobilization at the 6 week postoperative vicenta. We will see him backin 6 weeks from today with further left shoulder x-rays. The patient had the opportunity to ask questions, all of which were answered to their satisfaction. Kind Regards, Nahid Fletcher PA-C, [facility] Department of Orthopedic Surgery [facility] Cosigned by Jason Chappell MD at 07/13/2025 1:48 PM EDT Associated attestation - Jason Chappell MD - 07/13/2025 1:48 PM EDT I attest to being involved in providing substantive part of the medical decision making in patient care. documented in this encounter Plan of Treatment Scheduled Referrals Name Type Priority Associated Diagnoses Order Schedule Ambulatory referral to Physical Therapy Outpatient Referral Routine S/P reverse total shoulder arthroplasty, left Expected: 07/13/2025 (Approximate), Expires: 01/10/2026 documented as of this encounter Results * XR Shoulder Left 2+ Views (07/13/2025 12:44 PM EDT) Anatomical Region Laterality Modality Upper Extremities, Shoulder Left Digi anthony Radiography Impressions 07/13/2025 1:31 PM EDT Left reverse total shoulder arthroplasty with persistent air-fluid level in the joint. Cannot exclude infection. CRITICAL RESULT: No. COMMUNICATION: Per this written report. Drafted by Melvin Dumont MD on 07/13/2025 1:29 PM Final report signed by Melvin Dumont MD on 07/13/2025 1:31 PM Narrative 07/13/2025 1:31 PM EDT CLINICAL INDICATION: pain TECHNIQUE: XR SHOULDER LEFT 2+ VIEWS COMPARISON: June 28, 2025 FINDINGS: 4 views of the left shoulder show reverse total shoulder arthroplasty. Persistent air-fluid level in the superior aspect of the glenohumeral joint. Glenohumeral alignment is normal. No fracture of the acromion. Adjacent lung and chest wall are normal. Procedure Note Melvin Dumont MD - 07/13/2025 CLINICAL INDICATION: pain TECHNIQUE: XR SHOULDER LEFT 2+ VIEWS COMPARISON: June 28, 2025 FINDINGS: 4 views of the left shoulder show reverse total shoulder arthroplasty.Persistent air-fluid level in the superior aspect of the glenohumeraljoint. Glenohumeral alignment is normal. No fracture of the acromion.Adjacent lung and chest wall are normal. IMPRESSION: Left reverse total shoulder arthroplasty with persistent air-fluid levelin the joint. Cannot exclude infection. CRITICAL RESULT: No. COMMUNICATION: Per this written report. Drafted by Melvin Dumont MD on 07/13/2025 1:29 PM Final report signed by Melvin Dumont MD on 07/13/2025 1:31 PM Jason Chappell MD IMG XR PROCEDURES Final Resu lt documented in this encounter Visit Diagnoses Diagnosis S/P reverse total shoulder arthroplasty, left- Primary S/P reverse total shoulder arthroplasty, left documented in this encounter Additional Health Concerns Assessment Noted Time A fall risk assessment has been complete d for the patient 07/13/2025 11:09 AM EDT A Body Mass Index follow-up plan has been documented for the patient 07/13/2025 12:45 PM EDT documented as of this encounter Care Teams Explosive Operator Bomb Relationship Specialty Start Date End Date Azeem Champion MD [address] [place] [address] PCP - General 03/24/21 documented as of this encounter
--- OUTSIDE RECORDS SUMMARY | 2025-07-13 12:15 | XMS_ITS | Encounter Summary ---
Author Organization [facility] Address [address] [place] [address] Care Team Providers Care Housekeeping Laundry Worker Name Role Phone Azeem Champion MD Primary Care Provider [phone] Encounter Details Date Type Department Care Team (Latest Contact Info) Description 07/13/2025 12:15 PM EDT - 07/13/2025 11:59 PM EDT Hospital En[facility] [address] [place] [id number] S/P reverse total shoulder arthroplasty, left Discharge Disposition: Home or Self Care Social [...] on file documented as of this encounter Medications at Time of Discharge Creon [id number] units capsule delayed-release particles capsule TAKE 1 CAPSULE BY MOUTH WITH MEALS AND/OR SNACKS MAX OF 6 PER DAY 12/17/2024 docusate sodium (Colace) 250 MG capsule Take 1 capsule by mouth daily. 7 capsule 06/28/2025 gabapentin (Neurontin) 600 MG tablet Take 1 tablet by mouth 2 times a day. 10/01/2023 HYDROcodone-acet aminophen ([place]) 5-325 MG tablet Take 1 tablet by [...] tablet by mouth daily. For ED 03/10/2025 naproxen (Naprosyn) 375 MG tablet Take 1 tablet by mouth 2 times a day with meals. 60 tablet 06/28/2025 documented as of this encounter Plan of Treatment Not on file documented as of this encounter Procedures Procedure Name Priority Date/Time Associated Diagnosis Comments XR SHOULDER LEFT 2+ VIEWS Routine 07/13/2025 12:44 PM EDT S/P reverse total shoulder arthroplasty, left [...] documented as of this encounter Care Teams Housekeeping Laundry Worker Relationship Specialty Start Date End Date Azeem Champion MD [address] [place] [address] PCP - General 03/24/21 documented as of this encounter
[2025-08-25 16:16] LABS: Hematocrit 37.5 % (42.0-52.0); Hemoglobin 11.2 g/dL (14.1-18.0); Immature Granulocytes % 0.4 %; Mean Corpuscular HGB Conc 29.9 g/dL (31.8-35.4); Mean Corpuscular Hemoglobin 23.9 pg (27.0-31.2); Mean Corpuscular Volume 80.0 fl (80-94); Nucleated Red Blood Cells % 0 %; Platelet Count 201 K/mm3 (142-424); Red Blood Count 4.69 M/mm3 (4.60-6.20); Red Cell Distribution Width-SD 44.4 fL; White Blood Count 4.5 K/mm3 (4.8-10.8)
[2025-08-25 16:59] LABS: Alanine Aminotransferase 19 U/L (12-78); Albumin Level 4.2 g/dl (3.5-5.0); Anion Gap 16.5 mEq/L (5-15); Aspartate Amino Transferase 29 U/L (17-59); Bilirubin,Total 0.6 mg/dl (0.2-1.3); Blood Urea Nitrogen 21 mg/dl (9-20); Calcium 8.8 mg/dl (8.4-10.2); Carbon Dioxide 22 mmol/L (22.0-30.0); Chloride 103 mmol/L (98-107); Creatinine,Serum 0.90 mg/dl (0.66-1.25); Estimated Glomerular Filt Rate 88 ml/min (>60); GFR (African American) 107 ML/MIN (>60); Glucose 101 mg/dl (74-100); Potassium 4.5 mmoL/L (3.5-5.1); Sodium 137 mmol/L (136-145); Total Protein,Serum 6.8 g/dl (6.3-8.2)
[2025-08-25 17:00] LABS: Albumin/Globulin Ratio 1.6 (1.1-1.8); Alkaline Phosphatase 118 U/L (38-126); Cholesterol 253 mg/dl (140-200); Globulin 2.6 g/dL (1.3-3.2); HDL Cholesterol 41 mg/dl (40-60); Triglycerides 258 mg/dl (30-150)
[2025-08-25 17:32] LABS: Thyroid Stimulating Hormone 2.58 uIU/mL (0.465-4.68)
[2025-08-25 18:51] LABS: Hepatitis C Ab Qual. W/ RFX NEGATIVE (Negative)
--- OUTSIDE RECORDS SUMMARY | 2025-08-26 12:12 | XMS_ITS | Encounter Summary ---
Author Organization [facility] Address [address] [place] [address] Care Team Providers Care Produce Department Manager Name Role Phone Azeem Champion MD Primary Care Provider [phone] Reason for Referral * Consultation (Routine) - Authorized Specialty Diagnoses / Procedures Referred By Contneo gasca Referred To Contact Occupational Therapy Diagnoses S/P reverse total shoulder arthroplasty, left Nahid Fletcher PA [address] [facility] [address] [place] [address] Phone: tel: fax: Referral ID Status Reason Start Date Expiration Date Visits Requested Visits Authorized [id number] Authorized Consult and Treat 07/14/2025 01/13/2027 1 1 Encounter Details Date Type Department Care Team (Late st Contact Info) Description 07/14/2025 Orders Only [facility] Surgery [facility] Medicine [address] [place] [address] Nahid Fletcher PA [address] [place] [address] S/P reverse total shoulder arthroplasty, left (Primary Dx) Social History Tobacco Use Types Packs/Day Years Used Date Smoking Tobacco: Former Cigarettes 0.5 15 1 3 - 2007 Passive Smoke Exposure: Never Smokeless [...] on file documented as of this encounter Plan of Treatment Scheduled Referrals Name Type Priority Associated Diagnoses Order Schedule Occupational Therapy Outpatient Referral Routine S/P reverse total shoulder arthroplasty, left Expected: 07/14/2025 (Approximate), Expires: 01/15/2027 documented as of this encounter Visit Diagnoses Diagnosis S/P reverse total shoulder arthroplasty, left- Primary documented in this encounter Additional Health Concerns Assessment Noted Time A fall risk assessment has been complete d for the patient 07/13/2025 11:09 AM EDT A Body Mass Index follow-up plan has been documented for the patient 07/13/2025 12:45 PM EDT documented as of this encounter Care Teams Produce Department Manager Relationship Specialty Start Date End Date Azeem Champion MD [address] [place] [address] PCP - General 03/24/21 documented as of this encounter
--- OUTSIDE RECORDS SUMMARY | 2025-08-26 12:13 | XMS_ITS | Encounter Summary ---
Author Organization [facility] Address [address] [place] [address] Care Team Providers Care Senior Executive Assistant Name Role Phone Azeem Champion MD Primary Care Provider [phone] Encounter Details Date Type Department Care Team (Latest Contact Info) Description 07/13/2025 Travel Social History Tobacco Use Types Packs/Day Years [...] on file documented as of this encounter Visit Diagnoses Not on filedocumented in this encounter Additional Health Concerns Assessment Noted Time A fall risk assessment has been complete d for the patient 07/13/2025 11:09 AM EDT A Body Mass Index follow-up plan has been documented for the patient 07/13/2025 12:45 PM EDT documented as of this encounter Care Teams Senior Executive Assistant Relationship Specialty Start Date End Date Azeem Champion MD [address] [facility] [place] [address] PCP - General 03/24/21 documented as of this encounter
--- OUTSIDE RECORDS SUMMARY | 2025-08-26 12:13 | XMS_ITS | Clinical Summary ---
Author Organization [facility] Address [address] [place] [address] Care Team Providers Care Wind Operations Manager Name Role Phone Azeem Champion MD Primary Care Provider + [phone] Allergies Active Allergy Reactions Criticality Noted Date Comments Aspirin Nausea,Other - pleas e document in the comment field Low 10/01/2013 N & V Oxycodone Dizziness,Nausea High 04/26/2023 Medications gabapentin (Neurontin) 600 MG tablet Take 1 tablet by mouth 2 times a day. 3 Active sertraline (Zoloft) 100 MG tablet Take 1.5 tablets by mouth daily. 3 Active Implanted pain pump by Implant route 1 (one) time. Pt has dilaudid pain pump infusing Active Creon 26226-398792 units capsule delayed-release particles capsule TAKE 1 CAPSULE BY MOUTH WITH MEALS AND/OR SNACKS MAX OF 6 PER DAY 5 Active tadalafil (Cialis) 10 MG tablet Take 1 tablet by mouth daily. For ED 5 Active docusate sodium (Colace) 250 MG capsule Take 1 capsule by mouth daily. 7 capsule 5 Active methocarbamol (Robaxin) 750 MG tablet Take 1 tablet by mouth 3 times a day as needed for muscle spasms. 42 tablet 5 Active naloxone (Narcan) 4 mg/0.1 mL nasal spray 1. Give 1 spray in nostril for no/slow breathing or cannot wake after opioid use 2. Call 911 3. Repeat in other nostril if symptoms continue 1 each 5 Active HYDROcodone-robert taminophen ([place]) 5-325 MG tablet Take 1 tablet by mouth every 6 hours as needed for severe pain. 30 tablet Active naproxen (Naprosyn) 375 MG tablet Take 1 tablet by mouth 2 times a day with meals. 60 tablet 5 07/28/20 25 Active Problems Problem Noted Date Diagnosed Date S/P reverse total shoulder arthroplasty, left Post-traumatic osteoarthritis of left shoulder 0 12/11/2023 Encounters Date Type Department Care Team Description 07/14/[address] [facility] Orthopaedic Surgery & Sports Medicine [address] [place] [address] Nahid Fletcher PA S/P reverse total shoulder arthroplasty, left (Primary Dx) 07/14/[address] [facility] Orthopaedic Surgery & Sports Medicine [address], [address] [facility] [address] [place] [phone] Jason Chappell MD HCN - Patient Message 07/13/2025 12:15 PM EDT - 07/13/2025 11:59 PM EDT Hospital Encounter [facility] Radiology [address], 1[address] [place] [phone] S/P reverse total shoulder arthroplasty, left Discharge Disposition: Home or Self Care 07/13/2025 11:10 AM EDT Office Visit [facility] Orthopaedic Surgery & Sports Medicine [address] [facility] [address] [place] [id number] Jason Chappell MD S/P reverse total shoulder arthroplasty, left (Primary Dx) 07/13/2025 Travel 06/28/2025 8:45 AM EDT - 06/28/2025 11:25 AM EDT Surgery [facility] Operating Room [address] [place] [address] Jason Chappell MD REVISION, TOTAL ARTHROPLASTY, SHOULDER [58368 (CPT )] 06/28/2025 8:16 AM EDT Anesthesia Event [facility] Operating Room [address] [place] [phone] Kevin Anderson DO 06/28/2025 6:38 AM EDT - 06/28/2025 12:19 PM EDT Hospital Encounter [facility] Operating Room [address] [place] [address] Jason Chappell MD S/P reverse total shoulder arthroplasty, left (Primary Dx) Discharge Disposition: Home or Self Care 06/28/2025 Travel from Last 3 Months Family History Medical History Relation Name Comments Conversions - Other Father Healthy adult on routine physical examination Conversions - Other Mother Healthy adult on routine physical examination Anesthesia problems Neg Hx Malig Hyperthermia Neg Hx Relation Name Status Comments Father Mother Social History Tobacco Use Types Packs/Day Years Used Date Smoking Tobacco: Former Cigarettes 0.5 15 1 - 2007 Passive Smoke Exposure: Never Smokeless Tobacco: Never Tobacco Cessation:Counseling Given: Not Answered Alcohol Use Standard Drinks/Week Comments Yes 14 [...] AM EDT Sexual Orientation Not on file Last Filed Vital Signs Vital Sign Reading Time Taken Comments Blood Pressure 133/85 07/13/2025 11:09 AM EDT Pulse 68 07/13/2025 11:09 AM EDT Temperature 36.7 C (98.1 F) 07/13/2025 11:09 AM EDT Respiratory Rate 17 06/28/2025 12:00 PM EDT Oxygen Saturation 97% 07/13/2025 11:09 AM EDT Inhaled Oxygen Concentration - - Weight 102 kg (225 lb) 07/13/2025 11:09 AM EDT Height 188 cm (6' 2 ) 07/13/2025 11:09 AM EDT Body Mass Index 28.89 07/13/2025 11:09 AM EDT Plan of Treatment Health Maintenance Due Date Last Done Comments [facility]-HIV Screening 1971 [facility]-Hepatitis C Screening 1971 [facility]-Medicare Annual Wellness (AWV) 1971 [facility]-/Child/Adol SDOH Screenings 1971 [facility]- SDOH Screenings 1989 [facility]-Adult SDOH Screenings 1989 [facility]-Hepatitis B Vaccines (1 of 3 - 19+ 3-dose series) 1990 CT Colonography 2016 Colonoscopy 2016 FIT-DNA 2016 FIT 2016 FOBT 2016 Sigmoidoscopy 2016 [facility]-Colorectal Cancer Screening 2016 [facility]-Pneumococcal Vaccine: 50+ Years (1 of 1 - PCV) 2021 [facility]-Zoster Vaccines (1 of 2) 2021 [facility]-Depression Screening 05/05/2025 05/05/2024 [id number] Vaccine (2 - 2024- season) 2025 04/19/2021 [facility]-Influenza Vaccine (#1) 2025 [facility]-DTaP,Tdap,and Td Vaccines (2 - Td or Tdap) 12/16/2033 12/16/2023 [facility]-Obesity Intervention Completed 025, 05/11/2025, 04/20/2025, Additional history exists HPV Vaccines Aged Out No longer eligi ble based on patient's age to complete this topic [facility]-HIB Vaccines Aged Out No longer e ligible based on patient's age to complete this topic [facility]-Hepatitis A Vaccines Aged Out No longer eligible based on patient's age to complete this topic [facility]-IPV Vaccines Aged Out No longer e ligible based on patient's age to complete this topic [facility]-Rotavirus Vaccines Aged Out No lo nger eligible based on patient's age to complete this topic Medical Devices Implanted Type Area Account Collector Device Identifier Shelf Expiration Date Model / Serial / Lot Chg Cement [place] G-Hv Bone 40 - [id number] Implanted:Qty: 1 on 01/16/2024 by Jason Chappell MD at [facility] Cement Left: Shoulder [employer] [id number] 02/26/2025 600-15-1 00 / / [id number] Mesh Mesh Left: Abdomen Pain Pump Pain Pump Right: Back Baseplate Glenoid W/P2 Coating Rsp Ti 30mm - [id number] Implanted:Qty: 1 on 01/16/2024 by Jason Chappell MD at [facility] Plate Left: Shoulder [employer]-[id number] 10/31/2029 508-32-2 [id number] Screw Bone Locking Rsp Ti 5mm X 34mm - [id number] Implanted:Qty: 1 on 01/16/2024 by Jason Chappell MD at [facility] Screw Left: Shoulder [employer]-[id number] 02/20/2029 506-03-1 34 / [id number] Screw Bone Locking Rsp Ti 5mm X 22mm - [id number] Implanted:Qty: 1 on 01/16/2024 by Jason Chappell MD at [facility] Screw Left: Shoulder [employer]-[id number] 08/07/2029 506-03-1 22 / [id number] Head Glenoid W/Retaining Screw Rsp Ti 32mm/Std - [id number] Implanted:Qty: 1 on 01/16/2024 by Jason Chappell MD at [facility] Screw Left: Shoulder [employer]-[id number] 11/18/2029 508-32-1 2C4408 Screw Bone Locking Rsp Ti 5mm X 18mm - [id number] Implanted:Qty: 1 on 01/16/2024 by Jason Chappell MD at [facility] Screw Left: Shoulder [employer]-[id number] 10/12/2029 506-03-1 18 [id number] Restrictor Clear Cut Cement 12mm - [id number] Implanted:Qty: 1 on 01/16/2024 by Jason Chappell MD at [facility] Shoulder Left: Shoulder [employer]-[id number] 04/10/2026 415-00-1 [id number] Poly Small Socket Eplus 32mm Semicontraint Plus4 - [id number] Implanted:Qty: 1 on 01/16/2024 by Jason Chappell MD at [facility] Shoulder Left: Shoulder [employer]-[id number] 06/24/2028 509-03-4 32 / / [id number] Stem Humeral Altivate Ti Sm Shell Sz8/108mm - [id number] Implanted:Qty: 1 on 01/16/2024 by Jason Chappell MD at [facility] Stem Left: Shoulder [employer]-[id number] 08/08/2029 533-08-1 08 / / [id number] Putty Dbx 10cc - [id number] Implanted:Qty: 1 on 01/16/2024 by Jason Chappell MD at [facility] Left: Shoulder Musculoskeletal Transplant [employer]-[id number] 11/26/2025 52800 / / [id number] Screw Bone Locking Rsp Ti 5mm X 26mm - [id number] Implanted:Qty: 1 on 01/16/2024 by Jason Chappell MD at [facility] Left: Shoulder [employer]-[id number] 10/18/2029 506-03-1 [id number] Poly Small Socket Eplus 32mm Semicontraint Plus4 - [id number] Implanted:Qty: 1 on 09/07/2024 by Jason Chappell MD at [facility] Left: Shoulder [employer]-[id number] 11/27/2028 509-03-4 32 / / [id number] Head Glenoid W/Retaining Screw Rsp Ti 32mm/Std - [id number] Implanted:Qty: 1 on 09/07/2024 by Jason Chappell MD at [facility] Left: Shoulder [employer]-[id number] 08/20/2030 508-32-1 [id number] Baseplate Glenoid W/P2 Coating Rsp Ti 30mm - [id number] Implanted:Qty: 1 on 09/07/2024 by Jason Chappell MD at [facility] Left: Shoulder [employer]-[id number] 07/28/2030 508-32-2 / [id number] Screw Bone Locking Rsp Ti 5mm X 26mm - [id number] Implanted:Qty: 1 on 09/07/2024 by Jason Chappell MD at [facility] Left: Shoulder [employer]-[id number] 08/07/2030 506-03-4C2445 Screw Bone Locking Rsp Ti 5mm X 18mm - [id number] Implanted:Qty: 1 on 09/07/2024 by Jason Chappell MD at [facility] Left: Shoulder [employer]-[id number] 08/06/2030 506-03-1 2C2377 Screw Bone Locking Rsp Ti 5mm X 30mm - [id number] Implanted:Qty: 1 on 09/07/2024 by Jason Chappell MD at [facility] Left: Shoulder [employer]-[id number] 05/28/2030 50603-1 5C2309 Screw Bone Locking Rsp Ti 5mm X 22mm - [id number] Implanted:Qty: 1 on 09/07/2024 by Jason Chappell MD at [facility] Left: Shoulder [employer]-[id number] 03/18/2030 50603-1 3C2203 Baseplate Glenoid W/P2 Coating Rsp Ti 30mm - [id number] Implanted:Qty: 1 on 06/28/2025 by Jason Chappell MD at [facility] Left: Shoulder [employer] -[id number] 04/01/2031 508-32-2 [id number] Head Glenoid W/Retaining Screw Rsp Ti 32mm/Std - [id number] Implanted:Qty: 1 on 06/28/2025 by Jason Chappell MD at [facility] Left: Shoulder [employer] LP-[id number] 12/10/2030 508-32-1 2C4826 Screw Bone Locking Rsp Ti 5mm X 30mm - [id number] Implanted:Qty: 2 on 06/28/2025 by Jason Chappell MD at [facility] Left: Shoulder [employer] LP-[id number] 09/18/2030 506-03-1 5C2364 Screw Bone Locking Rsp Ti 5mm X 26mm - [id number] Implanted:Qty: 1 on 06/28/2025 by Jason Chappell MD at [facility] Left: Shoulder [employer] LP-[id number] 03/15/2031 506-03-1 4C2547 Poly Small Socket Eplus 32mm Semicontraint Std - [id number] Implanted:Qty: 1 on 06/28/2025 by Jason Chappell MD at [facility] Left: Shoulder [employer] LP-[id number] 08/11/2028 509-03-0 32 / / [id number] Explanted Type Area Account Collector Device Identifier Shelf Expiration Date Model / Serial / Lot Screw Bone Locking Rsp Ti 5mm X 26mm - [id number] Explanted:Qty : 1 on 01/16/2024 by Jason Chappell MD at [facility] Screw Left: Shoulder [employer]-[id number] 10/18/2029 506-03-126 / / [id number] Procedures Procedure Name Priority Date/Time Associated Diagnosis Comments XR SHOULDER LEFT 2+ VIEWS Routine 07/13/2025 12:44 PM EDT S/P reverse total shoulder arthroplasty, left XR SHOULDER LEFT 2+ VIEWS Routine 06/28/2025 [...] shoulder arthroplasty, left ANAEROBIC CULTURE Routine 06/28/2025 8: 54 AM EDT S/P reverse total shoulder arthroplasty, left PB ANESTHESIA PLACEHOLDER Routine 06/28/2025 8:22 AM EDT ND AN ELECTIVE ENDOTRACHEAL AIRWAY Routine 06/28/2025 8:22 AM EDT ANESTHESIA PERIPHERAL BLOCK Routine 06/28/2025 8:05 AM EDT ND APM SHOULDER ARTHRPLSTY HUMERAL/GLENOID COMPNT 06/28/2025 8:01 AM EDT S/P reverse total shoulder arthroplasty, left from Last 3 Months Results * XR Shoulder Left 2+ Views (07/13/2025 12:44 PM EDT) Only the most recent of2 resultswithin the time period is included. Anatomical Region Laterality Modality Upper Extremities, Shoulder [...] MD IMG XR PROCEDURES Final Resu lt * Surgical Pathology Exam (06/28/2025 10:24 AM EDT) Case Report Surgical Pathology Case: [id number] Authorizing Provider: Jason Chappell MD Collected: 06/28/2025 1024 Ordering Location: [facility] Operating Room Received: 06/28/2025 1131 Pathologist: Macey Cote MD Specimen: Shoulder, Left, left shoulder explanted hardware 07/09/2025 3:57 PM EDT [facility] Final Diagnosis A. MEDICAL HARDWARE; EXPLANTATION FROM LEFT SHOULDER: - MEDICAL HARDWARE; GROSS ONLY ASSESSMENT. 07/09/2025 3:57 PM EDT [facility] at 1557 EDT Clinical Information S/P reverse total shoulder arthroplasty, 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] 07/09/2025 3:57 PM EDT [facility] Gross Description A. LEFT SHOULDER EXPLANTED HARDWARE Received fresh labeled left shoulder explanted hardware is a silver-colored, metal humeral head measuring 3.0 cm in diameter and 2.5 cm in height. Inscriptions include: DJO 032mm, Danny CcCr, [id number], 508-32-101. A roughened, patton-colored, plastic spacer measuring [...] only. Greta Paula 07/09/2025 3:57 PM EDT [facility] Note: A resident was involved in the service. I attest I examined the relevant preparations for the specimens and confirmed the diagnosis or interpretation. 07/09/2025 3:57 PM EDT [facility] Foreign Body Structure of left shoulder region / Unknown 06/28/2025 10:24 AM EDT 06/28/2025 11:31 AM EDT Comment:Pre-op diagnosis: S/P reverse total shoulder arthroplasty, 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] Jason Chappell MD LAB PATHOLOGY ORDERABLES Fin al Result Performing Organization Address City/[facility] Co de Phone Number [facility] [address] [place] [address] * Fungal Culture, Tissue and MONSERRAT (06/28/2025 9:51 AM EDT) Only the most recent of2 resultswithin the time period is included. Culture Reading Mycological 4 Weeks No Fungal Growth at 4 Weeks 07/26/2025 7:08 AM EDT [facility] MONSERRAT No fungal elements seen 07/26/2025 7:08 AM EDT [facility] Tissue Structure of left shoulder region / Unknown 06/28/2025 9:51 AM EDT 06/28/2025 11:08 AM EDT Comment:Pre-op diagnosis: S/P reverse total shoulder arthroplasty, 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] Jason Cahppell MD LAB MICROBIOLOGY - GENERAL O RDERABLES Final Result Performing Organization Address City/[facility]/ZIP Co de Phone Number [facility] [address] [place] [address] * AFB Culture, Non Respiratory Source and Acid Fast Stain (06/28/2025 9:51 AM EDT) Only the most recent of2 resultswithin the time period is included. AFB Culture No Mycobacterial Growth at 6 Weeks 08/10/2025 3:16 PM EDT [facility] Acid Fast Stain No acid fast bacilli seen 08/10/2025 3:16 PM EDT [facility] Tissue Structure of left shoulder region / Unknown 06/28/2025 9:51 AM EDT 06/28/2025 11:08 AM EDT Comment:Pre-op diagnosis: S/P reverse total shoulder arthroplasty, 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] Jason Chappell MD LAB MICROBIOLOGY - GENERAL O RDERABLES Final Result Performing Organization Address City/[facility]/ZIP Co de Phone Number [facility] [address] [place] [address] * Tissue Culture and Gram Stain (06/28/2025 9:51 AM EDT) Only the most recent of2 resultswithin the time period is included. Culture No growth at day 4 2024 6:11 AM EDT [facility] Gram Stain Result Few Polymorphonuclear leukocytes 07/03/2025 6:11 AM EDT [facility] Gram Stain Result No organisms seen 07/03/2025 6:11 AM EDT [facility] Tissue Structure of left shoulder region / Unknown 06/28/2025 9:51 AM EDT 06/28/2025 11:08 AM EDT Comment:Pre-op diagnosis: S/P reverse total shoulder arthroplasty, 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] Jason Chappell MD LAB MICROBIOLOGY - GENERAL O RDERABLES Final Result Performing Organization Address City/[facility]/ZIP Co de Phone Number [facility] [address] [place] [address] * (ABNORMAL) Anaerobic Culture (06/28/2025 9:51 AM EDT) Only the most recent of2 resultswithin the time period is included. Culture No anaerobes isolated 07/03/2025 7:25 AM EDT [facility] Culture Isolated from broth only: Staphylococcus epidermidis(A) 07/03/2025 7:25 AM EDT [facility] Comment: This isolate has been identified using the FDA Approved [employer] System The organism value for this [...] Staphylococcus epidermidis Vancomycin MARYLOU 1 ug/ml: Susceptible us Jason Chappell MD LAB MICROBIOLOGY - GENERAL O RDERABLES Final Result [facility] [address] [place] [address] * ND AN ELECTIVE ENDOTRACHEAL AIRWAY, PB ANESTHESIA PLACEHOLDER (06/28/2025 8:22 AM EDT) Narrative Jason Dominguez CRNA, DNP - 06/28/2025 8:22 AM EDT Jason Dominguez CRNA, DNP 06/28/2025 8:31 AM Airway Date/Time: 06/28/2025 8:22 AM Reason: elective Airway not difficult General Information and Staff Patient location during procedure: OR PILOT CAN ROUTER: Jason Dominguez CRNA, DNP Performed: TONIO Patient [...] monitoring: continuous pulse ox, heart rate and hall monitor Anesthesia block type: interscalene. Laterality: left [...] rate change: no Slow fractionated injection: yes Kevin Anderson DO ANESTHESIA ORDERABLES Final Result from Last 3 Months Insurance MEDICARE Care Teams Wind Operations Manager Relationship Specialty Start Date End Date Azeem Champion MD [address] [place] [address] PCP - General 03/24/21
--- OUTSIDE RECORDS SUMMARY | 2025-08-26 12:13 | XMS_ITS | Encounter Summary ---
Author Organization [facility] Address [address] [place] [address] Care Team Providers Care Geothermal Operations Engineer Name Role Phone Azeem Champion MD Primary Care Provider [phone] Reason for Visit * Reason Onset Date Comments HCN - Patient Message 07/14/2025 Encounter Details Date Type Department Care Team (Late st Contact Info) Description 07/14/2025 Telephone [facility] Orthopaedic Surgery & Sports Medicine [address] [place] [address] Jason Chappell MD [address] [place] [address] HCN - Patient Message Social History Tobacco Use Types Packs/Day Years [...] on file documented as of this encounter Miscellaneous Notes * Telephone Encounter - Stephanie Giordano - 07/14/2025 9:45 AM EDT Faxed OT order to [facility] * Telephone Encounter - Azeem Bolanos - 07/14/2025 8:14 AM EDT Clinical Concern/Question Reason for Call: Marci harvey/ [facility] PT is asking to get patients PT order switched to OT and faxed to her at Best contact number: Other: Optimal time of day to reach caller: ANYTIME Additional comments/information from caller: None Note: Please do not reply to this message. Follow-up communication and further actions as a result of this message need to be communicated with the patient directly, if the patient is not active onMyChart. If the patient is active on MyChart, they will receive notification of the communication/outcome via [employer]. documented in this encounter Plan of Treatment [...] documented as of this encounter Care Teams Geothermal Operations Engineer Relationship Specialty Start Date End Date Azeem Champion MD [address] [place] [address] PCP - General 03/24/21 documented as of this encounter
--- OUTSIDE RECORDS SUMMARY | 2025-08-26 12:13 | XMS_ITS | Encounter Summary ---
Author Organization [facility] Address [address] [place] [address] Care Team Providers Care Bunch Trimmer Mold Name Role Phone Azeem Champion MD Primary Care Provider [phone] Encounter Details Date Type Department Care Team (Latest Contact Info) Description 06/28/2025 Travel Social History Tobacco Use Types Packs/Day [...] Wish to be (Past 1 Month) No 6:57 AM JAMEST Isatu He RN 2. Non-Specific Active Suici ericka Thoughts (Past 1 Month) No 06/28/2025 6:57 AM EDT Blanca He RN 6. Suicidal Behavior (Lifetime) No 6:57 AM JAMEST Isatu He RN documented as of this encounter Plan of [...] documented as of this encounter Care Teams Bunch Trimmer Mold Relationship Specialty Start Date End Date Azeem Champion MD [address] [place] [address] PCP - General 03/24/21 documented as of this encounter
[2025-08-27 07:16] LABS: Hepatitis B Surface Antigen Negative (Negative)
== END 2025-08-25 23:59 | disposition home or self-care (01) ==
LOC: LAB.DROPOF 08-26 12:11
PROVIDERS: PCP Nurse Practitioner Family; Visit Provider Nurse Practitioner Family
DX: R11.0 Nausea (principal); E66.3 Overweight; R60.0 Localized edema; Z12.5 Encounter for screening for malignant neoplasm of prostate; R53.83 Other fatigue; Z11.59 Encounter for screening for other viral diseases; Z79.899 Other long term (current) drug therapy
CPT/HCPCS: 80053; 80061; 84443; 85025; 86803; 87340; 87389; G0103